=== PATIENT | male | born 1950 | race Caucasian/White ===

== ENCOUNTER → 2017-01-23 | Outpatient (CLI) | payer MEDICARE, OTHER ==
[2017-01-23 16:56] LABS: Blood Urea Nitrogen 16 mg/dL (9-20); Non-African American GFR(MDRD) >60 (>60 ml/min/1.73 sqM)
--- NOTE | 2017-01-23 19:54 | CT ---
EXAMINATION TYPE: CT abdomen pelvis w con DATE OF EXAM: 01/23/2017 COMPARISON: 05/15/2015 HISTORY: Umbilical pain incisional hernia CT DLP: 1776.9 mGycm Automated exposure control for dose reduction was used. TECHNIQUE: Helical acquisition of images was performed from the lung bases through the pelvis. CONTRAST: Performed with Oral Contrast and with IV Contrast, patient injected with 100 mL of Omnipaque 300. FINDINGS: Lung bases are clear of consolidation. There is no pleural effusion. Heart size is normal. There are clips from cholecystectomy. Exam is limited by motion. Liver shows no focal defect. Spleen and pancreas appear normal. There is no adrenal mass. Kidneys show satisfactory contrast opacificatio n. There is no hydronephrosis. There is no retroperitoneal adenopathy. There is no ascites. The right kidney is larger than the left. There is probably mild left renal cortical atrophy. There is a 8 mm cyst in the right kidney. The bladder is almost empty. There are spondylotic changes in the lumbar sp ine. I see no focal bone destruction. IMPRESSION: LEFT KIDNEY IS SMALLER THAN THE RIGHT AND CONSISTENT WITH SOME MILD ATROPHY. THIS IS UNCHANGED COMPAR ED TO OLD EXAM. THERE IS CLEARING OF THE INFLAMMATORY CHANGES IN THE SIGMOID COLON COMPARED TO OLD EX AM. There is some bulging of the anterior mid abdominal wall consistent with previous surgery and a b road-based mild incisional hernia. This appears not significantly different than old CT scan.
== END | disposition home or self-care (01) ==
LOC: RADCTMAIN 16:23
PROVIDERS: ATTEND Surgery
DX: K43.2 Incisional hernia without obstruction or gangrene (principal); N26.1 Atrophy of kidney (terminal); K52.9 Noninfective gastroenteritis and colitis, unspecified
CPT/HCPCS: 82565; 84520; 74177; 36415; Q9967

== ENCOUNTER → 2017-02-22 | Outpatient (CLI) | payer MEDICARE, OTHER ==
--- NOTE | 2017-02-23 14:06 | FL ---
EXAMINATION TYPE: FL sialography DATE OF EXAM: 02/22/2017 COMPARISON: NONE HISTORY: Right-sided swelling and facial pain for 4 months. TECHNIQUE: Fluoroscopic assisted right sided parotid sialogram. A total of 48 seconds of fluoroscopic time was utilized during procedure. 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 Cavitary fillings of bilateral maxi llary molar tooth are seen. There is absent right first molar tooth noted at mandibular level. No sissy picious soft tissue swelling is noted. A 30-gauge catheter is instilled into parotid duct orifice at maxillary molar tooth level using steri le technique. There is successful contrast opacification of Stensen duct without significant or suspi cious stenosis or filling defect on images saved. Multiple small branching ducts are felt within norm al limits. IMPRESSION: As above, no suspicious abnormality identified.
== END | disposition home or self-care (01) ==
LOC: RADFLMAIN 12:49
PROVIDERS: ATTEND Family Medicine
DX: R22.0 Localized swelling, mass and lump, head (principal)
CPT/HCPCS: 70390; Q9966

== ENCOUNTER → 2017-09-16 | Outpatient (CLI) | payer MEDICARE, OTHER ==
--- NOTE | 2017-09-16 22:57 | MR ---
EXAMINATION TYPE: MR neck wo con DATE OF EXAM: 09/16/2017 COMPARISON: Fluoroscopic assisted sialogram February 22, 2017 HISTORY: History of prostate cancer 2016 with right-sided facial swelling for one year. Standard multiplanar, multisequence MRI departmental protocol Multiplanar, multisequence images of the neck were acquired. FINDINGS: There is slight asymmetric prominence of the right parotid gland versus opposite left side without obvious mass or significant surrounding fat stranding or granular edema. Submandibular glands are symmetric and felt within normal limits. Visualized airway is grossly patent. Visualized lung apices are grossly clear. A few tiny nodules are seen in the upper aspect of the thyroid gland measuring under 5 mm in size. There is no suspicious greater than 1 cm neck adenopathy identified bilaterally. No worrisome fluid c ollection is seen. Visualized portion of brain parenchyma is grossly unremarkable. IMPRESSION: Slight asymmetric prominence or enlargement of right parotid gland without evidence of inflammatory c hange or suspicious mass.
== END ==
LOC: RADMRIMAIN 11:35
PROVIDERS: ATTEND Otolaryngology Plastic Surgery within the Head & Neck
DX: K11.1 Hypertrophy of salivary gland (principal)
CPT/HCPCS: 70540

== ENCOUNTER → 2018-04-03 | Outpatient (CLI) | payer MEDICARE ==
--- NOTE | 2018-04-03 09:42 | CT ---
EXAMINATION TYPE: CT chest wo con DATE OF EXAM: 04/03/2018 COMPARISON: Most recent chest x-ray at this institution August 04, 2015 HISTORY: Abnormal CXR CT DLP: 520.8 mGycm. Automated Exposure Control for Dose Reduction was Utilized. TECHNIQUE: CT scan of the thorax is performed without IV contrast. FINDINGS: LUNGS: There is suspicious 8 x 6 mm nodule anteriorly left upper lobe axial image 14. There is some l inear scarring and/or atelectasis in the left midlung axial image 28. No pleural effusion or pneumoth orax is present bilaterally. There is no pleural effusion or pneumothorax seen. The tracheobronchia l tree is patent. MEDIASTINUM: Lack of IV contrast is noted to limit evaluation for mediastinal and especially hilar ad enopathy. There is slightly enlarged hyperdense 1.3 x 1.2 cm prevascular lymph node axial image 19. No cardiomegaly or pericardial effusion is seen. Prominence of the intra-arterial fat is noted axial image 32 consistent with lipomatous hypertrophy of the interarterial septum. Focal mild to moderate coronary artery calcification proximal LAD axial image 27 is noted. Ascending aorta measures up to 4. 1 cm in diameter axial image 24 OTHER: Cholecystectomy clips are seen. Mild splenomegaly is present measuring 14.0 cm long axis coron al image 71. Liver is diffusely hypodense consistent with fatty infiltration. There are 2 calculi beatriz suring 2 mm or smaller upper pole right kidney coronal image 70 there is moderate to severe multileve l anterior and lateral spurring in the mid to lower thoracic spine with dextroconvex scoliotic curvat ure centered in the mid thoracic spine. IMPRESSION: 1. Suspicious 8 x 6 mm anterior left upper lobe nodule and slightly enlarged prevascular lymph node. Neoplasm cannot be excluded. Advise PET CT follow-up. 2. Incidental 4.1 cm aneurysm of ascending aorta.
== END | disposition home or self-care (01) ==
LOC: RADCTMAIN 08:49
PROVIDERS: ATTEND Family Medicine
DX: R91.1 Solitary pulmonary nodule (principal); R59.0 Localized enlarged lymph nodes
CPT/HCPCS: 71250

== ENCOUNTER → 2018-06-09 | Outpatient (CLI) | payer MEDICARE ==
--- NOTE | 2018-06-12 17:28 | PE ---
Nuclear medicine PET/CT HISTORY: Solitary pulmonary nodule left lung, initial Patient received 11.7 mCi F-18 FDG intravenously in delayed scanning was performed from the skull bas e through the mid thighs. Localization and attenuation correction CT scan was performed. Correlation to chest CT 04/03/2018 Neck and chest: There is no cervical adenopathy, no supraclavicular mass. No mediastinal, axillary, o r hilar adenopathy. Ascending aorta is aneurysmal. Measures approximately 4.4 cm in the ascending por tion and 3.1 cm in the descending aorta, the heart is enlarged. There are coronary artery calcificati ons. No endobronchial lesion, pleural or pericardial effusion. Left upper lobe lung nodule measures only approximately 9 mm, there is no associated hypermetabolic u ptake. Abdomen pelvis: No adrenal mass. Patient is post cholecystectomy. The spleen is enlarged. Liver shows low attenuation possibly due to hepatic steatosis. Liver is enlarged. Nonobstructive calculi present within the bilateral kidneys. No retroperitoneal adenopathy or ascites. Postop changes are noted to the anterior abdominal wall. Pancreas is normal. No suspicious hypermetabolic uptake. Extensive diver ticular change noted in the sigmoid colon. Question prostatectomy change. There is a hiatal hernia. Osseous structures are unremarkable. IMPRESSION: No suspicious hypermetabolic uptake. Additional findings above.
== END | disposition home or self-care (01) ==
LOC: RADPETMAIN 07:27
PROVIDERS: ATTEND Internal Medicine Critical Care Medicine
DX: R91.1 Solitary pulmonary nodule (principal); E11.9 Type 2 diabetes mellitus without complications; I25.10 Atherosclerotic heart disease of native coronary artery without angina pectoris; N20.0 Calculus of kidney; K44.9 Diaphragmatic hernia without obstruction or gangrene; I71.2 Thoracic aortic aneurysm, without rupture; Z90.49 Acquired absence of other specified parts of digestive tract; Z92.3 Personal history of irradiation
CPT/HCPCS: 78815; A9552

== ENCOUNTER 2018-11-01 21:25 | Emergency (ER) | payer MEDICARE ==
[2018-11-01 21:47] VITALS: BP 167/85; RESP 20
[2018-11-01] MEDS ORDERED: ACETAMINOPHEN TAB 500 MG TAB PO STA (22:28)
[2018-11-01] MEDS ORDERED: IPRATROPIUM-ALBUTEROL 3 ML NEB INHALATION STA (22:29)
--- NOTE | 2018-11-01 22:33 | ED ---
General Adult HPI - General Chief complaint: Upper Respiratory Infection Stated complaint: Cough Time Seen by Provider: 11/01/18 21:48 Source: patient, RN notes reviewed Mode of arrival: ambulatory Limitations: no limitations - History of Present Illness Initial comments: Patient is a pleasant 68-year-old male presenting to the emergency Department with complaints of cough. Onset of symptoms was close to 1 week ago. Symptoms have progressed. Cough is dry nonproductive. Patient is feeling a little short of breath. Patient's did have similar symptoms and was diagnosed with pneumonia around 1 week ago. Patient did see his doctor 2 days ago and was started on clindamycin however no improvement of symptoms. No chest pain. No leg pain or leg swelling. Patient has subjective fevers at nighttime. - Related Data Home Medications Medication Instructions Recorded Confirmed DULoxetine HCL [Cymbalta] 60 mg PO BID 01/14/15 11/01/18 glipiZIDE [Glucotrol] 10 mg PO AC-BID 01/14/15 11/01/18 sitaGLIPtin [Januvia] 100 mg PO DAILY 01/14/15 11/01/18 Bimatoprost [Lumigan .01% Ophth 1 drop BOTH EYES HS 01/15/15 11/01/18 Soln] Potassium Citrate [Urocit-K] 10 meq PO BID 07/13/15 11/01/18 Clindamycin HCl 300 mg PO TID 11/01/18 11/01/18 Insulin NPH Human Isophane 12 unit SQ HS 11/01/18 11/01/18 [NovoLIN N] Insulin NPH Human Isophane 25 units SQ QAM 11/01/18 11/01/18 [NovoLIN N] Insulin Regular, Human [NovoLIN R] 10 unit SQ BID 11/01/18 11/01/18 Timolol 0.5% Ophth Soln [Timoptic 1 drop BOTH EYES BID 11/01/18 11/01/18 0.5% Ophth Soln] guaiFENesin-Coden 100-10MG/5ML 5 ml PO Q4H PRN 11/01/18 11/01/18 [Robitussin AC] Previous Rx's Medication Instructions Recorded Albuterol Inhaler [Ventolin Hfa 2 puff INHALATION Q4HR PRN #1 11/01/18 Inhaler] inhaler methylPREDNISolone Dose Pack 24 mg PO DAILY #1 tab 11/01/18 [Medrol Dose Pack] Allergies Allergy/AdvReac Type Severity Reaction Status Date / Time Iodinated Contrast- Oral and Allergy Nausea & Verified 11/01/18 22:03 IV Dye Vomiting Penicillins Allergy Swelling Verified 11/01/18 22:03 propoxyphene napsylate Allergy Rash/Hives Verified 11/01/18 22:03 [From Darvocet-N] iohexol AdvReac Nausea & Verified 11/01/18 22:03 Vomiting Review of Systems ROS Statement: Those systems with pertinent positive or pertinent negative responses have been documented in the HPI. ROS Other: All systems not noted in ROS Statement are negative. Constitutional: Reports: as per HPI Eyes: Denies: eye pain ENT: Denies: ear pain Respiratory: Reports: cough, dyspnea Cardiovascular: Denies: chest pain, palpitations Endocrine: Reports: fatigue Gastrointestinal: Denies: abdominal pain Genitourinary: Denies: dysuria Musculoskeletal: Denies: back pain Skin: Denies: rash Neurological: Denies: weakness Past Medical History Past Medical History: Cancer, Diabetes Mellitus, Eye Disorder, Hyperlipidemia, Hypertension, Osteoarthritis (OA), Prostate Disorder Additional Past Medical History / Comment(s): Kidney Stones; glaucoma; diverticulitis. Past hx of HTN. Prostate Cancer 07/2015, SURGERY, RADIATON. INCISIONAL HERNIA. History of Any Multi-Drug Resistant Organisms: None Reported Past Surgical History: Cholecystectomy, Hernia Repair, Prostate Surgery Additional Past Surgical History / Comment(s): Multiple Lithotripsies , Left Cataract removal. finger surgery. Hernia repair w/ mesh; UMBILICAL HERNIA. Cyst removed from tailbone. Past Anesthesia/Blood Transfusion Reactions: No Reported Reaction Past Psychological History: Anxiety, Depression Smoking Status: Former smoker Past Alcohol Use History: None Reported Past Drug Use History: None Reported - Past Family History Brother(s) Family Medical History: Cancer Additional Family Medical History / Comment(s): Skin cancer Father Family Medical History: Cancer Additional Family Medical History / Comment(s): Skin cancer Mother Family Medical History: Cancer Additional Family Medical History / Comment(s): Skin cancer. General Exam Limitations: no limitations General appearance: alert, in no apparent distress Head exam: Present: atraumatic Eye exam: Present: normal appearance, PERRL ENT exam: Present: normal oropharynx Neck exam: Present: normal inspection Respiratory exam: Present: rhonchi Cardiovascular Exam: Present: regular rate, normal rhythm GI/Abdominal exam: Present: soft. Absent: tenderness Extremities exam: Present: normal inspection. Absent: pedal edema, calf tenderness Back exam: Present: normal inspection Neurological exam: Present: alert Psychiatric exam: Present: normal affect, normal mood Skin exam: Present: normal color Course Vital Signs 11/01/18 11/01/18 11/01/18 21:43 23:11 23:21 Temperature 99.7 F H Pulse Rate 88 81 84 Respiratory 20 Rate Blood Pressure 167/85 O2 Sat by Pulse 97 Oximetry EKG Findings - EKG Comments: EKG Findings:: Sinus rhythm at 82. [place] 154. QRS 86. QT 376. QTc 439. Normal axis. Madelin; QRS. No acute ST change. Medical Decision Making - Medical Decision Making Patient reevaluated and resting comfortably in bed, patient does feel somewhat improved. Patient and family updated on results and need for follow-up. - Lab Data Result diagrams: 11/01/18 22:14 11/01/18 22:14 Lab Results 11/01/18 11/01/18 11/01/18 Range/Units 22:14 22:14 22:14 WBC 5.3 (3.8-10.6) k/uL RBC 4.91 (4.30-5.90) m/uL Hgb 13.9 (13.0-17.5) gm/dL Hct 41.8 (39.0-53.0) % MCV 85.1 (80.0-100.0) fL MCH 28.4 (25.0-35.0) pg MCHC 33.4 (31.0-37.0) g/dL RDW 15.5 (11.5-15.5) % Plt Count 154 (150-450) k/uL Neutrophils % 67 % Lymphocytes % 19 % Monocytes % 4 % Eosinophils % 8 % Basophils % 1 % Neutrophils # 3.5 (1.3-7.7) k/uL Lymphocytes # 1.0 (1.0-4.8) k/uL Monocytes # 0.2 (0-1.0) k/uL Eosinophils # 0.4 (0-0.7) k/uL Basophils # 0.0 (0-0.2) k/uL PT 10.1 (9.0-12.0) sec INR 0.9 (<1.2) APTT 24.3 (22.0-30.0) sec D-Dimer 0.55 (<0.60) mg/L FEU Sodium 137 (137-145) mmol/L Potassium 4.5 (3.5-5.1) mmol/L Chloride 102 (98-107) mmol/L Carbon Dioxide 26 (22-30) mmol/L Anion Gap 9 mmol/L BUN 16 (9-20) mg/dL Creatinine 1.06 (0.66-1.25) mg/dL Est GFR (CKD-EPI)AfAm 84 (>60 ml/min/1.73 sqM) Est GFR (CKD-EPI)NonAf 73 (>60 ml/min/1.73 sqM) Glucose 303 H (74-99) mg/dL Calcium 9.3 (8.4-10.2) mg/dL Total Bilirubin 0.6 (0.2-1.3) mg/dL AST 53 (17-59) U/L ALT 29 (21-72) U/L Alkaline Phosphatase 108 (38-126) U/L NT-Pro-B Natriuret Pep pg/mL Total Protein 7.2 (6.3-8.2) g/dL Albumin 4.2 (3.5-5.0) g/dL /11/14 Range/Units 22:14 WBC (3.8-10.6) k/uL RBC (4.30-5.90) m/uL Hgb (13.0-17.5) gm/dL Hct (39.0-53.0) % MCV (80.0-100.0) fL MCH (25.0-35.0) pg MCHC (31.0-37.0) g/dL RDW (11.5-15.5) % Plt Count (150-450) k/uL Neutrophils % % Lymphocytes % % Monocytes % % Eosinophils % % Basophils % % Neutrophils # (1.3-7.7) k/uL Lymphocytes # (1.0-4.8) k/uL Monocytes # (0-1.0) k/uL Eosinophils # (0-0.7) k/uL Basophils # (0-0.2) k/uL PT (9.0-12.0) sec INR (<1.2) APTT (22.0-30.0) sec D-Dimer (<0.60) mg/L FEU Sodium (137-145) mmol/L Potassium (3.5-5.1) mmol/L Chloride (98-107) mmol/L Carbon Dioxide (22-30) mmol/L Anion Gap mmol/L BUN (9-20) mg/dL Creatinine (0.66-1.25) mg/dL Est GFR (CKD-EPI)AfAm (>60 ml/min/1.73 sqM) Est GFR (CKD-EPI)NonAf (>60 ml/min/1.73 sqM) Glucose (74-99) mg/dL Calcium (8.4-10.2) mg/dL Total Bilirubin (0.2-1.3) mg/dL AST (17-59) U/L ALT (21-72) U/L Alkaline Phosphatase (38-126) U/L NT-Pro-B Natriuret Pep 88 pg/mL Total Protein (6.3-8.2) g/dL Albumin (3.5-5.0) g/dL - Radiology Data Radiology results: image reviewed (Chest x-ray shows no acute process) Disposition Clinical Impression: Bronchitis Disposition: HOME SELF-CARE Condition: Stable Additional Instructions: Please do follow-up with primary care physician in the next couple days for recheck. Return for difficulty in breathing, uncontrolled fevers, worsening symptoms or chest pain or other concerns. Prescriptions: methylPREDNISolone Dose Pack [Medrol Dose Pack] 24 mg PO DAILY #1 tab Albuterol Inhaler [Ventolin Hfa Inhaler] 2 puff INHALATION Q4HR PRN #1 inhaler PRN Reason: Dyspnea Is patient prescribed a controlled substance at d/c from ED?: No Referrals: Jim Mckinnon MD [Primary Care Provider] - 1-2 days Time of Disposition: 23:38
[2018-11-01 22:52] LABS: Basophils % (A) 1 %; Eosinophils # (A) 0.4 k/uL (0-0.7); Eosinophils % (A) 8 %; HCT 41.8 % (39.0-53.0); HGB 13.9 gm/dL (13.0-17.5); Lymphocytes % (A) 19 %; MCH 28.4 pg (25.0-35.0); MCHC 33.4 g/dL (31.0-37.0); MCV 85.1 fL (80.0-100.0); Mean Platelet Volume 8.2; Monocytes # (A) 0.2 k/uL (0-1.0); Monocytes % (A) 4 %; Neutrophils # (A) 3.5 k/uL (1.3-7.7); Neutrophils % (A) 67 %; Platelet Count 154 k/uL (150-450); RBC 4.91 m/uL (4.30-5.90); RDW 15.5 % (11.5-15.5); WBC 5.3 k/uL (3.8-10.6)
[2018-11-01 23:04] LABS: D-Dimer 0.55 mg/L FEU (<0.60); INR 0.9 (<1.2); Partial Thromboplastin Time 24.3 sec (22.0-30.0); Prothrombin Time 10.1 sec (9.0-12.0)
[2018-11-01 23:05] LABS: Albumin 4.2 g/dL (3.5-5.0); Calcium 9.3 mg/dL (8.4-10.2); Potassium 4.5 mmol/L (3.5-5.1); Total Bilirubin 0.6 mg/dL (0.2-1.3); Total Protein 7.2 g/dL (6.3-8.2)
--- NOTE | 2018-11-01 23:08 | XR ---
EXAM: XR Chest, 2 Views CLINICAL HISTORY: ITS.REASON XR Reason: difficulty breathing TECHNIQUE: Frontal and lateral views of the chest. COMPARISON: Chest radiograph on 08/04/2015 FINDINGS: Hardware: None. Lungs/pleura: Mild atelectasis in the left mid and lower lung. No focal consolidation. No pleural effusion or pneumothorax. Stable mild elevation of the right hemidiaphragm. Heart/mediastinum: Normal. No cardiomegaly. Soft tissues: Unremarkable. Bones: No acute fracture. Degenerative changes of the spine. Upper abdomen: Normal. IMPRESSION: No acute disease identified. Mild atelectasis in the left mid and lower lung.
[2018-11-01 23:22] VITALS: PULSE 84
[2018-11-01 23:41] LABS: Glucose,Whole Blood 211 mg/dL (75-99)
[2018-11-01] MEDS ORDERED: methylPREDNISolone SOD SUCCI 125 MG/2 ML VIAL IV STA (23:43)
[2018-11-02] VITALS: TEMP 98.4
== END 2018-11-01 23:56 | disposition home or self-care (01) ==
LOC: EC 21:25
DX: J40 Bronchitis, not specified as acute or chronic (principal); E11.9 Type 2 diabetes mellitus without complications; H40.9 Unspecified glaucoma; F32.9 Major depressive disorder, single episode, unspecified; F41.9 Anxiety disorder, unspecified; Z87.891 Personal history of nicotine dependence; Z88.0 Allergy status to penicillin; Z88.5 Allergy status to narcotic agent; Z91.041 Radiographic dye allergy status; Z79.4 Long term (current) use of insulin; Z79.899 Other long term (current) drug therapy; Z85.46 Personal history of malignant neoplasm of prostate; Z92.3 Personal history of irradiation; Z98.890 Other specified postprocedural states
CPT/HCPCS: 36415; 94640; 93005; 85379; 83880; 80053; 85025; 85610; 85730; 87040; 71046; 99285; 96374; J2930

== ENCOUNTER → 2018-11-06 | Outpatient (CLI) | payer MEDICARE ==
--- NOTE | 2018-11-06 11:52 | XR ---
KUB HISTORY: Left flank pain, calculus of kidney Frontal KUB submitted and correlated to previous exam 05/04/2015, grade medicine PET/CT 06/09/2018, CT scan of the abdomen dated 01/23/2017 The calcification at the lower pole left kidney measures approximately 1 cm in greatest dimension by 4 to 5 mm in transverse dimension. Questionable punctate calcification at the midpole is not seen on prior PET/CT within the left kidney. The small calcifications within the right kidney seen on prior P ET/CT are obscured by overlying bowel gas on today's exam. There is extensive retained fecal debris w ithin the colon. Phlebolith is present in the right hemipelvis. Surgical clips are present in the rig ht upper quadrant. Degenerative disc change in the visualized spine. IMPRESSION: Left-sided nephrolithiasis and limitations as described.
== END | disposition home or self-care (01) ==
LOC: RADXRMAIN 10:58
PROVIDERS: ATTEND Urology
DX: N20.0 Calculus of kidney (principal); Z88.0 Allergy status to penicillin; Z88.5 Allergy status to narcotic agent
CPT/HCPCS: 74018

== ENCOUNTER 2018-11-14 01:15 | Emergency (ER) | payer MEDICARE ==
[2018-11-14 01:21] VITALS: RESP 18
[2018-11-14] MEDS ORDERED: MORPHINE SULFATE 4 MG/ML SYRINGE IV STA (02:02)
--- NOTE | 2018-11-14 02:05 | ED ---
Male Urogenital HPI - General Chief complaint: Urogenital Stated complaint: Abd Pain Time Seen by Provider: 11/14/18 01:34 Source: patient, EMS Mode of arrival: EMS Limitations: no limitations - History of Present Illness Initial comments: This patient is 68-year-old man presents to be evaluated for what he believes his urinary retention. Patient states that he had a urologic procedure at [facility] today by Dr. Pacheco. He beleaves it was a laser lithotripsy. Patient states that over the course of the last few hours it has felt like he has needed to urinate but he has not been able to. His tried taking the Keystone that was prescribed without relief. MD Complaint: other -: hour(s) Location: abdomen Severity: severe Quality: other (Pressure) Consistency: constant Improves with: none Worsens with: none Reports: urinary retention - Related Data Home Medications Medication Instructions Recorded Confirmed DULoxetine HCL [Cymbalta] 60 mg PO BID 01/14/15 11/01/18 glipiZIDE [Glucotrol] 10 mg PO AC-BID 01/14/15 11/01/18 sitaGLIPtin [Januvia] 100 mg PO DAILY 01/14/15 11/01/18 Bimatoprost [Lumigan .01% Ophth 1 drop BOTH EYES HS 01/15/15 11/01/18 Soln] Potassium Citrate [Urocit-K] 10 meq PO BID 07/13/15 11/01/18 Clindamycin HCl 300 mg PO TID 11/01/18 11/01/18 Insulin NPH Human Isophane 12 unit SQ HS 11/01/18 11/01/18 [NovoLIN N] Insulin NPH Human Isophane 25 units SQ QAM 11/01/18 11/01/18 [NovoLIN N] Insulin Regular, Human [NovoLIN R] 10 unit SQ BID 11/01/18 11/01/18 Timolol 0.5% Ophth Soln [Timoptic 1 drop BOTH EYES BID 11/01/18 11/01/18 0.5% Ophth Soln] guaiFENesin-Coden 100-10MG/5ML 5 ml PO Q4H PRN 11/01/18 11/01/18 [Robitussin AC] Previous Rx's Medication Instructions Recorded Albuterol Inhaler [Ventolin Hfa 2 puff INHALATION Q4HR PRN #1 11/01/18 Inhaler] inhaler methylPREDNISolone Dose Pack 24 mg PO DAILY #1 tab 11/01/18 [Medrol Dose Pack] HYDROcodone/APAP 7.5-325MG [Keystone 1 tab PO Q6HR PRN 3 Days #12 tab 11/14/18 7.5-325] Hyoscyamine Sulfate [Levsin] 0.125 mg PO Q4H PRN #16 tab 11/14/18 Allergies Allergy/AdvReac Type Severity Reaction Status Date / Time Iodinated Contrast- Oral and Allergy Nausea & Verified 11/01/18 22:03 IV Dye Vomiting Penicillins Allergy Swelling Verified 11/01/18 22:03 propoxyphene napsylate Allergy Rash/Hives Verified 11/01/18 22:03 [From Darvocet-N] iohexol AdvReac Nausea & Verified 11/01/18 22:03 Vomiting Review of Systems ROS Statement: Those systems with pertinent positive or pertinent negative responses have been documented in the HPI. ROS Other: All systems not noted in ROS Statement are negative. Constitutional: Denies: fever, chills Respiratory: Denies: cough, dyspnea Cardiovascular: Denies: chest pain, palpitations Gastrointestinal: Reports: abdominal pain. Denies: nausea, vomiting, diarrhea, constipation Genitourinary: Denies: dysuria, discharge, testicular pain, testicular mass Musculoskeletal: Denies: back pain Skin: Denies: rash Neurological: Denies: headache Past Medical History Past Medical History: Cancer, Diabetes Mellitus, Eye Disorder, Hyperlipidemia, Hypertension, Osteoarthritis (OA), Prostate Disorder Additional Past Medical History / Comment(s): Kidney Stones; glaucoma; diverticulitis. Past hx of HTN. Prostate Cancer 07/2015, SURGERY, RADIATON. INCISIONAL HERNIA. History of Any Multi-Drug Resistant Organisms: None Reported Past Surgical History: Cholecystectomy, Hernia Repair, Prostate Surgery Additional Past Surgical History / Comment(s): Multiple Lithotripsies , Left Cataract removal. finger surgery. Hernia repair w/ mesh; UMBILICAL HERNIA. Cyst removed from tailbone. Past Anesthesia/Blood Transfusion Reactions: No Reported Reaction Past Psychological History: Anxiety, Depression Smoking Status: Former smoker Past Alcohol Use History: None Reported Past Drug Use History: None Reported - Past Family History Brother(s) Family Medical History: Cancer Additional Family Medical History / Comment(s): Skin cancer Father Family Medical History: Cancer Additional Family Medical History / Comment(s): Skin cancer Mother Family Medical History: Cancer Additional Family Medical History / Comment(s): Skin cancer. General Exam Limitations: no limitations General appearance: alert, in no apparent distress Head exam: Present: atraumatic, normocephalic Eye exam: Present: normal appearance. Absent: scleral icterus, conjunctival injection Respiratory exam: Present: normal lung sounds bilaterally. Absent: respiratory distress, wheezes, rales, rhonchi, stridor Cardiovascular Exam: Present: regular rate, normal rhythm, normal heart sounds. Absent: systolic murmur, diastolic murmur, rubs, gallop GI/Abdominal exam: Present: soft. Absent: distended, tenderness, guarding, rebound, rigid, mass Extremities exam: Present: normal inspection, normal capillary refill. Absent: pedal edema, calf tenderness Back exam: Present: normal inspection. Absent: CVA tenderness (R), CVA t enderness (L) Neurological exam: Present: alert Skin exam: Present: warm, dry, intact, normal color. Absent: rash Course Vital Signs 11/14/18 11/14/18 01:17 06:21 Temperature 98.7 F 98.0 F Pulse Rate 90 78 Respiratory 18 18 Rate Blood Pressure 165/94 151/89 O2 Sat by Pulse 96 97 Oximetry Medical Decision Making - Medical Decision Making Case discussed with Dr. Bryan, covering for urology. The patient's symptoms markedly improved. There is no urinary retention by the bladder scan. Patient appears to be within the expected postprocedural outcomes. Discussed further care and follow-up with the patient and partner. They will phone the clinic today - Lab Data Result diagrams: 11/14/18 01:23 11/14/18 01:23 Lab Results 11/14/18 11/14/18 11/14/18 Range/Units 01:23 01:23 02:10 WBC 14.3 H (3.8-10.6) k/uL RBC 5.10 (4.30-5.90) m/uL Hgb 14.3 (13.0-17.5) gm/dL Hct 42.9 (39.0-53.0) % MCV 84.2 (80.0-100.0) fL MCH 28.0 (25.0-35.0) pg MCHC 33.2 (31.0-37.0) g/dL RDW 15.5 (11.5-15.5) % Plt Count 187 (150-450) k/uL Neutrophils % 89 % Lymphocytes % 6 % Monocytes % 3 % Eosinophils % 1 % Basophils % 0 % Neutrophils # 12.8 H (1.3-7.7) k/uL Lymphocytes # 0.9 L (1.0-4.8) k/uL Monocytes # 0.4 (0-1.0) k/uL Eosinophils # 0.1 (0-0.7) k/uL Basophils # 0.1 (0-0.2) k/uL Sodium 134 L (137-145) mmol/L Potassium 5.5 H (3.5-5.1) mmol/L Chloride 98 (98-107) mmol/L Carbon Dioxide 24 (22-30) mmol/L Anion Gap 12 mmol/L BUN 18 (9-20) mg/dL Creatinine 1.16 (0.66-1.25) mg/dL Est GFR (CKD-EPI)AfAm 76 (>60 ml/min/1.73 sqM) Est GFR (CKD-EPI)NonAf 65 (>60 ml/min/1.73 sqM) Glucose 283 H (74-99) mg/dL Calcium 9.2 (8.4-10.2) mg/dL Urine Color Yellow Urine Appearance Clear (Clear) Urine pH 7.5 (5.0-8.0) Ur Specific Herrick 1.011 (1.001-1.035) Urine Protein Trace H (Negative) Urine Glucose (UA) 4+ H (Negative) Urine Ketones 1+ H (Negative) Urine Blood Moderate H (Negative) Urine Nitrite Negative (Negative) Urine Bilirubin Negative (Negative) Urine Urobilinogen <2.0 (<2.0) mg/dL Ur Leukocyte Esterase Negative (Negative) Urine RBC >182 H (0-5) /hpf Urine WBC 9 H (0-5) /hpf Urine Mucus Rare H (None) /hpf Disposition Clinical Impression: Renal colic Disposition: HOME SELF-CARE Condition: Good Instructions (If sedation given, give patient instructions): Renal Colic (ED) Prescriptions: Hyoscyamine Sulfate [Levsin] 0.125 mg PO Q4H PRN #16 tab PRN Reason: Pain HYDROcodone/APAP 7.5-325MG [Keystone 7.5-325] 1 tab PO Q6HR PRN 3 Days #12 tab PRN Reason: Pain Is patient prescribed a controlled substance at d/c from ED?: No Referrals: Jim Mckinnon MD [Primary Care Provider] - 1-2 days
[2018-11-14 02:23] LABS: Basophils # (A) 0.1 k/uL (0-0.2); Basophils % (A) 0 %; Eosinophils # (A) 0.1 k/uL (0-0.7); Eosinophils % (A) 1 %; HCT 42.9 % (39.0-53.0); HGB 14.3 gm/dL (13.0-17.5); Lymphocytes # (A) 0.9 k/uL (1.0-4.8); Lymphocytes % (A) 6 %; MCHC 33.2 g/dL (31.0-37.0); MCV 84.2 fL (80.0-100.0); Monocytes # (A) 0.4 k/uL (0-1.0); Monocytes % (A) 3 %; Neutrophils # (A) 12.8 k/uL (1.3-7.7); Neutrophils % (A) 89 %; Platelet Count 187 k/uL (150-450); RDW 15.5 % (11.5-15.5); WBC 14.3 k/uL (3.8-10.6)
[2018-11-14 02:32] LABS: Calcium 9.2 mg/dL (8.4-10.2)
[2018-11-14 02:33] LABS: Potassium 5.5 mmol/L (3.5-5.1)
[2018-11-14 02:42] LABS: Appearance,Urine Clear (Clear); Bilirubin,Urine Negative (Negative); Blood,Urine Moderate (Negative); Color,Urine Yellow; Glucose,Urine (UA) 4+ (Negative); Ketones,Urine 1+ (Negative); Leukocyte Esterase,Urine Negative (Negative); Mucus,Urine Rare /hpf; Nitrite,Urine Negative (Negative); PH, Urine 7.5 (5.0-8.0); Protein,Urine Trace (Negative); RBC,Urine >182 /hpf (0-5); Specific Gravity,Urine 1.011 (1.001-1.035); Urobilinogen,Urine <2.0 mg/dL (<2.0); WBC,Urine 9 /hpf (0-5)
[2018-11-14] MEDS ORDERED: HYDROmorphone 1 MG/ML 1 ML SYRINGE IVP STA (03:04)
[2018-11-14] MEDS ORDERED: HYDROmorphone 0.5 MG/0.5 ML SYRINGE IVP STA (06:10)
[2018-11-14 06:25] VITALS: BP 151/89; PULSE 78; TEMP 98
== END 2018-11-14 06:36 | disposition home or self-care (01) ==
LOC: EC 01:15
DX: N23 Unspecified renal colic (principal); E11.9 Type 2 diabetes mellitus without complications; F41.9 Anxiety disorder, unspecified; F32.9 Major depressive disorder, single episode, unspecified; Z79.4 Long term (current) use of insulin; Z79.899 Other long term (current) drug therapy; Z88.0 Allergy status to penicillin; Z88.8 Allergy status to other drugs, medicaments and biological substances; Z88.5 Allergy status to narcotic agent; Z91.041 Radiographic dye allergy status; Z85.46 Personal history of malignant neoplasm of prostate; Z90.49 Acquired absence of other specified parts of digestive tract; Z87.891 Personal history of nicotine dependence
CPT/HCPCS: 51798; 36415; 80048; 85025; 81001; 99284; 96374; 96375; 96376; J2270; J1170 ×2

== ENCOUNTER 2020-01-29 08:02 | Inpatient (IN) | payer MEDICARE ==
[2020-01-29] MEDS ORDERED: ASPIRIN 81 MG PO STA (08:22)
[2020-01-29] MEDS ORDERED: NITROGLYCERIN OINT 1 INCH/GM PACKET TOPICAL STA (08:22)
--- NOTE | 2020-01-29 08:27 | ED ---
General Adult HPI - General Chief complaint: Chest Pain Stated complaint: Chest pain Time Seen by Provider: 01/29/20 08:05 Source: patient, RN notes reviewed, old records reviewed Mode of arrival: wheelchair Limitations: no limitations - History of Present Illness Initial comments: This is a 69-year-old male whose past medical history significant for diabetes high blood pressure. Patient also states he has an extensive family history of coronary artery disease. Patient states for the last 3 days been having some right-sided chest pain it does not relieve with any antacids. Patient states his been coming and going but the last day or so it's been a little more consistent. Patient denies any difficulty breathing but he does state it radiates to his back. Patient states he has a aneurysm in the ascending aorta that they're watching he states it's 4 cm. Patient denies any diaphoresis. Patient denies any nausea. Patient denies any swelling to the leg patient denies any calf tenderness. Patient denies abdominal pain. Patient denies any recent fever chills or cough per patient vomiting or diarrhea. Patient denies headache patient denies lightheadedness dizziness. Patient denies any numbness or weakness - Related Data Home Medications Medication Instructions Recorded Confirmed glipiZIDE [Glucotrol] 10 mg PO AC-BID 01/14/15 01/29/20 sitaGLIPtin [Januvia] 100 mg PO DAILY 01/14/15 01/29/20 Potassium Citrate [Urocit-K] 10 meq PO BID 07/13/15 01/29/20 Insulin NPH Human Isophane 10 unit SQ HS 11/01/18 01/29/20 [NovoLIN N] Insulin NPH Human Isophane 25 units SQ QAM 11/01/18 01/29/20 [NovoLIN N] Insulin Regular, Human [NovoLIN R] 10 unit SQ AC-SUPPER 11/01/18 01/29/20 Timolol 0.5% Ophth Soln [Timoptic 1 drop BOTH EYES BID 11/01/18 01/29/20 0.5% Ophth Soln] Insulin Regular, Human [NovoLIN R] 5 unit SQ AC-BID@0800,1200 01/29/20 01/29/20 Latanoprost [Xalatan 0.005%] 1 drop BOTH EYES HS 01/29/20 01/29/20 Venlafaxine HCl ER [Effexor Xr] 75 mg PO DAILY 01/29/20 01/29/20 amLODIPine [Norvasc] 5 mg PO DAILY 01/29/20 01/29/20 Allergies Allergy/AdvReac Type Severity Reaction Status Date / Time Penicillins Allergy Swelling Verified 01/29/20 09:55 propoxyphene napsylate Allergy Rash/Hives Verified 01/29/20 09:55 [From Darvocet-N] Iodinated Contrast Media AdvReac Nausea & Verified 01/29/20 09:55 [Iodinated Contrast- Oral Vomiting and IV Dye] iohexol AdvReac Nausea & Verified 01/29/20 09:55 Vomiting Review of Systems ROS Statement: Those systems with pertinent positive or pertinent negative responses have been documented in the HPI. ROS Other: All systems not noted in ROS Statement are negative. Past Medical History Past Medical History: Cancer, Diabetes Mellitus, Eye Disorder, Hyperlipidemia, Hypertension, Osteoarthritis (OA), Prostate Disorder Additional Past Medical History / Comment(s): Kidney Stones; glaucoma; diverticulitis. Past hx of HTN. Prostate Cancer 07/2015, SURGERY, RADIATON. INCISIONAL HERNIA. History of Any Multi-Drug Resistant Organisms: None Reported Past Surgical History: Cholecystectomy, Hernia Repair, Prostate Surgery Additional Past Surgical History / Comment(s): Multiple Lithotripsies , Left Cataract removal. finger surgery. Hernia repair w/ mesh; UMBILICAL HERNIA. Cyst removed from tailbone. Past Anesthesia/Blood Transfusion Reactions: No Reported Reaction Past Psychological History: Depression Smoking Status: Never smoker Past Alcohol Use History: None Reported Past Drug Use History: None Reported - Past Family History Brother(s) Family Medical History: Cancer Additional Family Medical History / Comment(s): Skin cancer Father Family Medical History: Cancer Additional Family Medical History / Comment(s): Skin cancer Mother Family Medical History: Cancer Additional Family Medical History / Comment(s): Skin cancer. General Exam - General Exam Comments Initial Comments: GENERAL: Patient is well-developed and well-nourished. Patient is nontoxic and well- hydrated and is in mild distress. ENT: Neck is soft and supple. No significant lymphadenopathy is noted. Oropharynx is clear. Moist mucous membranes. Neck has full range of motion without eliciting any pain. EYES: The sclera were anicteric and conjunctiva were pink and moist. Extraocular movements were intact and pupils were equal round and reactive to light. Eyelids were unremarkable. PULMONARY: Unlabored respirations. Good breath sounds bilaterally. No audible rales rhonchi or wheezing was noted. CARDIOVASCULAR: There is a regular rate and rhythm without any murmurs gallops or rubs. ABDOMEN: Soft and nontender with normal bowel sounds. No palpable organomegaly was noted. There is no palpable pulsatile mass. SKIN: Skin is clear with no lesions or rashes and otherwise unremarkable. NEUROLOGIC: Patient is alert and oriented x3. Cranial nerves II through XII are grossly intact. Motor and sensory are also intact. Normal speech, volume and content. Symmetrical smile. MUSCULOSKELETAL: Normal extremities with adequate strength and full range of motion. No lower extremity swelling or edema. No calf tenderness. LYMPHATICS: No significant lymphadenopathy is noted PSYCHIATRIC: Normal psychiatric exam Limitations: no limitations Course Vital Signs 01/29/20 01/29/20 01/29/20 08:04 10:14 10:57 Temperature 98.3 F 97.9 F Pulse Rate 67 64 68 Respiratory 18 16 18 Rate Blood Pressure 177/98 153/92 152/91 O2 Sat by Pulse 99 96 97 Oximetry Medical Decision Making - Medical Decision Making EKG shows normal sinus rhythm at 60 bpm VT interval is 166 dresses 92 QT interval 38 QTC is 412. Patient's EKG shows no ST segment elevation or depression. Chest x-ray shows no acute abnormality. CT of the chest shows a stable aorta. I started the patient heparin for the unstable angina. Patient started to have increased pain so the patient received a sublingual nitro as well as another EKG. Second EKG was done with the patient was having a little more pain showed a sinus rhythm. Rate of 70 bpm VT interval is 162 QRS is 90 QT intervals 42 QTC is 434. Patient's EKG shows no ST segment elevation or depression. - Lab Data Result diagrams: 01/29/20 08:24 01/29/20 08:24 Lab Results 01/29/20 01/29/20 01/29/20 Range/Units 08:24 08:24 08:24 WBC 7.6 (3.8-10.6) k/uL RBC 5.20 (4.30-5.90) m/uL Hgb 15.3 (13.0-17.5) gm/dL Hct 45.1 (39.0-53.0) % MCV 86.8 (80.0-100.0) fL MCH 29.4 (25.0-35.0) pg MCHC 33.8 (31.0-37.0) g/dL RDW 14.2 (11.5-15.5) % Plt Count 159 (150-450) k/uL Neutrophils % 72 % Lymphocytes % 19 % Monocytes % 4 % Eosinophils % 4 % Basophils % 1 % Neutrophils # 5.4 (1.3-7.7) k/uL Lymphocytes # 1.4 (1.0-4.8) k/uL Monocytes # 0.3 (0-1.0) k/uL Eosinophils # 0.3 (0-0.7) k/uL Basophils # 0.1 (0-0.2) k/uL PT 10.3 (9.0-12.0) sec INR 1.0 (<1.2) APTT 23.4 (22.0-30.0) sec Sodium 137 (137-145) mmol/L Potassium 4.5 (3.5-5.1) mmol/L Chloride 104 (98-107) mmol/L Carbon Dioxide 21 L (22-30) mmol/L Anion Gap 12 mmol/L BUN 17 (9-20) mg/dL Creatinine 0.82 (0.66-1.25) mg/dL Est GFR (CKD-EPI)AfAm >90 (>60 ml/min/1.73 sqM) Est GFR (CKD-EPI)NonAf >90 (>60 ml/min/1.73 sqM) Glucose 198 H (74-99) mg/dL Calcium 10.0 (8.4-10.2) mg/dL Magnesium 1.7 (1.6-2.3) mg/dL Total Bilirubin 0.7 (0.2-1.3) mg/dL AST 42 (17-59) U/L ALT 26 (4-49) U/L Alkaline Phosphatase 91 (38-126) U/L Troponin I (0.000-0.034) ng/mL Total Protein 7.4 (6.3-8.2) g/dL Albumin 4.4 (3.5-5.0) g/dL 01/29/20 Range/Units 08:24 WBC (3.8-10.6) k/uL RBC (4.30-5.90) m/uL Hgb (13.0-17.5) gm/dL Hct (39.0-53.0) % MCV (80.0-100.0) fL MCH (25.0-35.0) pg MCHC (31.0-37.0) g/dL RDW (11.5-15.5) % Plt Count (150-450) k/uL Neutrophils % % Lymphocytes % % Monocytes % % Eosinophils % % Basophils % % Neutrophils # (1.3-7.7) k/uL Lymphocytes # (1.0-4.8) k/uL Monocytes # (0-1.0) k/uL Eosinophils # (0-0.7) k/uL Basophils # (0-0.2) k/uL PT (9.0-12.0) sec INR (<1.2) APTT (22.0-30.0) sec Sodium (137-145) mmol/L Potassium (3.5-5.1) mmol/L Chloride (98-107) mmol/L Carbon Dioxide (22-30) mmol/L Anion Gap mmol/L BUN (9-20) mg/dL Creatinine (0.66-1.25) mg/dL Est GFR (CKD-EPI)AfAm (>60 ml/min/1.73 sqM) Est GFR (CKD-EPI)NonAf (>60 ml/min/1.73 sqM) Glucose (74-99) mg/dL Calcium (8.4-10.2) mg/dL Magnesium (1.6-2.3) mg/dL Total Bilirubin (0.2-1.3) mg/dL AST (17-59) U/L ALT (4-49) U/L Alkaline Phosphatase (38-126) U/L Troponin I <0.012 (0.000-0.034) ng/mL Total Protein (6.3-8.2) g/dL Albumin (3.5-5.0) g/dL Critical Care Time Critical Care Time: Yes Total Critical Care Time: 35 Disposition Clinical Impression: Unstable angina pectoris Disposition: ADMITTED IP TO THIS HOSP Referrals: Jim Mckinnon MD [Primary Care Provider] - 1-2 days Time of Disposition: 10:41
--- NOTE | 2020-01-29 08:46 | XR ---
EXAMINATION TYPE: XR chest 2V DATE OF EXAM: 01/29/2020 COMPARISON: Prior chest x-ray 11/01/2018 HISTORY: Chest pain TECHNIQUE: Frontal and lateral views of the chest are obtained. FINDINGS: There is no focal air space opacity, pleural effusion, or pneumothorax seen. The cardiac silhouette size is within normal limits. There are overlying cardiac leads. Surgical clips are prese nt right upper quadrant. The osseous structures are intact. IMPRESSION: No acute cardiopulmonary process.
[2020-01-29 08:50] LABS: Basophils # (A) 0.1 k/uL (0-0.2); Basophils % (A) 1 %; Eosinophils # (A) 0.3 k/uL (0-0.7); Eosinophils % (A) 4 %; HCT 45.1 % (39.0-53.0); HGB 15.3 gm/dL (13.0-17.5); Lymphocytes # (A) 1.4 k/uL (1.0-4.8); Lymphocytes % (A) 19 %; MCH 29.4 pg (25.0-35.0); MCHC 33.8 g/dL (31.0-37.0); MCV 86.8 fL (80.0-100.0); Mean Platelet Volume 8.8; Monocytes # (A) 0.3 k/uL (0-1.0); Monocytes % (A) 4 %; Neutrophils # (A) 5.4 k/uL (1.3-7.7); Neutrophils % (A) 72 %; Platelet Count 159 k/uL (150-450); RDW 14.2 % (11.5-15.5); WBC 7.6 k/uL (3.8-10.6)
[2020-01-29 08:55] LABS: ALT 26 U/L (4-49); AST 42 U/L (17-59); African American GFR (CKD) >90 (>60 ml/min/1.73 sqM); Albumin 4.4 g/dL (3.5-5.0); Alkaline Phosphatase 91 U/L (38-126); Anion Gap 12 mmol/L; Blood Urea Nitrogen 17 mg/dL (9-20); Carbon Dioxide 21 mmol/L (22-30); Chloride 104 mmol/L (98-107); Glucose 198 mg/dL (74-99); Magnesium 1.7 mg/dL (1.6-2.3); Non-African American GFR(CKD) >90 (>60 ml/min/1.73 sqM); Potassium 4.5 mmol/L (3.5-5.1); Sodium 137 mmol/L (137-145); Total Bilirubin 0.7 mg/dL (0.2-1.3); Total Protein 7.4 g/dL (6.3-8.2)
[2020-01-29 09:08] LABS: Partial Thromboplastin Time 23.4 sec (22.0-30.0); Prothrombin Time 10.3 sec (9.0-12.0)
[2020-01-29] MEDS ORDERED: methylPREDNISolone SOD SUCCI 125 MG/2 ML VIAL IV STA (09:10)
[2020-01-29] MEDS ORDERED: FAMOTIDINE 20 MG/2 ML VIAL IV STA (09:10)
[2020-01-29] MEDS ORDERED: diphenhydrAMINE 50 MG/ML 1 ML VIAL IVP STA (09:10)
--- NOTE | 2020-01-29 10:38 | CT ---
EXAMINATION TYPE: CT angio thor/abd pel aorta DATE OF EXAM: 01/29/2020 COMPARISON: CT chest 04/03/2018, abdomen pelvis 01/15/2017 HISTORY: Chest pain CT DLP: 2129 mGycm. Automated Exposure Control for Dose Reduction was Utilized. CONTRAST: CT scan of the thorax, abdomen and pelvis is performed without and with IV Contrast, patient injected with 100 ml mL of Isovue 370. FINDINGS: LUNGS: The lungs are grossly clear, there is no concerning parenchymal mass or nodule identified. T here is no pleural effusion or pneumothorax seen. The tracheobronchial tree is patent. MEDIASTINUM: There are no greater than 1 cm hilar or mediastinal lymph nodes. No pericardial effusi on is seen. There are coronary artery calcifications. The ascending aorta measures 4.1 cm. Proximal descending aorta measures 3.5 cm. Aorta at the level of the hiatus is 3 cm. No infrarenal abdominal aortic aneurysm. There is no dissection or embolus evide nt. The inferior mesenteric artery, superior mesenteric artery, celiac axis, renal arteries, super ao rtic branch vessels are patent. LIVER/GB: No significant abnormality is appreciated. PANCREAS: No significant abnormality is seen. SPLEEN: Spleen is enlarged. ADRENALS: No significant abnormality is seen. KIDNEYS: Bilateral punctate nonobstructive calculi are present within the kidneys, left kidney somewh at atrophic show some cortical thinning. BOWEL: Diverticular changes associated with the sigmoid colon. The appendix is normal. GENITAL ORGANS: No gross abnormality seen. LYMPH NODES: No greater than 1cm abdominal or pelvic lymph nodes are appreciated. OSSEOUS STRUCTURES: No significant abnormality is seen. Anterior bridging flowing osteophytes are pre sent with preservation of the disc spaces within the visualized thoracic spine compatible with diffus e idiopathic skeletal hyperostosis. There are facet arthropathy changes in the lower lumbar spine, mi ld spinal curvature is noted. There is degenerative disc change in the lower lumbar spine. OTHER: Surgical clips are present along anterior abdominal wall. IMPRESSION: Stable aortic aneurysm. Bilateral nephrolithiasis. Diverticulosis.
[2020-01-29] MEDS ORDERED: HEPARIN SODIUM,PORCINE 5,000 UNIT/ML 1 ML VIAL IV ONE (10:39)
[2020-01-29] MEDS ORDERED: NITROGLYCERIN SL TABS 0.4 MG TAB SUBLINGUAL PRN (10:41)
[2020-01-29] MEDS: HEPARIN SOD,PORK IN 0.45% NACL 25,000 UNIT in 0.45% NACL 1 250ML.BAG IV SCH (10:49)
[2020-01-29 11:55] LABS: Glucose,Whole Blood 245 mg/dL (75-99)
[2020-01-29] MEDS: VENLAFAXINE HCL ER 75 MG CAP PO SCH (12:19)
[2020-01-29] MEDS: METOPROLOL TARTRATE 25 MG TAB PO SCH (12:24)
[2020-01-29] MEDS: amLODIPine 5 MG TAB PO SCH (12:24)
[2020-01-29] MEDS: ACETAMINOPHEN TAB 325 MG TAB PO PRN ×2 (12:26→22:14)
[2020-01-29] MEDS: NITROGLYCERIN OINT 1 INCH/GM PACKET TOPICAL SCH ×2 (12:27→17:10)
[2020-01-29] MEDS: INSULIN REGULAR 100 UNIT/ML VIAL SQ SCH ×2 (12:27→17:11)
[2020-01-29] MEDS: LINAGLIPTIN 5 MG TABLET PO SCH (12:27)
[2020-01-29] MEDS ORDERED: PANTOPRAZOLE 40 MG TABLET PO SCH (12:53)
--- NOTE | 2020-01-29 12:58 | P.CRDCN ---
History of Present Illness Consult date: 01/29/20 History of present illness: CHIEF COMPLAINT: Chest pain HISTORY OF PRESENT ILLNESS: 61-year-old male with a history of hypertension and diabetes mellitus who presented to the emergency room chief complaint chest pain. Patient states he has been having chest pain for the last 3 days. He states the pain has been pretty constant. He initially thought the pain is related to heartburn but it did not go away with [id number] antacids. He states pain does not get worse with exertion. He does report that the pain woke him up in the middle of the night yesterday. He denies shortness of breath. DIAGNOSTICS: EKG reveals sinus rhythm. Heart rate 70. Chest xray negative for acute cardiopulmonary process Laboratory data: WBC 7.6. Hemoglobin 15.3. Platelet count 159. Sodium 137. Potassium 4.5. BUN 17. Creatinine 0.82. Magnesium 1.7. Troponin negative 1. Current home cardiac medications include Norvasc 5 mg daily REVIEW OF SYSTEMS: CONSTITUTIONAL: Denies fever or chills. HEENT: Denies blurred vision, vision changes, or eye pain. Denies hemoptysis CARDIOVASCULAR: Reports chest pain. Denies orthopnea, PND or palpitations RESPIRATORY: No shortness of breath. GASTROINTESTINAL: Denies abdominal pain. Denies nausea or vomiting. HEMATOLOGIC: Denies bleeding disorders. GENITOURINARY: Denies any blood in urine. SKIN: Denies pruitis. Denies rash. PHYSICAL EXAM: VITAL SIGNS: Reviewed. GENERAL: Well-developed in no acute distress. HEENT: Head is normocephalic. Pupils are equal, round. Sclerae anicteric. Mucous membranes of the mouth are moist. Neck supple. No JVD or thyromegaly LUNGS: Respirations even and unlabored. Lungs essentially clear to auscultation bilaterally. HEART: Regular rate and rhythm. S1 and S2 heard. ABDOMEN: Soft. Nondistended. Nontender. EXTREMITIES: Normal range of motion. No clubbing or cyanosis. Peripheral pulses intact. No lower extremity edema NEUROLOGIC: Awake and alert. Oriented x 3. ASSESSMENT: Unstable angina Hypertension Diabetes mellitus, type II History of AAA Nephrolithiasis Family history of coronary artery disease PLAN: Continue IV heparin Decrease aspirin to 81 mg daily Continue Norvasc 5 mg daily. Monitor blood pressure Begin Lopressor 25 mg in a.m. and 12.5 mg at bedtime Continue Nitropaste Protonix 40 mg daily Obtain 2-D echo to assess cardiac structure and function NPO at midnight Will re-evaluate tomorrow for stress test vs cardiac cath Further recommendations pending Nurse practitioner note has been reviewed by physician. Signing provider agrees with the documented findings, assessment, and plan of care. Past Medical History Past Medical History: Cancer, Diabetes Mellitus, Eye Disorder, Hyperlipidemia, Hypertension, Osteoarthritis (OA), Prostate Disorder Additional Past Medical History / Comment(s): Kidney Stones; glaucoma; diverticulitis. Past hx of HTN. Prostate Cancer 07/2015, SURGERY, RADIATON. INCISIONAL HERNIA. History of Any Multi-Drug Resistant Organisms: None Reported Past Surgical History: Cholecystectomy, Hernia Repair, Prostate Surgery Additional Past Surgical History / Comment(s): Multiple Lithotripsies , Left Cataract removal. finger surgery. Hernia repair w/ mesh; UMBILICAL HERNIA. Cyst removed from tailbone. Past Anesthesia/Blood Transfusion Reactions: No Reported Reaction Past Psychological History: Depression Smoking Status: Never smoker Past Alcohol Use History: None Reported Past Drug Use History: None Reported - Past Family History Brother(s) Family Medical History: Cancer Additional Family Medical History / Comment(s): Skin cancer Father Family Medical History: Cancer Additional Family Medical History / Comment(s): Skin cancer Mother Family Medical History: Cancer Additional Family Medical History / Comment(s): Skin cancer. Medications and Allergies Home Medications Medication Instructions Recorded Confirmed Type glipiZIDE [Glucotrol] 10 mg PO AC-BID 01/14/15 01/29/20 History sitaGLIPtin [Januvia] 100 mg PO DAILY 01/14/15 01/29/20 History Potassium Citrate [Urocit-K] 10 meq PO BID 07/13/15 01/29/20 History Insulin NPH Human Isophane 10 unit SQ HS 11/01/18 01/29/20 History [NovoLIN N] Insulin NPH Human Isophane 25 units SQ QAM 11/01/18 01/29/20 History [NovoLIN N] Insulin Regular, Human [NovoLIN R] 10 unit SQ AC-SUPPER 11/01/18 01/29/20 History Timolol 0.5% Ophth Soln [Timoptic 1 drop BOTH EYES BID 11/01/18 01/29/20 History 0.5% Ophth Soln] Insulin Regular, Human [NovoLIN R] 5 unit SQ AC-BID@0800,1200 01/29/20 01/29/20 History Latanoprost [Xalatan 0.005%] 1 drop BOTH EYES HS 01/29/20 01/29/20 History Venlafaxine HCl ER [Effexor Xr] 75 mg PO DAILY 01/29/20 01/29/20 History amLODIPine [Norvasc] 5 mg PO DAILY 01/29/20 01/29/20 History Allergies Allergy/AdvReac Type Severity Reaction Status Date / Time Penicillins Allergy Swelling Verified 01/29/20 09:55 propoxyphene napsylate Allergy Rash/Hives Verified 01/29/20 09:55 [From Nathalie-N] Iodinated Contrast Media AdvReac Nausea & Verified 01/29/20 09:55 [Iodinated Contrast- Oral Vomiting and IV Dye] iohexol AdvReac Nausea & Verified 01/29/20 09:55 Vomiting Physical Exam Vitals: Vital Signs Temp Pulse Pulse Pulse Pulse Pulse Resp 01/29/20 11:50 77 76 69 01/29/20 11:08 98.1 F 69 18 01/29/20 10:57 68 18 01/29/20 10:14 97.9 F 64 16 01/29/20 08:04 98.3 F 67 18 BP BP BP BP BP Pulse Ox 01/29/20 11:50 140/95 151/104 144/90 01/29/20 11:08 144/79 95 01/29/20 10:57 152/91 97 01/29/20 10:14 153/92 96 01/29/20 08:04 177/98 99 Intake and Output 01/28/20 01/29/20 01/29/20 22:59 06:59 14:59 Other: Weight 106.594 kg Results 01/29/20 08:24 01/29/20 08:24 Cardiac Enzymes 01/29/20 01/29/20 Range/Units 08:24 08:24 AST 42 (17-59) U/L Troponin I <0.012 (0.000-0.034) ng/mL Coagulation 01/29/20 Range/Units 08:24 PT 10.3 (9.0-12.0) sec APTT 23.4 (22.0-30.0) sec CBC 01/29/20 Range/Units 08:24 WBC 7.6 (3.8-10.6) k/uL RBC 5.20 (4.30-5.90) m/uL Hgb 15.3 (13.0-17.5) gm/dL Hct 45.1 (39.0-53.0) % Plt Count 159 (150-450) k/uL Comprehensive Metabolic Panel 01/29/20 Range/Units 08:24 Sodium 137 (137-145) mmol/L Potassium 4.5 (3.5-5.1) mmol/L Chloride 104 (98-107) mmol/L Carbon Dioxide 21 L (22-30) mmol/L BUN 17 (9-20) mg/dL Creatinine 0.82 (0.66-1.25) mg/dL Glucose 198 H (74-99) mg/dL Calcium 10.0 (8.4-10.2) mg/dL AST 42 (17-59) U/L ALT 26 (4-49) U/L Alkaline Phosphatase 91 (38-126) U/L Total Protein 7.4 (6.3-8.2) g/dL Albumin 4.4 (3.5-5.0) g/dL Current Medications Generic Name Dose Route Start Last Admin Trade Name Freq PRN Reason Stop Dose Admin Acetaminophen 650 mg 01/29/20 12:10 01/29/20 12:26 Tylenol Tab PO 650 mg Q4HR PRN Administration Fever and/ or Mild Pain Amlodipine Besylate 5 mg 01/29/20 12:00 01/29/20 12:24 Norvasc PO 5 mg DAILY [facility] Administration Aspirin 81 mg 01/30/20 09:00 Aspirin PO DAILY [facility] Glipizide 10 mg 01/29/20 17:30 Glucotrol PO AC-BID [facility] Heparin Sodium/Sodium Chloride 250 mls @ 9.999 mls/hr 01/29/20 10:45 01/29/20 10:49 25,000 unit/ Sodium Chloride IV 9.38 units/kg/hr .Q24H ALON[facility]A 9.999 mls/hr Administration Protocol 9.38 UNITS/KG/HR Insulin Human NPH 10 unit 01/29/20 21:00 Humulin N SQ HS [facility]ON[facility] Insulin Human NPH 25 unit 01/30/20 09:00 Humulin N SQ QAM [facility]ON[facility] Insulin Human Regular 5 unit 01/29/20 12:00 01/29/20 12:27 Humulin R SQ 5 unit AC-BID@0800,1200 [facility]ON[facility] Administration Insulin Human Regular 10 unit 01/29/20 17:30 Humulin R SQ AC-SUPPER [facility]ON[facility] Latanoprost 1 drops 01/29/20 21:00 Xalatan 0.005% BOTH EYES HS [facility] Linagliptin 5 mg 01/29/20 12:00 01/29/20 12:27 Tradjenta PO 5 mg DAILY [facility] Administration Metoprolol Tartrate 25 mg 01/29/20 12:17 01/29/20 12:24 Lopressor PO 25 mg DAILY [facility] Administration Metoprolol Tartrate 12.5 mg 01/29/20 21:00 Lopressor PO HS [facility] Nitroglycerin 0.4 mg 01/29/20 10:41 01/29/20 10:56 Nitrostat SUBLINGUAL 0.4 mg Q5M PRN Administration Chest Pain Nitroglycerin 1 inch 01/29/20 12:00 01/29/20 12:27 Nitro-Bid Oint TOPICAL 1 inch Q6HR [facility] Administration Potassium Citrate 10 meq 01/29/20 21:00 Urocit-K PO BID [facility] Timolol Maleate 1 drops 01/29/20 21:00 Timoptic BOTH EYES BID [facility] Venlafaxine HCl 75 mg 01/29/20 11:49 01/29/20 12:19 Effexor Xr PO 75 mg DAILY [facility] Administration Intake and Output 01/28/20 01/29/20 01/29/20 22:59 06:59 14:59 Other: Weight 106.594 kg Patient Weight 01/30/20 06:59 Weight 106.594 kg 01/29/20 08:24 01/29/20 08:24
[2020-01-29] MEDS: PANTOPRAZOLE 40 MG TABLET PO SCH ×2 (13:03→22:20)
[2020-01-29 16:37] LABS: Glucose,Whole Blood 370 mg/dL (75-99)
--- NOTE | 2020-01-29 16:52 | P.HPIM ---
History of Present Illness H&P Date: 01/29/20 Chief Complaint: Right anterior chest wall pain History of presenting complaint: This is a pleasant [address] Jim Mckinnon. Chronic stable medical conditions include diabetes, hypertension, arthritis, depression, GERD, kidney stones, diverticulosis. For 3 days patient been having right anterior chest wall pain lateral to the sternum just above the drip lower border somewhat localized. It is a constant pain. It feels like a bad heartburn. Patient sometimes does take [id number] medications for the same. On this occasion does not relief. He also tried quite a bit of Rolaids no relief. Does note radiation. No dizziness nor lightheadedness no perspiration. Not related to activity. Admitted for the same. Patient's fianc with the bedside. No prior cardiac history. Review of systems: GEN.: None EYES: None HEENT: None NECK: None RESPIRATORY: None CARDIOVASCULAR: As above GASTROINTESTINAL: GERD GENITOURINARY: None MUSCULOSKELETAL: [Joint pains LYMPHATICS: None HEMATOLOGICAL: None PSYCHIATRY: None NEUROLOGICAL: None Past medical history to include: Diabetes, hypertension, hyperlipidemia, osteoarthritis, kidney stones, diverticulosis, prostate cancer in July 2015, treated with surgery and radiation, incisional hernia repair. Social history: Does not smoke. Alcohol occasionally. 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 Physical examination: VITAL SIGNS: 98.3, 67, 18, 153.92, 99% room air GENERAL: [BMI 35.7, sitting up in bed, not in distress. EYES: Pupils equal. Conjunctiva normal. HEENT: External appearance of nose and ears normal, oral cavity grossly normal. NECK: JVD not raised; masses not palpable. HEART: First and second heart sounds are normal; no edema. LUNGS: Respiratory rate normal; clear to auscultation. ABDOMEN: Soft, nontender, liver spleen not palpable, no masses palpable. PSYCH: Alert and oriented x3; mood and affect normal. NEUROLOGICAL: Cranial nerves grossly intact; no facial asymmetry, power and sensation grossly intact. LYMPHATICS: No lymph nodes palpable in the axilla and neck INVESTIGATIONS, reviewed in the clinical context: White count 7.6 hemoglobin 15.3 platelets 159 potassium 4.5 bun 17 creatinine 0.82 blood glucose 198, Accu-Cheks to 45 Troponin I 3 negative EKG tracing personally reviewed by me-normal sinus rhythm Computed tomography scan of the chest showing ascending aorta all 4.1 cm. No dissection reported. Bilateral kidney stones. No tuberculosis. Chest x-ray film personally reviewed by me-lung ramos clear Assessment: -This is a patient presents with localized pain on the right anterior chest wall just lateral to the sternum. Not really reproducible. Feels like severe heartburn. With history of intermittent heartburn. Patient may remanifesting Sever esophagitis. Troponins are negative. No EKG changes. Highly doubt cardiac. -GERD -Diabetes mellitus type 2, chronically on insulin -Essential hypertension -Primary osteoarthritis -Depression otherwise specified -Bilateral nephrolithiasis a symptomatically -Colonic diverticulosis -Ascending aortic aneurysm 4.1 cm -Obesity BMI 35.7 plan: Patient started IV heparin the ER. Home medications resumed. Cardiology was consulted to rule out a cardiac cause. We'll start the patient on Protonix 40 mg twice a day. Care was discussed with the patient and send for another the bedside. Also at times. Patient will need EGD at some point. We'll give a trial of PPI for the same. Follow with cardiology. Past Medical History Past Medical History: Cancer, Diabetes Mellitus, Eye Disorder, Hyperlipidemia, Hypertension, Osteoarthritis (OA), Prostate Disorder Additional Past Medical History / Comment(s): Kidney Stones; glaucoma; diverticulitis. Past hx of HTN. Prostate Cancer 07/2015, SURGERY, RADIATON. INCISIONAL HERNIA. History of Any Multi-Drug Resistant Organisms: None Reported Past Surgical History: Cholecystectomy, Hernia Repair, Prostate Surgery Additional Past Surgical History / Comment(s): Multiple Lithotripsies , Left Cataract removal. finger surgery. Hernia repair w/ mesh; UMBILICAL HERNIA. Cyst removed from tailbone. Past Anesthesia/Blood Transfusion Reactions: No Reported Reaction Past Psychological History: Depression Smoking Status: Never smoker Past Alcohol Use History: None Reported Past Drug Use History: None Reported - Past Family History Brother(s) Family Medical History: Cancer Additional Family Medical History / Comment(s): Skin cancer Father Family Medical History: Cancer Additional Family Medical History / Comment(s): Skin cancer Mother Family Medical History: Cancer Additional Family Medical History / Comment(s): Skin cancer. Medications and Allergies Home Medications Medication Instructions Recorded Confirmed Type glipiZIDE [Glucotrol] 10 mg PO AC-BID 01/14/15 01/29/20 History sitaGLIPtin [Januvia] 100 mg PO DAILY 01/14/15 01/29/20 History Potassium Citrate [Urocit-K] 10 meq PO BID 07/13/15 01/29/20 History Insulin NPH Human Isophane 10 unit SQ HS 11/01/18 01/29/20 History [NovoLIN N] Insulin NPH Human Isophane 25 units SQ QAM 11/01/18 01/29/20 History [NovoLIN N] Insulin Regular, Human [NovoLIN R] 10 unit SQ AC-SUPPER 11/01/18 01/29/20 History Timolol 0.5% Ophth Soln [Timoptic 1 drop BOTH EYES BID 11/01/18 01/29/20 History 0.5% Ophth Soln] Insulin Regular, Human [NovoLIN R] 5 unit SQ AC-BID@0800,1200 01/29/20 01/29/20 History Latanoprost [Xalatan 0.005%] 1 drop BOTH EYES HS 01/29/20 01/29/20 History Venlafaxine HCl ER [Effexor Xr] 75 mg PO DAILY 01/29/20 01/29/20 History amLODIPine [Norvasc] 5 mg PO DAILY 01/29/20 01/29/20 History Allergies Allergy/AdvReac Type Severity Reaction Status Date / Time Penicillins Allergy Swelling Verified 01/29/20 09:55 propoxyphene napsylate Allergy Rash/Hives Verified 01/29/20 09:55 [From Darvocet-N] Iodinated Contrast Media AdvReac Nausea & Verified 01/29/20 09:55 [Iodinated Contrast- Oral Vomiting and IV Dye] iohexol AdvReac Nausea & Verified 01/29/20 09:55 Vomiting Physical Exam Vitals: Vital Signs Temp Pulse Pulse Pulse Pulse Pulse Resp 01/29/20 15:05 98.8 F 79 18 01/29/20 11:50 77 76 69 01/29/20 11:08 98.1 F 69 18 01/29/20 10:57 68 18 01/29/20 10:14 97.9 F 64 16 01/29/20 08:04 98.3 F 67 18 BP BP BP BP BP Pulse Ox 01/29/20 15:05 186/86 96 01/29/20 11:50 140/95 151/104 144/90 01/29/20 11:08 144/79 95 01/29/20 10:57 152/91 97 01/29/20 10:14 153/92 96 01/29/20 08:04 177/98 99 Intake and Output 01/29/20 01/29/20 01/29/20 06:59 14:59 22:59 Intake Total 180 Balance 180 Intake: Oral 180 Other: Weight 106.594 kg Results CBC & Chem 7: 01/29/20 08:24 01/29/20 08:24 Labs: Abnormal Lab Results - Last 24 Hours (Table) 01/29/20 01/29/20 01/29/20 Range/Units 08:24 11:53 16:36 Carbon Dioxide 21 L (22-30) mmol/L Glucose 198 H (74-99) mg/dL POC Glucose (mg/dL) 245 H 370 H (75-99) mg/dL Thrombosis Risk Factor Assmnt - Choose All That Apply Any of the Below Risk Factors Present?: Yes Each Factor Represents 1 point: Obesity (BMI >25) Each Risk Factor Represents 2 Points: Age 61-74 years Thrombosis Risk Factor Assessment Total Risk Factor Score: 3 Thrombosis Risk Factor Assessment Level: Moderate Risk
[2020-01-29] MEDS: CALCIUM CARBONATE LIQUID 500 MG/5 ML CUP PO SCH ×2 (17:09→22:14)
[2020-01-29] MEDS: glipiZIDE 10 MG TAB PO SCH (17:09)
--- NOTE | 2020-01-29 17:25 | ECHOF ---
Referral Reason:LV function, Chest pain MEASUREMENTS -------- HEIGHT: 172.7 cm WEIGHT: 106.6 kg BP: RVIDd: 3.6 cm (< 3.3) IVSd: 1.1 cm (0.6 - 1.1) LVIDd: 4.9 cm (3.9 - 5.3) LVPWd: 1.4 cm (0.6 - 1.1) IVSs: 1.3 cm LVIDs: 3.9 cm LVPWs: 1.2 cm LA Diam: 3.7 cm (2.7 - 3.8) Ao Diam: 3.5 cm (2.0 - 3.7) AV Cusp: 2.3 cm (1.5 - 2.6) MV EXCURSION: 20.195 mm (> 18.000) MV EF SLOPE: 75 mm/s (70 - 150) EPSS: 0.2 cm MV E Geovani: 0.44 m/s MV DecT: 213 ms MV A Geovani: 0.69 m/s MV E/A Ratio: 0.64 RAP: 5.00 mmHg RVSP: 16.65 mmHg FINDINGS -------- Sinus rhythm. This was a techncally difficult study with suboptimal views, , Definity utilized for enhancement of i mages. LV size, wall thickness and systolic function are normal, with an EF greater than 55%. The left michaela tricular size is normal. The right ventricle is normal in size. The left atrial size is normal. Normal LA size by volume 22+/-6 ml/m2. The right atrial size is normal. Lumason used The aortic valve is trileaflet, and appears structurally normal. No aortic stenosis or regurgitation. Mild mitral regurgitation is present. Mild tricuspid regurgitation present. Right ventricular systolic pressure is normal at < 35 mmHg. The pulmonic valve was not well visualized. The aortic root size is normal. Echo free space indicative of a pericardial fat pad. CONCLUSIONS -------- 1. This was a techncally difficult study with suboptimal views, , Definity utilized for enhancement o f images. 2. LV size, wall thickness and systolic function are normal, with an EF greater than 55%. 3. The left ventricular size is normal. 4. The right ventricle is normal in size. 5. The left atrial size is normal. 6. Normal LA size by volume 22+/-6 ml/m2. 7. The right atrial size is normal. 8. Lumason used 9. Mild mitral regurgitation is present. 10. Mild tricuspid regurgitation present. 11. The pulmonic valve was not well visualized. 12. The aortic root size is normal. 13. Echo free space indicative of a pericardial fat pad. FINANCIAL SYSTEMS DIRECTOR: Shreya Cm RDCS
[2020-01-29 19:50] LABS: Glucose,Whole Blood 431 mg/dL (75-99)
[2020-01-29] MEDS: METOPROLOL TARTRATE 12.5 MG TAB PO SCH (22:14)
[2020-01-29] MEDS: POTASSIUM CITRATE 10 MEQ TABLET.ER PO SCH (22:14)
[2020-01-29] MEDS: TIMOLOL 0.5% OPHTH DROPS 5 ML BTL BOTH EYES SCH (22:15)
[2020-01-29] MEDS: INSULIN NPH 300 UNIT/3 ML VIAL SQ SCH (22:21)
[2020-01-29] MEDS: LATANOPROST 0.005% BOTH EYES SCH (22:22)
[2020-01-29 22:36] LABS: Hemoglobin A1C 8.2 % (4.0-6.0)
[2020-01-29] MEDS: INSULIN REGULAR 100 UNIT in SODIUM CHLORIDE 0.9% 100 ML IV SCH (22:53)
[2020-01-29 23:03] LABS: Glucose,Whole Blood 409 mg/dL (75-99)
[2020-01-30] MEDS: NITROGLYCERIN OINT 1 INCH/GM PACKET TOPICAL SCH ×5 (00:26→23:52)
[2020-01-30 01:07] LABS: Glucose,Whole Blood 289 mg/dL (75-99)
[2020-01-30 03:01] LABS: Glucose,Whole Blood 216 mg/dL (75-99)
[2020-01-30 04:59] LABS: Glucose,Whole Blood 189 mg/dL (75-99)
[2020-01-30 06:25] LABS: Glucose,Whole Blood 241 mg/dL (75-99)
[2020-01-30 06:42] LABS: Basophils % (A) 0 %; Eosinophils % (A) 0 %; HCT 43.7 % (39.0-53.0); HGB 14.5 gm/dL (13.0-17.5); Lymphocytes # (A) 1.6 k/uL (1.0-4.8); Lymphocytes % (A) 12 %; MCH 29.1 pg (25.0-35.0); MCHC 33.3 g/dL (31.0-37.0); MCV 87.4 fL (80.0-100.0); Mean Platelet Volume 9.1; Monocytes # (A) 0.6 k/uL (0-1.0); Monocytes % (A) 4 %; Neutrophils # (A) 11.2 k/uL (1.3-7.7); Neutrophils % (A) 83 %; Platelet Count 197 k/uL (150-450); RDW 14.2 % (11.5-15.5); WBC 13.5 k/uL (3.8-10.6)
[2020-01-30] MEDS: HEPARIN SOD,PORK IN 0.45% NACL 25,000 UNIT in 0.45% NACL 1 250ML.BAG IV SCH (07:08)
[2020-01-30 07:29] LABS: Calcium 9.9 mg/dL (8.4-10.2); Potassium 4.3 mmol/L (3.5-5.1)
[2020-01-30] MEDS: CALCIUM CARBONATE LIQUID 500 MG/5 ML CUP PO SCH ×4 (07:54→20:38)
[2020-01-30] MEDS: INSULIN REGULAR 100 UNIT/ML VIAL SQ SCH ×3 (07:54→17:34)
[2020-01-30] MEDS: INSULIN NPH 300 UNIT/3 ML VIAL SQ SCH ×2 (07:54→20:37)
[2020-01-30] MEDS: glipiZIDE 10 MG TAB PO SCH ×2 (07:54→17:33)
[2020-01-30] MEDS: LINAGLIPTIN 5 MG TABLET PO SCH (07:54)
[2020-01-30] MEDS: PANTOPRAZOLE 40 MG TABLET PO SCH ×2 (08:00→17:33)
[2020-01-30] MEDS: amLODIPine 5 MG TAB PO SCH (08:00)
[2020-01-30] MEDS: ASPIRIN 81 MG PO SCH ×2 (08:00→12:20)
[2020-01-30] MEDS: ACETAMINOPHEN TAB 325 MG TAB PO PRN ×3 (08:01→20:34)
[2020-01-30] MEDS: METOPROLOL TARTRATE 25 MG TAB PO SCH (08:01)
[2020-01-30] MEDS: TIMOLOL 0.5% OPHTH DROPS 5 ML BTL BOTH EYES SCH ×2 (08:01→20:34)
[2020-01-30] MEDS: POTASSIUM CITRATE 10 MEQ TABLET.ER PO SCH ×2 (08:01→21:29)
[2020-01-30] MEDS ORDERED: REGADENOSON 0.4 MG/5 ML SYRINGE IV ONE (08:06)
[2020-01-30] MEDS ORDERED: CAFFEINE CITRATE 60 MG/3 ML VIAL IV PRN (08:06)
[2020-01-30] MEDS ORDERED: AMINOPHYLLINE 500 MG/20 ML VIAL IV PRN (08:06)
[2020-01-30] MEDS: VENLAFAXINE HCL ER 75 MG CAP PO SCH (08:08)
[2020-01-30] MEDS: INSULIN REGULAR 100 UNIT in SODIUM CHLORIDE 0.9% 100 ML IV SCH (08:20)
[2020-01-30] MEDS ORDERED: ASPIRIN 325 MG TAB PO SCH (09:00)
[2020-01-30 09:12] LABS: Glucose,Whole Blood 200 mg/dL (75-99)
--- NOTE | 2020-01-30 10:13 | P.PN ---
Subjective Progress Note Date: 01/30/20 CHIEF COMPLAINT: Chest pain HISTORY OF PRESENT ILLNESS: Patient examined this morning at the bedside. He denies chest pain overnight or this morning. Denies shortness of breath. He remains on IV heparin. He was also started on an insulin drip overnight. Echo completed revealing EF greater than 55%. PHYSICAL EXAM: VITAL SIGNS: Reviewed. GENERAL: Well-developed in no acute distress. HEENT: Head is normocephalic. Pupils are equal, round. Sclerae anicteric. Mucous membranes of the mouth are moist. Neck supple. No JVD or thyromegaly LUNGS: Respirations even and unlabored. Lungs essentially clear to auscultation bilaterally. HEART: Regular rate and rhythm. S1 and S2 heard. EXTREMITIES: Normal range of motion. No clubbing or cyanosis. Peripheral pulses intact. No lower extremity edema NEUROLOGIC: Awake and alert. Oriented x 3. ASSESSMENT: Unstable angina Hypertension Diabetes mellitus, type II History of AAA Nephrolithiasis Family history of coronary artery disease PLAN: Continue current cardiac medications Obtain Rin scan stress test Further recommendations pending stress test results Nurse practitioner note has been reviewed by physician. Signing provider agrees with the documented findings, assessment, and plan of care. Objective - Vital Signs Vital signs: Vital Signs Temp 97.7 F 01/30/20 07:46 Pulse 71 01/30/20 07:46 Resp 16 01/30/20 07:46 BP 119/65 01/30/20 07:46 Pulse Ox 94 L 01/30/20 07:46 Intake & Output 01/29/20 01/30/20 01/30/20 18:59 06:59 18:59 Intake Total 247.16 357.202 12.530 Output Total 200 Balance 247.16 157.202 12.530 Weight 106.594 kg 105.7 kg Intake: IV 80 Heparin Sod,Pork in 0.45% 80 NaCl 25,000 unit In 0.45 % NaCl 1 250ml.bag @ 9.38 UNITS/KG/HR 9.999 mls/hr IV .Q24H ALONDRA Rx#: [id number] Intake, IV Titration 67.16 277.202 12.530 Amount Heparin Sod,Pork in 0.45% 67.16 182.840 NaCl 25,000 unit In 0.45 % NaCl 1 250ml.bag @ 9.38 UNITS/KG/HR 9.999 mls/hr IV .Q24H ALONDRA Rx#: [id number] Insulin Regular 100 unit 94.362 12.530 In Sodium Chloride 0.9% 100 ml @ Titrate IV .Q0M ALONDRA Rx#:[id number] Oral 180 Output: Urine 200 Other: # Voids 0 - Labs CBC & Chem 7: 01/30/20 05:37 01/30/20 05:37 Labs: Abnormal Lab Results - Last 24 Hours (Table) 01/29/20 01/29/20 01/29/20 Range/Units 11:53 14:40 16:36 WBC (3.8-10.6) k/uL Neutrophils # (1.3-7.7) k/uL APTT (22.0-30.0) sec Sodium (137-145) mmol/L BUN (9-20) mg/dL Creatinine (0.66-1.25) mg/dL Glucose (74-99) mg/dL POC Glucose (mg/dL) 245 H 370 H (75-99) mg/dL Hemoglobin A1c 8.2 H (4.0-6.0) % 01/29/20 01/29/20 01/29/20 Range/Units 16:56 19:48 22:26 WBC (3.8-10.6) k/uL Neutrophils # (1.3-7.7) k/uL APTT 34.3 H 38.2 H (22.0-30.0) sec Sodium (137-145) mmol/L BUN (9-20) mg/dL Creatinine (0.66-1.25) mg/dL Glucose (74-99) mg/dL POC Glucose (mg/dL) 431 H (75-99) mg/dL Hemoglobin A1c (4.0-6.0) % 01/29/20 01/30/20 01/30/20 Range/Units 23:01 01:00 02:59 WBC (3.8-10.6) k/uL Neutrophils # (1.3-7.7) k/uL APTT (22.0-30.0) sec Sodium (137-145) mmol/L BUN (9-20) mg/dL Creatinine (0.66-1.25) mg/dL Glucose (74-99) mg/dL POC Glucose (mg/dL) 409 H 289 H 216 H (75-99) mg/dL Hemoglobin A1c (4.0-6.0) % 01/30/20 01/30/20 01/30/20 Range/Units 04:57 05:37 05:37 WBC 13.5 H (3.8-10.6) k/uL Neutrophils # 11.2 H (1.3-7.7) k/uL APTT (22.0-30.0) sec Sodium 136 L (137-145) mmol/L BUN 31 H (9-20) mg/dL Creatinine 1.29 H (0.66-1.25) mg/dL Glucose 182 H (74-99) mg/dL POC Glucose (mg/dL) 189 H (75-99) mg/dL Hemoglobin A1c (4.0-6.0) % 01/30/20 01/30/20 01/30/20 Range/Units 05:37 06:21 09:10 WBC (3.8-10.6) k/uL Neutrophils # (1.3-7.7) k/uL APTT 46.7 H (22.0-30.0) sec Sodium (137-145) mmol/L BUN (9-20) mg/dL Creatinine (0.66-1.25) mg/dL Glucose (74-99) mg/dL POC Glucose (mg/dL) 241 H 200 H (75-99) mg/dL Hemoglobin A1c (4.0-6.0) %
[2020-01-30 11:51] LABS: Glucose,Whole Blood 246 mg/dL (75-99)
--- NOTE | 2020-01-30 11:58 | NM ---
EXAMINATION TYPE: NM stress lexiscan cardiolite DATE OF EXAM: 01/30/2020 COMPARISON: NONE HISTORY: Chest pain TECHNIQUE: After the intravenous administration of 9.9 mCi Tc 99m Sestamibi - Cardiolite resting SPE CT images acquired 60 minutes post injection. The patient received 0.4mg Lexiscan, 26.1 mCi Tc 99m Sestamibi - Stress images obtained [address] injection FINDINGS: Review of stress and rest SPECT images demonstrates mild decreased uptake to the cardiac apex on stre ss as compared to rest images. Gated analysis shows normal wall motion with an estimated left ventri cular ejection fraction of 39 %. IMPRESSION: Mild pharmacologically induced left ventricular myocardial ischemia at the apex, low ejection fractio n.
[2020-01-30] MEDS ORDERED: NITROGLYCERIN SL TABS 0.4 MG TAB SUBLINGUAL PRN (12:08)
[2020-01-30] MEDS ORDERED: SODIUM CHLORIDE 0.9% 1,000 ML in EMPTY BAG 1 BAG IV ONE (12:08)
[2020-01-30] MEDS ORDERED: ALPRAZolam 0.25 MG TAB PO PRN (12:08)
[2020-01-30] MEDS ORDERED: ALPRAZolam 0.5 MG TAB PO PRN (12:08)
--- NOTE | 2020-01-30 12:13 | P.STRESS ---
- Stress Test Note Stress Test Results/Findings: Exam Performed: NM stress lexiscan cardiolite Exam Date: 01/30/20 Reason for Exam: CHEST PAIN Height: 5 ft 8 in Weight: 105.7 kg Protocol: LEXISCAN Stage: NA Duration of Exercise: NA Resting Heart Rate: 71 Resting Blood Pressure: 151/78 Maximum Achieved Heart Rate: 82 Maximum Achieved Blood Pressure: 151/78 85% PMHR: na 100% PMHR: na METS: na Technologist Comment: Stress Test Results/Findings: At baseline EKG showed normal sinus rhythm with a heart rate of 71 bpm, normal axis, nonspecific T-wave flattening in aVL Patient recieved IV infusion of Lexiscan 0.4mg and at peak infusion EKG showed no significant change from baseline Conclusions: 1. Normal EKG response to Lexiscan infusion 2. Nuclear imaging to be reported separately.
[2020-01-30] MEDS ORDERED: SENNOSIDES 8.6 MG TAB PO PRN (13:31)
[2020-01-30 13:32] LABS: Glucose,Whole Blood 239 mg/dL (75-99)
[2020-01-30] MEDS ORDERED: INSULIN NPH 300 UNIT/3 ML VIAL SQ ONE (14:00)
[2020-01-30 14:04] LABS: Glucose,Whole Blood 251 mg/dL (75-99)
--- NOTE | 2020-01-30 16:28 | P.PN ---
Progress Note - Text Progress Note Date: 01/30/20 Chief Complaint: Right anterior chest wall pain History of presenting complaint: This is a pleasant [address] Jim Mckinnon. Chronic stable medical conditions include diabetes, hypertension, arthritis, depression, GERD, kidney stones, diverticulosis. For 3 days patient been having right anterior chest wall pain lateral to the sternum just above the drip lower border somewhat localized. It is a constant pain. It feels like a bad heartburn. Patient sometimes does take myip-nui-xpeijvy medications for the same. On this occasion does not relief. He also tried quite a bit of Rolaids no relief. Does note radiation. No dizziness nor lightheadedness no perspiration. Not related to activity. Admitted for the same. Patient's fianc with the bedside. No prior cardiac history. today-staying in bed. Pain better. Going for a nuclear stress test. Review of systems: Was done for constitutional, cardiovascular, GI, pulmonary. relevant finding as above Active Medications Acetaminophen (Tylenol Tab) 650 mg PO Q4HR PRN PRN Reason: Fever and/ or Mild Pain Last Admin: 01/30/20 11:52 Dose: 650 mg Documented by: Alprazolam (Xanax) 0.25 mg PO Q6HR PRN PRN Reason: Mild Anxiety Alprazolam (Xanax) 0.5 mg PO Q6HR PRN PRN Reason: Moderate Anxiety Aminophylline (Aminophylline) 100 mg IV ONCE PRN PRN Reason: Patient Response Amlodipine Besylate (Norvasc) 5 mg PO DAILY [facility] Last Admin: 01/30/20 08:00 Dose: 5 mg Documented by: Aspirin (Aspirin) 81 mg PO DAILY [facility] Last Admin: 01/30/20 12:20 Dose: Not Given Documented by: Aspirin (Aspirin) 325 mg PO ONCE ONE Stop: 01/31/20 06:01 Atorvastatin Calcium (Lipitor) 80 mg PO ONCE ONE Stop: 01/31/20 06:01 Caffeine Citrate (Cafcit Inj) 60 mg IV ONCE PRN PRN Reason: Patient Response Calcium Carbonate/Glycine (Tums Liquid) 500 mg PO ACHS [facility] Last Admin: 01/30/20 11:50 Dose: Not Given Documented by: Glipizide (Glucotrol) 10 mg PO AC-BID [facility] Last Admin: 01/30/20 07:54 Dose: Not Given Documented by: Heparin Sodium/Sodium Chloride (25,000 unit/ Sodium Chloride) 250 mls @ 9.999 mls/hr IV .Q24H [facility]; Protocol Last Admin: 01/30/20 07:08 Dose: 14.38 units/kg/hr, 15.328 mls/hr Documented by: Sodium Chloride 1,000 ml/ IV (Solution) 1,000 mls @ 105.7 mls/hr IV .Q9H28M ONE Stop: 01/30/20 21:35 Last Admin: 01/30/20 13:38 Dose: 105.7 mls/hr Documented by: Insulin Aspart (Novolog) 0 unit SQ [facility]; Protocol Insulin Detemir (Levemir) 20 unit SQ [facility] Insulin Human NPH (Humulin N) 10 unit SQ HS [facility] Last Admin: 01/29/20 22:21 Dose: Not Given Documented by: Insulin Human NPH (Humulin N) 25 unit SQ QAM [facility] Last Admin: 01/30/20 07:54 Dose: Not Given Documented by: Insulin Human Regular (Humulin R) 5 unit SQ AC-BID@0800,1200 [facility] Last Admin: 01/30/20 11:50 Dose: Not Given Documented by: Insulin Human Regular (Humulin R) 10 unit SQ AC-SUPPER [facility] Last Admin: 01/29/20 17:11 Dose: 10 unit Documented by: Latanoprost (Xalatan 0.005%) 1 drops BOTH EYES [facility] Last Admin: 01/29/20 22:22 Dose: Not Given Documented by: Linagliptin (Tradjenta) 5 mg PO DAILY [facility] Last Admin: 01/30/20 07:54 Dose: Not Given Documented by: Metoprolol Tartrate (Lopressor) 25 mg PO DAILY [facility] Last Admin: 01/30/20 08:01 Dose: 25 mg Documented by: Metoprolol Tartrate (Lopressor) 12.5 mg PO [facility] Last Admin: 01/29/20 22:14 Dose: 12.5 mg Documented by: Nitroglycerin (Nitrostat) 0.4 mg SUBLINGUAL Q5M PRN PRN Reason: Chest Pain Last Admin: 01/29/20 10:56 Dose: 0.4 mg Documented by: Nitroglycerin (Nitro-Bid Oint) 1 inch TOPICAL Q6HR [facility] Last Admin: 01/30/20 11:50 Dose: Not Given Documented by: Nitroglycerin (Nitrostat) 0.4 mg SUBLINGUAL Q5M PRN PRN Reason: Chest Pain Pantoprazole Sodium (Protonix) 40 mg PO AC-BID [facility] Last Admin: 01/30/20 08:00 Dose: 40 mg Documented by: Potassium Citrate (Urocit-K) 10 meq PO BID [facility] Last Admin: 01/30/20 08:01 Dose: 10 meq Documented by: Senna (Senokot) 8.6 mg PO DAILY PRN PRN Reason: Constipation Last Admin: 01/30/20 13:40 Dose: 8.6 mg Documented by: Timolol Maleate (Timoptic) 1 drops BOTH EYES BID [facility] Last Admin: 01/30/20 08:01 Dose: 1 drops Documented by: Venlafaxine HCl (Effexor Xr) 75 mg PO DAILY [facility] Last Admin: 01/30/20 08:08 Dose: 75 mg Documented by: Physical examination: VITAL SIGNS: 97.2, 74, 16, 145/71, 97% room air GENERAL: sitting on bed, comfortable EYES: Pupils equal. Conjunctiva normal. HEENT: External appearance of nose and ears normal, oral cavity grossly normal. NECK: JVD not raised; masses not palpable. HEART: First and second heart sounds are normal; no edema. LUNGS: Respiratory rate normal; clear to auscultation. ABDOMEN: Soft, nontender, liver spleen not palpable, no masses palpable. PSYCH: Alert and oriented x3; mood and affect normal. INVESTIGATIONS, reviewed in the clinical context: Nuclear stress test-mild mild pharmacologically induced left ventricle ischemia at the apex 2-D echocardiogram-EF greater than 55% Admission testing White count 7.6 hemoglobin 15.3 platelets 159 potassium 4.5 bun 17 creatinine 0.82 blood glucose 198, Accu-Cheks to 45 Troponin I 3 negative EKG tracing personally reviewed by me-normal sinus rhythm Computed tomography scan of the chest showing ascending aorta all 4.1 cm. No dissection reported. Bilateral kidney stones. No tuberculosis. Chest x-ray film personally reviewed by me-lung ramos clear Assessment: -This is a patient presents with localized pain on the right anterior chest wall just lateral to the sternum. Not really reproducible. Feels like severe heartburn. With history of intermittent heartburn. Patient may remanifesting Sever esophagitis. Troponins are negative. No EKG changes. positive nuclear stress test with some reversibility.cardiac catheterization tomorrow -GERD -Diabetes mellitus type 2, chronically on insulin -Essential hypertension -Primary osteoarthritis -Depression otherwise specified -Bilateral nephrolithiasis a symptomatically -Colonic diverticulosis -Ascending aortic aneurysm 4.1 cm -Obesity BMI 35.7 plan: continue current medication treatment plan. Plan for cardiac catheterization tomorrow.
[2020-01-30 17:28] LABS: Glucose,Whole Blood 257 mg/dL (75-99)
[2020-01-30] MEDS: INSULIN ASPART (NovoLOG) 100 UNIT/ML VIAL SQ SCH ×2 (17:33→20:35)
[2020-01-30 20:24] LABS: Glucose,Whole Blood 275 mg/dL (75-99)
[2020-01-30] MEDS: METOPROLOL TARTRATE 12.5 MG TAB PO SCH (20:34)
[2020-01-30] MEDS: INSULIN DETEMIR (LEVEMIR) 100 UNIT/ML SYR SQ SCH (20:35)
[2020-01-30] MEDS: LATANOPROST 0.005% BOTH EYES SCH (20:38)
[2020-01-30 21:45] LABS: Glucose,Whole Blood 297 mg/dL (75-99)
[2020-01-31] MEDS: HEPARIN SOD,PORK IN 0.45% NACL 25,000 UNIT in 0.45% NACL 1 250ML.BAG IV SCH (01:01)
[2020-01-31 02:12] LABS: Glucose,Whole Blood 187 mg/dL (75-99)
[2020-01-31] MEDS: amLODIPine 5 MG TAB PO SCH (05:49)
[2020-01-31] MEDS: PANTOPRAZOLE 40 MG TABLET PO SCH ×2 (05:49→17:21)
[2020-01-31] MEDS: METOPROLOL TARTRATE 25 MG TAB PO SCH (05:49)
[2020-01-31] MEDS: NITROGLYCERIN OINT 1 INCH/GM PACKET TOPICAL SCH ×4 (05:50→23:41)
[2020-01-31] MEDS: TIMOLOL 0.5% OPHTH DROPS 5 ML BTL BOTH EYES SCH ×2 (05:52→20:58)
[2020-01-31] MEDS ORDERED: ASPIRIN 325 MG TAB PO ONE (06:00)
[2020-01-31] MEDS ORDERED: ATORVASTATIN 80 MG TAB PO ONE (06:00)
[2020-01-31 06:18] LABS: Glucose,Whole Blood 173 mg/dL (75-99)
[2020-01-31 07:15] LABS: Basophils # (A) 0.1 k/uL (0-0.2); Basophils % (A) 1 %; Eosinophils # (A) 0.3 k/uL (0-0.7); Eosinophils % (A) 3 %; HCT 43.5 % (39.0-53.0); HGB 14.1 gm/dL (13.0-17.5); Lymphocytes % (A) 21 %; MCH 28.9 pg (25.0-35.0); MCHC 32.4 g/dL (31.0-37.0); MCV 89.1 fL (80.0-100.0); Mean Platelet Volume 9.2; Monocytes # (A) 0.3 k/uL (0-1.0); Monocytes % (A) 3 %; Neutrophils # (A) 6.8 k/uL (1.3-7.7); Neutrophils % (A) 72 %; Platelet Count 153 k/uL (150-450); RBC 4.88 m/uL (4.30-5.90); RDW 14.6 % (11.5-15.5); WBC 9.5 k/uL (3.8-10.6)
[2020-01-31] MEDS ORDERED: IV FLUID CONTINUATION 750 ML IV ONE (08:34)
[2020-01-31 09:01] LABS: Calcium 9.2 mg/dL (8.4-10.2); Potassium 4.6 mmol/L (3.5-5.1)
[2020-01-31] MEDS ORDERED: LIDOCAINE 1% INJ 10MG/ML (20 ML MDV) SQ ONE (09:14)
[2020-01-31] MEDS ORDERED: VERAPAMIL SYRINGE (5 MG/10 ML) INTRAARTER ONE (09:15)
[2020-01-31] MEDS ORDERED: MIDAZOLAM 2 MG/2 ML VIAL IV ONE (09:16)
[2020-01-31] MEDS ORDERED: HEPARIN SODIUM 1,000 UN/ML (10ML VL) IV ONE (09:17)
[2020-01-31] MEDS: fentaNYL (PF) 50 MCG/ML 2 ML AMP IV ONE ×2 (09:18→09:37)
[2020-01-31] MEDS ORDERED: BIVALIRUDIN BOLUS 250 MG/50 ML IV ONE (09:38)
[2020-01-31] MEDS ORDERED: BIVALIRUDIN 250 MG in SODIUM CHLORIDE 0.9% 50 ML IV ONE (09:39)
[2020-01-31] MEDS ORDERED: IOPAMIDOL-370 100ML BTL INJ ONE ×2 (09:43→10:06)
[2020-01-31] MEDS ORDERED: NITROGLYCERIN 1000MCG/10ML SYRINGE INTRACORON ONE (09:54)
[2020-01-31] MEDS ORDERED: CLOPIDOGREL 75 MG TAB PO ONE (09:54)
[2020-01-31 10:34] LABS: Glucose,Whole Blood 156 mg/dL (75-99)
[2020-01-31] MEDS: INSULIN ASPART (NovoLOG) 100 UNIT/ML VIAL SQ SCH ×4 (10:35→20:59)
[2020-01-31] MEDS: INSULIN REGULAR 100 UNIT/ML VIAL SQ SCH ×3 (10:35→17:21)
--- NOTE | 2020-01-31 11:04 | CC ---
CARDIAC CATHETERIZATION REPORT DATE OF SERVICE: 01/31/2020 PROCEDURE: 1. Left heart catheterization and coronary angiography. 2. PTCA and stenting of a mid left anterior descending coronary artery with a drug- eluting stent. PERFORMED BY: Dr. Deja Peralta. Moderate conscious sedation time was 51 minutes. The patient was administered Versed. Oxygen saturation, hemodynamics and EKG were monitored closely. CLINICAL INFORMATION: Mr. Art Hinojosa is a 69-year-old obese gentleman with type 2 diabetes, hypertension, hyperlipidemia and a strong family history of CAD, came into the hospital with symptoms suggestive of angina. The troponins are negative. Given his symptomatology, was advised to have a stress test after stabilizing him. Stress test revealed apical anteroapical distal area of reversible defect suggestive of ischemia in the LAD distribution. He was advised cardiac catheterization after due discussion regarding risks, benefits, and options. PROCEDURE NOTE: Under local anesthesia and strict aseptic precautions, a 6-Bulgarian introducer was placed in the right radial artery. Using a JL3.5 and JR4 catheter, I performed coronary angiography and the same right catheter was used to check LV pressures. There was extreme tortuosity and I had a lot of difficulty getting into the ascending aorta. Following this, I noted that he had a significant mid LAD lesion and I proceeded to perform PCI of this vessel with a drug-eluting stent. Following the intervention procedure, the sheath was taken out and a TR band applied as per protocol. The saturation in the fingers of the right hand was 96%. He tolerated the procedure well without complications. CARDIAC CATHETERIZATION FINDINGS: Left ventricular end-diastolic pressure was 12 mmHg without any gradient across the aortic valve. CORONARY ANGIOGRAPHY FINDINGS: RIGHT CORONARY ARTERY: Technically, a dominant vessel. Proximally, there is about a 35% lesion after which the caliber improves. This is a dominant vessel, distally bifurcates into PDA and PLV. No significant disease. LEFT MAIN CORONARY ARTERY: This is a short patent, disease-free vessel that bifurcates into LAD and circumflex. No significant disease in the left main coronary artery. LEFT ANTERIOR DESCENDING CORONARY ARTERY: This vessel gives off a good-sized diagonal branch proximally and several small septal branches. In the midportion there is a 95% narrowing involving the LAD after which the caliber improves and the flow distally is a somewhat slow after the 90% stenosis. The lesion is eccentric, best seen in the TAL projection. Mid LAD after at least 2 diagonal and septal branches. There is a long area of disease that involves a fair sized diagonal branch. This appears to be the culprit lesion. There is mild calcification noted. LEFT POSTERIOR CIRCUMFLEX CORONARY ARTERY: Technically nondominant vessel,. gives off a single obtuse marginal that runs laterally, smaller in caliber, but no significant disease. Second obtuse marginal is free of significant disease. The left atrial circumflex branch is also free of significant disease. Circumflex therefore is a non dominant relatively disease free vessel. FINAL IMPRESSION: This patient has normal filling pressures. No gradient across aortic valve. A diffusely diseased LAD with a 90% mid lesion eccentric best seen in TAL projection. No significant disease in the circumflex; 35% proximal RCA dominant vessel, no significant disease in the rest of RCA. RECOMMENDATION: I recommended PCI of the mid LAD and proceeded to perform this in the same setting. PCI PROCEDURE DETAILS: The patient received Angiomax bolus and infusion as per protocol. He also received 600 mg of Plavix. I used a JL3.5 guide catheter to cannulate the left coronary artery and a run-through wire to cross the lesion. A 2.5 caliber 12 mm NC Emerge balloon was used to pre-dilate the lesion. I then deployed a 15 mm long 2.75 caliber Xience stent at 12 atmospheres. Patient did not have any chest pain or EKG changes. Excellent angiographic result was achieved without any evident complication. There was a remarkably good flow noted in the entire LAD and the whole caliber of the vessel improved once the stenosis resolved. The sheath was then taken out and a TR band applied as per protocol and patient was sent to the room in a stable condition. He received 600 mg of Plavix and also Angiomax bolus and infusion was given as per protocol. Results were discussed with the patient and family. I expect patient to be discharged tomorrow. MMODL / IJN: [id number] /
[2020-01-31] MEDS: CALCIUM CARBONATE LIQUID 500 MG/5 ML CUP PO SCH ×4 (11:19→20:58)
[2020-01-31] MEDS: POTASSIUM CITRATE 10 MEQ TABLET.ER PO SCH ×2 (11:20→21:05)
[2020-01-31] MEDS: LINAGLIPTIN 5 MG TABLET PO SCH (11:20)
[2020-01-31] MEDS: ASPIRIN 81 MG PO SCH (11:20)
[2020-01-31] MEDS: glipiZIDE 10 MG TAB PO SCH ×2 (11:21→17:20)
[2020-01-31] MEDS: VENLAFAXINE HCL ER 75 MG CAP PO SCH (11:21)
[2020-01-31] MEDS: INSULIN NPH 300 UNIT/3 ML VIAL SQ SCH ×2 (11:24→21:00)
[2020-01-31] MEDS: SODIUM CHLORIDE 0.9% 1,000 ML IV SCH ×2 (11:25→23:40)
[2020-01-31] MEDS: LOSARTAN 50 MG TAB PO SCH (11:28)
[2020-01-31 11:38] LABS: Glucose,Whole Blood 207 mg/dL (75-99)
--- NOTE | 2020-01-31 13:55 | PN ---
PROGRESS NOTE Mr. Hinojosa underwent cardiac cath and PCI of mid LAD with a drug-eluting stent. Excellent result, doing well. Post procedure, unremarkable. Blood pressure is slightly elevated. I have added losartan. The right radial cath site is clean and dry. Vitals are stable. S1-S2 heard normally. Lungs are clear. Abdomen and lower extremity exam unchanged. Plan is to discharge him tomorrow and I will see him in the office on Monday. MMODL / IJN: [id number] /
[2020-01-31] MEDS: ACETAMINOPHEN TAB 325 MG TAB PO PRN (16:04)
[2020-01-31 16:50] LABS: Glucose,Whole Blood 178 mg/dL (75-99)
[2020-01-31 20:24] LABS: Glucose,Whole Blood 241 mg/dL (75-99)
[2020-01-31] MEDS: METOPROLOL TARTRATE 12.5 MG TAB PO SCH (20:58)
[2020-01-31] MEDS: INSULIN DETEMIR (LEVEMIR) 100 UNIT/ML SYR SQ SCH (20:58)
[2020-01-31] MEDS: LATANOPROST 0.005% BOTH EYES SCH (21:13)
--- NOTE | 2020-01-31 22:20 | P.PN ---
Progress Note - Text Progress Note Date: 01/31/20 Chief Complaint: Right anterior chest wall pain History of presenting complaint: This is a pleasant [address] Jim Mckinnon. Chronic stable medical conditions include diabetes, hypertension, arthritis, depression, GERD, kidney stones, diverticulosis. For 3 days patient been having right anterior chest wall pain lateral to the sternum just above the drip lower border somewhat localized. It is a constant pain. It feels like a bad heartburn. Patient sometimes does take qzrh-ene-pobaadi medications for the same. On this occasion does not relief. He also tried quite a bit of Rolaids no relief. Does note radiation. No dizziness nor lightheadedness no perspiration. Not related to activity. Admitted for the same. Patient's fianc with the bedside. No prior cardiac history. Today-underwent cardiac catheterization. Successful angioplasty stenting of the LAD was done. Postprocedure laying in bed. No chest pain or short of breath. Cancer bedside. Review of systems: Was done for constitutional, cardiovascular, GI, pulmonary. relevant finding as above Active Medications Acetaminophen (Tylenol Tab) 650 mg PO Q4HR PRN PRN Reason: Fever and/ or Mild Pain Last Admin: 01/31/20 16:04 Dose: 650 mg Documented by: Alprazolam (Xanax) 0.25 mg PO Q6HR PRN PRN Reason: Mild Anxiety Alprazolam (Xanax) 0.5 mg PO Q6HR PRN PRN Reason: Moderate Anxiety Aminophylline (Aminophylline) 100 mg IV ONCE PRN PRN Reason: Patient Response Amlodipine Besylate (Norvasc) 5 mg PO DAILY [facility] Last Admin: 01/31/20 05:49 Dose: 5 mg Documented by: Aspirin (Aspirin) 81 mg PO DAILY [facility] Last Admin: 01/31/20 11:20 Dose: 81 mg Documented by: Atorvastatin Calcium (Lipitor) 80 mg PO DAILY [facility] Caffeine Citrate (Cafcit Inj) 60 mg IV ONCE PRN PRN Reason: Patient Response Calcium Carbonate/Glycine (Tums Liquid) 500 mg PO ACHS [facility] Last Admin: 01/31/20 20:58 Dose: 500 mg Documented by: Clopidogrel Bisulfate (Plavix) 75 mg PO DAILY [facility] Glipizide (Glucotrol) 10 mg PO AC-BID [facility] Last Admin: 01/31/20 17:20 Dose: 10 mg Documented by: Heparin Sodium/Sodium Chloride (25,000 unit/ Sodium Chloride) 250 mls @ 9.999 mls/hr IV .Q24H [facility]; Protocol Last Admin: 01/31/20 01:01 Dose: 14.38 units/kg/hr, 15.328 mls/hr Documented by: Sodium Chloride (Saline 0.9%) 1,000 mls @ 75 mls/hr IV .[id number] [facility] Last Admin: 01/31/20 11:25 Dose: 75 mls/hr Documented by: Insulin Aspart (Novolog) 0 unit SQ ACHS [facility]; Protocol Last Admin: 01/31/20 20:59 Dose: 5 unit Documented by: Insulin Detemir (Levemir) 20 unit SQ [facility] Last Admin: 01/31/20 20:58 Dose: 10 unit Documented by: Insulin Human NPH (Humulin N) 10 unit SQ [facility] Last Admin: 01/31/20 21:00 Dose: 10 unit Documented by: Insulin Human NPH (Humulin N) 25 unit SQ QAM [facility] Last Admin: 01/31/20 11:24 Dose: 25 unit Documented by: Insulin Human Regular (Humulin R) 5 unit SQ AC-BID@0800,1200 [facility] Last Admin: 01/31/20 12:38 Dose: 5 unit Documented by: Insulin Human Regular (Humulin R) 10 unit SQ AC-SUPPER [facility] Last Admin: 01/31/20 17:21 Dose: 10 unit Documented by: Latanoprost (Xalatan 0.005%) 1 drops BOTH EYES [facility] Last Admin: 01/31/20 21:13 Dose: Not Given Documented by: Linagliptin (Tradjenta) 5 mg PO DAILY [facility] Last Admin: 01/31/20 11:20 Dose: 5 mg Documented by: Losartan Potassium (Cozaar) 50 mg PO DAILY [facility] Last Admin: 01/31/20 11:28 Dose: 50 mg Documented by: Metoprolol Tartrate (Lopressor) 25 mg PO DAILY [facility] Last Admin: 01/31/20 05:49 Dose: 25 mg Documented by: Metoprolol Tartrate (Lopressor) 12.5 mg PO [facility] Last Admin: 01/31/20 20:58 Dose: 12.5 mg Documented by: Nitroglycerin (Nitrostat) 0.4 mg SUBLINGUAL Q5M PRN PRN Reason: Chest Pain Last Admin: 01/29/20 10:56 Dose: 0.4 mg Documented by: Nitroglycerin (Nitro-Bid Oint) 1 inch TOPICAL Q6HR [facility] Last Admin: 01/31/20 17:40 Dose: Not Given Documented by: Nitroglycerin (Nitrostat) 0.4 mg SUBLINGUAL Q5M PRN PRN Reason: Chest Pain Pantoprazole Sodium (Protonix) 40 mg PO AC-BID [facility] Last Admin: 01/31/20 17:21 Dose: 40 mg Documented by: Potassium Citrate (Urocit-K) 10 meq PO BID [facility] Last Admin: 01/31/20 21:05 Dose: 10 meq Documented by: Senna (Senokot) 8.6 mg PO DAILY PRN PRN Reason: Constipation Last Admin: 01/30/20 13:40 Dose: 8.6 mg Documented by: Timolol Maleate (Timoptic) 1 drops BOTH EYES BID [facility] Last Admin: 01/31/20 20:58 Dose: 1 drops Documented by: Venlafaxine HCl (Effexor Xr) 75 mg PO DAILY [facility] Last Admin: 01/31/20 11:21 Dose: 75 mg Documented by: Physical examination: VITAL SIGNS: 98, 65, 19, 151/71, 96% room air GENERAL: Laying in bed, comfortable. EYES: Pupils equal. Conjunctiva normal. NECK: JVD not raised; masses not palpable. HEART: First and second heart sounds are normal; no edema. LUNGS: Respiratory rate normal; clear to auscultation. ABDOMEN: Soft, nontender, liver spleen not palpable, no masses palpable. PSYCH: Alert and oriented x3; mood and affect normal. INVESTIGATIONS, reviewed in the clinical context: Accu-Cheks noted Admission testing: White count 7.6 hemoglobin 15.3 platelets 159 potassium 4.5 bun 17 creatinine 0.82 blood glucose 198, Accu-Cheks to 45 Troponin I 3 negative EKG tracing personally reviewed by me-normal sinus rhythm Computed tomography scan of the chest showing ascending aorta all 4.1 cm. No dissection reported. Bilateral kidney stones. Chest x-ray film personally reviewed by me-lung ramos clear Assessment: -Unstable angina, POA -Coronary artery disease with LAD lesions-successful enteroplasty stenting -GERD -Diabetes mellitus type 2, chronically on insulin -Essential hypertension -Primary osteoarthritis -Depression otherwise specified -Bilateral nephrolithiasis asymptomatic -Colonic diverticulosis -Ascending aortic aneurysm 4.1 cm -Obesity BMI 35.7 plan: Patient on aspirin and Plavix. Beta castillo. Other medications to continue. Care was discussed with the patient and significant other questions answered.
[2020-02-01 01:38] VITALS: RESP 18
[2020-02-01 06:07] LABS: Glucose,Whole Blood 221 mg/dL (75-99)
[2020-02-01] MEDS: NITROGLYCERIN OINT 1 INCH/GM PACKET TOPICAL SCH ×2 (06:17→11:37)
[2020-02-01] MEDS: INSULIN ASPART (NovoLOG) 100 UNIT/ML VIAL SQ SCH (06:35)
[2020-02-01] MEDS: glipiZIDE 10 MG TAB PO SCH (06:35)
[2020-02-01] MEDS: CALCIUM CARBONATE LIQUID 500 MG/5 ML CUP PO SCH ×2 (06:35→11:37)
[2020-02-01] MEDS: PANTOPRAZOLE 40 MG TABLET PO SCH (06:35)
[2020-02-01 06:52] LABS: Basophils % (A) 1 %; Eosinophils # (A) 0.2 k/uL (0-0.7); Eosinophils % (A) 3 %; HCT 43.5 % (39.0-53.0); HGB 14.1 gm/dL (13.0-17.5); Lymphocytes # (A) 0.9 k/uL (1.0-4.8); Lymphocytes % (A) 16 %; MCH 28.9 pg (25.0-35.0); MCHC 32.5 g/dL (31.0-37.0); MCV 89.1 fL (80.0-100.0); Mean Platelet Volume 9.1; Monocytes # (A) 0.3 k/uL (0-1.0); Monocytes % (A) 5 %; Neutrophils # (A) 4.3 k/uL (1.3-7.7); Neutrophils % (A) 75 %; Platelet Count 140 k/uL (150-450); RBC 4.88 m/uL (4.30-5.90); RDW 14.5 % (11.5-15.5); WBC 5.8 k/uL (3.8-10.6)
[2020-02-01 07:03] LABS: African American GFR (CKD) >90 (>60 ml/min/1.73 sqM); Anion Gap 9 mmol/L; Blood Urea Nitrogen 22 mg/dL (9-20); Carbon Dioxide 25 mmol/L (22-30); Chloride 102 mmol/L (98-107); Glucose 220 mg/dL (74-99); Non-African American GFR(CKD) 82 (>60 ml/min/1.73 sqM); Potassium 4.6 mmol/L (3.5-5.1); Sodium 136 mmol/L (137-145)
[2020-02-01] MEDS: LINAGLIPTIN 5 MG TABLET PO SCH (08:15)
[2020-02-01] MEDS: POTASSIUM CITRATE 10 MEQ TABLET.ER PO SCH (08:15)
[2020-02-01] MEDS: amLODIPine 5 MG TAB PO SCH (08:15)
[2020-02-01] MEDS: LOSARTAN 50 MG TAB PO SCH (08:15)
[2020-02-01] MEDS: METOPROLOL TARTRATE 25 MG TAB PO SCH (08:15)
[2020-02-01] MEDS: ASPIRIN 81 MG PO SCH (08:15)
[2020-02-01] MEDS: VENLAFAXINE HCL ER 75 MG CAP PO SCH (08:15)
[2020-02-01] MEDS: TIMOLOL 0.5% OPHTH DROPS 5 ML BTL BOTH EYES SCH (08:16)
[2020-02-01] MEDS: INSULIN REGULAR 100 UNIT/ML VIAL SQ SCH (08:18)
[2020-02-01] MEDS: INSULIN NPH 300 UNIT/3 ML VIAL SQ SCH (08:18)
[2020-02-01] MEDS ORDERED: CLOPIDOGREL 75 MG TAB PO SCH (09:00)
[2020-02-01] MEDS ORDERED: ATORVASTATIN 80 MG TAB PO SCH (09:00)
[2020-02-01 11:36] VITALS: BP 145/79; PULSE 59; TEMP 98
--- NOTE | 2020-02-01 12:17 | P.PN ---
Subjective Progress Note Date: 02/01/20 CHIEF COMPLAINT: Chest pain HISTORY OF PRESENT ILLNESS: Patient is status post cardiac cath with stent placement to the LAD. Patient examined this point the bedside. He denies chest pain. Denies shortness of breath. He has been ambulating in the room. He is anxious to be discharged home today. PHYSICAL EXAM: VITAL SIGNS: Reviewed. GENERAL: Well-developed in no acute distress. HEENT: Head is normocephalic. Pupils are equal, round. Sclerae anicteric. Mucous membranes of the mouth are moist. Neck supple. No JVD or thyromegaly LUNGS: Respirations even and unlabored. Lungs essentially clear to auscultation bilaterally. HEART: Regular rate and rhythm. S1 and S2 heard. EXTREMITIES: Normal range of motion. No clubbing or cyanosis. Peripheral pulses intact. No lower extremity edema. Right radial cath site clean and dry. Pulses present. NEUROLOGIC: Awake and alert. Oriented x 3. ASSESSMENT: Unstable angina, status post cardiac cath with stent placement to LAD Hypertension Diabetes mellitus, type II History of AAA Nephrolithiasis Family history of coronary artery disease PLAN: Continue current cardiac medications Patient may be discharged home today from a cardiac standpoint. Patient is to follow-up outpatient with Dr. Peralta Nurse practitioner note has been reviewed by physician. Signing provider agrees with the documented findings, assessment, and plan of care. Objective - Vital Signs Vital signs: Vital Signs Temp 98.0 F 02/01/20 11:35 Pulse 59 L 02/01/20 11:35 Resp 18 02/01/20 11:35 BP 145/79 02/01/20 11:35 Pulse Ox 98 02/01/20 11:35 Intake & Output 01/31/20 02/01/20 02/01/20 18:59 06:59 18:59 Intake Total 762 240 240 Output Total 1075 Balance 762 -835 240 Weight 107 kg Intake: IV 282 Oral 480 240 240 Output: Urine 1075 Other: Voiding Method Toilet Urinal # Voids 1 1 - Labs CBC & Chem 7: 02/01/20 05:50 02/01/20 05:50 Labs: Abnormal Lab Results - Last 24 Hours (Table) 01/31/20 01/31/20 02/01/20 Range/Units 16:49 20:22 05:50 Plt Count (150-450) k/uL Lymphocytes # (1.0-4.8) k/uL Sodium 136 L (137-145) mmol/L BUN 22 H (9-20) mg/dL Glucose 220 H (74-99) mg/dL POC Glucose (mg/dL) 178 H 241 H (75-99) mg/dL 02/01/20 02/01/20 Range/Units 05:50 06:06 Plt Count 140 L (150-450) k/uL Lymphocytes # 0.9 L (1.0-4.8) k/uL Sodium (137-145) mmol/L BUN (9-20) mg/dL Glucose (74-99) mg/dL POC Glucose (mg/dL) 221 H (75-99) mg/dL
--- NOTE | 2020-02-01 20:28 | P.DS ---
Providers Date of admission: 01/31/20 14:38 Expected date of discharge: 02/01/20 Attending physician: Keyshawn Mckeon Consults: 01/29/20 10:41 Consult Physician Urgent Consulting Provider: Inderjit Miranda Consult Reason/Comments: Unstable angina Do you want consulting provider notified?: Yes 01/29/20 12:53 Consult Physician Routine Consulting Provider: Aurelio Poole Consult Reason/Comments: chest pain Do you want consulting provider notified?: Yes Primary care physician: Jim Mckinnon [facility] Course: Chief Complaint: Right anterior chest wall pain History of presenting complaint: This is a pleasant [address] Jim Mckinnon. Chronic stable medical conditions include diabetes, hypertension, arthritis, depression, GERD, kidney stones, diverticulosis. For 3 days patient been having right anterior chest wall pain lateral to the sternum just above the drip lower border somewhat localized. It is a constant pain. It feels like a bad heartburn. Patient sometimes does take piqu-jze-qumqcvx medications for the same. On this occasion does not relief. He also tried quite a bit of Rolaids no relief. Does note radiation. No dizziness nor lightheadedness no perspiration. Not related to activity. Admitted for the same. Patient's fianc with the bedside. No prior cardiac history.underwent cardiac catheterization. Successful angioplasty stenting of the LAD was done. Today-up and about. No chest pain or short of but no dizziness. Discussed with the patient and . Questions answered. Cleared by cardiology. Care was discussed with the patient and . Review of systems: Was done for constitutional, cardiovascular, GI, pulmonary. relevant finding as above Consultation: Cardiology dimitri Physical examination: VITAL SIGNS: 98, 59, 18, 145/79, 98% room air GENERAL: Sitting up, comfortable. EYES: Pupils equal. Conjunctiva normal. NECK: JVD not raised; masses not palpable. HEART: First and second heart sounds are normal; no edema. LUNGS: Respiratory rate normal; clear to auscultation. ABDOMEN: Soft, nontender, liver spleen not palpable, no masses palpable. PSYCH: Alert and oriented x3; mood and affect normal. INVESTIGATIONS, reviewed in the clinical context: White count 5.8 hemoglobin 14.1 creatinine 0.95 Accu-Cheks noted Admission testing: White count 7.6 hemoglobin 15.3 platelets 159 potassium 4.5 bun 17 creatinine 0.82 blood glucose 198, Accu-Cheks to 45 Troponin I 3 negative EKG tracing personally reviewed by me-normal sinus rhythm Computed tomography scan of the chest showing ascending aorta all 4.1 cm. No dissection reported. Bilateral kidney stones. Chest x-ray film personally reviewed by me-lung ramos clear 2-D echo-EF 55% Nuclear stress test-ischemia at the apex, EF 39% Assessment: -Unstable angina, POA -Coronary artery disease with LAD lesions-successful angioplasty stenting -Chronic congestive heart failure from systolic dysfunction EF 39% -GERD -Diabetes mellitus type 2, chronically on insulin -Essential hypertension -Primary osteoarthritis -Depression otherwise specified -Bilateral nephrolithiasis asymptomatic -Colonic diverticulosis -Ascending aortic aneurysm 4.1 cm -Obesity BMI 35.7 Disposition: Home Patient Condition at Discharge: Stable Plan - Discharge Summary Discharge Rx Participant: No New Discharge Prescriptions: New Aspirin 81 mg PO DAILY chew Losartan [Cozaar] 50 mg PO DAILY #30 tab Atorvastatin [Lipitor] 80 mg PO DAILY #30 tab Metoprolol Tartrate [Lopressor] 25 mg PO BID #60 tab Nitroglycerin Sl Tabs [Nitrostat] 0.4 mg SUBLINGUAL Q5M PRN #30 tab PRN Reason: Chest Pain amLODIPine [Norvasc] 10 mg PO DAILY #30 tab Famotidine [Pepcid] 20 mg PO BID #60 tablet Clopidogrel [Plavix] 75 mg PO DAILY #30 tab Continue glipiZIDE [Glucotrol] 10 mg PO AC-BID sitaGLIPtin [Januvia] 100 mg PO DAILY Potassium Citrate [Urocit-K] 10 meq PO BID Insulin NPH Human Isophane [NovoLIN N] 10 unit SQ HS Insulin NPH Human Isophane [NovoLIN N] 25 units SQ QAM Insulin Regular, Human [NovoLIN R] 10 unit SQ AC-SUPPER Timolol 0.5% Ophth Soln [Timoptic 0.5% Ophth Soln] 1 drop BOTH EYES BID Insulin Regular, Human [NovoLIN R] 5 unit SQ AC-BID@0800,1200 Venlafaxine HCl ER [Effexor XR] 75 mg PO DAILY Latanoprost [Xalatan 0.005%] 1 drop BOTH EYES HS Discontinued amLODIPine [Norvasc] 5 mg PO DAILY Discharge Medication List glipiZIDE [Glucotrol] 10 mg PO AC-BID 01/14/15 [History] sitaGLIPtin [Januvia] 100 mg PO DAILY 01/14/15 [History] Potassium Citrate [Urocit-K] 10 meq PO BID 07/13/15 [History] Insulin NPH Human Isophane [NovoLIN N] 10 unit SQ HS 11/01/18 [History] Insulin NPH Human Isophane [NovoLIN N] 25 units SQ QAM 11/01/18 [History] Insulin Regular, Human [NovoLIN R] 10 unit SQ AC-SUPPER 11/01/18 [History] Timolol 0.5% Ophth Soln [Timoptic 0.5% Ophth Soln] 1 drop BOTH EYES BID 11/01/18 [History] Insulin Regular, Human [NovoLIN R] 5 unit SQ AC-BID@0800,1200 01/29/20 [History] Latanoprost [Xalatan 0.005%] 1 drop BOTH EYES HS 01/29/20 [History] Venlafaxine HCl ER [Effexor XR] 75 mg PO DAILY 01/29/20 [History] Aspirin 81 mg PO DAILY chew 02/01/20 [Rx] Atorvastatin [Lipitor] 80 mg PO DAILY #30 tab 02/01/20 [Rx] Clopidogrel [Plavix] 75 mg PO DAILY #30 tab 02/01/20 [Rx] Famotidine [Pepcid] 20 mg PO BID #60 tablet 02/01/20 [Rx] Losartan [Cozaar] 50 mg PO DAILY #30 tab 02/01/20 [Rx] Metoprolol Tartrate [Lopressor] 25 mg PO BID #60 tab 02/01/20 [Rx] Nitroglycerin Sl Tabs [Nitrostat] 0.4 mg SUBLINGUAL Q5M PRN #30 tab 02/01/20 [Rx] amLODIPine [Norvasc] 10 mg PO DAILY #30 tab 02/01/20 [Rx] Follow up Appointment(s)/Referral(s): Bonifacio Peralta MD [STAFF PHYSICIAN] - 02/04/20 9:00 am (Monday) [facility],Cardiac [NON-STAFF] - 1 Week (After discharge, you will follow-up with your wing mailer machine operator. Once you have obtained a prescription for cardiac rehab, please call [phone] to set up an evaluation. ) Jim Mckinnon MD [Primary Care Provider] - 1-2 days (Please call on Monday to make a follow up appointment. ) Patient Instructions/Handouts: *Surgery [facility] - After Heart Catheterization - [employer] In[employer]or Instructions Discharge Disposition: HOME SELF-CARE Care Plan Goals (MU): Limited activity until seen by Dr. Peralta. Cardiac rehab after follow up with Dr. DANIA Peralta. Limited activity with Right wrist. Diabetic diet.
[2020-02-02] MEDS ORDERED: amLODIPine 10 MG TAB PO SCH (09:00)
== END 2020-02-01 12:26 | disposition home or self-care (01) | DRG 247 ==
LOC: EC 08:02 → 3SCARD 10:55 → OBSVTOIN 01-31 14:38
PROVIDERS: ADMIT Hospitalist; ATTEND Hospitalist
PROC: 4A023N7 Measurement of Cardiac Sampling and Pressure, Left Heart, Percutaneous Approach (ICD-10-PCS; principal; 2020-01-31 09:15)
PROC: 027034Z Dilation of Coronary Artery, One Artery with Drug-eluting Intraluminal Device, Percutaneous Approach (ICD-10-PCS; principal; 2020-01-31 09:15)
PROC: B2111ZZ Fluoroscopy of Multiple Coronary Arteries using Low Osmolar Contrast (ICD-10-PCS; principal; 2020-01-31 09:15)
DX: I25.110 Atherosclerotic heart disease of native coronary artery with unstable angina pectoris (principal); I50.22 Chronic systolic (congestive) heart failure; E11.9 Type 2 diabetes mellitus without complications; E66.9 Obesity, unspecified; E78.5 Hyperlipidemia, unspecified; F32.9 Major depressive disorder, single episode, unspecified; I11.0 Hypertensive heart disease with heart failure; I71.2 Thoracic aortic aneurysm, without rupture; K21.0 Gastro-esophageal reflux disease with esophagitis; K57.30 Diverticulosis of large intestine without perforation or abscess without bleeding; M19.91 Primary osteoarthritis, unspecified site; N20.0 Calculus of kidney; H40.9 Unspecified glaucoma; Z68.35 Body mass index [BMI] 35.0-35.9, adult; Z79.4 Long term (current) use of insulin; Z79.899 Other long term (current) drug therapy; Z98.42 Cataract extraction status, left eye; Z87.442 Personal history of urinary calculi; Z88.5 Allergy status to narcotic agent; Z88.0 Allergy status to penicillin; Z88.8 Allergy status to other drugs, medicaments and biological substances; Z91.041 Radiographic dye allergy status; Z85.46 Personal history of malignant neoplasm of prostate; Z92.3 Personal history of irradiation; Z90.49 Acquired absence of other specified parts of digestive tract; Z98.890 Other specified postprocedural states; Z87.19 Personal history of other diseases of the digestive system; Z80.8 Family history of malignant neoplasm of other organs or systems; Z82.49 Family history of ischemic heart disease and other diseases of the circulatory system
CPT/HCPCS: 36415; 71046; 71275; 74174; 78452; 80048; 80053; 80061; 83036; 83735; 84484; 85025; 85610; 85730; 93005; 93017; 93306; 93458; 96365; 96375; 96376; 99291

== ENCOUNTER → 2022-02-03 | Outpatient (CLI) | payer MEDICARE ==
--- NOTE | 2022-02-03 12:06 | CT ---
EXAMINATION TYPE: TEMPORARY DATE OF EXAM: 02/03/2022 COMPARISON: NONE HISTORY: Chronic sinusitis CT DLP: 741.38 mGycm. Automated Exposure Control for Dose Reduction was Utilized. TECHNIQUE: CT scan of the sinuses is performed without contrast, axial images are obtained, coronal r eformatted images are also reviewed. FINDINGS: Nearly completely opacified right frontal sinus without bony destruction. Sinus may are s clerotic and thickened on the right versus the opposite left side. Hypoplastic or nonformed right fro ntal sinus. Remainder of paranasal sinuses clear. The ostiomeatal complex is patent bilaterally on th e left. Visualized portion of mastoid air cells show no abnormal opacification. The globes are intact bilate rally. Visualized brain parenchyma shows mild age-related atrophy. IMPRESSION: Acute on chronic right frontal sinus disease is thought present extending towards maxilla ry antrum.
== END | disposition home or self-care (01) ==
LOC: RADCTMAIN 09:44
PROVIDERS: ATTEND Otolaryngology
DX: J32.9 Chronic sinusitis, unspecified (principal)
CPT/HCPCS: 70486

== ENCOUNTER 2022-03-18 21:46 | Observation (INO) | payer MEDICARE ==
[2022-03-18] MEDS ORDERED: ASPIRIN 81 MG PO STA (22:16)
[2022-03-18 22:51] LABS: Basophils # (A) 0.1 k/uL (0-0.2); Basophils % (A) 1 %; Eosinophils # (A) 0.2 k/uL (0-0.7); Eosinophils % (A) 3 %; HCT 40.5 % (39.0-53.0); HGB 14.1 gm/dL (13.0-17.5); Lymphocytes # (A) 1.7 k/uL (1.0-4.8); Lymphocytes % (A) 22 %; MCH 29.8 pg (25.0-35.0); MCHC 34.9 g/dL (31.0-37.0); MCV 85.4 fL (80.0-100.0); Mean Platelet Volume 9.1; Monocytes # (A) 0.3 k/uL (0-1.0); Monocytes % (A) 4 %; Neutrophils # (A) 5.3 k/uL (1.3-7.7); Neutrophils % (A) 70 %; Platelet Count 194 k/uL (150-450); RBC 4.74 m/uL (4.30-5.90); RDW 14.1 % (11.5-15.5); WBC 7.7 k/uL (3.8-10.6)
[2022-03-18 22:56] LABS: Partial Thromboplastin Time 23.1 sec (22.0-30.0); Prothrombin Time 10.6 sec (9.0-12.0)
--- NOTE | 2022-03-18 22:57 | XR ---
EXAMINATION TYPE: XR chest 2V DATE OF EXAM: 03/18/2022 COMPARISON: 01/29/2020 HISTORY: Chest pain TECHNIQUE: 2 views FINDINGS: There is no heart failure nor confluent pneumonic infiltrate. Costophrenic angles are clear . There are no hilar masses. IMPRESSION: No active cardiopulmonary disease. Normal heart. No change.
[2022-03-18 22:59] LABS: Albumin 4.2 g/dL (3.5-5.0); Calcium 8.8 mg/dL (8.4-10.2); Magnesium 1.7 mg/dL (1.6-2.3); Potassium 4.4 mmol/L (3.5-5.1); Total Bilirubin 0.5 mg/dL (0.2-1.3); Total Protein 6.9 g/dL (6.3-8.2)
[2022-03-18] MEDS ORDERED: NITROGLYCERIN OINT 1 INCH/GM PACKET TOPICAL STA (23:07)
[2022-03-18] MEDS ORDERED: HEPARIN SODIUM 1,000 UN/ML (10ML VL) IV ONE (23:07)
[2022-03-18] MEDS: HEPARIN SOD,PORK IN 0.45% NACL 25,000 UNIT in 0.45% NACL 1 250ML.BAG IV SCH (23:31)
--- NOTE | 2022-03-18 23:32 | ED ---
General Adult HPI - General Chief complaint: Chest Pain Stated complaint: Chest Pain Time Seen by Provider: 03/18/22 22:14 Source: EMS Mode of arrival: EMS Limitations: no limitations - History of Present Illness Initial comments: Patient is a 71-year-old male with past medical history remarkable for prior [place] with one cardiac stent 3 years ago, diabetes, hypertension, prostate disorder who presents emergency Department complaining of. States it started around 9 or 9:30 PM. He took 1 nitroglycerin tablet at home which resolved his pain. He was sitting watching TV in the recliner what happened. States he became clammy but no diaphoresis, no nausea or vomiting. No lightheadedness or blurry vision. States the pain came back shortly after then, and EMS was called. When they arrived, they administered 2 additional nitroglycerin tablets as well as 3 and and 25 mg of aspirin. Patient states his pain has been resolved since then. Currently is resting comfortable he. Denies any other associated complaints. Denies abdominal pain, nausea, vomiting, chest pain. Denies any shortness of breath. Denies any fevers or chills. Presents for further evaluation at this time over concern for cardiac disease. He does have a history of a known a scending aortic aneurysm, however on prior evaluation he states that his physicians did not seem concerned with that at that time. - Related Data Home Medications Medication Instructions Recorded Confirmed glipiZIDE [Glucotrol] 10 mg PO AC-BID 01/14/15 01/29/20 sitaGLIPtin [Januvia] 100 mg PO DAILY 01/14/15 01/29/20 Potassium Citrate [Urocit-K] 10 meq PO BID 07/13/15 01/29/20 Insulin NPH Human Isophane 10 unit SQ HS 11/01/18 01/29/20 [NovoLIN N] Insulin NPH Human Isophane 25 units SQ QAM 11/01/18 01/29/20 [NovoLIN N] Insulin Regular, Human [NovoLIN R] 10 unit SQ AC-SUPPER 11/01/18 01/29/20 Timolol 0.5% Ophth Soln [Timoptic 1 drop BOTH EYES BID 11/01/18 01/29/20 0.5% Ophth Soln] Insulin Regular, Human [NovoLIN R] 5 unit SQ AC-BID@0800,1200 01/29/20 01/29/20 Latanoprost [Xalatan 0.005%] 1 drop BOTH EYES HS 01/29/20 01/29/20 Venlafaxine HCl ER [Effexor XR] 75 mg PO DAILY 01/29/20 01/29/20 Previous Rx's Medication Instructions Recorded Aspirin 81 mg PO DAILY chew 02/01/20 Atorvastatin [Lipitor] 80 mg PO DAILY #30 tab 02/01/20 Clopidogrel [Plavix] 75 mg PO DAILY #30 tab 02/01/20 Famotidine [Pepcid] 20 mg PO BID #60 tablet 02/01/20 Losartan [Cozaar] 50 mg PO DAILY #30 tab 02/01/20 Metoprolol Tartrate [Lopressor] 25 mg PO BID #60 tab 02/01/20 Nitroglycerin Sl Tabs [Nitrostat] 0.4 mg SUBLINGUAL Q5M PRN #30 tab 02/01/20 amLODIPine [Norvasc] 10 mg PO DAILY #30 tab 02/01/20 Dicyclomine [Bentyl] 20 mg PO TID #15 tablet 01/22/22 Allergies Allergy/AdvReac Type Severity Reaction Status Date / Time Penicillins Allergy Swelling Verified 01/22/22 04:29 propoxyphene napsylate Allergy Rash/Hives Verified 01/22/22 04:29 [From Darvocet-N] Iodinated Contrast Media AdvReac Nausea & Verified 01/22/22 04:29 [Iodinated Contrast- Oral Vomiting and IV Dye] iohexol AdvReac Nausea & Verified 01/22/22 04:29 Vomiting Review of Systems ROS Statement: Those systems with pertinent positive or pertinent negative responses have been documented in the HPI. ROS Other: All systems not noted in ROS Statement are negative. Past Medical History Past Medical History: Cancer, Diabetes Mellitus, Eye Disorder, Hyperlipidemia, Hypertension, Osteoarthritis (OA), Prostate Disorder Additional Past Medical History / Comment(s): Kidney Stones; glaucoma; diverticulitis. Past hx of HTN. Prostate Cancer 07/2015, SURGERY, RADIATON. INCISIONAL HERNIA. History of Any Multi-Drug Resistant Organisms: None Reported Past Surgical History: Cholecystectomy, Hernia Repair, Prostate Surgery Additional Past Surgical History / Comment(s): Multiple Lithotripsies , Left Cataract removal. finger surgery. Hernia repair w/ mesh; UMBILICAL HERNIA. Cyst removed from tailbone. Past Anesthesia/Blood Transfusion Reactions: No Reported Reaction Past Psychological History: Depression Smoking Status: Never smoker Past Alcohol Use History: None Reported Past Drug Use History: None Reported - Past Family History Brother(s) Family Medical History: Cancer Additional Family Medical History / Comment(s): Skin cancer Father Family Medical History: Cancer Additional Family Medical History / Comment(s): Skin cancer Mother Family Medical History: Cancer Additional Family Medical History / Comment(s): Skin cancer. General Exam Limitations: no limitations Course Vital Signs 03/18/22 03/18/22 03/18/22 21:50 21:55 23:32 Temperature 98 F 98 F 98.2 F Pulse Rate 93 87 70 Respiratory 16 16 16 Rate Blood Pressure 133/85 133/85 102/87 O2 Sat by Pulse 96 96 98 Oximetry 03/19/22 00:10 Temperature 98 F Pulse Rate 74 Respiratory 16 Rate Blood Pressure 140/78 O2 Sat by Pulse 98 Oximetry Medical Decision Making - Medical Decision Making Based on the patient's presentation and physical exam, I'm concerned for cardio pulmonary cause for his current symptoms. Seems to have unstable angina as he did have chest pain that responded to nitroglycerin tablets at home. Vital signs are within acceptable limits. We'll obtain cardiac labs, chest x-ray, EKG. He was in agreement this plan. He already received 325 mg of aspirin from EMS. Currently has no chest pain. He will have Nitro paste applied to his chest. EKG showed no signs of acute ischemia. Chest x-ray showed no acute cardio pulmonary process. Laboratory studies are remarkable for a undetectable troponin. Remainder the labs are unremarkable. On reevaluation, chest pain related remains resolved. However pain did start within the last 3 hours. Heart score is moderate. He did have chest pain that responded to nitroglycerin and I am concerned for unstable angina. I discussed with him I would like to admit him to a telemetry bed and put him on a heparin drip. He was in agreement this plan. Cardiology will be consulted to evaluate the patient the morning. We will trend the troponin. Echo was ordered. The I spoke with the admitting team, Angelina of [facility] who accepted the patient. Patient was admitted in stable condition. - Lab Data Result diagrams: 03/18/22 22:30 03/18/22 22:30 Lab Results 03/18/22 03/18/22 03/18/22 Range/Units 22:30 22:30 22:30 WBC 7.7 (3.8-10.6) k/uL RBC 4.74 (4.30-5.90) m/uL Hgb 14.1 (13.0-17.5) gm/dL Hct 40.5 (39.0-53.0) % MCV 85.4 (80.0-100.0) fL MCH 29.8 (25.0-35.0) pg MCHC 34.9 (31.0-37.0) g/dL RDW 14.1 (11.5-15.5) % Plt Count 194 (150-450) k/uL MPV 9.1 Neutrophils % 70 % Lymphocytes % 22 % Monocytes % 4 % Eosinophils % 3 % Basophils % 1 % Neutrophils # 5.3 (1.3-7.7) k/uL Lymphocytes # 1.7 (1.0-4.8) k/uL Monocytes # 0.3 (0-1.0) k/uL Eosinophils # 0.2 (0-0.7) k/uL Basophils # 0.1 (0-0.2) k/uL PT 10.6 (9.0-12.0) sec INR 1.0 (<1.2) APTT 23.1 (22.0-30.0) sec Sodium 138 (137-145) mmol/L Potassium 4.4 (3.5-5.1) mmol/L Chloride 103 (98-107) mmol/L Carbon Dioxide 23 (22-30) mmol/L Anion Gap 12 mmol/L BUN 24 H (9-20) mg/dL Creatinine 1.15 (0.66-1.25) mg/dL Est GFR (CKD-EPI)AfAm 75 (>60 ml/min/1.73 sqM) Est GFR (CKD-EPI)NonAf 65 (>60 ml/min/1.73 sqM) Glucose 190 H (74-99) mg/dL Calcium 8.8 (8.4-10.2) mg/dL Magnesium 1.7 (1.6-2.3) mg/dL Total Bilirubin 0.5 (0.2-1.3) mg/dL AST 37 (17-59) U/L ALT 30 (4-49) U/L Alkaline Phosphatase 86 (38-126) U/L Troponin I (0.000-0.034) ng/mL Total Protein 6.9 (6.3-8.2) g/dL Albumin 4.2 (3.5-5.0) g/dL 03/18/22 Range/Units 22:30 WBC (3.8-10.6) k/uL RBC (4.30-5.90) m/uL Hgb (13.0-17.5) gm/dL Hct (39.0-53.0) % MCV (80.0-100.0) fL MCH (25.0-35.0) pg MCHC (31.0-37.0) g/dL RDW (11.5-15.5) % Plt Count (150-450) k/uL MPV Neutrophils % % Lymphocytes % % Monocytes % % Eosinophils % % Basophils % % Neutrophils # (1.3-7.7) k/uL Lymphocytes # (1.0-4.8) k/uL Monocytes # (0-1.0) k/uL Eosinophils # (0-0.7) k/uL Basophils # (0-0.2) k/uL PT (9.0-12.0) sec INR (<1.2) APTT (22.0-30.0) sec Sodium (137-145) mmol/L Potassium (3.5-5.1) mmol/L Chloride (98-107) mmol/L Carbon Dioxide (22-30) mmol/L Anion Gap mmol/L BUN (9-20) mg/dL Creatinine (0.66-1.25) mg/dL Est GFR (CKD-EPI)AfAm (>60 ml/min/1.73 sqM) Est GFR (CKD-EPI)NonAf (>60 ml/min/1.73 sqM) Glucose (74-99) mg/dL Calcium (8.4-10.2) mg/dL Magnesium (1.6-2.3) mg/dL Total Bilirubin (0.2-1.3) mg/dL AST (17-59) U/L ALT (4-49) U/L Alkaline Phosphatase (38-126) U/L Troponin I <0.012 (0.000-0.034) ng/mL Total Protein (6.3-8.2) g/dL Albumin (3.5-5.0) g/dL - EKG Data -: EKG Interpreted by Me EKG Comments: 12-lead Electrocardiogram Interpretation Note EKG was reviewed and interpreted by myself. 12-lead ECG performed at 2151 is interpreted by me as revealing normal sinus rhythm at a rate of 88 beats per minute. [place] is normal. [place] interval is 152 ms, QRS duration is 94 ms, QTc is 414 ms. There were no acute ST or T wave abnormalities to suggest myocardial ischemia or injury. Chronic T-wave inversion in lead aVL which is seen on prior EKGs. R wave progression across the precordium was satisfactory. By my interpretation this EKG is non-diagnostic for acute ischemia. Critical Care Time Critical Care Time: Yes Total Critical Care Time: 35 Critical Care Time: Upon my evaluation, this patient had a high probability of imminent or life- threatening deterioration due to unstable angina, heparin drip initiation, which required my direct attention, intervention, and personal management. I have personally provided 35 minutes of critical care time exclusive of time spent on separately billable procedures. Time includes review of laboratory data, radiology results, discussion with consultants, and monitoring for poten tial decompensation. Interventions were performed as documented in my note. Disposition Clinical Impression: Chest pain, Unstable angina Disposition: ADMITTED IP TO THIS HOSP Condition: Stable Time of Disposition: 23:00
[2022-03-18] MEDS ORDERED: NALOXONE 0.4 MG/ML 1 ML VIAL IV PRN (23:38)
[2022-03-19 06:17] LABS: Basophils # (A) 0.1 k/uL (0-0.2); Basophils % (A) 1 %; Eosinophils # (A) 0.2 k/uL (0-0.7); Eosinophils % (A) 4 %; HCT 39.2 % (39.0-53.0); HGB 13.2 gm/dL (13.0-17.5); Lymphocytes # (A) 1.5 k/uL (1.0-4.8); Lymphocytes % (A) 24 %; MCH 29.3 pg (25.0-35.0); MCHC 33.8 g/dL (31.0-37.0); MCV 86.8 fL (80.0-100.0); Mean Platelet Volume 9.2; Monocytes # (A) 0.3 k/uL (0-1.0); Monocytes % (A) 4 %; Neutrophils # (A) 4.1 k/uL (1.3-7.7); Neutrophils % (A) 66 %; Platelet Count 154 k/uL (150-450); RBC 4.52 m/uL (4.30-5.90); RDW 14.1 % (11.5-15.5); WBC 6.1 k/uL (3.8-10.6)
[2022-03-19 06:24] LABS: Prothrombin Time 10.9 sec (9.0-12.0)
[2022-03-19 06:37] LABS: Calcium 8.6 mg/dL (8.4-10.2); Potassium 4.3 mmol/L (3.5-5.1)
[2022-03-19 07:16] LABS: Glucose,Whole Blood 187 mg/dL (70-110)
[2022-03-19] MEDS: HEPARIN SODIUM 1,000 UN/ML (10ML VL) IV PRN (08:11)
[2022-03-19] MEDS: INSULIN REGULAR 100 UNIT/ML VIAL (IV) SQ SCH ×3 (08:13→17:39)
[2022-03-19] MEDS: TIMOLOL 0.5% OPHTH DROPS 5 ML BTL BOTH EYES SCH ×2 (08:13→20:23)
[2022-03-19] MEDS: ASPIRIN 81 MG PO SCH (08:14)
[2022-03-19] MEDS: glipiZIDE 10 MG TAB PO SCH ×2 (08:14→17:41)
[2022-03-19] MEDS: METOPROLOL TARTRATE 25 MG TAB PO SCH ×2 (08:14→20:23)
[2022-03-19] MEDS: LINAGLIPTIN 5 MG TABLET PO SCH (08:14)
[2022-03-19] MEDS: LOSARTAN 50 MG TAB PO SCH (08:14)
[2022-03-19] MEDS: CLOPIDOGREL 75 MG TAB PO SCH (08:14)
[2022-03-19] MEDS: INSULIN NPH 100 UNIT/ML 10 ML VIAL SQ SCH ×2 (08:14→21:28)
[2022-03-19] MEDS: amLODIPine 10 MG TAB PO SCH (08:14)
[2022-03-19] MEDS ORDERED: FAMOTIDINE 20 MG/2 ML VIAL IV STA (10:51)
[2022-03-19] MEDS ORDERED: diphenhydrAMINE 50 MG/ML 1 ML VIAL IVP STA (10:51)
[2022-03-19] MEDS ORDERED: methylPREDNISolone SOD SUCCI 125 MG/2 ML VIAL IV STA (10:51)
[2022-03-19] MEDS: NITROGLYCERIN OINT 1 INCH/GM PACKET TOPICAL SCH ×2 (11:43→17:40)
[2022-03-19 11:49] LABS: Glucose,Whole Blood 204 mg/dL (70-110)
--- NOTE | 2022-03-19 12:24 | CA ---
Transthoracic Echo Report Name: Art Hinoojsa Age: 71 Gender: M : 1950 Exam Date: 03/19/2022 09:24 Exam Location: [facility] Ht (in): 68 Wt (lb): 240 Ordering Physician: Ankit Campa MD Attending/Referring Phys: Temporary Staff Accountant Shreya Cm RDCS Procedure CPT: Indications: Chest Pain Cardiac Hx: Technical Quality: Contrast 1: Total Dose (mL): Contrast 2: Total Dose (mL): MEASUREMENTS (Male / Female) Normal Values 2D ECHO LV Diastolic Diameter PLAX 5.2 cm 4.2 - 5.9 / 3.9 - 5.3 cm LV Systolic Diameter PLAX 3.8 cm IVS Diastolic Thickness 1.0 cm 0.6 - 1.0 / 0.6 - 0.9 cm LVPW Diastolic Thickness 1.6 cm 0.6 - 1.0 / 0.6 - 0.9 cm LV Relative Wall Thickness 0.5 RV Internal Dim ED PLAX 2.7 cm LA Volume 56.2 cm??? 18 - 58 / 22 - 52 cm??? M-MODE Aortic Root Diameter MM 3.6 cm LA Systolic Diameter MM 4.1 cm LA Ao Ratio MM 1.1 MV E Point Septal Separation 0.7 cm AV Cusp Separation MM 2.1 cm DOPPLER MV Area PHT 2.7 cm??? Mitral E Point Velocity 63.2 cm/s Mitral A Point Velocity 84.1 cm/s Mitral E to A Ratio 0.8 MV Deceleration Time 277.0 ms MV E' Velocity 5.1 cm/s Mitral E to MV E' Ratio 12.5 FINDINGS Left Ventricle Left ventricular ejection fraction is estimated at 50-55%. Mildly increased left ventricular wall thickness. Right Ventricle Normal right ventricular size and function. Right Atrium Normal right atrial size. Left Atrium Normal left atrial size. Mitral Valve Structurally normal mitral valve. Mild mitral regurgitation. Aortic Valve Trileaflet aortic valve. Tricuspid Valve Structurally normal tricuspid valve. Mild tricuspid regurgitation. Pulmonic Valve Structurally normal pulmonic valve. Pericardium Echo free space anterior to the right ventricle likely represents a fat pad. Aorta Normal size aortic root and proximal ascending aorta. CONCLUSIONS Normal LV systolic function Mild mitral regurgitation Mild tricuspid regurgitation Previewed by: Dr. Marshal Escobar MD (Electronically Signed) Final Date: 19 March 2022 12:23
[2022-03-19] MEDS ORDERED: NITROGLYCERIN SL TABS 0.4 MG TAB SUBLINGUAL PRN (13:18)
[2022-03-19] MEDS ORDERED: ALPRAZolam 0.25 MG TAB PO PRN (13:29)
[2022-03-19] MEDS ORDERED: ASPIRIN 325 MG TAB PO STA (13:29)
[2022-03-19] MEDS ORDERED: ATORVASTATIN 80 MG TAB PO STA (13:29)
[2022-03-19] MEDS ORDERED: ALPRAZolam 0.5 MG TAB PO PRN (13:29)
[2022-03-19 16:38] LABS: Glucose,Whole Blood 147 mg/dL (70-110)
[2022-03-19] MEDS ORDERED: DOCUSATE 100 MG CAP PO PRN (18:33)
[2022-03-19] MEDS: FLUTICASONE 50MCG/SPRAY NASAL 16GM EA NOSTRIL SCH (20:23)
[2022-03-19] MEDS: LATANOPROST 0.005% OPHTH DROPS 2.5 ML BTL BOTH EYES SCH (20:23)
[2022-03-19 21:12] LABS: Glucose,Whole Blood 230 mg/dL (70-110)
[2022-03-19] MEDS: HEPARIN SOD,PORK IN 0.45% NACL 25,000 UNIT in 0.45% NACL 1 250ML.BAG IV SCH (21:53)
[2022-03-20] MEDS: NITROGLYCERIN OINT 1 INCH/GM PACKET TOPICAL SCH ×3 (02:08→17:24)
[2022-03-20] MEDS: HEPARIN SODIUM 1,000 UN/ML (10ML VL) IV PRN (06:08)
[2022-03-20 06:54] LABS: Glucose,Whole Blood 196 mg/dL (70-110)
[2022-03-20] MEDS: TIMOLOL 0.5% OPHTH DROPS 5 ML BTL BOTH EYES SCH ×2 (08:36→21:11)
[2022-03-20] MEDS: METOPROLOL TARTRATE 25 MG TAB PO SCH ×2 (08:37→21:19)
[2022-03-20] MEDS: amLODIPine 10 MG TAB PO SCH (08:37)
[2022-03-20] MEDS: LOSARTAN 50 MG TAB PO SCH (08:37)
[2022-03-20] MEDS: VENLAFAXINE HCL ER 150 MG CAP PO SCH (08:37)
[2022-03-20] MEDS: VENLAFAXINE HCL ER 75 MG CAP PO SCH (08:37)
[2022-03-20] MEDS: CLOPIDOGREL 75 MG TAB PO SCH (08:38)
[2022-03-20] MEDS: ATORVASTATIN 80 MG TAB PO SCH (08:38)
[2022-03-20] MEDS ORDERED: VERAPAMIL 2.5 MG/ML 2 ML AMP ONE (09:38)
[2022-03-20] MEDS ORDERED: SODIUM CHLORIDE 0.9% 1,000 ML IV ONE (09:50)
[2022-03-20 09:58] LABS: Basophils # (A) 0.04 X 10*3/uL (0.00-0.10); Basophils % (A) 0.6 %; Eosinophils # (A) 0.17 X 10*3/uL (0.04-0.35); Eosinophils % (A) 2.5 %; HCT 39.1 % (39.6-50.0); HGB 13.4 g/dL (13.0-17.0); Immature Grans, Automated 0.1 %; Lymphocytes # (A) 1.38 X 10*3/uL (0.90-5.00); Lymphocytes % (A) 20.2 %; MCH 29.6 pg (27.0-32.0); MCHC 34.3 g/dL (32.0-37.0); MCV 86.5 fL (80.0-97.0); Mean Platelet Volume 12.5 fL (9.5-12.2); Monocytes # (A) 0.44 X 10*3/uL (0.20-1.00); Monocytes % (A) 6.4 %; NRBC Per 100 WBC 0 /100 WBCS (0.0-0.0); Neutrophils % (A) 70.2 %; Platelet Count 165 X 10*3/uL (140-440); RBC 4.52 X 10*6/uL (4.40-5.60); RDW 13.8 % (11.5-14.5); WBC 6.84 X 10*3/uL (4.50-10.00)
[2022-03-20] MEDS ORDERED: diphenhydrAMINE 50 MG/ML 1 ML VIAL ONE (09:58)
[2022-03-20] MEDS ORDERED: methylPREDNISolone SOD SUCCI 125 MG/2 ML VIAL ONE (09:59)
[2022-03-20] MEDS ORDERED: LIDOCAINE 1% INJ 10MG/ML (30 ML VIAL-PF) SQ ONE (10:00)
[2022-03-20] MEDS ORDERED: diphenhydrAMINE 50 MG/ML 1 ML VIAL IVP ONE (10:01)
[2022-03-20] MEDS ORDERED: MIDAZOLAM 2 MG/2 ML VIAL IV ONE (10:03)
[2022-03-20] MEDS ORDERED: methylPREDNISolone SOD SUCCI 125 MG/2 ML VIAL IV ONE (10:06)
[2022-03-20] MEDS ORDERED: fentaNYL (PF) 50 MCG/ML 2 ML AMP ONE (10:10)
[2022-03-20] MEDS: fentaNYL (PF) 50 MCG/ML 2 ML AMP IV ONE ×2 (10:10→11:00)
[2022-03-20] MEDS ORDERED: HEPARIN SODIUM 1,000 UN/ML (10ML VL) ONE (10:27)
[2022-03-20] MEDS ORDERED: CLOPIDOGREL 75 MG TAB ONE (10:33)
[2022-03-20] MEDS ORDERED: CLOPIDOGREL 75 MG TAB PO ONE (10:36)
[2022-03-20] MEDS ORDERED: IOPAMIDOL-370 125ML BTL INJ ONE (10:53)
[2022-03-20] MEDS ORDERED: RX INFO: IV CONTRAST WAS GIVEN 1 EACH MISC MISCELLANE PRN (10:59)
--- NOTE | 2022-03-20 10:59 | P.OP ---
Description of Procedure: PROCEDURES PERFORMED: Left coronary angiography, iFR LAD INDICATION: Chest pain concerning for unstable angina PROCEDURE: After the risks, benefits and alternatives of the above mentioned procedure explained in detail with the patient, informed consent was obtained. Patient was taken to the catheterization lab and prepped and draped in usual fashion. A 6-[place] sheath had are ready been placed in the right femoral artery. The decision was made to perform iFR of the LAD given intermediate lesion 50- 60%. Heparin was given for ACT greater than 250. A 6-[place] CLS 4.5 guide was used to engage the left main. A 0.014 pressure wire was advanced into the left main and normalize. The wire was then advanced approximately 1 cm distal to the LAD lesion and iFR was performed. First reading had approximate 0.03 grafts on pullback and therefore wire was read normalized and again advanced with iFR reading of 0.92 with no drift. Given normal reading medical therapy was recommended and the wire and catheter were removed. Right femoral angiogram showed inadequate anatomy for closure and therefore sheath was left in place for manual pull. The patient tolerated the procedure well. Patient was transported back to the post catheterization holding area in stable condition. Conscious Sedation: Patient was monitored under the direct supervision of vision of myself for conscious sedation using Versed and fentanyl for a total duration of 20 minutes HEMODYNAMICS: Aorta: 154/62 SELECTIVE CORONARY ARTERIOGRAPHY: LEFT MAIN: The left main is a large caliber vessel which bifurcates into the LAD and circumflex. There is no significant stenosis. LEFT ANTERIOR DESCENDING CORONARY ARTERY: LAD is a large caliber vessel which wraps around to the apex. There is a proximal LAD 50-60% stenosis (iFR normal at 0.92) with otherwise a patent mid LAD stent and mild luminal irregularities. LEFT CIRCUMFLEX CORONARY ARTERY: Left circumflex is a moderate caliber vessel without significant stenosis. RIGHT CORONARY ARTERY: The right coronary artery was not imaged, see diagnostic report. FINAL IMPRESSION: 1. CAD as described above including proximal LAD 50-60% stenosis with iFR normal at 0.92. PLAN: 1. Aggressive risk factor modification per most recent ACC/AHA guidelines. 2. Recommend medical therapy of LAD lesion.
[2022-03-20] MEDS: LINAGLIPTIN 5 MG TABLET PO SCH (11:14)
[2022-03-20] MEDS: INSULIN REGULAR 100 UNIT/ML VIAL (IV) SQ SCH ×3 (11:14→17:25)
[2022-03-20] MEDS: glipiZIDE 10 MG TAB PO SCH ×2 (11:14→17:24)
[2022-03-20] MEDS: ASPIRIN 81 MG PO SCH (11:15)
[2022-03-20] MEDS: INSULIN NPH 100 UNIT/ML 10 ML VIAL SQ SCH ×2 (11:15→21:15)
[2022-03-20] MEDS: SODIUM CHLORIDE 0.9% 1,000 ML IV SCH (11:15)
[2022-03-20 11:46] LABS: Glucose,Whole Blood 208 mg/dL (70-110)
[2022-03-20] MEDS ORDERED: HYDROmorphone 1 MG/ML 1 ML SYRINGE IVP STA (12:34)
[2022-03-20] MEDS ORDERED: hydrALAZINE HCL 20 MG/ML 1 ML VIAL IVP STA (13:39)
[2022-03-20] MEDS ORDERED: ATROPINE SULFATE 0.1 MG/ML 10ML SYRINGE ONE (13:42)
[2022-03-20 13:43] LABS: African American GFR (CKD) 80.2 (60.0-200.0); Anion Gap 15.3 mmol/L (10.00-18.00); BUN/Creat Ratio 16.76 Ratio (12.00-20.00); Blood Urea Nitrogen 18.1 mg/dL (9.0-27.0); Calcium 8.9 mg/dL (8.7-10.3); Carbon Dioxide 18.1 mmol/L (20.0-27.5); Non-African American GFR(CKD) 69.2 (60.0-200.0); Potassium 4.2 mmol/L (3.5-5.5)
[2022-03-20] MEDS ORDERED: ONDANSETRON 4 MG/2 ML VIAL IVP PRN (14:43)
[2022-03-20] MEDS ORDERED: ONDANSETRON 4 MG/2 ML VIAL ONE (14:44)
[2022-03-20 16:49] LABS: Glucose,Whole Blood 369 mg/dL (70-110)
[2022-03-20] MEDS ORDERED: INSULIN DETEMIR (LEVEMIR) 100 UNIT/ML SYR SQ ONE (19:00)
[2022-03-20 20:06] LABS: Glucose,Whole Blood 410 mg/dL (70-110)
[2022-03-20] MEDS: LATANOPROST 0.005% OPHTH DROPS 2.5 ML BTL BOTH EYES SCH (21:11)
[2022-03-20] MEDS: FLUTICASONE 50MCG/SPRAY NASAL 16GM EA NOSTRIL SCH (23:50)
[2022-03-20] MEDS: HEPARIN SOD,PORK IN 0.45% NACL 25,000 UNIT in 0.45% NACL 1 250ML.BAG IV SCH (23:51)
--- NOTE | 2022-03-21 00:25 | CONS ---
CONSULTATION CHIEF COMPLAINT: Chest pain. HISTORY OF PRESENT ILLNESS: This is a 71-year-old gentleman with history of coronary artery disease, status post angioplasty of LAD, hypertension, diabetes, dyslipidemia, who presented to hospital complaining of chest pain. He describes it as intermittent episodes of precordial chest pressure with left arm pain and radiation to the neck. He is admitted as unstable angina due to which Cardiology had been consulted. At the time of my evaluation, he is pain-free, but stated that he had episodes of chest discomfort earlier today. He is on IV heparin. EKG does not reveal acute ischemic changes. Three sets of cardiac enzymes are negative. I am going to put him on nitro paste, and if the symptoms improve, I will consider doing a cardiac cath on him tomorrow. If not, I may do it later today. Past medical history is significant for coronary artery disease for which he underwent angioplasty of LAD in January 2020. This was done via the right radial artery and was a challenging cath and angioplasty because of extreme tortuosity. So I may do a femoral cath on him. PAST MEDICAL HISTORY: Significant for CAD, status post angioplasty; hypertension; diabetes; dyslipidemia. MEDICATIONS: 1. Lipitor. 2. Januvia. 3. Glucotrol. 4. Norvasc. 5. Lopressor. 6. Cozaar. 7. Xalatan. 8. Insulin. 9. Plavix. 10.Aspirin. ALLERGIES: The patient is allergic to IV dye, Darvocet, and penicillin. FAMILY HISTORY: Negative for premature coronary artery disease. SOCIAL HISTORY: Negative for smoking, EtOH abuse or drug abuse. REVIEW OF SYSTEMS: HEENT: Unremarkable. CARDIAC: As described above. RESPIRATORY: Negative. GI: Negative. GENITOURINARY: Negative. ALLERGY/IMMUNOLOGY: Negative. SKIN: Negative. MUSCULOSKELETAL: Significant for arthritis. PSYCHOSOCIAL: Negative. DERM: Negative. CONSTITUTIONAL: Negative. ONCOLOGICAL: Negative. BINDING DYER: Negative. Rest of the system review is not relevant. PHYSICAL EXAMINATION: GENERAL: Comfortable at rest. VITAL SIGNS: Stable. NECK: There is no jugular venous distention. Carotid upstroke is normal. There is no bruit. CHEST: Reveals good air entry bilaterally. HEART: Reveals first and second heart sounds. No gallop. ABDOMEN: Soft, nontender. EXTREMITIES: Examination of extremities did not reveal any edema. Peripheral pulses are felt. ASSESSMENT: Unstable angina in a patient with known coronary artery disease, status post prior angioplasty of LAD. PLAN: The patient will continue medical therapy at this time. I will add nitro paste and consider cardiac catheterization. He has IV dye allergy. I will prep him. BRENDA / RADHAN: [id number] /
--- NOTE | 2022-03-21 01:55 | CC ---
CARDIAC CATHETERIZATION REPORT INDICATION: Unstable angina in a patient with known CAD, status post prior angioplasty of the LAD. PROCEDURE NOTE: After obtaining informed consent, left heart catheterization and coronary angiogram were performed via the right femoral artery. The patient tolerated the procedure well without any obvious immediate complications. Total sedation time was 26 minutes. I engaged the left coronary artery using a size 4.5 Alfa catheter, right coronary artery was engaged using a SANTINO catheter. Pressures were obtained using a pigtail. I could not engage the right with the right Alfa. FINDINGS: 1. Hemodynamics: Left ventricular end-diastolic pressure is 8 to 10 mm. There is no significant gradient across the aortic valve. 2. Left ventriculogram: Left ventriculogram was not performed. 3. Angiographic data: a.Left main coronary artery: Left main coronary artery is a normal-sized vessel and is free of stenosis, divides into left anterior descending coronary artery and circumflex coronary artery. LAD was previously stented in its mid portion, the stent is patent. In the proximal LAD, there is a 60% to 70% stenosis. Circumflex coronary artery is a nondominant vessel and is free of significant disease. Right coronary artery is a large dominant vessel and is free of significant disease. CONCLUSIONS: Patent stent within the left anterior descending and intermediate lesion in the proximal left anterior descending. PLAN: Dr. Sheppard will perform an IFR of this lesion and if necessary perform angioplasty with stent placement. MMODL / IJN: [id number] /
--- NOTE | 2022-03-21 05:40 | PN ---
PROGRESS NOTE DATE OF SERVICE: 03/20/2022 This is a 71-year-old gentleman who was admitted with chest pain, had cardiac catheterization by Dr. Reno Sheppard, sheath is in place. The cardiac cath reported CAD with LAD 50% to 60% and IFR normal at 0.92. Dr. Sheppard recommended aggressive risk factor modification and medical treatment. No chest pain. No palpitations. No fever. PHYSICAL EXAMINATION: VITAL SIGNS: Pulse is 74, blood pressure 114/74, respiration 18. CHEST: Clear to auscultation. CARDIOVASCULAR: S1, S2. ABDOMEN: Soft. NERVOUS SYSTEM: No focal deficits. LABS: Reviewed. Glucose 368. ASSESSMENT: 1. Coronary artery disease status post cardiac catheterization with left anterior descending artery 50% to 60% stenosis. 2. Diabetes mellitus, type 2. 3. Hypertension. 4. Hyperlipidemia. RECOMMENDATIONS: Recommend to continue current medications and symptomatic treatment. Otherwise, the patient also did require further monitoring of the diabetes mellitus also. Continue with antiplatelet agents. Prognosis guarded. Further recommendations to follow. MMODL / IJN: [id number] /
[2022-03-21 06:16] LABS: Glucose,Whole Blood 289 mg/dL (70-110)
[2022-03-21] MEDS: SODIUM CHLORIDE 0.9% 1,000 ML IV SCH (06:29)
[2022-03-21] MEDS: NITROGLYCERIN OINT 1 INCH/GM PACKET TOPICAL SCH ×2 (06:29→10:13)
[2022-03-21] MEDS: glipiZIDE 10 MG TAB PO SCH (06:47)
[2022-03-21] MEDS: LOSARTAN 50 MG TAB PO SCH (08:13)
[2022-03-21] MEDS: ATORVASTATIN 80 MG TAB PO SCH (08:13)
[2022-03-21] MEDS: VENLAFAXINE HCL ER 150 MG CAP PO SCH (08:13)
[2022-03-21] MEDS: CLOPIDOGREL 75 MG TAB PO SCH (08:13)
[2022-03-21] MEDS: amLODIPine 10 MG TAB PO SCH (08:13)
[2022-03-21] MEDS: METOPROLOL TARTRATE 25 MG TAB PO SCH (08:13)
[2022-03-21] MEDS: ASPIRIN 81 MG PO SCH (08:13)
[2022-03-21] MEDS: VENLAFAXINE HCL ER 75 MG CAP PO SCH (08:13)
[2022-03-21] MEDS: LINAGLIPTIN 5 MG TABLET PO SCH (08:13)
[2022-03-21] MEDS: INSULIN NPH 100 UNIT/ML 10 ML VIAL SQ SCH (08:14)
[2022-03-21 08:17] LABS: Basophils % (A) 0 %; Eosinophils % (A) 0 %; HCT 40.6 % (39.0-53.0); HGB 13.9 gm/dL (13.0-17.5); Lymphocytes # (A) 1.3 k/uL (1.0-4.8); Lymphocytes % (A) 14 %; MCH 30.1 pg (25.0-35.0); MCHC 34.2 g/dL (31.0-37.0); Monocytes # (A) 0.4 k/uL (0-1.0); Monocytes % (A) 5 %; Neutrophils % (A) 80 %; Platelet Count 168 k/uL (150-450); RBC 4.62 m/uL (4.30-5.90); RDW 14.5 % (11.5-15.5); WBC 8.9 k/uL (3.8-10.6)
[2022-03-21 08:23] VITALS: TEMP 96.4
[2022-03-21 08:30] LABS: Calcium 9.2 mg/dL (8.4-10.2)
[2022-03-21] MEDS: INSULIN REGULAR 100 UNIT/ML VIAL (IV) SQ SCH ×2 (08:31→12:14)
[2022-03-21] MEDS: TIMOLOL 0.5% OPHTH DROPS 5 ML BTL BOTH EYES SCH (08:35)
[2022-03-21 08:38] LABS: Potassium 5.2 mmol/L (3.5-5.1)
--- NOTE | 2022-03-21 08:40 | HP ---
HISTORY AND PHYSICAL CHIEF COMPLAINT: Chest pain. HISTORY OF PRESENT ILLNESS: This 71-year-old gentleman with a past medical history of previous , complains of chest pain in shoulder and left arm. The patient came to [facility]. The troponins are negative. Cardiology is planning cardiac catheterization. There is no history of fever, rigors, or chills. PAST MEDICAL HISTORY: Includes. HOME MEDICATIONS: Reviewed include Effexor, and rest of medication reviewed. ALLERGIES: Reviewed include penicillin. FAMILY HISTORY: History of cancer. SOCIAL HISTORY: Current smoking. No history alcohol intake. REVIEW OF SYSTEMS: A 14-point review of systems is negative as mentioned earlier. PHYSICAL EXAMINATION: VITAL SIGNS: Pulse 69, blood pressure n , respirations 18. CHEST: Clear to auscultation. CARDIOVASCULAR: S1 and S2 normal. ABDOMEN: Soft. LEGS: No edema. No cyanosis. NERVOUS SYSTEM: No focal deficit. HEENT: Normal. LABORATORY DATA: Glucose 187. ASSESSMENT: 1. , chest pain, unstable angina. 2. History of CAD, stent. 3. Diabetes mellitus, type 2. 4. Hypertension. 5. Multiple medical issues. RECOMMENDATIONS AND DISCUSSION: Recommend to continue current medications. Follow closely with Cardiology, possible cardiac cath. Otherwise, the 2D echo showed normal LV systolic function. Further recommendations to follow. See orders for details. MMODL / IJN: [id number] / MTDD
[2022-03-21 11:13] VITALS: BP 141/76; PULSE 72; RESP 16
[2022-03-21 11:39] LABS: Glucose,Whole Blood 247 mg/dL (70-110)
[2022-03-21 11:45] VITALS: BMI 36.5
--- NOTE | 2022-03-21 12:04 | P.PN ---
Subjective This is a 71-year-old male past medical history of coronary artery disease status post prior PCI to LAD, hypertension, type 2 diabetes, dyslipidemia. He presented to the hospital with chest discomfort concerning for unstable angina. He underwent cardiac catheterization on 03/20/[address] Escobar which revealed patent stent within the LAD, intermediate lesion 5060% stenosis in the proximal LAD. Dr. Sheppard performed and IFR which was normal at 0.92. Medical therapy was recommended. Patient seen and examined at bedside, no acute distress. He denies any chest pain or shortness of breath. Right femoral cath site, clean, dry, intact, 2+ peripheral pulses. No complaints this morning. Blood pressure 141/76, heart rate 72, afebrile, saturations 97% on room air GENERAL: Well-appearing, well-nourished and in no acute distress. NECK: Supple without JVD or thyromegaly. LUNGS: Breath sounds clear to auscultation bilaterally. Respiration equal and unlabored. No wheezes, rales or rhonchi. HEART: Regular rate and rhythm without murmurs, rubs or gallops. S1 and S2 heard. EXTREMITIES: Normal range of motion, no edema. No clubbing or cyanosis. Peripheral pulses intact. ASSESSMENT Chest pain Coronary artery disease s/p prior PCI LAD and 5060% stenosis in the proximal LAD and IFR which was normal at 0.92 from cath on 03/20/2022 Hypertension Type 2 diabetes Dyslipidemia PLAN From cardiology perspective, patient stable to be discharged home. Continue home cardiac medications Follow up outpatient in 1-2 weeks. Nurse Practitioner note has been reviewed, I agree with a documented findings and plan of care. Patient was seen and examined. Objective - Vital Signs Vital signs: Vital Signs Temp 96.4 F L 03/21/22 08:10 Pulse 72 03/21/22 11:10 Resp 16 03/21/22 11:10 BP 141/76 03/21/22 11:10 Pulse Ox 97 03/21/22 11:10 FiO2 Intake & Output 03/20/22 03/21/22 03/21/22 18:59 06:59 18:59 Intake Total 300 50 240 Output Total 400 Balance -100 50 240 Weight 108.862 kg Intake: IV 300 Oral 50 240 Output: Urine 400 Other: # Voids 1 - Labs CBC & Chem 7: 03/21/22 07:11 10/24/22 07:11 Labs: Abnormal Lab Results - Last 24 Hours (Table) 03/20/22 03/20/22 03/20/22 Range/Units 05:24 16:48 20:04 Sodium (137-145) mmol/L Potassium (3.5-5.1) mmol/L Carbon Dioxide 18.1 L (20.0-27.5) mmol/L BUN (9-20) mg/dL Glucose 183 H (70-110) mg/dL POC Glucose (mg/dL) 369 H 410 H (70-110) mg/dL 03/21/22 03/21/22 03/21/22 Range/Units 06:15 07:11 11:23 Sodium 136 L (137-145) mmol/L Potassium 5.2 H (3.5-5.1) mmol/L Carbon Dioxide 19 L (20.0-27.5) mmol/L BUN 26 H (9-20) mg/dL Glucose 278 H (70-110) mg/dL POC Glucose (mg/dL) 289 H 247 H (70-110) mg/dL
--- NOTE | 2022-03-23 15:06 | P.DS ---
Providers Date of admission: 03/18/22 23:38 Expected date of discharge: 03/21/22 Attending physician: Etta Aburto Consults: 03/18/22 23:38 Consult Physician Routine Consulting Provider: [facility] Consult Reason/Comments: chest pain, responsive to nitro, unstable angina Do you want consulting provider notified?: Yes, Notify in am Primary care physician: Maritza Gonzalez Hospital Course: Final diagnosis Chest pain, unstable angina History of coronary artery disease with stenting Diabetes mellitus, type II Hypertension History of prostate cancer Hyperlipidemia Osteoarthritis Discharge disposition Patient is being discharged in a stable condition with guarded prognosis to home. Patient will follow-up with Dr. Gonzalez in the outpatient setting upon discharge. Patient is to follow up with cardiology. Total time taken is greater than 35 minutes. Hospital course This is a 71-year-old male who was recently admitted with chest pain and shoulder pain and was being evaluated by cardiology. Patient underwent cardiac catheterization and has been cleared by cardiology for close outpatient follow- up. Recommend continue with current medications as prescribed. Patient also encouraged to follow-up with primary care provider on discharge. Currently no reports of chest pain, shortness of breath, or palpitations. Patient is afebrile. No reports of nausea or vomiting and patient is tolerating diet. Patient will be discharged home today. Guarded prognosis Physical exam: Gen: This is a 71-year-old male awake, alert and oriented 3, well-developed, well-nourished, obese HEENT: Head is atraumatic, normocephalic. Pupils equal, round. Sclerae is anicteric. NECK: Supple. No JVD. No lymphadenopathy. No thyromegaly. LUNGS: Clear to auscultation. No wheezes or rhonchi. No intercostal retractions. HEART: Regular rate and rhythm. No murmur. ABDOMEN: Soft. Bowel sounds are present. No masses. No tenderness. EXTREMITIES: No pedal edema. No calf tenderness. NEUROLOGICAL: Patient is awake, alert and oriented x3. Cranial nerves 2 through 12 are grossly intact. Please refer to medication reconciliation sheet for a list of medications. The impression and plan of care has been dictated by Angelina Ayoub, Nurse Practitioner as directed. Dr. Lamonte MD I have performed a history and examination and MDM of this patient, discussed the same with the dictator, and agree with the dictator's assessment and plan as written ,documented as a scribe. Based on total visit time, I have performed more than 50% of the visit. Patient Condition at Discharge: Stable Plan - Discharge Summary New Discharge Prescriptions: Continue glipiZIDE [Glucotrol] 10 mg PO AC-BID sitaGLIPtin [Januvia] 100 mg PO DAILY Insulin NPH Human Isophane [NovoLIN N] 10 unit SQ HS@0800 Insulin NPH Human Isophane [NovoLIN N] 25 units SQ DAILY@0800 Insulin Regular, Human [NovoLIN R] 10 unit SQ BID@799,1999 Timolol 0.5% Ophth Soln [Timoptic 0.5% Ophth Soln] 1 drop BOTH EYES BID Venlafaxine HCl ER [Effexor XR] 75 mg PO DAILY Latanoprost [Xalatan 0.005%] 1 drop BOTH EYES HS Aspirin 81 mg PO DAILY chew Losartan [Cozaar] 50 mg PO DAILY #30 tab Atorvastatin [Lipitor] 80 mg PO DAILY #30 tab Metoprolol Tartrate [Lopressor] 25 mg PO BID #60 tab Nitroglycerin Sl Tabs [Nitrostat] 0.4 mg SUBLINGUAL Q5M PRN #30 tab PRN Reason: Chest Pain amLODIPine [Norvasc] 10 mg PO DAILY #30 tab Clopidogrel [Plavix] 75 mg PO DAILY #30 tab Venlafaxine HCl [Effexor XR] 150 mg PO DAILY Fluticasone Nasal Pala [Flonase Nasal Pala] 1 spray EA NOSTRIL HS Discharge Medication List glipiZIDE [Glucotrol] 10 mg PO AC-BID 01/14/15 [History] sitaGLIPtin [Januvia] 100 mg PO DAILY 01/14/15 [History] Insulin NPH Human Isophane [NovoLIN N] 10 unit SQ HS@0800 11/01/18 [History] Insulin NPH Human Isophane [NovoLIN N] 25 units SQ DAILY@0800 11/01/18 [History] Insulin Regular, Human [NovoLIN R] 10 unit SQ BID@799,199911/01/18 [History] Timolol 0.5% Ophth Soln [Timoptic 0.5% Ophth Soln] 1 drop BOTH EYES BID 11/01/18 [History] Latanoprost [Xalatan 0.005%] 1 drop BOTH EYES HS 01/29/20 [History] Venlafaxine HCl ER [Effexor XR] 75 mg PO DAILY 01/29/20 [History] Aspirin 81 mg PO DAILY chew 02/01/20 [Rx] Atorvastatin [Lipitor] 80 mg PO DAILY #30 tab 02/01/20 [Rx] Clopidogrel [Plavix] 75 mg PO DAILY #30 tab 02/01/20 [Rx] Losartan [Cozaar] 50 mg PO DAILY #30 tab 02/01/20 [Rx] Metoprolol Tartrate [Lopressor] 25 mg PO BID #60 tab 02/01/20 [Rx] Nitroglycerin Sl Tabs [Nitrostat] 0.4 mg SUBLINGUAL Q5M PRN #30 tab 02/01/20 [Rx] amLODIPine [Norvasc] 10 mg PO DAILY #30 tab 02/01/20 [Rx] Fluticasone Nasal Pala [Flonase Nasal Pala] 1 spray EA NOSTRIL HS 03/19/22 [History] Venlafaxine HCl [Effexor XR] 150 mg PO DAILY 03/19/22 [History] Follow up Appointment(s)/Referral(s): Bonifacio Peralta MD [STAFF PHYSICIAN] - 1 Week (CARDIOLOGY'S OFFICE WILL CONTACT YOU WITH AN APPOINTMENT DATE AND TIME.) Maritza Gonzalez MD [Primary Care Provider] - 1-2 days (PLEASE CONTACT AND SCHEDULE AN APPOINTMENT.) Ambulatory/Diagnostic Orders: Basic Metabolic Panel [LAB.AMB] Time Frame: 3 Days, Location: None Selected Patient Instructions/Handouts: *[facility] - After Heart Catheterization - [facility] [employer] Instructions, Chest Pain (DC) Activity/Diet/Wound Care/Special Instructions: Activity Limited until follow-up Follow-up with primary care provider on discharge Continue medications as prescribed Follow-up with cardiology as discussed Continue heart healthy diabetic diet Continue to monitor blood sugars and keep a diary for primary care follow-up Recommend repeat labs in the next 2-3 days Discharge Disposition: HOME SELF-CARE
== END 2022-03-21 14:06 | disposition home or self-care (01) ==
LOC: EC 21:46 → 6NMEDSUR 23:38 → 3SCARD 03-20 11:00
PROVIDERS: ADMIT Hospitalist; ATTEND Hospitalist
DX: I25.110 Atherosclerotic heart disease of native coronary artery with unstable angina pectoris (principal); E11.9 Type 2 diabetes mellitus without complications; I10 Essential (primary) hypertension; E78.5 Hyperlipidemia, unspecified; M19.90 Unspecified osteoarthritis, unspecified site; F32.A Depression, unspecified; F17.200 Nicotine dependence, unspecified, uncomplicated; Z85.46 Personal history of malignant neoplasm of prostate; Z95.5 Presence of coronary angioplasty implant and graft; Z79.4 Long term (current) use of insulin; Z79.02 Long term (current) use of antithrombotics/antiplatelets; Z79.82 Long term (current) use of aspirin; Z79.84 Long term (current) use of oral hypoglycemic drugs; Z79.899 Other long term (current) drug therapy; Z88.0 Allergy status to penicillin; Z88.5 Allergy status to narcotic agent
CPT/HCPCS: 96366 ×2; 96372; 96376 ×2; 96365; 96375; 99285; 36415; 93005; 93306; 37799; 93458; 80053; 80048 ×3; 83735; 84484 ×2; 85025 ×4; 85610 ×2; 85730 ×3; 71046; G0378 ×5; C1769 ×4; C1887; C1894; J2250; J0360; J1200; J2930; J2405; J2001; J3010; J1644 ×6; J1170; Q9967

== ENCOUNTER → 2022-11-03 | Outpatient (CLI) | payer MEDICARE ==
--- NOTE | 2022-11-05 00:09 | CT ---
EXAMINATION TYPE: CT abdomen pelvis wo con CT DLP: 1248 mGycm, Automated exposure control for dose reduction was used. DATE OF EXAM: 11/03/2022 4:47 PM COMPARISON: CT abdomen pelvis most recent from 01/22/2022 CLINICAL INDICATION:Male, 72 years old with history of R10.9, N23; flank pain. hx of kidney stones TECHNIQUE: Axial CT of the abdomen and pelvis. Sagittal and coronal reformats were created on a [employer] workstation. Contrast used: None Oral contrast used: without Oral Contrast FINDINGS: LOWER CHEST: Unremarkable ABDOMEN LIVER: Unremarkable GALLBLADDER AND BILE DUCTS: The gallbladder appears surgically absent. PANCREAS: Unremarkable. SPLEEN: Unremarkable. ADRENAL GLANDS: Unremarkable. KIDNEYS AND URETERS: The left kidney is atrophic. There is bilateral nonobstructing calculi measuring up tor 3 mm on the left and 4 mm on on the right No evidence of obstructive uropathy. No hydronephro sis. PELVIS BLADDER: Unremarkable REPRODUCTIVE: Prostate gland appears surgically absent. ABDOMEN & PELVIS STOMACH AND BOWEL: No evidence of bowel obstruction. The appendix is normal. Scattered colonic divert icula. Mild Fat stranding around the diverticula in the low pelvis near midline. Surrounding a divert icula. PERITONEUM/RETROPERITONEUM: No evidence of pneumoperitoneum or free fluid. VASCULATURE: Mild atherosclerotic calcifications are present throughout the abdominal aorta and its b ranches. No evidence of aortic aneurysm. MUSCULOSKELETAL: No acute osseous abnormalities. Severe disc degeneration changes are present through out the thoracolumbar spine. LYMPH NODES: No gross evidence for lymphadenopathy. SOFT TISSUE/ABDOMINAL WALL: Bilateral fat-containing inguinal hernias. Postsurgical changes anterior abdominal wall near midline. IMPRESSION: 1. No obstructive uropathy. Nonobstructing bilateral renal calculi. 2. Mild inflammation changes involving diverticula in the sigmoid colon. Could represent uncomplicat ed diverticulitis. No other finding in the abdomen or pelvis to correlate patient's left-sided pain.
== END | disposition home or self-care (01) ==
LOC: RADCTMAIN 16:23
PROVIDERS: ATTEND Urology
DX: N20.0 Calculus of kidney (principal); K57.30 Diverticulosis of large intestine without perforation or abscess without bleeding; N23 Unspecified renal colic
CPT/HCPCS: 74176

== ENCOUNTER 2022-12-09 20:37 | Emergency (ER) | payer MEDICARE ==
[2022-12-09 20:44] VITALS: RESP 18; TEMP 97.8
[2022-12-09] MEDS ORDERED: KETOROLAC 15 MG/ML 1 ML VIAL IVP STA (21:03)
--- NOTE | 2022-12-09 22:03 | ED ---
Back Pain HPI - General Chief Complaint: Back Pain/Injury Stated Complaint: Kidney stones Time Seen by Provider: 12/09/22 20:55 Source: patient Limitations: no limitations - History of Present Illness Initial Comments: 72-year-old male presenting with chief complaint of lower back pain. Patient states that this pain feels similar to previous kidney stones. States that he had a CT back in September which showed stones inside of the kidney, he states "I think that they've moved". Pain is on both sides. No loss of bowel or bladder control or saddle paresthesia. No radiation of pain to the abdomen or down the legs. No injury or trauma. States that he had blood in his urine yesterday. No dysuria or difficulty urinating. No fevers or chills. No nausea or vomiting. - Related Data Home Medications Medication Instructions Recorded Confirmed glipiZIDE [Glucotrol] 20 mg PO BID 01/14/15 12/10/22 sitaGLIPtin [Januvia] 100 mg PO DAILY 01/14/15 12/10/22 Timolol 0.5% Ophth Soln [Timoptic 1 drop BOTH EYES BID 11/01/18 12/10/22 0.5% Ophth Soln] Latanoprost [Xalatan 0.005%] 1 drop BOTH EYES HS 01/29/20 12/10/22 Venlafaxine HCl ER [Effexor XR] 75 mg PO DAILY 01/29/20 12/10/22 Venlafaxine HCl [Effexor XR] 150 mg PO DAILY 03/19/22 12/10/22 Cholecalciferol [Vitamin D3 (25 50 mcg PO DAILY 12/10/22 12/10/22 Mcg = 1000 Iu)] Insulin Glargine,Hum.rec.anlog 20 units SQ HS 12/10/22 12/10/22 [Lantus Solostar Pen] metFORMIN HCL ER [Glucophage XR] 1,000 mg PO PC-BID 12/10/22 12/10/22 Previous Rx's Medication Instructions Recorded Aspirin 81 mg PO DAILY chew 02/01/20 Atorvastatin [Lipitor] 80 mg PO DAILY #30 tab 02/01/20 Clopidogrel [Plavix] 75 mg PO DAILY #30 tab 02/01/20 Losartan [Cozaar] 50 mg PO DAILY #30 tab 02/01/20 Metoprolol Tartrate [Lopressor] 25 mg PO BID #60 tab 02/01/20 Nitroglycerin Sl Tabs [Nitrostat] 0.4 mg SUBLINGUAL Q5M PRN #30 tab 02/01/20 amLODIPine [Norvasc] 10 mg PO DAILY #30 tab 02/01/20 Acetaminophen-Codeine 300-30mg 1 tab PO Q4H PRN 3 Days #18 tablet 12/10/22 [Tylenol w/codeine #3] Ondansetron Odt [Zofran Odt] 4 mg PO Q8HR PRN #20 tab 12/10/22 Tamsulosin [Flomax] 0.4 mg PO DAILY #10 cap 12/10/22 Allergies Allergy/AdvReac Type Severity Reaction Status Date / Time Penicillins Allergy Swelling Verified 12/10/22 19:58 propoxyphene napsylate Allergy Rash/Hives Verified 12/10/22 19:58 [From Darvocet-N] Iodinated Contrast Media AdvReac Nausea & Verified 12/10/22 19:58 [Iodinated Contrast- Oral Vomiting and IV Dye] iohexol AdvReac Nausea & Verified 12/10/22 19:58 Vomiting Review of Systems ROS Statement: Those systems with pertinent positive or pertinent negative responses have been documented in the HPI. ROS Other: All systems not noted in ROS Statement are negative. Past Medical History Past Medical History: Cancer, Diabetes Mellitus, Eye Disorder, Hyperlipidemia, Hypertension, Osteoarthritis (OA), Prostate Disorder Additional Past Medical History / Comment(s): Kidney Stones; glaucoma; diverticulitis. Past hx of HTN. Prostate Cancer 07/2015, SURGERY, RADIATON. INCISIONAL HERNIA. History of Any Multi-Drug Resistant Organisms: None Reported Past Surgical History: Cholecystectomy, Hernia Repair, Prostate Surgery Additional Past Surgical History / Comment(s): Multiple Lithotripsies , Left Cataract removal. finger surgery. Hernia repair w/ mesh; UMBILICAL HERNIA. Cyst removed from tailbone. Past Anesthesia/Blood Transfusion Reactions: No Reported Reaction Date of Last Stent Placement:: 2018 Past Psychological History: Depression Smoking Status: Never smoker Past Alcohol Use History: None Reported Past Drug Use History: None Reported - Past Family History Brother(s) Family Medical History: Cancer Additional Family Medical History / Comment(s): Skin cancer Father Family Medical History: Cancer Additional Family Medical History / Comment(s): Skin cancer Mother Family Medical History: Cancer Additional Family Medical History / Comment(s): Skin cancer. General Exam Limitations: no limitations General appearance: alert, in no apparent distress Head exam: Present: atraumatic, normocephalic, normal inspection Eye exam: Present: normal appearance Neck exam: Present: normal inspection, full ROM Respiratory exam: Present: normal lung sounds bilaterally. Absent: respiratory distress, wheezes, rales, rhonchi, stridor Cardiovascular Exam: Present: regular rate, normal rhythm, normal heart sounds. Absent: systolic murmur, diastolic murmur, rubs, gallop, clicks GI/Abdominal exam: Present: soft. Absent: distended, tenderness, guarding, rebound, rigid Back exam: Present: normal inspection Neurological exam: Present: alert, oriented X3, CN II-XII intact Psychiatric exam: Present: normal affect, normal mood Skin exam: Present: warm, dry, intact, normal color. Absent: rash Course Vital Signs 12/09/22 12/09/22 12/10/22 20:42 23:54 01:06 Temperature 97.8 F Pulse Rate 75 65 60 Respiratory 18 18 18 Rate Blood Pressure 149/85 151/86 144/72 O2 Sat by Pulse 98 98 98 Oximetry 12/10/22 02:24 Temperature Pulse Rate 63 Respiratory 18 Rate Blood Pressure 138/80 O2 Sat by Pulse 97 Oximetry Medical Decision Making - Medical Decision Making Was pt. sent in by a medical professional or institution (, PA, LEGAL FINANCIAL SPECIALIST, urgent care, hospital, or long term...) When possible be specific @ -No Did you speak to anyone other than the patient for history (EMS, parent, family, police, friend...)? What history was obtained from this source @ -No Did you review nursing and triage notes (agree or disagree)? Why? @ -I reviewed and agree with nursing and triage notes Were old charts reviewed (outside hosp., previous admission, EMS record, old EKG, old radiological studies, urgent care reports/EKG's, long term records)? Report findings @ -No old charts were reviewed Differential Diagnosis (chest pain, altered mental status, abdominal pain women, abdominal pain men, vaginal bleeding, weakness, fever, dyspnea, syncope, headache, dizziness, GI bleed, back pain, seizure, CVA, palpatations, mental health, musculoskeletal)? @ - MDM Differential Back Pain: Strain, zoster, cauda equina syndrome, epidural abscess, vertebral osteomyelitis, discitis, fracture, subluxation, disc herniation, DJD, spinal stenosis, dissection, AAA, pancreatitis, peptic ulcer disease, pyelonephritis, kidney stone this is not meant to be an all-inclusive list. EKG interpreted by me (3pts min.). @ -As above X-rays interpreted by me (1pt min.). @ -None done CT interpreted by me (1pt min.). @ -CT shows 9 mm obstructing stone U/S interpreted by me (1pt. min.). @ -None done What testing was considered but not performed or refused? (CT, X-rays, U/S, labs)? Why? @ -None What meds were considered but not given or refused? Why? @ -None Did you discuss the management of the patient with other professionals (professionals i.e. , PA, LEGAL FINANCIAL SPECIALIST, lab, RT, psych nurse, psych social worker, assembler arranger, teacher, airplane first officer, piano case and bench assembler)? Give summary @ -No Was smoking cessation discussed for >3mins.? @ -No Was critical care preformed (if so, how long)? @ -No Were there social determinants of health that impacted care today? How? (Homelessness, low income, unemployed, alcoholism, drug addiction, transportation, low edu. Level, literacy, decrease access to med. care, fpc, rehab)? @ -No Was there de-escalation of care discussed even if they declined (Discuss DNR or withdrawal of care, Hospice)? DNR status @ -No What co-morbidities impacted this encounter? (DM, HTN, Smoking, COPD, CAD, Cancer, CVA, ARF, Chemo, Hep., AIDS, mental health diagnosis, sleep apnea, morbid obesity)? @ -None Was patient admitted / discharged? Hospital course, mention meds given and route, prescriptions, significant lab abnormalities, going to OR and other pertinent info. @ -72-year-old male presenting with chief complaint of lower back pain. No loss of bowel or bladder control or saddle paresthesia. History of kidney stones. Urine shows large blood. CT shows 9 mm obstructing stone. On reassessment patient is resting comfortably and his pain is well controlled. Patient would like to trial outpatient management with urology follow-up on Monday. He is provided with [place], Zofran, and Flomax. Follow-up with PCP. Report back to ER with any new or worsening symptoms. Discussed return parameters and answered all questions. Patient conveyed verbal understanding and agreed to the plan. I discussed this case in detail with my attending Dr. Espana Undiagnosed new problem with uncertain prognosis? @ -No Drug Therapy requiring intensive monitoring for toxicity (Heparin, Nitro, Insulin, Cardizem)? @ -No Were any procedures done? @ -No Diagnosis/symptom? @ -Kidney stone Acute, or Chronic, or Acute on Chronic? @ -Acute Uncomplicated (without systemic symptoms) or Complicated (systemic symptoms)? @ -Uncomplicated Side effects of treatment? @ -No Exacerbation, Progression, or Severe Exacerbation? @ -No Poses a threat to life or bodily function? How? (Chest pain, [place], [place], pneumonia, PE, COPD, DKA, ARF, appy, cholecystitis, CVA, Diverticulitis, Homicidal, Suicidal, threat to staff... and all critical care pts) @ -No - Lab Data Lab Results 12/09/22 Range/Units 21:31 Urine Color Yellow Urine Appearance Clear (Clear) Urine pH 6.0 (5.0-8.0) Ur Specific [place] 1.017 (1.001-1.035) Urine Protein 1+ H (Negative) Urine Glucose (UA) Trace H (Negative) Urine Ketones Negative (Negative) Urine Blood Large H (Negative) Urine Nitrite Negative (Negative) Urine Bilirubin Negative (Negative) Urine Urobilinogen <2.0 (<2.0) mg/dL Ur Leukocyte Esterase Trace H (Negative) Urine RBC >182 H (0-5) /hpf Urine WBC <1 (0-5) /hpf Urine Mucus Rare H (None) /hpf Disposition Clinical Impression: Kidney stone Disposition: HOME SELF-CARE Condition: Good Instructions (If sedation given, give patient instructions): Kidney Stones (ED) Additional Instructions: Follow up with urology. Report back to ER with any new or worsening symptoms. Take medication as prescribed. Prescriptions: Tamsulosin [Flomax] 0.4 mg PO DAILY #10 cap Acetaminophen-Codeine 300-30mg [Tylenol w/codeine #3] 1 tab PO Q4H PRN 3 Days #18 tablet PRN Reason: Pain Ondansetron Odt [Zofran Odt] 4 mg PO Q8HR PRN #20 tab PRN Reason: Nausea Is patient prescribed a controlled substance at d/c from ED?: Yes When asked, does pt state using other controlled substances?: No If prescribed controlled substance>3 days was MAPS reviewed?: Prescribed <3 Days If opioid is for acute pain is fill amount 7 days or less?: Yes If Rx opioid, was Start Talking consent form obtained?: Yes Referrals: Maritza Gonzalez MD [Primary Care Provider] - 1-2 days Time of Disposition: 02:17
[2022-12-09 22:07] LABS: Appearance,Urine Clear (Clear); Bilirubin,Urine Negative (Negative); Blood,Urine Large (Negative); Color,Urine Yellow; Glucose,Urine (UA) Trace (Negative); Ketones,Urine Negative (Negative); Leukocyte Esterase,Urine Trace (Negative); Mucus,Urine Rare /hpf; Nitrite,Urine Negative (Negative); Protein,Urine 1+ (Negative); RBC,Urine >182 /hpf (0-5); Specific Gravity,Urine 1.017 (1.001-1.035); Urobilinogen,Urine <2.0 mg/dL (<2.0); WBC,Urine <1 /hpf (0-5)
[2022-12-10] MEDS ORDERED: HYDROmorphone 0.5 MG/0.5 ML SYRINGE IVP STA ×2 (00:46→02:17)
--- NOTE | 2022-12-10 01:50 | CT ---
EXAM: CT Abdomen and Pelvis Without Intravenous Contrast CLINICAL HISTORY: flank pain TECHNIQUE: Axial computed tomography images of the abdomen and pelvis without intravenous contrast. CTDI is 17 mGy and DLP is 1004 mGy-cm. This CT exam was performed using one or more of the following dose reduction techniques: automated exposure control, adjustment of the mA and/or kV according to patient size, and/or use of iterative reconstruction technique. Coronal and sagittal reformatted images were created and reviewed. 493 images COMPARISON: 11/03/22 FINDINGS: Lung bases: Minimal left basilar atelectasis. ABDOMEN: Liver: Unremarkable. Gallbladder and bile ducts: Cholecystectomy clips. No ductal dilation. Pancreas: Unremarkable. No ductal dilation. Spleen: Unremarkable. No splenomegaly. Adrenals: Unremarkable. No mass. Kidneys and ureters: 9 mm obstructing stone in proximal right ureter, about 6 cm from renal pelvis, causes the mild hydroureter, hydronephrosis and perinephric stranding. Bilateral renal stones, more numerous and larger in right kidney, measuring up to 7 mm. Stomach and bowel: Subtle stranding surrounding short segment of mid sigmoid colon in central pelvis on series 201 image 129, is new, may suggest early diverticulitis. No obstruction. PELVIS: Appendix: Normal appendix. Bladder: Unremarkable. No stones. Reproductive: Unremarkable as visualized. ABDOMEN and PELVIS: Intraperitoneal space: Unremarkable. No free air. No significant fluid collection. Bones/joints: Osteopenia suspected. Moderate degenerative changes. 5 mm anterolisthesis of L4 on L5. No acute findings. Soft tissues: Unremarkable. Vasculature: Small amount of atherosclerotic calcifications. No abdominal aortic aneurysm. Lymph nodes: Unremarkable. No enlarged lymph nodes. IMPRESSION: 1. 9 mm obstructing stone in proximal right ureter, about 6 cm from renal pelvis, causes the mild hydroureter, hydronephrosis and perinephric stranding. 2. Bilateral nonobstructing renal stones 3. Suspect early sigmoid diverticulitis. No perforation or abscess.
[2022-12-10] MEDS ORDERED: TAMSULOSIN 0.4 MG CAP.ER.24H PO STA (02:17)
[2022-12-10 02:24] VITALS: BP 138/80; PULSE 63
== END 2022-12-10 02:36 | disposition home or self-care (01) ==
LOC: EC 20:37
DX: N13.2 Hydronephrosis with renal and ureteral calculous obstruction (principal); I10 Essential (primary) hypertension; E11.9 Type 2 diabetes mellitus without complications; E78.5 Hyperlipidemia, unspecified; F32.A Depression, unspecified; M19.90 Unspecified osteoarthritis, unspecified site; Z79.84 Long term (current) use of oral hypoglycemic drugs; Z79.4 Long term (current) use of insulin; Z79.899 Other long term (current) drug therapy; Z88.0 Allergy status to penicillin; Z88.8 Allergy status to other drugs, medicaments and biological substances; Z90.49 Acquired absence of other specified parts of digestive tract
CPT/HCPCS: 99284; 81001; 74176; 96374; 96375; 96376; J1885; J1170

== ENCOUNTER 2022-12-10 17:49 | Inpatient (IN) | payer MEDICARE, OTHER ==
[2022-12-10] MEDS ORDERED: HYDROmorphone 1 MG/ML 1 ML SYRINGE IVP STA (19:07)
[2022-12-10] MEDS ORDERED: KETOROLAC 15 MG/ML 1 ML VIAL IVP STA (19:07)
[2022-12-10] MEDS ORDERED: NALOXONE 0.4 MG/ML 1 ML VIAL IV PRN (20:07)
[2022-12-10] MEDS ORDERED: ONDANSETRON 4 MG/2 ML VIAL IVP PRN (20:07)
[2022-12-10 20:10] LABS: Basophils % (A) 0 %; Eosinophils # (A) 0.2 k/uL (0-0.7); Eosinophils % (A) 2 %; HCT 38.9 % (39.0-53.0); HGB 13.6 gm/dL (13.0-17.5); Lymphocytes # (A) 0.8 k/uL (1.0-4.8); Lymphocytes % (A) 9 %; MCH 30.3 pg (25.0-35.0); MCV 86.7 fL (80.0-100.0); Monocytes # (A) 0.4 k/uL (0-1.0); Monocytes % (A) 4 %; Neutrophils # (A) 7.9 k/uL (1.3-7.7); Neutrophils % (A) 85 %; Platelet Count 141 k/uL (150-450); RBC 4.49 m/uL (4.30-5.90); WBC 9.3 k/uL (3.8-10.6)
[2022-12-10] MEDS ORDERED: DEXTROSE 50% SYRINGE 50 ML IVP PRN ×2 (20:14)
[2022-12-10 20:25] LABS: ALT 40 U/L (4-49); AST 34 U/L (17-59); African American GFR (CKD) 50 (>60 ml/min/1.73 sqM); Albumin 3.6 g/dL (3.5-5.0); Alkaline Phosphatase 86 U/L (38-126); Anion Gap 12 mmol/L; Blood Urea Nitrogen 24 mg/dL (9-20); Calcium 8.8 mg/dL (8.4-10.2); Carbon Dioxide 24 mmol/L (22-30); Chloride 101 mmol/L (98-107); Glucose 163 mg/dL (74-99); Lipase 321 U/L (23-300); Magnesium 1.5 mg/dL (1.6-2.3); Non-African American GFR(CKD) 43 (>60 ml/min/1.73 sqM); Potassium 4.6 mmol/L (3.5-5.1); Sodium 137 mmol/L (137-145); Total Bilirubin 0.7 mg/dL (0.2-1.3); Total Protein 6.3 g/dL (6.3-8.2)
--- NOTE | 2022-12-10 20:35 | ED ---
General Adult HPI - General Chief complaint: Abdominal Pain Stated complaint: Abd pain Time Seen by Provider: 12/10/22 17:53 Source: EMS Mode of arrival: EMS Limitations: no limitations - History of Present Illness Initial comments: This is a 72-year-old male with a past medical history including hypertension, diabetes as well as multiple previous kidney stones presents emergency department once again for a kidney stone. The patient was seen in the emergency department here yesterday and was discharged home with a 9 mm stone on the right side. The patient denied of any pain or symptoms at that time and did trial home medications. The patient stated the pain became so severe that he called EMS control longer handle the pain. The patient stated that he had continued pain in the right side of his abdomen as well as right flank. The patient stated that this is consistent with his previous kidney stones. The patient reported associated nausea without vomiting. The patient denied any other acute pain or complaints at this time. - Related Data Home Medications Medication Instructions Recorded Confirmed glipiZIDE [Glucotrol] 20 mg PO BID 01/14/15 12/10/22 sitaGLIPtin [Januvia] 100 mg PO DAILY 01/14/15 12/10/22 Timolol 0.5% Ophth Soln [Timoptic 1 drop BOTH EYES BID 11/01/18 12/10/22 0.5% Ophth Soln] Latanoprost [Xalatan 0.005%] 1 drop BOTH EYES HS 01/29/20 12/10/22 Venlafaxine HCl ER [Effexor XR] 75 mg PO DAILY 01/29/20 12/10/22 Venlafaxine HCl [Effexor XR] 150 mg PO DAILY 03/19/22 12/10/22 Cholecalciferol [Vitamin D3 (25 50 mcg PO DAILY 12/10/22 12/10/22 Mcg = 1000 Iu)] Insulin Glargine,Hum.rec.anlog 20 units SQ HS 12/10/22 12/10/22 [Lantus Solostar Pen] metFORMIN HCL ER [Glucophage XR] 1,000 mg PO PC-BID 12/10/22 12/10/22 Previous Rx's Medication Instructions Recorded Aspirin 81 mg PO DAILY chew 02/01/20 Atorvastatin [Lipitor] 80 mg PO DAILY #30 tab 02/01/20 Clopidogrel [Plavix] 75 mg PO DAILY #30 tab 02/01/20 Losartan [Cozaar] 50 mg PO DAILY #30 tab 02/01/20 Metoprolol Tartrate [Lopressor] 25 mg PO BID #60 tab 02/01/20 Nitroglycerin Sl Tabs [Nitrostat] 0.4 mg SUBLINGUAL Q5M PRN #30 tab 02/01/20 amLODIPine [Norvasc] 10 mg PO DAILY #30 tab 02/01/20 Acetaminophen-Codeine 300-30mg 1 tab PO Q4H PRN 3 Days #18 tablet 12/10/22 [Tylenol w/codeine #3] Ondansetron Odt [Zofran Odt] 4 mg PO Q8HR PRN #20 tab 12/10/22 Tamsulosin [Flomax] 0.4 mg PO DAILY #10 cap 12/10/22 Allergies Allergy/AdvReac Type Severity Reaction Status Date / Time Penicillins Allergy Swelling Verified 12/10/22 19:58 propoxyphene napsylate Allergy Rash/Hives Verified 12/10/22 19:58 [From Darvocet-N] Iodinated Contrast Media AdvReac Nausea & Verified 12/10/22 19:58 [Iodinated Contrast- Oral Vomiting and IV Dye] iohexol AdvReac Nausea & Verified 12/10/22 19:58 Vomiting Review of Systems ROS Statement: Those systems with pertinent positive or pertinent negative responses have been documented in the HPI. ROS Other: All systems not noted in ROS Statement are negative. Past Medical History Past Medical History: Cancer, Diabetes Mellitus, Eye Disorder, Hyperlipidemia, Hypertension, Osteoarthritis (OA), Prostate Disorder Additional Past Medical History / Comment(s): Kidney Stones; glaucoma; diverticulitis. Past hx of HTN. Prostate Cancer 07/2015, SURGERY, RADIATON. INCISIONAL HERNIA. History of Any Multi-Drug Resistant Organisms: None Reported Past Surgical History: Cholecystectomy, Hernia Repair, Prostate Surgery Additional Past Surgical History / Comment(s): Multiple Lithotripsies , Left Cataract removal. finger surgery. Hernia repair w/ mesh; UMBILICAL HERNIA. Cyst removed from tailbone. Past Anesthesia/Blood Transfusion Reactions: No Reported Reaction Date of Last Stent Placement:: 2018 Past Psychological History: Depression Smoking Status: Never smoker Past Alcohol Use History: None Reported Past Drug Use History: None Reported - Past Family History Brother(s) Family Medical History: Cancer Additional Family Medical History / Comment(s): Skin cancer Father Family Medical History: Cancer Additional Family Medical History / Comment(s): Skin cancer Mother Family Medical History: Cancer Additional Family Medical History / Comment(s): Skin cancer. General Exam Limitations: no limitations General appearance: alert, in no apparent distress, obese Eye exam: Present: normal appearance, PERRL Pupils: Present: normal accommodation ENT exam: Present: normal exam, normal oropharynx, mucous membranes moist Neck exam: Present: normal inspection, full ROM Respiratory exam: Present: normal lung sounds bilaterally Cardiovascular Exam: Present: regular rate, normal rhythm, normal heart sounds GI/Abdominal exam: Present: soft, tenderness (TTP over the left lower quadrant) Extremities exam: Present: normal inspection, full ROM Back exam: Present: normal inspection, full ROM Neurological exam: Present: alert, oriented X3, CN II-XII intact Psychiatric exam: Present: normal affect, normal mood Skin exam: Present: warm, dry Course Vital Signs 12/10/22 12/10/22 12/10/22 17:52 21:00 22:11 Temperature 98.7 F 98.3 F Pulse Rate 68 76 Pulse Rate [ 63 Pulse Oximetery ] Respiratory 18 18 18 Rate Blood Pressure 149/89 130/78 Blood Pressure 146/79 [Right Arm] O2 Sat by Pulse 99 97 95 Oximetry Medical Decision Making - Medical Decision Making Was pt. sent in by a medical professional or institution (ARCHANA Myers, UNDERWRITING ACCOUNT REPRESENTATIVE, urgent care, hospital, or fdc...) When possible be specific @ -No Did you speak to anyone other than the patient for history (EMS, parent, family, police, friend...)? What history was obtained from this source @ -No Did you review nursing and triage notes (agree or disagree)? Why? @ -I reviewed and agree with nursing and triage notes Were old charts reviewed (outside hosp., previous admission, EMS record, old EK G, old radiological studies, urgent care reports/EKG's, fdc records)? Report findings @ -Yes, previous ER note was reviewed from yesterday as well as the previous computed tomography scan from yesterday. Differential Diagnosis (chest pain, altered mental status, abdominal pain women, abdominal pain men, vaginal bleeding, weakness, fever, dyspnea, syncope, headache, dizziness, GI bleed, back pain, seizure, CVA, palpatations, mental health)? @ -Obstructing kidney stone, septic stone, pyelonephritis EKG interpreted by me (3pts min.). @ -None X-rays interpreted by me (1pt min.). @ -None done CT interpreted by me (1pt min.). @ -None done U/S interpreted by me (1pt. min.). @ -None done What testing was considered but not performed or refused? (CT, X-rays, U/S, labs)? Why? @ -Computed tomography scan was not performed as he did have a computed tomography scan done yesterday that showed a 9 mm obstructing stone in the proximal right ureter. What meds were considered but not given or refused? Why? @ -None Did you discuss the management of the patient with other professionals (gris jason i.e. , PA, UNDERWRITING ACCOUNT REPRESENTATIVE, lab, RT, psych nurse, social sciences chair, varnishing unit operator, teacher, disability hearing officer, leather case finisher)? Give summary @ -Yes, the patient was discussed with the urologist on-call, Dr. Pacheco who agreed to admit the patient for likely stent placement tomorrow. Was smoking cessation discussed for >3mins.? @ -No Was critical care preformed (if so, how long)? @ -No Were there social determinants of health that impacted care today? How? (Homelessness, low income, unemployed, alcoholism, drug addiction, transportation, low edu. Level, literacy, decrease access to med. care, correction, rehab)? @ -No Was there de-escalation of care discussed even if they declined (Discuss DNR or withdrawal of care, Hospice)? DNR status @ -No What co-morbidities impacted this encounter? (DM, HTN, Smoking, COPD, CAD, Ca ncer, CVA, ARF, Chemo, Hep., AIDS, mental health diagnosis, sleep apnea, morbid obesity)? @ -Hypertension, diabetes, multiple previous kidney stones Was patient admitted / discharged? Hospital course, mention meds given and route, prescriptions, significant lab abnormalities, going to OR and other pertinent info. @ -The patient was seen and evaluated emergency department. Physical exam, the patient was resting in bed without any acute distress. Vital signs admission were stable. Due to the patient's known history and findings of kidney stone, the urologist was contacted. He did accept the patient for admission for likely stent placement tomorrow. The patient was given pain medications in the emergency department as well as started and all of his home medications. The patient was told of this plan and was agreeable. The patient on reevaluation had his symptoms greatly improved with his pain medication administration. The patient was admitted in stable condition. Undiagnosed new problem with uncertain prognosis? @ -No Drug Therapy requiring intensive monitoring for toxicity (Heparin, Nitro, Insulin, Cardizem)? @ -No Were any procedures done? @ -No Diagnosis/symptom? @ -9 mm obstructing kidney stone Acute, or Chronic, or Acute on Chronic? @ -Acute Uncomplicated (without systemic symptoms) or Complicated (systemic symptoms)? @ -Complicated Side effects of treatment? @ -No Exacerbation, Progression, or Severe Exacerbation? @ -No Poses a threat to life or bodily function? How? (Chest pain, [place], [place], pneumonia, PE, COPD, DKA, ARF, appy, cholecystitis, CVA, Diverticulitis, Homicidal, Suicidal, threat to staff... and all critical care pts) @ -No - Lab Data Result diagrams: 12/10/22 19:39 12/10/22 19:39 Lab Results 12/10/22 12/10/22 Range/Units 19:39 19:39 WBC 9.3 (3.8-10.6) k/uL RBC 4.49 (4.30-5.90) m/uL Hgb 13.6 (13.0-17.5) gm/dL Hct 38.9 L (39.0-53.0) % MCV 86.7 (80.0-100.0) fL MCH 30.3 (25.0-35.0) pg MCHC 35.0 (31.0-37.0) g/dL RDW 14.0 (11.5-15.5) % Plt Count 141 L (150-450) k/uL MPV 9.0 Neutrophils % 85 % Lymphocytes % 9 % Monocytes % 4 % Eosinophils % 2 % Basophils % 0 % Neutrophils # 7.9 H (1.3-7.7) k/uL Lymphocytes # 0.8 L (1.0-4.8) k/uL Monocytes # 0.4 (0-1.0) k/uL Eosinophils # 0.2 (0-0.7) k/uL Basophils # 0.0 (0-0.2) k/uL Sodium 137 (137-145) mmol/L Potassium 4.6 (3.5-5.1) mmol/L Chloride 101 (98-107) mmol/L Carbon Dioxide 24 (22-30) mmol/L Anion Gap 12 mmol/L BUN 24 H (9-20) mg/dL Creatinine 1.59 H (0.66-1.25) mg/dL Est GFR (CKD-EPI)AfAm 50 (>60 ml/min/1.73 sqM) Est GFR (CKD-EPI)NonAf 43 (>60 ml/min/1.73 sqM) Glucose 163 H (74-99) mg/dL Calcium 8.8 (8.4-10.2) mg/dL Magnesium 1.5 L (1.6-2.3) mg/dL Total Bilirubin 0.7 (0.2-1.3) mg/dL AST 34 (17-59) U/L ALT 40 (4-49) U/L Alkaline Phosphatase 86 (38-126) U/L Total Protein 6.3 (6.3-8.2) g/dL Albumin 3.6 (3.5-5.0) g/dL Lipase 321 H (23-300) U/L Disposition Clinical Impression: Kidney stone Disposition: ADMITTED IP TO THIS [facility] Condition: Stable Is patient prescribed a controlled substance at d/c from ED?: No Referrals: Maritza Gonzalez MD [Primary Care Provider] - 1-2 days Time of Disposition: 19:00 Decision to Admit Reason: Admit from EC Decision Date: 12/10/22 Decision Time: 19:00
[2022-12-10] MEDS ORDERED: LATANOPROST 0.005% OPHTH DROPS 2.5 ML BTL BOTH EYES SCH (21:00)
[2022-12-10 22:16] LABS: Glucose,Whole Blood 192 mg/dL (70-110)
[2022-12-10] MEDS: METOPROLOL TARTRATE 25 MG TAB PO SCH (22:37)
[2022-12-10] MEDS: INSULIN ASPART (NovoLOG) 100 UNIT/ML VIAL SQ SCH (22:38)
[2022-12-10] MEDS: SODIUM CHLORIDE 0.9% 1,000 ML IV SCH (22:38)
[2022-12-10] MEDS: HYDROmorphone 1 MG/ML 1 ML SYRINGE IVP PRN (23:10)
[2022-12-10 23:51] LABS: Appearance,Urine Clear (Clear); Bilirubin,Urine Negative (Negative); Blood,Urine Moderate (Negative); Color,Urine Yellow; Glucose,Urine (UA) Negative (Negative); Ketones,Urine Trace (Negative); Leukocyte Esterase,Urine Negative (Negative); Mucus,Urine Rare /hpf; Nitrite,Urine Negative (Negative); Protein,Urine 1+ (Negative); RBC,Urine 18 /hpf (0-5); Specific Gravity,Urine 1.018 (1.001-1.035); Squamous Epithelial Cell,Urine <1 /hpf (0-4); Urobilinogen,Urine <2.0 mg/dL (<2.0); WBC,Urine 2 /hpf (0-5)
[2022-12-11 01:42] LABS: Glucose,Whole Blood 154 mg/dL (70-110)
[2022-12-11 08:25] LABS: Glucose,Whole Blood 117 mg/dL (70-110)
[2022-12-11] MEDS: HYDROmorphone 1 MG/ML 1 ML SYRINGE IVP PRN ×2 (08:28→16:10)
[2022-12-11] MEDS ORDERED: LOSARTAN 50 MG TAB PO SCH (09:00)
[2022-12-11] MEDS ORDERED: ATORVASTATIN 80 MG TAB PO SCH (09:00)
[2022-12-11] MEDS ORDERED: LINAGLIPTIN 5 MG TABLET PO SCH (09:00)
[2022-12-11] MEDS ORDERED: amLODIPine 10 MG TAB PO SCH (09:00)
[2022-12-11] MEDS ORDERED: VENLAFAXINE HCL ER 75 MG CAP PO SCH (09:00)
[2022-12-11] MEDS: INSULIN ASPART (NovoLOG) 100 UNIT/ML VIAL SQ SCH ×3 (09:00→18:07)
[2022-12-11] MEDS ORDERED: VENLAFAXINE HCL ER 150 MG CAP PO SCH (09:00)
[2022-12-11] MEDS: glipiZIDE 10 MG TAB PO SCH ×2 (09:43→18:07)
[2022-12-11] MEDS: metFORMIN 500 MG TAB PO SCH ×2 (09:43→18:07)
[2022-12-11] MEDS: METOPROLOL TARTRATE 25 MG TAB PO SCH (09:44)
[2022-12-11] MEDS: SODIUM CHLORIDE 0.9% 1,000 ML IV SCH (09:47)
--- NOTE | 2022-12-11 12:09 | P.GSHP ---
History of Present Illness H&P Date: 12/11/22 72-year-old male admitted to the hospital because of ureteral colic due to a 9 mm proximal ureteral stone on the right. The pain began over 24 hours ago. He is seen in the emergency room yesterday and the pain was controlled. He was discharged home for spontaneous passage only to return again last night. He still having intermittent pain requiring narcotics. We discussed treatment options. He's admitted for pain control and probable stent placement. - Constitutional Constitutional: Denies chills, Denies fever - EENT Eyes: denies blurred vision, denies pain Ears, nose, mouth and throat: Denies headache, Denies sore throat - Cardiovascular Cardiovascular: Denies chest pain, Denies shortness of breath - Respiratory Respiratory: Denies cough, Denies 7 - Gastrointestinal Gastrointestinal: Denies abdominal pain, Denies diarrhea, Denies nausea, Denies vomiting - Genitourinary (Female) Genitourinary: Denies dysuria, Denies hematuria - Genitourinary (Male) Genitourinary: Denies dysuria, Denies hematuria - Musculoskeletal Musculoskeletal: Denies myalgias - Integumentary Integumentary: Denies pruritus, Denies rash - Neurological Neurological: Denies numbness, Denies weakness - Psychiatric Psychiatric: Denies anxiety, Denies depression - Endocrine Endocrine: Denies fatigue, Denies weight change Past Medical History Past Medical History: Cancer, Diabetes Mellitus, Eye Disorder, Hyperlipidemia, Hypertension, Osteoarthritis (OA), Prostate Disorder Additional Past Medical History / Comment(s): Kidney Stones; glaucoma; divertic ulitis. Past hx of HTN. Prostate Cancer 07/2015, SURGERY, RADIATON. INCISIONAL HERNIA. History of Any Multi-Drug Resistant Organisms: None Reported Past Surgical History: Cholecystectomy, Hernia Repair, Prostate Surgery Additional Past Surgical History / Comment(s): Multiple Lithotripsies , Left Cataract removal. finger surgery. Hernia repair w/ mesh; UMBILICAL HERNIA. Cyst removed from tailbone. Past Anesthesia/Blood Transfusion Reactions: No Reported Reaction Date of Last Stent Placement:: 2018 Past Psychological History: Depression Smoking Status: Never smoker Past Alcohol Use History: None Reported Past Drug Use History: None Reported - Past Family History Brother(s) Family Medical History: Cancer Additional Family Medical History / Comment(s): Skin cancer Father Family Medical History: Cancer Additional Family Medical History / Comment(s): Skin cancer Mother Family Medical History: Cancer Additional Family Medical History / Comment(s): Skin cancer. Medications and Allergies Home Medications Medication Instructions Recorded Confirmed Type glipiZIDE [Glucotrol] 20 mg PO BID 01/14/15 12/10/22 History sitaGLIPtin [Januvia] 100 mg PO DAILY 01/14/15 12/10/22 History Timolol 0.5% Ophth Soln [Timoptic 1 drop BOTH EYES BID 11/01/18 12/10/22 History 0.5% Ophth Soln] Latanoprost [Xalatan 0.005%] 1 drop BOTH EYES HS 01/29/20 12/10/22 History Venlafaxine HCl ER [Effexor XR] 75 mg PO DAILY 01/29/20 12/10/22 History Aspirin 81 mg PO DAILY chew 02/01/20 12/10/22 Rx Atorvastatin [Lipitor] 80 mg PO DAILY #30 tab 02/01/20 12/10/22 Rx Clopidogrel [Plavix] 75 mg PO DAILY #30 tab 02/01/20 12/10/22 Rx Losartan [Cozaar] 50 mg PO DAILY #30 tab 02/01/20 12/10/22 Rx Metoprolol Tartrate [Lopressor] 25 mg PO BID #60 tab 02/01/20 12/10/22 Rx Nitroglycerin Sl Tabs [Nitrostat] 0.4 mg SUBLINGUAL Q5M PRN #30 tab 02/01/20 12/10/22 Rx amLODIPine [Norvasc] 10 mg PO DAILY #30 tab 02/01/20 12/10/22 Rx Venlafaxine HCl [Effexor XR] 150 mg PO DAILY 03/19/22 12/10/22 History Acetaminophen-Codeine 300-30mg 1 tab PO Q4H PRN 3 Days #18 tablet 12/10/22 12/10/22 Rx [Tylenol w/codeine #3] Cholecalciferol [Vitamin D3 (25 50 mcg PO DAILY 12/10/22 12/10/22 History Mcg = 1000 Iu)] Insulin Glargine,Hum.rec.anlog 20 units SQ HS 12/10/22 12/10/22 History [Lantus Solostar Pen] Ondansetron Odt [Zofran Odt] 4 mg PO Q8HR PRN #20 tab 12/10/22 12/10/22 Rx Tamsulosin [Flomax] 0.4 mg PO DAILY #10 cap 12/10/22 12/10/22 Rx metFORMIN HCL ER [Glucophage XR] 1,000 mg PO PC-BID 12/10/22 12/10/22 History Allergies Allergy/AdvReac Type Severity Reaction Status Date / Time Penicillins Allergy Swelling Verified 12/10/22 19:58 propoxyphene napsylate Allergy Rash/Hives Verified 12/10/22 19:58 [From Darvocet-N] Iodinated Contrast Media AdvReac Nausea & Verified 12/10/22 19:58 [Iodinated Contrast- Oral Vomiting and IV Dye] iohexol AdvReac Nausea & Verified 12/10/22 19:58 Vomiting Surgical - Exam Vital Signs Temp Pulse Resp BP Pulse Ox 98.7 F 68 18 149/89 99 12/10/22 17:52 12/10/22 17:52 12/10/22 17:52 12/10/22 17:52 12/10/22 17:52 - General well developed, well nourished, moderate distress - Eyes normal ocular movement, no icteric - ENT no hearing loss, no congestion - Neck no masses, trachea midline - Respiratory normal respiratory effort, clear to auscultation - Abdomen Abdomen: soft, non tender, no guarding, no rigid, no rebound - Integumentary no rash, no abnormal pigmentation - Neurologic no disoriented, no combative - Psychiatric oriented to time, oriented to person, oriented to place, speech is normal, memory intact Results - Labs 12/10/22 19:39 12/10/22 19:39 Abnormal Lab Results - Last 24 Hours (Table) 12/10/22 12/10/22 12/10/22 Range/Units 19:08 19:39 19:39 Hct 38.9 L (39.0-53.0) % Plt Count 141 L (150-450) k/uL Neutrophils # 7.9 H (1.3-7.7) k/uL Lymphocytes # 0.8 L (1.0-4.8) k/uL BUN 24 H (9-20) mg/dL Creatinine 1.59 H (0.66-1.25) mg/dL Glucose 163 H (74-99) mg/dL POC Glucose (mg/dL) (70-110) mg/dL Magnesium 1.5 L (1.6-2.3) mg/dL Lipase 321 H (23-300) U/L Urine Protein 1+ H (Negative) Urine Ketones Trace H (Negative) Urine Blood Moderate H (Negative) Urine RBC 18 H (0-5) /hpf Urine Mucus Rare H (None) /hpf 12/10/22 12/11/22 12/11/22 Range/Units 22:13 01:39 08:24 Hct (39.0-53.0) % Plt Count (150-450) k/uL Neutrophils # (1.3-7.7) k/uL Lymphocytes # (1.0-4.8) k/uL BUN (9-20) mg/dL Creatinine (0.66-1.25) mg/dL Glucose (74-99) mg/dL POC Glucose (mg/dL) 192 H 154 H 117 H (70-110) mg/dL Magnesium (1.6-2.3) mg/dL Lipase (23-300) U/L Urine Protein (Negative) Urine Ketones (Negative) Urine Blood (Negative) Urine RBC (0-5) /hpf Urine Mucus (None) /hpf Diabetes panel 12/10/22 Range/Units 19:39 Sodium 137 (137-145) mmol/L Potassium 4.6 (3.5-5.1) mmol/L Chloride 101 (98-107) mmol/L Carbon Dioxide 24 (22-30) mmol/L BUN 24 H (9-20) mg/dL Creatinine 1.59 H (0.66-1.25) mg/dL Glucose 163 H (74-99) mg/dL Calcium 8.8 (8.4-10.2) mg/dL AST 34 (17-59) U/L ALT 40 (4-49) U/L Alkaline Phosphatase 86 (38-126) U/L Total Protein 6.3 (6.3-8.2) g/dL Albumin 3.6 (3.5-5.0) g/dL Calcium panel 12/10/22 Range/Units 19:39 Calcium 8.8 (8.4-10.2) mg/dL Albumin 3.6 (3.5-5.0) g/dL Pituitary panel 12/10/22 Range/Units 19:39 Sodium 137 (137-145) mmol/L Potassium 4.6 (3.5-5.1) mmol/L Chloride 101 (98-107) mmol/L Carbon Dioxide 24 (22-30) mmol/L BUN 24 H (9-20) mg/dL Creatinine 1.59 H (0.66-1.25) mg/dL Glucose 163 H (74-99) mg/dL Calcium 8.8 (8.4-10.2) mg/dL Adrenal panel 12/10/22 Range/Units 19:39 Sodium 137 (137-145) mmol/L Potassium 4.6 (3.5-5.1) mmol/L Chloride 101 (98-107) mmol/L Carbon Dioxide 24 (22-30) mmol/L BUN 24 H (9-20) mg/dL Creatinine 1.59 H (0.66-1.25) mg/dL Glucose 163 H (74-99) mg/dL Calcium 8.8 (8.4-10.2) mg/dL Total Bilirubin 0.7 (0.2-1.3) mg/dL AST 34 (17-59) U/L ALT 40 (4-49) U/L Alkaline Phosphatase 86 (38-126) U/L Total Protein 6.3 (6.3-8.2) g/dL Albumin 3.6 (3.5-5.0) g/dL - Imaging CT scan - abdomen: report reviewed, image reviewed CT scan - pelvis: report reviewed, image reviewed Assessment and Plan Assessment: Impression: Right ureteral calculus with colic. Multiple comorbidities. Recommendations: The patient is admitted for pain control. He undergo a cystoscopy and right double-J catheter placement to relieve the obstruction. Dr. Pacheco at a later date will do stone manipulation
[2022-12-11 12:20] LABS: Glucose,Whole Blood 141 mg/dL (70-110)
[2022-12-11] MEDS ORDERED: IV FLUID CONTINUATION 1,000 ML IV ONE (13:12)
[2022-12-11] MEDS ORDERED: fentaNYL (PF) 50 MCG/ML 2 ML AMP ONE (13:13)
[2022-12-11] MEDS ORDERED: MIDAZOLAM 2 MG/2 ML VIAL ONE (13:13)
[2022-12-11] MEDS ORDERED: PROPOFOL 10 MG/ML 20 ML VIAL IV ONE (13:13)
[2022-12-11] MEDS ORDERED: KETAMINE 10 MG/ML 20 ML VIAL ONE (13:13)
--- NOTE | 2022-12-11 13:31 | P.OP ---
Date of Procedure: 12/11/22 Preoperative Diagnosis: Right ureteral stone with obstruction Postoperative Diagnosis: Same Procedure(s) Performed: Cystoscopy with placement of 6 x 24 double-J catheter right Anesthesia: MAC Surgeon: Koffi Bryan Estimated Blood Loss (ml): 0 Pathology: none sent Condition: stable Disposition: PACU Indications for Procedure: The patient is 72. He has a history of stones. He has a 9 mm proximal ureteral stone on the right causing colic. He comes for a stent. At a later date Dr. kimble will remove the right ureteral stone, stent as well as another stone in the right kidney. Description of Procedure: Patient brought to the operative suite. Given IV sedation. He has a sterile prep and drape. Cystoscopy Foroblique lens and 22-Vincentian sheath identifies a soft lobar stricture dilated with the scope. The prostate shows previous resection. The bladder may unremarkable. The right ureteral orifice is identified and intubated with an 035 wire passed by the stone into the kidney. Over the wires passed a 6 x 24 double-J catheter up the right ureter into the renal pelvis. It coils in the renal pelvis and the bladder the bladder is drained the patient is awake and returned recovery room good condition. He'll be discharged home later today and follow with Dr. Fairbanks in 1 week.
--- NOTE | 2022-12-11 13:32 | P.DS ---
Providers Date of admission: 12/10/22 20:07 Attending physician: Savage Pacheco Primary care physician: [facility] Course: The patient was admitted the hospital with right ureteral colic due to a 9 mm right ureteral stone proximal. He also has a right renal stone. His pain was not adequately controlled. A right ureteral stent was placed on 12/11/2022 to relieve the obstruction and pain. His pain is controlled. He'll be discharged home later this afternoon and follow in the office with Dr. Pacheco in 1 week to set up formal stones and stent removal on the right side. Patient Condition at Discharge: Stable Plan - Discharge Summary Discharge Rx Participant: No New Discharge Prescriptions: No Action glipiZIDE [Glucotrol] 20 mg PO BID sitaGLIPtin [Januvia] 100 mg PO DAILY Timolol 0.5% Ophth Soln [Timoptic 0.5% Ophth Soln] 1 drop BOTH EYES BID Venlafaxine HCl ER [Effexor XR] 75 mg PO DAILY Latanoprost [Xalatan 0.005%] 1 drop BOTH EYES HS Aspirin 81 mg PO DAILY chew Losartan [Cozaar] 50 mg PO DAILY #30 tab Atorvastatin [Lipitor] 80 mg PO DAILY #30 tab Metoprolol Tartrate [Lopressor] 25 mg PO BID #60 tab Nitroglycerin Sl Tabs [Nitrostat] 0.4 mg SUBLINGUAL Q5M PRN #30 tab PRN Reason: Chest Pain amLODIPine [Norvasc] 10 mg PO DAILY #30 tab Clopidogrel [Plavix] 75 mg PO DAILY #30 tab Acetaminophen-Codeine 300-30mg [Tylenol w/codeine #3] 1 tab PO Q4H PRN 3 Days #18 tablet PRN Reason: Pain Ondansetron Odt [Zofran Odt] 4 mg PO Q8HR PRN #20 tab PRN Reason: Nausea Cholecalciferol [Vitamin D3 (25 Mcg = 1000 Iu)] 50 mcg PO DAILY metFORMIN HCL ER [Glucophage XR] 1,000 mg PO PC-BID Venlafaxine HCl [Effexor XR] 150 mg PO DAILY Tamsulosin [Flomax] 0.4 mg PO DAILY #10 cap Insulin Glargine,Hum.rec.anlog [Lantus Solostar Pen] 20 units SQ HS Discharge Medication List glipiZIDE [Glucotrol] 20 mg PO BID 01/14/15 [History] sitaGLIPtin [Januvia] 100 mg PO DAILY 01/14/15 [History] Timolol 0.5% Ophth Soln [Timoptic 0.5% Ophth Soln] 1 drop BOTH EYES BID 11/01/18 [History] Latanoprost [Xalatan 0.005%] 1 drop BOTH EYES HS 01/29/20 [History] Venlafaxine HCl ER [Effexor XR] 75 mg PO DAILY 01/29/20 [History] Aspirin 81 mg PO DAILY chew 02/01/20 [Rx] Atorvastatin [Lipitor] 80 mg PO DAILY #30 tab 02/01/20 [Rx] Clopidogrel [Plavix] 75 mg PO DAILY #30 tab 02/01/20 [Rx] Losartan [Cozaar] 50 mg PO DAILY #30 tab 02/01/20 [Rx] Metoprolol Tartrate [Lopressor] 25 mg PO BID #60 tab 02/01/20 [Rx] Nitroglycerin Sl Tabs [Nitrostat] 0.4 mg SUBLINGUAL Q5M PRN #30 tab 02/01/20 [Rx] amLODIPine [Norvasc] 10 mg PO DAILY #30 tab 02/01/20 [Rx] Venlafaxine HCl [Effexor XR] 150 mg PO DAILY 03/19/22 [History] Acetaminophen-Codeine 300-30mg [Tylenol w/codeine #3] 1 tab PO Q4H PRN 3 Days #18 tablet 12/10/22 [Rx] Cholecalciferol [Vitamin D3 (25 Mcg = 1000 Iu)] 50 mcg PO DAILY 12/10/22 [History] Insulin Glargine,Hum.rec.anlog [Lantus Solostar Pen] 20 units SQ HS 12/10/22 [H istory] Ondansetron Odt [Zofran Odt] 4 mg PO Q8HR PRN #20 tab 12/10/22 [Rx] Tamsulosin [Flomax] 0.4 mg PO DAILY #10 cap 12/10/22 [Rx] metFORMIN HCL ER [Glucophage XR] 1,000 mg PO PC-BID 12/10/22 [History] Follow up Appointment(s)/Referral(s): Savage Pacheco MD [STAFF PHYSICIAN] - 1 Week Sunilkumar,Mini, MD [Primary Care Provider] - 1-2 days Discharge Disposition: HOME SELF-CARE
[2022-12-11 13:46] VITALS: RESP 16; TEMP 99.1
[2022-12-11 14:01] VITALS: BP 143/74; PULSE 71
[2022-12-11] MEDS ORDERED: DOCUSATE 100 MG CAP PO PRN (15:10)
[2022-12-11 17:35] LABS: Glucose,Whole Blood 314 mg/dL (70-110)
--- NOTE | 2022-12-11 18:00 | FL ---
EXAMINATION TYPE: FL guidance operating room DATE OF EXAM: 12/11/2022 Comparison: None Clinical History: 72-year-old male Cysto with stent insertion Findings: Urologic intervention with placement of right ureteral stent. Cholecystectomy clips. FLUOROSCOPY Fluoroscopy time of 14 seconds was used during urologic intervention. 3 image/s document/s the sudeep sotomayor. Total DAP: 2.65 Gycm2. Impression: Fluoroscopy for urologic intervention.
== END 2022-12-11 18:45 | disposition home or self-care (01) | DRG 661 ==
LOC: EC 17:49 → 5NMEDONC 20:07
PROVIDERS: ADMIT Urology; ATTEND Urology
PROC: 0T768DZ Dilation of Right Ureter with Intraluminal Device, Via Natural or Artificial Opening Endoscopic (ICD-10-PCS; principal; 2022-12-11 13:00)
DX: N20.2 Calculus of kidney with calculus of ureter (principal); I10 Essential (primary) hypertension; E11.9 Type 2 diabetes mellitus without complications; E78.5 Hyperlipidemia, unspecified; F32.A Depression, unspecified; K43.2 Incisional hernia without obstruction or gangrene; M19.90 Unspecified osteoarthritis, unspecified site; K42.9 Umbilical hernia without obstruction or gangrene; H40.9 Unspecified glaucoma; Z87.442 Personal history of urinary calculi; Z85.46 Personal history of malignant neoplasm of prostate; Z92.3 Personal history of irradiation; Z79.899 Other long term (current) drug therapy; Z79.84 Long term (current) use of oral hypoglycemic drugs; Z79.82 Long term (current) use of aspirin; Z79.02 Long term (current) use of antithrombotics/antiplatelets; Z88.0 Allergy status to penicillin; Z91.041 Radiographic dye allergy status; Z88.5 Allergy status to narcotic agent
CPT/HCPCS: 36415; 80053; 81001; 83036; 83690; 83735; 85025; 96374; 96375; 99285

== ENCOUNTER 2022-12-23 07:37 | Day surgery (SDC) | payer MEDICARE, OTHER ==
[2022-12-20 10:30] VITALS: BMI 33.3
--- NOTE | 2022-12-22 23:06 | P.GSHP ---
History of Present Illness H&P Date: 12/22/22 Chief Complaint: Right renal colic The patient is a 72-year-old white male with a history of calcium oxalate urolithiasis. He was recently admitted with right flank pain and was found to have mild right hydronephrosis due to a 9 mm right proximal ureteral calculus. Bilateral renal calculi were also noted. He underwent right ureteral stent insertion. He now comes for removal of the calculus. - Constitutional Constitutional: Denies chills, Denies fever - Genitourinary (Male) Genitourinary: Reports flank pain, Reports kidney stones Past Medical History Past Medical History: Cancer, Diabetes Mellitus, Eye Disorder, Hyperlipidemia, Hypertension, Osteoarthritis (OA), Prostate Disorder Additional Past Medical History / Comment(s): Kidney Stones; glaucoma; diverticulitis. Past hx of HTN. Prostate Cancer 07/2015, SURGERY, RADIATON. INCISIONAL HERNIA. History of Any Multi-Drug Resistant Organisms: None Reported Past Surgical History: Cholecystectomy, Hernia Repair, Prostate Surgery Additional Past Surgical History / Comment(s): Multiple Lithotripsies , Left Cataract removal. finger surgery. Hernia repair w/ mesh; UMBILICAL HERNIA. Cyst removed from tailbone. RT URETRAL STENT 12/11/22, PROSTATECTOMY, COLONOSCOPY Past Anesthesia/Blood Transfusion Reactions: No Reported Reaction Date of Last Stent Placement:: 2018 Smoking Status: Former smoker - Past Family History Brother(s) Family Medical History: Cancer Additional Family Medical History / Comment(s): Skin cancer Father Family Medical History: Cancer Additional Family Medical History / Comment(s): Skin cancer Mother Family Medical History: Cancer Additional Family Medical History / Comment(s): Skin cancer. Medications and Allergies Home Medications Medication Instructions Recorded Confirmed Type glipiZIDE [Glucotrol] 20 mg PO BID 01/14/15 12/20/22 History sitaGLIPtin [Januvia] 100 mg PO DAILY 01/14/15 12/20/22 History Timolol 0.5% Ophth Soln [Timoptic 1 drop BOTH EYES BID 11/01/18 12/20/22 History 0.5% Ophth Soln] Latanoprost [Xalatan 0.005%] 1 drop BOTH EYES HS 01/29/20 12/20/22 History Venlafaxine HCl ER [Effexor XR] 75 mg PO DAILY 01/29/20 12/20/22 History Aspirin 81 mg PO DAILY chew 02/01/20 12/20/22 Rx Atorvastatin [Lipitor] 80 mg PO DAILY #30 tab 02/01/20 12/20/22 Rx Clopidogrel [Plavix] 75 mg PO DAILY #30 tab 02/01/20 12/20/22 Rx Losartan [Cozaar] 50 mg PO DAILY #30 tab 02/01/20 12/20/22 Rx Metoprolol Tartrate [Lopressor] 25 mg PO BID #60 tab 02/01/20 12/20/22 Rx Nitroglycerin Sl Tabs [Nitrostat] 0.4 mg SUBLINGUAL Q5M PRN #30 tab 02/01/20 12/20/22 Rx amLODIPine [Norvasc] 10 mg PO DAILY #30 tab 02/01/20 12/20/22 Rx Venlafaxine HCl [Effexor XR] 150 mg PO DAILY 03/19/22 12/20/22 History Acetaminophen-Codeine 300-30mg 1 tab PO Q4H PRN 3 Days #18 tablet 12/10/22 12/20/22 Rx [Tylenol w/codeine #3] Cholecalciferol [Vitamin D3 (25 50 mcg PO DAILY 12/10/22 12/20/22 History Mcg = 1000 Iu)] Insulin Glargine,Hum.rec.anlog 20 units SQ HS 12/10/22 12/20/22 History [Lantus Solostar Pen] Ondansetron Odt [Zofran Odt] 4 mg PO Q8HR PRN #20 tab 12/10/22 12/20/22 Rx Tamsulosin [Flomax] 0.4 mg PO DAILY #10 cap 12/10/22 12/20/22 Rx metFORMIN HCL ER [Glucophage XR] 1,000 mg PO PC-BID 12/10/22 12/20/22 History Allergies Allergy/AdvReac Type Severity Reaction Status Date / Time Penicillins Allergy Swelling Verified 12/20/22 10:16 propoxyphene napsylate Allergy Rash/Hives Verified 12/20/22 10:16 [From Darvocet-N] Iodinated Contrast Media AdvReac Nausea & Verified 12/20/22 10:16 [Iodinated Contrast- Oral Vomiting and IV Dye] iohexol AdvReac Nausea & Verified 12/20/22 10:16 Vomiting Surgical - Exam - General well developed, well nourished, no distress - Respiratory normal respiratory effort - Abdomen Abdomen: soft, non tender, no guarding, no rigid, no rebound - Genitourinary normal penis with no external lesions, testicles non-tender - Psychiatric oriented to time, oriented to person, oriented to place, speech is normal, memory intact Results - Imaging CT scan - abdomen: report reviewed, image reviewed Assessment and Plan (1) Kidney stone Status: Acute Code(s): N20.0 - CALCULUS OF KIDNEY SNOMED Code(s): 95792392 (2) Calculus of ureter Status: Acute Code(s): N20.1 - CALCULUS OF URETER SNOMED Code(s): 77900844 Plan: Cystoscopy, right ureteral stent removal, right ureteroscopy with Holmium laser lithotripsy and stone basketing. Patient is aware of risks, which include anesthesia, bleeding, infection, inability to remove all calculi, and ureteral injury.
--- NOTE | 2022-12-23 07:55 | XR ---
EXAMINATION TYPE: XR KUB DATE OF EXAM: 12/23/2022 HISTORY: Right Ureteral Calculi Right Renal Calculi Comparison: None.Single KUB is submitted for interpretation. Findings: Right renal calculi: Vague calculi overlying the lower pole of the right kidney measuring 4 mm and 4. 2 mm respectively. Right ureteral calculi: Right ureteral stent appears to be appropriately placed. No definite calculus along the course of the stent at this time. Left renal calculi: 6 mm calculus overlying the mid to lower pole left kidney. Left ureteral calculi: None Visualized. Pelvic calcifications: Phlebolith right hemipelvis. Bowel gas pattern is unremarkable. No free air. No mass effects. IMPRESSION: 1. Bilateral nephrolithiasis. 2. Right ureteral stent. No definite radiopaque calculus is seen along the expected course of the ure ter.
[2022-12-23] MEDS ORDERED: ONDANSETRON 4 MG/2 ML VIAL IVP ONE (08:02)
[2022-12-23] MEDS ORDERED: DEXAMETHASONE SOD PHOSPHATE 4 MG/ML 1 ML VIAL IV ONE (08:02)
[2022-12-23] MEDS ORDERED: METOCLOPRAMIDE 5 MG/ML 2 ML VIAL IVP PRN (08:02)
[2022-12-23] MEDS ORDERED: HYDROmorphone 0.5 MG/0.5 ML SYRINGE IVP PRN (08:02)
[2022-12-23] MEDS ORDERED: LIDOCAINE 1% (10MG/ML) FOR IV START INTRADERMA PRN (08:02)
[2022-12-23] MEDS: LACTATED RINGERS 1,000 ML IV SCH ×2 (08:33→09:16)
[2022-12-23 08:39] LABS: Glucose,Whole Blood 181 mg/dL (70-110)
[2022-12-23] MEDS ORDERED: HYDROmorphone (PF) 1 MG/ML ONE (09:10)
[2022-12-23] MEDS ORDERED: fentaNYL (PF) 50 MCG/ML 2 ML AMP ONE (09:10)
[2022-12-23] MEDS ORDERED: ePHEDrine 50 MG/ML 1 ML VIAL ONE (09:10)
[2022-12-23] MEDS ORDERED: PHENYLEPHRINE-0.9% NACL SYG 1,000 MCG/10 ML SYRINGE ONE (09:10)
[2022-12-23] MEDS ORDERED: PROPOFOL 10 MG/ML 20 ML VIAL IV ONE (09:10)
[2022-12-23] MEDS ORDERED: GLYCOPYRROLATE 0.2 MG/ML 2 ML VIAL ONE (09:10)
[2022-12-23] MEDS ORDERED: LIDOCAINE 2% INJ 20 MG/ML (2 ML VIAL) ONE (09:10)
[2022-12-23] MEDS ORDERED: MIDAZOLAM 2 MG/2 ML VIAL ONE (09:10)
[2022-12-23] MEDS ORDERED: SUCCINYLCHOLINE CHLORIDE 200 MG/10 ML VIAL IV ONE (09:10)
[2022-12-23] MEDS ORDERED: LACTATED RINGERS 1,000 ML IV ONE ×2 (10:17→12:21)
[2022-12-23 11:07] VITALS: TEMP 98.1
--- NOTE | 2022-12-23 11:14 | P.OP ---
Date of Procedure: 12/23/22 Preoperative Diagnosis: Right ureteral calculus, bilateral renal calculi Postoperative Diagnosis: Same Procedure(s) Performed: Cystoscopy, bilateral ureteroscopy with Holmium laser lithotripsy and stone basketing, right ureteral stent removal, left ureteral stent insertion Anesthesia: EULALIOA Surgeon: Savage Pacheco Estimated Blood Loss (ml): 5 IV fluids (ml): 1,300 Pathology: none sent Condition: stable Disposition: PACU Indications for Procedure: The patient is a 72-year-old white male with a history of calcium oxalate urolithiasis. He was recently admitted with right flank pain and was found to have mild right hydronephrosis due to a 9 mm right proximal ureteral calculus. Bilateral renal calculi were also noted. He underwent right ureteral stent insertion. He now comes for removal of the calculus. He also has 2 left renal calculi, and he requests that these be removed as well. Operative Findings: Right proximal ureteral calculus, right mid pole calculi, right lower pole calculi, all fragmented and basketed. Small left mid pole calculus, fragmented completely. Multiple small left lower pole calculi, all removed via Stone basketing. Description of Procedure: The patient was taken to the operating room and placed in the dorsolithotomy position, with legs supported in Balwinder stirrups. The external genitalia was prepped and draped sterilely. The 30 lens was used to introduce the 21-Danish English cystoscopic sheath through the urethra and into the bladder under direct vision. The bladder was examined in its entirety. No abnormalities were seen. The prostate is surgically absent. Grasping forceps were used to grasp the distal end of the right ureteral stent, which was removed along with the cystoscope. A 0.038 inch Glidewire was passed through the stent and up to the right renal pelvis, were it coiled. The stent was removed, and an 11/13-Danish ureteral access catheter was passed over the wire, up to the proximal ureter. The [employer]ia flexible ureteroscope was then passed through the ureteral access catheter sheath, up to the renal pelvis. The right proximal ureteral stent was dislodged and refluxed into the kidney. The 272 micron Holmium laser probe was passed through the ureteroscope, and lithotripsy was performed utilizing a dusting mode. As the calculus began to fragment, a refluxed into an upper pole calyx, where lithotripsy was completed. The outer portion of the stone was soft and fragmented readily be a dusting. The car was darker brown and very dense. After dusting the outer portion of the stone, the dark core of the calculus was removed via Stone basketing using a nitinol basket. An additional mid pole calculus was dusted. Lastly, multiple calculi were seen within a lower pole calyx measuring up to 8 mm in size. These again were dusted, with larger fragments removed via Stone basketing. This was continued until only dust remained. Pullout ureteroscopy showed no evidence of ureteral trauma. The cystoscope was replaced in the bladder, and the Glidewire was passed up to the left renal pelvis. The 11/13-Danish ureteral access catheter was passed over the wire, up to the proximal ureter. The flexible ureteroscope was then passed through the ureteral access catheter sheath and up to the left renal pelvis. Each calyx was examined. With N/A mid pole calyx, a several millimeter submucosal calculus was seen. This was dusted using the holmium laser. Within a lower pole calyx, multiple small, round calculi were identified. These measured 2-3 mm in size, and numbered at least 12. They were all removed using the nitinol basket. Pullout ureteroscopy showed no evidence of left ureteral trauma. The Glidewire was passed through the ureteroscope, which was removed. The Glidewire was backloaded into the cystoscope, which was passed into the bladder. A 26 cm, 4.8-Danish double-J ureteral stent was placed over the wire. Proper stent positioning was verified fluoroscopically and endoscopically. The bladder was emptied and the cystoscope removed. The string was secured to the patient's penis using a Tegaderm dressing. The patient tolerated the procedure well and was taken to the recovery room in stable condition. [employer] Report: Procedure Acuity: Elective Stone Size and Location: 8 mm, right proximal ureter. Bilateral renal calculi. Ureteral Dilation: No Ureteral Access Sheath Used: Yes Stone Sent for Analysis: No All Stones/Fragments Were Removed with a Basket: Yes Complications: No Preoperative Antibiotics Given: Yes Stent Placed: Yes If Stent Placed, Was String Left Attached: Yes If Stent Placed, When is it to be Removed: 1 week Discharge Medications: None
[2022-12-23] MEDS ORDERED: KETOROLAC 15 MG/ML 1 ML VIAL ONE (12:18)
[2022-12-23] MEDS ORDERED: KETOROLAC 15 MG/ML 1 ML VIAL IVP ONE (12:20)
[2022-12-23 12:43] VITALS: PULSE 70
--- NOTE | 2022-12-23 12:49 | FL ---
Fluoroscopy History: RT URETERAL/KID STONE BILAT KIDNEY STONES, 25SEC FL TIME, DAP=[phone]
[2022-12-23 13:01] VITALS: BP 129/79; RESP 18
== END 2022-12-23 14:11 | disposition home or self-care (01) ==
LOC: OR 07:37
PROVIDERS: ATTEND Urology
DX: N20.2 Calculus of kidney with calculus of ureter (principal); E11.9 Type 2 diabetes mellitus without complications; E78.5 Hyperlipidemia, unspecified; I10 Essential (primary) hypertension; Z98.890 Other specified postprocedural states; Z90.49 Acquired absence of other specified parts of digestive tract; Z87.891 Personal history of nicotine dependence; Z79.899 Other long term (current) drug therapy
CPT/HCPCS: 74018; 52356; C2625; C1769; J2250; J0330; J1100; J0690; J2405; J3010; J1170; J1885; J2704; J2001; J2371

== ENCOUNTER → 2023-03-09 | Outpatient (CLI) | payer MEDICARE, OTHER ==
--- NOTE | 2023-03-09 12:51 | US ---
EXAMINATION TYPE: US kidneys/renal and bladder DATE OF EXAM: 03/09/2023 COMPARISON: NONE CLINICAL INDICATION: Male, 72 years old with history of N13.2 RENAL AND URETERAL CALCULOUS OBSTRUCTI ON; History of kidney stones. Removal of kidney stones bilaterally 3 months ago EXAM MEASUREMENTS: Right Kidney: 12.7 x 5.4 x 5.0 cm Left Kidney: 11.0 x 5.3 x 3.8. cm Right Kidney: no evidence of hydronephrosis Left Kidney: no evidence of hydronephrosis Bladder: appears wnl Bilateral Jets seen: no There is no evidence for hydronephrosis at this point in time. No nephrolithiasis is seen. No alicia s are identified. The urinary bladder is anechoic. Bilateral ureteral jets are seen. IMPRESSION: Unremarkable study.
== END | disposition home or self-care (01) ==
LOC: RADUSWWP 12:03
PROVIDERS: ATTEND Urology
DX: N13.2 Hydronephrosis with renal and ureteral calculous obstruction (principal); Z87.442 Personal history of urinary calculi
CPT/HCPCS: 76770

== ENCOUNTER 2023-04-18 14:35 | Emergency (ER) | payer MEDICARE, OTHER ==
--- NOTE | 2023-04-18 15:17 | ED ---
General Adult HPI - General Source: patient, RN notes reviewed Mode of arrival: ambulatory Limitations: no limitations <Americo Canales - Last Filed: 04/18/23 15:16> - General Source: RN notes reviewed, old records reviewed Mode of arrival: ambulatory Limitations: no limitations - History of Present Illness -: unknown Radiation: non-radiation Severity scale (1-10): 2 Consistency: intermittent, now resolved Improves with: none Associated Symptoms: chest pain <Ronald Keating - Last Filed: 04/25/23 22:42> - General Stated complaint: heart issues bad ekg Time Seen by Provider: 04/18/23 15:16 - History of Present Illness Initial comments: 73-year-old male presents emergency Department with chief complaint chest discomfort. 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 Patient states that he started on some symptoms last week when he was trying to use a drill region above his head. Patient states she has 1 prior cardiac stent does have history of diabetes or medications. Patient states he has slight chest discomfort as blood pressure has been slightly high. (Americo Canales) This is a 73-year-old male was sent [employer] under normal. Patient was told he has abnormal EKG but he has no complaints, has had episodic chest pain but no current chest pain (Ronald Keating) - Related Data Home Medications Medication Instructions Recorded Confirmed glipiZIDE [Glucotrol] 10 mg PO BID 01/14/15 04/25/23 sitaGLIPtin [Januvia] 100 mg PO DAILY 01/14/15 04/25/23 Timolol 0.5% Ophth Soln [Timoptic 1 drop BOTH EYES BID 11/01/18 04/25/23 0.5% Ophth Soln] Latanoprost [Xalatan 0.005%] 1 drop BOTH EYES HS 01/29/20 04/25/23 Venlafaxine HCl ER [Effexor XR] 75 mg PO DAILY 01/29/20 04/25/23 Venlafaxine HCl [Effexor XR] 150 mg PO DAILY 03/19/22 04/25/23 Cholecalciferol [Vitamin D3 (25 50 mcg PO DAILY 12/10/22 04/25/23 Mcg = 1000 Iu)] Insulin Glargine,Hum.rec.anlog 20 units SQ 12/10/22 04/25/23 [Lantus Solostar Pen] metFORMIN HCL ER [Glucophage XR] 1,000 mg PO BID-W/MEALS 12/10/22 04/25/23 Previous Rx's Medication Instructions Recorded Aspirin 81 mg PO DAILY chew 02/01/20 Atorvastatin [Lipitor] 80 mg PO DAILY #30 tab 02/01/20 Clopidogrel [Plavix] 75 mg PO DAILY #30 tab 02/01/20 Losartan [Cozaar] 50 mg PO DAILY #30 tab 02/01/20 Metoprolol Tartrate [Lopressor] 25 mg PO BID #60 tab 02/01/20 amLODIPine [Norvasc] 10 mg PO DAILY #30 tab 02/01/20 Allergies Allergy/AdvReac Type Severity Reaction Status Date / Time Penicillins Allergy Swelling Verified 04/25/23 20:38 propoxyphene napsylate Allergy Rash/Hives Verified 04/25/23 20:38 [From Darvocet-N] Iodinated Contrast Media AdvReac Nausea & Verified 04/25/23 20:38 [Iodinated Contrast- Oral Vomiting and IV Dye] iohexol AdvReac Nausea & Verified 04/25/23 20:38 Vomiting Review of Systems ROS Other: All systems not noted in ROS Statement are negative. <Americo Canales - Last Filed: 04/18/23 15:16> ROS Other: All systems not noted in ROS Statement are negative. <Ronald Keating - Last Filed: 04/25/23 22:42> ROS Statement: Those systems with pertinent positive or pertinent negative responses have been documented in the HPI. Past Medical History Past Medical History: Cancer, Diabetes Mellitus, Eye Disorder, Hyperlipidemia, Hypertension, Osteoarthritis (OA), Prostate Disorder Additional Past Medical History / Comment(s): Kidney Stones; glaucoma; diverticulitis. Past hx of HTN. Prostate Cancer 07/2015, SURGERY, RADIATON. INCISIONAL HERNIA. History of Any Multi-Drug Resistant Organisms: None Reported Past Surgical History: Cholecystectomy, Hernia Repair, Prostate Surgery Additional Past Surgical History / Comment(s): Multiple Lithotripsies , Left Cataract removal. finger surgery. Hernia repair w/ mesh; UMBILICAL HERNIA. Cyst removed from [facility]. RT URETRAL STENT 12/11/22, PROSTATECTOMY, COLONOSCOPY Past Anesthesia/Blood Transfusion Reactions: No Reported Reaction Date of Last Stent Placement:: 2018 Smoking Status: Former smoker - Past Family History Brother(s) Family Medical History: Cancer Additional Family Medical History / Comment(s): Skin cancer Father Family Medical History: Cancer Additional Family Medical History / Comment(s): Skin cancer Mother Family Medical History: Cancer Additional Family Medical History / Comment(s): Skin cancer. <Americo Canales - Last Filed: 04/18/23 15:16> General Exam <Americo Canales - Last Filed: 04/18/23 15:16> General appearance: alert, in no apparent distress Head exam: Present: atraumatic, normocephalic, normal inspection Eye exam: Present: normal appearance, PERRL, EOMI. Absent: scleral icterus, conjunctival injection, periorbital swelling ENT exam: Present: normal exam, mucous membranes moist Neck exam: Present: normal inspection. Absent: tenderness, meningismus, lymphadenopathy Respiratory exam: Present: normal lung sounds bilaterally. Absent: respiratory distress, wheezes, rales, rhonchi, stridor Cardiovascular Exam: Present: regular rate, normal rhythm, normal heart sounds. Absent: systolic murmur, diastolic murmur, rubs, gallop, clicks GI/Abdominal exam: Present: soft, normal bowel sounds. Absent: distended, tenderness, guarding, rebound, rigid Extremities exam: Present: normal inspection, full ROM, normal capillary refill. Absent: tenderness, pedal edema, joint swelling, calf tenderness Back exam: Present: normal inspection Neurological exam: Present: alert, oriented X3, CN II-XII intact Psychiatric exam: Present: normal affect, normal mood Skin exam: Present: warm, dry, intact, normal color. Absent: rash <Ronald Keating - Last Filed: 04/25/23 22:42> - General Exam Comments Initial Comments: Visual Physical Exam Vital signs reviewed General: Well-appearing, nontoxic, no acute distress. Head: Normocephalic, atraumatic Eyes: PERRLA, EOMI ENT: Airway patent Chest: Nonlabored breathing Skin: No visual rash, normal skin tone Neuro: Alert and oriented 3 Musculoskeletal: No gross abnormalities (Americo Canales) Course <Ronald Keating - Last Filed: 04/25/23 22:42> Vital Signs 04/18/23 04/18/23 15:13 18:55 Temperature 98.3 F Pulse Rate 80 72 Respiratory 18 18 Rate Blood Pressure 143/77 135/84 O2 Sat by Pulse 97 99 Oximetry - Reevaluation(s) Reevaluation #1: 04/18/23 Medical records reviewed (Ronald Keating) Reevaluation #2: 04/18/23 Patient symptoms are unchanged (Ronald Keating) Reevaluation #3: 04/18/23 Patient informed results and questions answered (Ronald Keating) Reevaluation #4: Was pt. sent in by a medical professional or institution (, ARCHANA, CORPORATE STRATEGY ANALYST, urgent c are, hospital, or detention...) When possible be specific @ -no Did you speak to anyone other than the patient for history (EMS, parent, family, police, friend...)? What history was obtained from this source @ -no Did you review nursing and triage notes (agree or disagree)? Why? @ -agree Are old charts reviewed (outside hosp., previous admission, EMS record, old EKG, old radiological studies, urgent care reports/EKG's, detention records)? Report findings @ -yes Differential Diagnosis (chest pain, altered mental status, abdominal pain women, abdominal pain men, vaginal bleeding, weakness, fever, dyspnea, syncope, headache, dizziness, GI bleed, back pain, seizure, CVA, palpatations, mental health, musculoskeletal)? @ -prior EKG interpreted by me (3pts min.). @ -yes X-rays interpreted by me (1pt min.). @ -yes CT interpreted by me (1pt min.). @ -no U/S interpreted by me (1pt. min.). @ -no What testing was considered but not performed or refused? (CT, X-rays, U/S, labs)? Why? @ -none What meds were considered but not given or refused? Why? @ -none Did you discuss the management of the patient with other professionals (professionals i.e. ARCHANA Myers, CORPORATE STRATEGY ANALYST, lab, RT, psych nurse, sexual assault social worker, repair servicer, teacher, correctional officer sergeant, social work case manager)? Give summary @ -no Was smoking cessation discussed for >3mins.? @ -no Was critical care preformed (if so, how long)? @ -no Were there social determinants of health that impacted care today? How? (Homelessness, low income, unemployed, alcoholism, drug addiction, transportation, low edu. Level, literacy, decrease access to med. care, shelter, rehab)? @ -none Was there de-escalation of care discussed even if they declined (Discuss DNR or withdrawal of care, Hospice)? DNR status @ -no What co-morbidities impacted this encounter? (DM, HTN, Smoking, COPD, CAD, Cancer, CVA, ARF, Chemo, Hep., AIDS, mental health diagnosis, sleep apnea, morbid obesity)? @ -none Was patient admitted / discharged? Hospital course, mention meds given and route, prescriptions, significant lab abnormalities, going to OR and other pertinent info. @ -73 male to the emergency room today. Sent for evaluation of possible abnormal EKG in office. Patient has no complaints here in the ER and can be discharged with normal EKG here Discharged Undiagnosed new problem with uncertain prognosis? @ -no Drug Therapy requiring intensive monitoring for toxicity (Heparin, Nitro, Insulin, Cardizem)? @ -no Were any procedures done? @ -no Diagnosis/symptom? @ -Normal exam with abnormal EKG Acute, or Chronic, or Acute on Chronic? @ -Acute Uncomplicated (without systemic symptoms) or Complicated (systemic symptoms)? @ -Complicated Side effects of treatment? @ -no Exacerbation, Progression, or Severe Exacerbation? @ -exacerbation Poses a threat to life or bodily function? How? (Chest pain, [place], HI, pneumonia, PE, COPD, DKA, ARF, appy, cholecystitis, CVA, Diverticulitis, Homicidal, Suicidal, threat to staff... and all critical care pts) @ -no (Ronald Keating) Reevaluation #5: Differential Chest Pain: Stable Angina, Unstable Angina, STEMI, NSTEMI Aortic Dissection, Pneumothorax, Musculoskeletal, Esophageal Spasm GERD, Cholecystitis, Pancreatitis, Zoster, this is not meant to be an all-inclusive list. (Ronald Keating) EKG Findings - EKG Comments: EKG Findings:: EKG sinus 68 LA 13 QRS 64 QTC 397 - EKG Results: EKG: interpreted by ERMD <Ronald Keating - Last Filed: 04/25/23 22:42> Medical Decision Making <Americo Canales - Last Filed: 04/18/23 15:16> - Lab Data Result diagrams: 04/18/23 16:33 04/18/23 16:33 - EKG Data -: EKG Interpreted by Me (EKG is sinus 60 LA 163 QRS 108 QTc 397) - Radiology Data Radiology results: report reviewed (Chest x-rays negative for acute disease), image reviewed <Ronald Keating - Last Filed: 04/25/23 22:42> - Medical Decision Making I performed a quick note portion of this chart signed Americo FRIEDMAN (Americo Canales) 73 male presenting for evaluation of abnormal outpatient EKG. Patient has normal EKG here in the ER unchanged from prior testing. Patient has normal lab testing and imaging can be discharged home (Ronald Keating) - Lab Data Lab Results 04/18/23 04/18/23 04/18/23 Range/Units 16:33 16:33 16:33 WBC 8.3 (3.8-10.6) k/uL RBC 4.86 (4.30-5.90) m/uL Hgb 14.7 (13.0-17.5) gm/dL Hct 42.6 (39.0-53.0) % MCV 87.6 (80.0-100.0) fL MCH 30.2 (25.0-35.0) pg MCHC 34.5 (31.0-37.0) g/dL RDW 14.0 (11.5-15.5) % Plt Count 192 (150-450) k/uL MPV 9.4 Neutrophils % 68 % Lymphocytes % 22 % Monocytes % 4 % Eosinophils % 4 % Basophils % 1 % Neutrophils # 5.7 (1.3-7.7) k/uL Lymphocytes # 1.8 (1.0-4.8) k/uL Monocytes # 0.4 (0-1.0) k/uL Eosinophils # 0.3 (0-0.7) k/uL Basophils # 0.1 (0-0.2) k/uL PT 11.0 (10.0-12.5) sec INR 1.0 (<1.2) APTT 23.8 (22.0-30.0) sec Sodium 140 (137-145) mmol/L Potassium 4.8 (3.5-5.1) mmol/L Chloride 105 (98-107) mmol/L Carbon Dioxide 24 (22-30) mmol/L Anion Gap 11 mmol/L BUN 20 (9-20) mg/dL Creatinine 0.99 (0.66-1.25) mg/dL Est GFR (CKD-EPI)AfAm 88 (>60 ml/min/1.73 sqM) Est GFR (CKD-EPI)NonAf 76 (>60 ml/min/1.73 sqM) Glucose 189 H (74-99) mg/dL Calcium 9.9 (8.4-10.2) mg/dL Magnesium 1.6 (1.6-2.3) mg/dL Total Bilirubin 0.5 (0.2-1.3) mg/dL AST 38 (17-59) U/L ALT 48 (4-49) U/L Alkaline Phosphatase 89 (38-126) U/L Troponin I (0.000-0.034) ng/mL NT-Pro-B Natriuret Pep 83 pg/mL Total Protein 6.9 (6.3-8.2) g/dL Albumin 4.1 (3.5-5.0) g/dL 04/18/23 Range/Units 16:33 WBC (3.8-10.6) k/uL RBC (4.30-5.90) m/uL Hgb (13.0-17.5) gm/dL Hct (39.0-53.0) % MCV (80.0-100.0) fL MCH (25.0-35.0) pg MCHC (31.0-37.0) g/dL RDW (11.5-15.5) % Plt Count (150-450) k/uL MPV Neutrophils % % Lymphocytes % % Monocytes % % Eosinophils % % Basophils % % Neutrophils # (1.3-7.7) k/uL Lymphocytes # (1.0-4.8) k/uL Monocytes # (0-1.0) k/uL Eosinophils # (0-0.7) k/uL Basophils # (0-0.2) k/uL PT (10.0-12.5) sec INR (<1.2) APTT (22.0-30.0) sec Sodium (137-145) mmol/L Potassium (3.5-5.1) mmol/L Chloride (98-107) mmol/L Carbon Dioxide (22-30) mmol/L Anion Gap mmol/L BUN (9-20) mg/dL Creatinine (0.66-1.25) mg/dL Est GFR (CKD-EPI)AfAm (>60 ml/min/1.73 sqM) Est GFR (CKD-EPI)NonAf (>60 ml/min/1.73 sqM) Glucose (74-99) mg/dL Calcium (8.4-10.2) mg/dL Magnesium (1.6-2.3) mg/dL Total Bilirubin (0.2-1.3) mg/dL AST (17-59) U/L ALT (4-49) U/L Alkaline Phosphatase (38-126) U/L Troponin I <0.012 (0.000-0.034) ng/mL NT-Pro-B Natriuret Pep pg/mL Total Protein (6.3-8.2) g/dL Albumin (3.5-5.0) g/dL Disposition <Americo Canales M - Last Filed: 04/18/23 15:16> Is patient prescribed a controlled substance at d/c from ED?: No Time of Disposition: 18:00 <Ronald Keating - Last Filed: 04/25/23 22:42> Clinical Impression: Normal exam Disposition: HOME SELF-CARE Condition: Good Instructions (If sedation given, give patient instructions): Normal Exam (ED) Referrals: Maritza Gonzalez MD [Primary Care Provider] - 1-2 days
[2023-04-18 15:41] VITALS: RESP 18; TEMP 98.3
--- NOTE | 2023-04-18 16:01 | XR ---
EXAMINATION TYPE: XR chest 2V DATE OF EXAM: 04/18/2023 COMPARISON: 03/18/2022 HISTORY: 73-year-old male with chest pain TECHNIQUE: PA and lateral views FINDINGS: The cardiomediastinal silhouette, aorta, and pulmonary vasculature are within normal limits. Lungs an d pleural spaces are clear. IMPRESSION: No acute cardiopulmonary process.
[2023-04-18 16:49] LABS: Basophils # (A) 0.1 k/uL (0-0.2); Basophils % (A) 1 %; Eosinophils # (A) 0.3 k/uL (0-0.7); Eosinophils % (A) 4 %; HCT 42.6 % (39.0-53.0); HGB 14.7 gm/dL (13.0-17.5); Lymphocytes # (A) 1.8 k/uL (1.0-4.8); Lymphocytes % (A) 22 %; MCH 30.2 pg (25.0-35.0); MCHC 34.5 g/dL (31.0-37.0); MCV 87.6 fL (80.0-100.0); Mean Platelet Volume 9.4; Monocytes # (A) 0.4 k/uL (0-1.0); Monocytes % (A) 4 %; Neutrophils # (A) 5.7 k/uL (1.3-7.7); Neutrophils % (A) 68 %; Platelet Count 192 k/uL (150-450); RBC 4.86 m/uL (4.30-5.90); WBC 8.3 k/uL (3.8-10.6)
[2023-04-18 16:58] LABS: Partial Thromboplastin Time 23.8 sec (22.0-30.0)
[2023-04-18 17:03] LABS: ALT 48 U/L (4-49); AST 38 U/L (17-59); African American GFR (CKD) 88 (>60 ml/min/1.73 sqM); Albumin 4.1 g/dL (3.5-5.0); Alkaline Phosphatase 89 U/L (38-126); Anion Gap 11 mmol/L; Blood Urea Nitrogen 20 mg/dL (9-20); Calcium 9.9 mg/dL (8.4-10.2); Carbon Dioxide 24 mmol/L (22-30); Chloride 105 mmol/L (98-107); Glucose 189 mg/dL (74-99); Magnesium 1.6 mg/dL (1.6-2.3); Non-African American GFR(CKD) 76 (>60 ml/min/1.73 sqM); Potassium 4.8 mmol/L (3.5-5.1); Sodium 140 mmol/L (137-145); Total Bilirubin 0.5 mg/dL (0.2-1.3); Total Protein 6.9 g/dL (6.3-8.2)
[2023-04-18 17:11] LABS: NT-Pro-B-Type Natriuretic Pept 83 pg/mL
[2023-04-18 19:10] VITALS: BP 135/84; PULSE 72
== END 2023-04-18 19:05 | disposition home or self-care (01) ==
LOC: EC 14:35
DX: Z00.8 Encounter for other general examination (principal); E11.9 Type 2 diabetes mellitus without complications; E78.5 Hyperlipidemia, unspecified; I10 Essential (primary) hypertension; M19.90 Unspecified osteoarthritis, unspecified site; Z87.891 Personal history of nicotine dependence; Z88.0 Allergy status to penicillin; Z88.8 Allergy status to other drugs, medicaments and biological substances; Z91.041 Radiographic dye allergy status; Z79.84 Long term (current) use of oral hypoglycemic drugs; Z79.4 Long term (current) use of insulin; Z79.899 Other long term (current) drug therapy
CPT/HCPCS: 36415; 71046; 80053; 83735; 83880; 84484; 85025; 85610; 85730; 93005; 99285

== ENCOUNTER 2023-04-25 18:18 | Observation (INO) | payer MEDICARE, OTHER ==
--- NOTE | 2023-04-25 18:25 | ED ---
General Adult HPI - General Source: RN notes reviewed <Elaine Lee - Last Filed: 04/25/23 18:25> <Garry Mccauley - Last Filed: 04/25/23 20:26> - General Stated complaint: heavy chest feeling chest pains Time Seen by Provider: 04/25/23 18:24 - History of Present Illness Initial comments: 73-year-old male with past medical history significant for cardiac stents presents the emergency department with a chief complaint of chest pain. Patient reports chest pain and chest heaviness. Patient saw Dr. Escobar prior to arrival who recommended him be evaluated in the ED for further evaluation. (Elaine Lee) Dictation was produced using [employer] dictation software. please excuse any grammatical, word or spelling errors. Chief Complaint: 73-year-old male presents with chest pressure History of Present Illness: 83-year-old male presents to emergency room chest pressure. He was seen here last week for the same complaint. He ultimately was discharged home. States that he is here today after being seen by his primary care doctor. She states that she saw some specific EKG changes. 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 Patient states he has mild pressure to his substernal chest. Nonradiating not associated diaphoresis or nausea. The ROS documented in this emergency department record has been reviewed and confirmed by me. Those systems with pertinent positive or negative responses have been documented in the HPI. All other systems are other negative and/or noncontributory. (Garry Mccauley) - Related Data Home Medications Medication Instructions Recorded Confirmed glipiZIDE [Glucotrol] 20 mg PO BID 01/14/15 12/20/22 sitaGLIPtin [Januvia] 100 mg PO DAILY 01/14/15 12/20/22 Timolol 0.5% Ophth Soln [Timoptic 1 drop BOTH EYES BID 11/01/18 12/20/22 0.5% Ophth Soln] Latanoprost [Xalatan 0.005%] 1 drop BOTH EYES HS 01/29/20 12/20/22 Venlafaxine HCl ER [Effexor XR] 75 mg PO DAILY 01/29/20 12/20/22 Venlafaxine HCl [Effexor XR] 150 mg PO DAILY 03/19/22 12/20/22 Cholecalciferol [Vitamin D3 (25 50 mcg PO DAILY 12/10/22 12/20/22 Mcg = 1000 Iu)] Insulin Glargine,Hum.rec.anlog 20 units SQ HS 12/10/22 12/20/22 [Lantus Solostar Pen] metFORMIN HCL ER [Glucophage XR] 1,000 mg PO PC-BID 12/10/22 12/20/22 Previous Rx's Medication Instructions Recorded Aspirin 81 mg PO DAILY chew 02/01/20 Atorvastatin [Lipitor] 80 mg PO DAILY #30 tab 02/01/20 Clopidogrel [Plavix] 75 mg PO DAILY #30 tab 02/01/20 Losartan [Cozaar] 50 mg PO DAILY #30 tab 02/01/20 Metoprolol Tartrate [Lopressor] 25 mg PO BID #60 tab 02/01/20 Nitroglycerin Sl Tabs [Nitrostat] 0.4 mg SUBLINGUAL Q5M PRN #30 tab 02/01/20 amLODIPine [Norvasc] 10 mg PO DAILY #30 tab 02/01/20 Acetaminophen-Codeine 300-30mg 1 tab PO Q4H PRN 3 Days #18 tablet 12/10/22 [Tylenol w/codeine #3] Ondansetron Odt [Zofran Odt] 4 mg PO Q8HR PRN #20 tab 12/10/22 Tamsulosin [Flomax] 0.4 mg PO DAILY #10 cap 12/10/22 HYDROcodone/APAP 5-325MG [[place] 1 - 2 tab PO Q4HR PRN #10 tab 12/23/22 5-325] Allergies Allergy/AdvReac Type Severity Reaction Status Date / Time Penicillins Allergy Swelling Verified 04/18/23 15:17 propoxyphene napsylate Allergy Rash/Hives Verified 04/18/23 15:17 [From Jarvis] Iodinated Contrast Media AdvReac Nausea & Verified 04/18/23 15:17 [Iodinated Contrast- Oral Vomiting and IV Dye] iohexol AdvReac Nausea & Verified 04/18/23 15:17 Vomiting Review of Systems ROS Other: All systems not noted in ROS Statement are negative. <Elaine Lee - Last Filed: 04/25/23 18:25> ROS Other: All systems not noted in ROS Statement are negative. <Garry Mccauley - Last Filed: 04/25/23 20:26> ROS Statement: Those systems with pertinent positive or pertinent negative responses have been documented in the HPI. Past Medical History Past Medical History: Cancer, Diabetes Mellitus, Eye Disorder, Hyperlipidemia, Hypertension, Osteoarthritis (OA), Prostate Disorder Additional Past Medical History / Comment(s): Kidney Stones; glaucoma; diverticulitis. Past hx of HTN. Prostate Cancer 07/2015, SURGERY, RADIATON. INCISIONAL HERNIA. History of Any Multi-Drug Resistant Organisms: None Reported Past Surgical History: Cholecystectomy, Hernia Repair, Prostate Surgery Additional Past Surgical History / Comment(s): Multiple Lithotripsies , Left Cataract removal. finger surgery. Hernia repair w/ mesh; UMBILICAL HERNIA. Cyst removed from tailbone. RT URETRAL STENT 12/11/22, PROSTATECTOMY, COLONOSCOPY Past Anesthesia/Blood Transfusion Reactions: No Reported Reaction Date of Last Stent Placement:: 2018 Smoking Status: Former smoker - Past Family History Brother(s) Family Medical History: Cancer Additional Family Medical History / Comment(s): Skin cancer Father Family Medical History: Cancer Additional Family Medical History / Comment(s): Skin cancer Mother Family Medical History: Cancer Additional Family Medical History / Comment(s): Skin cancer. <Elaine Lee - Last Filed: 04/25/23 18:25> General Exam <Elaine Lee - Last Filed: 04/25/23 18:25> <Garry Mccauley - Last Filed: 04/25/23 20:26> - General Exam Comments Initial Comments: Visual Physical Exam Vital signs reviewed General: Well-appearing, nontoxic, no acute distress. Head: Normocephalic, atraumatic Eyes: PERRLA, EOMI ENT: Airway patent Chest: Nonlabored breathing Skin: No visual rash, normal skin tone Neuro: Alert and oriented 3 Musculoskeletal: No gross abnormalities (Elaine Lee) PHYSICAL EXAM: General Impression: Alert and oriented x3, not in acute distress HEENT: Normocephalic atraumatic, extra-ocular movements intact, pupils equal and reactive to light bilaterally, mucous membranes moist. 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 159, QRS 898, QTc 403. No WI prolongation, no QTC prolongation, no ST or T-wave changes noted. Overall, this EKG is unremarkable <Garry Mccauley - Last Filed: 04/25/23 20:26> Medical Decision Making <Elaine Lee - Last Filed: 04/25/23 18:25> - Lab Data Result diagrams: 04/25/23 19:10 04/25/23 19:10 <Garry Mccauley - Last Filed: 04/25/23 20:26> - Medical Decision Making I performed the quick note portion of this exam, verbal signature Elaine Lee PA-C (Elaine Lee) Was pt. sent in by a medical professional or institution ([facility], [employer] H[employer] TRIMMER, urgent care, hospital, or usp...) When possible be specific @ -Sent in by primary care doctor Did you speak to anyone other than the patient for history (EMS, parent, family, police, friend...)? What history was obtained from this source @ -History obtained from Dr. Dr. Retana over the phone Did you review nursing and triage notes (agree or disagree)? Why? @ -I reviewed and agree with nursing and triage notes Were old charts reviewed (outside hosp., previous admission, EMS record, old EKG, old radiological studies, urgent care reports/EKG's, usp records)? Report findings @ -No old charts were reviewed Differential Diagnosis (chest pain, altered mental status, abdominal pain women, abdominal pain men, vaginal bleeding, musculoskeletal, weakness, fever, dyspnea, syncope, headache, dizziness, GI bleed, back pain, seizure, CVA, palpatations, mental health)? @ -Differential Chest Pain: Stable Angina, Unstable Angina, STEMI, NSTEMI Aortic Dissection, Pneumothorax, Musculoskeletal, Esophageal Spasm GERD, Cholecystitis, Pancreatitis, Zoster, t his is not meant to be an all-inclusive list. EKG interpreted by me (3pts min.). @ -See above X-rays interpreted by me (1pt min.). @ -Chest x-ray is nonacute CT interpreted by me (1pt min.). @ -None done U/S interpreted by me (1pt. min.). @ -None done What testing was considered but not performed or refused? (CT, X-rays, U/S, labs)? Why? @ -None What meds were considered but not given or refused? Why? @ -None Did you discuss the management of the patient with other professionals (professionals i.e. , PA, RAW HIDE TRIMMER, lab, RT, psych nurse, medical social worker, buyer, teacher, fisheries enforcement officer, pillowcase folder)? Give summary @ -Discussed with hospitalist for admission Was smoking cessation discussed for >3mins.? @ -No Was critical care preformed (if so, how long)? @ -No Were there social determinants of health that impacted care today? How? (Homelessness, low income, unemployed, alcoholism, drug addiction, transportation, low edu. Level, literacy, decrease access to med. care, [place] [facility], rehab)? @ -No Was there de-escalation of care discussed even if they declined (Discuss DNR or withdrawal of care, Hospice)? DNR status @ -No What co-morbidities impacted this encounter? (DM, HTN, Smoking, COPD, CAD, Cancer, CVA, ARF, Chemo, Hep., AIDS, mental health diagnosis, sleep apnea, morbid obesity)? @ -None Was patient admitted / discharged? Hospital course, mention meds given and route, prescriptions, significant lab abnormalities, going to OR and other pertinent info. @ -73-year-old male presents emergency department for atypical chest pain typical features. Sent in from primary care physician's office. Vital signs upon arrival shows mild tachycardia repeat heart rate is normal. Laboratory evaluation is unremarkable. EKG is negative. Troponins negative. Patient be admitted observation for cardiology consultation Undiagnosed new problem with uncertain prognosis? @ -No Drug Therapy requiring intensive monitoring for toxicity (Heparin, Nitro, Insulin, Cardizem)? @ -No Were any procedures done? @ -No Diagnosis/symptom? Acute, or Chronic, or Acute on Chronic? Uncomplicated (without systemic symptoms) or Complicated (systemic symptoms)? @ -Chest pain Side effects of treatment? @ -No Exacerbation, Progression, or Severe Exacerbation? @ -No Poses a threat to life or bodily function? How? (Chest pain, [place], [place], pneumonia, PE, COPD, DKA, ARF, appy, cholecystitis, CVA, Diverticulitis, Homicidal, Suicidal, threat to staff... and all critical care pts) @ -yes (Garry Mccauley) - Lab Data Lab Results 04/25/23 04/25/23 04/25/23 Range/Units 19:10 19:10 19:10 WBC 8.6 (3.8-10.6) k/uL RBC 4.95 (4.30-5.90) m/uL Hgb 14.6 (13.0-17.5) gm/dL Hct 42.8 (39.0-53.0) % MCV 86.3 (80.0-100.0) fL MCH 29.5 (25.0-35.0) pg MCHC 34.2 (31.0-37.0) g/dL RDW 14.2 (11.5-15.5) % Plt Count 193 (150-450) k/uL MPV 9.6 Neutrophils % 72 % Lymphocytes % 19 % Monocytes % 5 % Eosinophils % 3 % Basophils % 1 % Neutrophils # 6.2 (1.3-7.7) k/uL Lymphocytes # 1.6 (1.0-4.8) k/uL Monocytes # 0.4 (0-1.0) k/uL Eosinophils # 0.3 (0-0.7) k/uL Basophils # 0.0 (0-0.2) k/uL PT 11.3 (10.0-12.5) sec INR 1.0 (<1.2) APTT 24.5 (22.0-30.0) sec Sodium 139 (137-145) mmol/L Potassium 4.5 (3.5-5.1) mmol/L Chloride 102 (98-107) mmol/L Carbon Dioxide 24 (22-30) mmol/L Anion Gap 13 mmol/L BUN 25 H (9-20) mg/dL Creatinine 1.20 (0.66-1.25) mg/dL Est GFR (CKD-EPI)AfAm 70 (>60 ml/min/1.73 sqM) Est GFR (CKD-EPI)NonAf 60 (>60 ml/min/1.73 sqM) Glucose 207 H (74-99) mg/dL Calcium 9.5 (8.4-10.2) mg/dL Magnesium 1.5 L (1.6-2.3) mg/dL Total Bilirubin 0.5 (0.2-1.3) mg/dL AST 35 (17-59) U/L ALT 39 (4-49) U/L Alkaline Phosphatase 106 (38-126) U/L Troponin I (0.000-0.034) ng/mL Total Protein 6.8 (6.3-8.2) g/dL Albumin 4.1 (3.5-5.0) g/dL 04/25/23 Range/Units 19:10 WBC (3.8-10.6) k/uL RBC (4.30-5.90) m/uL Hgb (13.0-17.5) gm/dL Hct (39.0-53.0) % MCV (80.0-100.0) fL MCH (25.0-35.0) pg MCHC (31.0-37.0) g/dL RDW (11.5-15.5) % Plt Count (150-450) k/uL MPV Neutrophils % % Lymphocytes % % Monocytes % % Eosinophils % % Basophils % % Neutrophils # (1.3-7.7) k/uL Lymphocytes # (1.0-4.8) k/uL Monocytes # (0-1.0) k/uL Eosinophils # (0-0.7) k/uL Basophils # (0-0.2) k/uL PT (10.0-12.5) sec INR (<1.2) APTT (22.0-30.0) sec Sodium (137-145) mmol/L Potassium (3.5-5.1) mmol/L Chloride (98-107) mmol/L Carbon Dioxide (22-30) mmol/L Anion Gap mmol/L BUN (9-20) mg/dL Creatinine (0.66-1.25) mg/dL Est GFR (CKD-EPI)AfAm (>60 ml/min/1.73 sqM) Est GFR (CKD-EPI)NonAf (>60 ml/min/1.73 sqM) Glucose (74-99) mg/dL Calcium (8.4-10.2) mg/dL Magnesium (1.6-2.3) mg/dL Total Bilirubin (0.2-1.3) mg/dL AST (17-59) U/L ALT (4-49) U/L Alkaline Phosphatase (38-126) U/L Troponin I <0.012 (0.000-0.034) ng/mL Total Protein (6.3-8.2) g/dL Albumin (3.5-5.0) g/dL Disposition <Elaine Lee - Last Filed: 04/25/23 18:25> Decision Time: 20:26 <Garry Mccauley - Last Filed: 04/25/23 20:26> Clinical Impression: Chest pain Disposition: ADMITTED IP TO THIS [facility] Condition: Fair Referrals: Maritza Gonzalez MD [Primary Care Provider] - 1-2 days
[2023-04-25 19:22] LABS: Basophils % (A) 1 %; Eosinophils # (A) 0.3 k/uL (0-0.7); Eosinophils % (A) 3 %; HCT 42.8 % (39.0-53.0); HGB 14.6 gm/dL (13.0-17.5); Lymphocytes # (A) 1.6 k/uL (1.0-4.8); Lymphocytes % (A) 19 %; MCH 29.5 pg (25.0-35.0); MCHC 34.2 g/dL (31.0-37.0); MCV 86.3 fL (80.0-100.0); Mean Platelet Volume 9.6; Monocytes # (A) 0.4 k/uL (0-1.0); Monocytes % (A) 5 %; Neutrophils # (A) 6.2 k/uL (1.3-7.7); Neutrophils % (A) 72 %; Platelet Count 193 k/uL (150-450); RBC 4.95 m/uL (4.30-5.90); RDW 14.2 % (11.5-15.5); WBC 8.6 k/uL (3.8-10.6)
--- NOTE | 2023-04-25 19:31 | XR ---
EXAMINATION TYPE: XR chest 2V DATE OF EXAM: 04/25/2023 COMPARISON: 04/18/2023 HISTORY: Shortness of breath TECHNIQUE: Frontal and lateral views of the chest are obtained. FINDINGS: Scattered senescent parenchymal changes noted. Hyperinflation compatible with COPD. No evidence for infiltrate. No evidence for atelectasis. Heart size is stable. Mediastinal structures are stable and grossly unremarkable. No evidence for hilar prominence. Degenerative changes dorsal spine. IMPRESSION: 1. No evidence for acute pulmonary disease.
[2023-04-25 19:37] LABS: ALT 39 U/L (4-49); AST 35 U/L (17-59); African American GFR (CKD) 70 (>60 ml/min/1.73 sqM); Albumin 4.1 g/dL (3.5-5.0); Alkaline Phosphatase 106 U/L (38-126); Anion Gap 13 mmol/L; Blood Urea Nitrogen 25 mg/dL (9-20); Calcium 9.5 mg/dL (8.4-10.2); Carbon Dioxide 24 mmol/L (22-30); Chloride 102 mmol/L (98-107); Glucose 207 mg/dL (74-99); Magnesium 1.5 mg/dL (1.6-2.3); Non-African American GFR(CKD) 60 (>60 ml/min/1.73 sqM); Potassium 4.5 mmol/L (3.5-5.1); Sodium 139 mmol/L (137-145); Total Bilirubin 0.5 mg/dL (0.2-1.3); Total Protein 6.8 g/dL (6.3-8.2)
[2023-04-25 19:45] LABS: Partial Thromboplastin Time 24.5 sec (22.0-30.0); Prothrombin Time 11.3 sec (10.0-12.5)
[2023-04-25] MEDS ORDERED: NITROGLYCERIN SL TABS 0.4 MG TAB SUBLINGUAL PRN (20:23)
[2023-04-25] MEDS ORDERED: ASPIRIN 81 MG PO STA (20:23)
[2023-04-25] MEDS ORDERED: MAGNESIUM OXIDE 400 MG TAB PO STA (20:29)
[2023-04-26] MEDS ORDERED: DEXTROSE 50% SYRINGE 50 ML IVP PRN ×2 (05:38)
[2023-04-26] MEDS ORDERED: ALPRAZolam 0.5 MG TAB PO PRN (07:39)
[2023-04-26] MEDS ORDERED: ALPRAZolam 0.25 MG TAB PO PRN (07:39)
[2023-04-26] MEDS ORDERED: ATORVASTATIN 80 MG TAB PO STA (07:39)
[2023-04-26] MEDS ORDERED: NITROGLYCERIN SL TABS 0.4 MG TAB SUBLINGUAL PRN ×2 (07:39→12:03)
[2023-04-26] MEDS ORDERED: ASPIRIN 325 MG TAB PO STA (07:39)
[2023-04-26] MEDS: CLOPIDOGREL 75 MG TAB PO SCH (08:06)
[2023-04-26] MEDS: VENLAFAXINE HCL ER 150 MG CAP PO SCH (08:06)
[2023-04-26] MEDS: LINAGLIPTIN 5 MG TABLET PO SCH (08:06)
[2023-04-26] MEDS: ATORVASTATIN 80 MG TAB PO SCH (08:06)
[2023-04-26] MEDS: amLODIPine 10 MG TAB PO SCH (08:06)
[2023-04-26] MEDS: TIMOLOL 0.5% OPHTH DROPS 5 ML BTL BOTH EYES SCH ×2 (08:06→21:25)
[2023-04-26] MEDS: METOPROLOL TARTRATE 25 MG TAB PO SCH ×2 (08:06→21:25)
[2023-04-26] MEDS: LOSARTAN 50 MG TAB PO SCH (08:06)
[2023-04-26] MEDS: CHOLECALCIFEROL 25 MCG (1000 IU) TABLET PO SCH (08:06)
[2023-04-26] MEDS: VENLAFAXINE HCL ER 75 MG CAP PO SCH (08:06)
[2023-04-26 08:13] LABS: Glucose,Whole Blood 171 mg/dL (70-110)
[2023-04-26] MEDS: INSULIN ASPART (NovoLOG) 100 UNIT/ML VIAL SQ SCH ×4 (08:13→21:25)
[2023-04-26] MEDS ORDERED: ASPIRIN 325 MG TAB PO SCH (09:00)
[2023-04-26] MEDS ORDERED: IV FLUID CONTINUATION 1,000 ML IV ONE (10:30)
[2023-04-26] MEDS ORDERED: HEPARIN SODIUM 1,000 UN/ML (10ML VL) ONE (10:49)
[2023-04-26] MEDS ORDERED: diphenhydrAMINE 50 MG/ML 1 ML VIAL ONE (10:49)
[2023-04-26] MEDS ORDERED: fentaNYL (PF) 50 MCG/ML 2 ML AMP ONE (10:49)
[2023-04-26] MEDS ORDERED: methylPREDNISolone SOD SUCCI 125 MG/2 ML VIAL ONE (10:49)
--- NOTE | 2023-04-26 10:53 | P.CRDCN ---
History of Present Illness Consult date: 04/26/23 Consult reason: chest pain History of present illness: History of present illness: This is a 73-year-old male patient of Dr. Michelle Escobar with past medical history of coronary artery disease status post multivessel angioplasty, hypertension, dyslipidemia. We have been asked to evaluate the patient for chest pain.patient complains of chest pressure. He was at his PCP office and due to EKG changes, was recommended to come into the hospital after cardiology was contacted.patient is seen today in the emergency center waiting for a bed on the observation unit. EKGsinus rhythm with non-specific ST changes present on previous EKG Chest x-ray:no acute process CBC within normal limits. INR 1. Electrolytes normal. BUN 25 and creatinine 1.2. Blood sugar 207. Magnesium 1.5 troponin negative 3. Liver function tests are normal. Home cardiac medications: amlodipine 10 mg daily, aspirin 81 mg daily, Lipitor 80 mg daily, Plavix any 5 mg daily, losartan 50 mg daily, Lopressor 25 mg twice daily. Cardiac catheterization 03/18/2022 revealed patent stent within the left anterior descending and intermediate lesion in the proximal left anterior d escending. IFR was normal at 0.92. Echocardiogram performed 03/19/2022 revealed normal LV systolic function. Mild mitral regurgitation. Mild tricuspid regurgitation. Review Of Systems: At the time of my evaluation: Constitutional: No fever, no chills. No weakness, fatigue or lethargy. EENT: No headache. No dizziness. Lungs: No shortness of breath, cough, no sputum production. No wheezing. Cardiovascular: No chest pain, no lower extremity edema. No palpitations. No paroxysmal nocturnal dyspnea. No orthopnea. No lightheadedness or dizziness. No syncopal episodes. Abdominal: No abdominal pain. No nausea, vomiting. Musculoskeletal: No myalgias. No muscle weakness, no frequent falls. Integumentary: No wounds. No rash. No unusual bruising. Neurologic: No aphasia. No facial droop. No change in mentation. Physical examination: Gen: This is a 73-year-old male. He is resting in the ER stretcher and appears to be comfortable and in no acute distress. VS: reviewed HEENT: Head is atraumatic, normocephalic. Pupils equal, round. Sclerae is anicteric. NECK: Supple. No JVD. LUNGS: Clear to auscultation. No wheezes or rhonchi. No intercostal retractions. HEART: Regular rate and rhythm. No murmur. ABDOMEN: Soft No tenderness. EXTREMITIES: No pedal edema. NEUROLOGICAL: Patient is awake, alert and oriented x3. Assessment: Unstable angina Hypomagnesemia status post replacement History of coronary artery disease with multivessel angioplasty Hypertension Dyslipidemia Plan: resume patient's home cardiac medications Schedule patient for cardiac catheterization today with Dr. Michelle Escobar Obtain 2-D echocardiogram and Doppler study to assess cardiac structure and function Further recommendations to follow based upon clinical course Thank you kindly for this consultation. Nurse practitioner note has been reviewed, I agree with documented findings and plan of care. Patient was seen and examined. Past Medical History Past Medical History: Cancer, Diabetes Mellitus, Eye Disorder, Hyperlipidemia, Hypertension, Osteoarthritis (OA), Prostate Disorder Additional Past Medical History / Comment(s): Kidney Stones; glaucoma; diverticulitis. Past hx of HTN. Prostate Cancer 07/2015, SURGERY, RADIATON. INCISIONAL HERNIA. History of Any Multi-Drug Resistant Organisms: None Reported Past Surgical History: Cholecystectomy, Hernia Repair, Prostate Surgery Additional Past Surgical History / Comment(s): Multiple Lithotripsies , Left Cataract removal. finger surgery. Hernia repair w/ mesh; UMBILICAL HERNIA. Cyst removed from tailbone. RT URETRAL STENT 12/11/22, PROSTATECTOMY, COLONOSCOPY Past Anesthesia/Blood Transfusion Reactions: No Reported Reaction Date of Last Stent Placement:: 2018 Smoking Status: Former smoker - Past Family History Brother(s) Family Medical History: Cancer Additional Family Medical History / Comment(s): Skin cancer Father Family Medical History: Cancer Additional Family Medical History / Comment(s): Skin cancer Mother Family Medical History: Cancer Additional Family Medical History / Comment(s): Skin cancer. Medications and Allergies Home Medications Medication Instructions Recorded Confirmed Type glipiZIDE [Glucotrol] 10 mg PO BID 01/14/15 04/25/23 History sitaGLIPtin [Januvia] 100 mg PO DAILY 01/14/15 04/25/23 History Timolol 0.5% Ophth Soln [Timoptic 1 drop BOTH EYES BID 11/01/18 04/25/23 History 0.5% Ophth Soln] Latanoprost [Xalatan 0.005%] 1 drop BOTH EYES HS 01/29/20 04/25/23 History Venlafaxine HCl ER [Effexor XR] 75 mg PO DAILY 01/29/20 04/25/23 History Aspirin 81 mg PO DAILY chew 02/01/20 04/25/23 Rx Atorvastatin [Lipitor] 80 mg PO DAILY #30 tab 02/01/20 04/25/23 Rx Clopidogrel [Plavix] 75 mg PO DAILY #30 tab 02/01/20 04/25/23 Rx Losartan [Cozaar] 50 mg PO DAILY #30 tab 02/01/20 04/25/23 Rx Metoprolol Tartrate [Lopressor] 25 mg PO BID #60 tab 02/01/20 04/25/23 Rx amLODIPine [Norvasc] 10 mg PO DAILY #30 tab 02/01/20 04/25/23 Rx Venlafaxine HCl [Effexor XR] 150 mg PO DAILY 03/19/22 04/25/23 History Cholecalciferol [Vitamin D3 (25 50 mcg PO DAILY 12/10/22 04/25/23 History Mcg = 1000 Iu)] Insulin Glargine,Hum.rec.anlog 20 units SQ HS 12/10/22 04/25/23 History [Lantus Solostar Pen] metFORMIN HCL ER [Glucophage XR] 1,000 mg PO BID-W/MEALS 12/10/22 04/25/23 History Allergies Allergy/AdvReac Type Severity Reaction Status Date / Time Penicillins Allergy Swelling Verified 04/25/23 20:38 propoxyphene napsylate Allergy Rash/Hives Verified 04/25/23 20:38 [From Nathalie-N] Iodinated Contrast Media AdvReac Nausea & Verified 04/25/23 20:38 [Iodinated Contrast- Oral Vomiting and IV Dye] iohexol AdvReac Nausea & Verified 04/25/23 20:38 Vomiting Physical Exam Vitals: Vital Signs Temp Pulse Pulse Resp BP Pulse Ox 04/26/23 04:00 64 18 136/74 98 04/26/23 02:00 70 18 129/60 98 04/26/23 00:00 66 18 131/72 98 04/25/23 22:00 76 18 148/79 97 04/25/23 21:00 78 18 138/86 100 04/25/23 20:00 76 18 134/75 100 04/25/23 19:30 75 18 139/81 100 04/25/23 19:18 68 04/25/23 18:21 97.7 F 113 H 18 163/89 96 Intake and Output 04/25/23 04/26/23 04/26/23 22:59 06:59 14:59 Other: Weight 101.151 kg Results 04/25/23 19:10 04/25/23 19:10 Cardiac Enzymes 04/25/23 04/25/23 04/25/23 Range/Units 19:10 19:10 22:32 AST 35 (17-59) U/L Troponin I <0.012 <0.012 (0.000-0.034) ng/mL 04/26/23 Range/Units 01:30 AST (17-59) U/L Troponin I <0.012 (0.000-0.034) ng/mL Coagulation 04/25/23 Range/Units 19:10 PT 11.3 (10.0-12.5) sec APTT 24.5 (22.0-30.0) sec CBC 04/25/23 Range/Units 19:10 WBC 8.6 (3.8-10.6) k/uL RBC 4.95 (4.30-5.90) m/uL Hgb 14.6 (13.0-17.5) gm/dL Hct 42.8 (39.0-53.0) % Plt Count 193 (150-450) k/uL Comprehensive Metabolic Panel 04/25/23 Range/Units 19:10 Sodium 139 (137-145) mmol/L Potassium 4.5 (3.5-5.1) mmol/L Chloride 102 (98-107) mmol/L Carbon Dioxide 24 (22-30) mmol/L BUN 25 H (9-20) mg/dL Creatinine 1.20 (0.66-1.25) mg/dL Glucose 207 H (74-99) mg/dL Calcium 9.5 (8.4-10.2) mg/dL AST 35 (17-59) U/L ALT 39 (4-49) U/L Alkaline Phosphatase 106 (38-126) U/L Total Protein 6.8 (6.3-8.2) g/dL Albumin 4.1 (3.5-5.0) g/dL Current Medications Generic Name Dose Route Start Last Admin Trade Name Freq PRN Reason Stop Dose Admin Alprazolam 0.25 mg 04/26/23 07:39 Alprazolam 0.25 Mg Tab PO Q6HR PRN Mild Anxiety Alprazolam 0.5 mg 04/26/23 07:39 Alprazolam 0.5 Mg Tab PO Q6HR PRN Moderate Anxiety Amlodipine Besylate 10 mg 04/26/23 09:00 Amlodipine 10 Mg Tab PO DAILY [facility] Aspirin 325 mg 04/26/23 09:00 Aspirin 325 Mg Tab PO DAILY [facility] Aspirin 325 mg 04/26/23 07:39 Aspirin 325 Mg Tab PO 04/26/23 07:40 ONCE STA Atorvastatin Calcium 80 mg 04/26/23 09:00 Atorvastatin 80 Mg Tab PO DAILY [facility] Atorvastatin Calcium 80 mg 04/26/23 07:39 Atorvastatin 80 Mg Tab PO 04/26/23 07:40 ONCE STA Cholecalciferol 50 mcg 04/26/23 09:00 Cholecalciferol 25 Mcg (1000 Iu) Tablet PO DAILY [facility] Clopidogrel Bisulfate 75 mg 04/26/23 09:00 Clopidogrel 75 Mg Tab PO DAILY [facility] Dextrose/Water 25 ml 04/26/23 05:38 Dextrose 50% Syringe 50 Ml IVP PER PROTOCOL PRN Hypoglycemia Protocol Dextrose/Water 50 ml 04/26/23 05:38 Dextrose 50% Syringe 50 Ml IVP PER PROTOCOL PRN Hypoglycemia Protocol Heparin Sodium (Porcine) 10, 1,001 mls @ 999 mls/hr 04/27/23 07:00 000 unit/ Sodium Chloride IRRIGATION 04/27/23 23:00 ONCE PRN INTRA-OP Heparin Sodium (Porcine) 2,500 250.5 mls @ 250 mls/hr 04/27/23 07:00 unit/ Sodium Chloride IRRIGATION 04/27/23 23:00 ONCE PRN INTRA-OP Insulin Aspart 0 unit 04/26/23 07:30 Insulin Aspart (Novolog) 100 Unit/Ml Vial SQ ACHS [facility] Protocol Insulin Detemir 20 unit 04/26/23 21:00 Insulin Detemir (Levemir) 100 Unit/Ml Syr SQ HS [facility] Latanoprost 1 drops 04/26/23 21:00 Latanoprost 0.005% Ophth Drops 2.5 Ml Btl BOTH EYES HS [facility] Linagliptin 5 mg 04/26/23 09:00 Linagliptin 5 Mg Tablet PO DAILY [facility] Losartan Potassium 50 mg 04/26/23 09:00 Losartan 50 Mg Tab PO DAILY [facility] Metoprolol Tartrate 25 mg 04/26/23 09:00 Metoprolol Tartrate 25 Mg Tab PO BID [facility] Nitroglycerin 0.4 mg 04/25/23 20:23 Nitroglycerin Sl Tabs 0.4 Mg Tab SUBLINGUAL Q5M PRN Chest Pain Nitroglycerin 0.4 mg 04/26/23 07:39 Nitroglycerin Sl Tabs 0.4 Mg Tab SUBLINGUAL Q5M PRN Chest Pain Timolol Maleate 1 drops 04/26/23 09:00 Timolol 0.5% Ophth Drops 5 Ml Btl BOTH EYES BID [facility] Venlafaxine HCl 150 mg 04/26/23 09:00 Venlafaxine Hcl Er 150 Mg Cap PO DAILY [facility] Venlafaxine HCl 75 mg 04/26/23 09:00 Venlafaxine Hcl Er 75 Mg Cap PO DAILY [facility] Intake and Output 04/25/23 04/26/23 04/26/23 22:59 06:59 14:59 Other: Weight 101.151 kg 04/25/23 19:10 04/25/23 19:10
[2023-04-26] MEDS ORDERED: diphenhydrAMINE 50 MG/ML 1 ML VIAL IVP ONE (10:57)
[2023-04-26] MEDS ORDERED: VERAPAMIL 2.5 MG/ML 2 ML AMP ONE (10:57)
[2023-04-26] MEDS ORDERED: LIDOCAINE 1% INJ 10MG/ML (20 ML MDV) ONE (10:57)
[2023-04-26] MEDS ORDERED: methylPREDNISolone SOD SUCCI 125 MG/2 ML VIAL IVP ONE (10:57)
[2023-04-26] MEDS ORDERED: fentaNYL (PF) 50 MCG/1 ML VIAL IVP ONE (10:58)
[2023-04-26] MEDS ORDERED: MIDAZOLAM 2 MG/2 ML VIAL IVP ONE (10:58)
[2023-04-26] MEDS ORDERED: LIDOCAINE 1% INJ 10MG/ML (20 ML MDV) SQ ONE (10:58)
[2023-04-26] MEDS ORDERED: VERAPAMIL SYRINGE (5 MG/10 ML) INTRAARTER ONE (11:04)
[2023-04-26] MEDS: HEPARIN SODIUM 1,000 UN/ML (10ML VL) IV ONE ×2 (11:07→11:37)
[2023-04-26 11:16] LABS: Chol/HDL Ratio 2.67 Ratio; LDL Cholesterol,Calculated -9.2 mg/dL (0.0-131.0)
[2023-04-26] MEDS ORDERED: CLOPIDOGREL 75 MG TAB ONE (11:48)
[2023-04-26] MEDS ORDERED: CLOPIDOGREL 75 MG TAB PO ONE (11:50)
[2023-04-26] MEDS ORDERED: IOPAMIDOL-370 100ML BTL INJ ONE (12:00)
[2023-04-26] MEDS ORDERED: MAG HYDROX/AL HYDROX/SIMETH 30 ML CUP PO PRN (12:03)
[2023-04-26] MEDS ORDERED: RX INFO: IV CONTRAST WAS GIVEN 1 EACH MISC MISCELLANE PRN (12:03)
[2023-04-26] MEDS ORDERED: ATROPINE SULFATE 0.1 MG/ML 10ML SYRINGE IV PRN (12:03)
[2023-04-26] MEDS ORDERED: ZOLPIDEM 5 MG TAB PO PRN (12:03)
--- NOTE | 2023-04-26 12:07 | P.PCN ---
Date of Procedure: 04/26/23 Operative Findings: PERCUTANEOUS CORONARY INTERVENTION Performing physician Boy Grimes M.D. Procedure Performed: 1. Successful stenting of the mid LAD using 3.5 x 18 mm Xience drug-eluting stent with an excellent angiographic results. 2. Adjunctive use of intravascular imaging and Doppler wire Indication: Unstable angina Approach: Right radial artery Complications: None Level of Sedation: Moderate with a sedation length of 40 minutes Procedure Discussion: Please refer to diagnosed sick heart catheterization was performed by Dr. Weller earlier today. We decided to pursue with an Doppler wire measurement to the LAD. After zeroing the Doppler wire and equalizing between the Doppler wire and guiding catheter which was JL 3.5 guiding catheter the left main was engaged and the LAD was wired. Subsequently we did iFR and that came in to be ischemic 0.83. Intravascular ultrasound was performed and showed a diameter of 3.5 mm and the artery was not extremely calcified. I did balloon angioplasty using 3.0 mm noncompliant balloon which was inflated under 14 joel for 20 seconds before I deployed 3.5 x 18 mm Xience SHELBY where the stent was positioned under fluoroscopy guidance and deployed under fluoroscopy guidance. An angiogram was performed and showed that there was possible distal edge dissection was not flow-limiting nor dye staining was identified. I did again intravascular ultrasound and no dissection was identified. The patient was asymptomatic. No EKG changes. JL-3 flow. No dye staining. We decided to pursue with no further intervention and the procedure was completed was no complication Postprocedure Management: 1. Dual antiplatelet therapy using aspirin and Plavix for at least 6 month 2. Aggressive cholesterol control 3. Consider Doppler wire measurement of the RCA is the patient remains symptomatic
[2023-04-26] MEDS ORDERED: SODIUM CHLORIDE 0.9% 1,000 ML in EMPTY BAG 1 BAG IV SCH (12:15)
[2023-04-26 12:55] LABS: Glucose,Whole Blood 192 mg/dL (70-110)
--- NOTE | 2023-04-26 13:36 | P.HPIM ---
History of Present Illness 71-year-old pleasant male with a known history of coronary artery disease and multi-vessel angioplasties in the past came in with atypical chest pain and nonspecific ST-T wave changes although troponins were negative because of the tip related to the chest pain it was recommended that patient undergoes cardiac catheterization for unstable angina and patient is found to have occlusion of LAD and a stent was placed in LAD with excellent angiographic results. And patient is presently enrolled antiplatelet therapy, statin, beta castillo. Patient is pain-free at this time. Patient had normal LV function in the past. REVIEW OF SYSTEMS: CONSTITUTIONAL: No fever, no malaise, no fatigue. HEENT: No recent visual problems or hearing problems. Denied any sore throat. CARDIOVASCULAR: No chest pain, orthopnea, PND, no palpitations, no syncope. PULMONARY: No shortness of breath, no cough, no hemoptysis. GASTROINTESTINAL: No diarrhea, no nausea, no vomiting, no abdominal pain. NEUROLOGICAL: No headaches, no weakness, no numbness. HEMATOLOGICAL: Denies any bleeding or petechiae. GENITOURINARY: Denies any burning micturition, frequency, or urgency. MUSCULOSKELETAL/RHEUMATOLOGICAL: Denies any joint pain, swelling, or any muscle pain. ENDOCRINE: Denies any polyuria or polydipsia. The rest of the 14-point review of systems is negative. PHYSICAL EXAMINATION: GENERAL: The patient is alert and oriented x3, not in any acute distress. Well developed, well nourished. HEENT: Pupils are round and equally reacting to light. EOMI. No scleral icterus. No conjunctival pallor. Normocephalic, atraumatic. No pharyngeal erythema. No thyromegaly. CARDIOVASCULAR: S1 and S2 present. No murmurs, rubs, or gallops. PULMONARY: Chest is clear to auscultation, no wheezing or crackles. ABDOMEN: Soft, nontender, nondistended, normoactive bowel sounds. No palpable organomegaly. MUSCULOSKELETAL: No joint swelling or deformity. EXTREMITIES: No cyanosis, clubbing, or pedal edema. NEUROLOGICAL: Gross neurological examination did not reveal any focal deficits. SKIN: No rashes. Assessment and plan -Unstable angina: Status post cardiac catheterization and stent to LAD patient is clinically doing well continue with the above-mentioned medications. And -Hypertension uncontrolled elevated blood pressure amlodipine was added along with beta castillo for coronary artery disease. -Dyslipidemia -Hypomagnesemia magnesium will be replaced DVT prophylaxis: Early ambulation5 Past Medical History Past Medical History: Cancer, Diabetes Mellitus, Eye Disorder, Hyperlipidemia, Hypertension, Osteoarthritis (OA), Prostate Disorder Additional Past Medical History / Comment(s): Kidney Stones; glaucoma; diverticulitis. Past hx of HTN. Prostate Cancer 07/2015, SURGERY, RADIATON. INCISIONAL HERNIA. History of Any Multi-Drug Resistant Organisms: None Reported Past Surgical History: Cholecystectomy, Hernia Repair, Prostate Surgery Additional Past Surgical History / Comment(s): Multiple Lithotripsies , Left Cataract removal. finger surgery. Hernia repair w/ mesh; UMBILICAL HERNIA. Cyst removed from tailbone. RT URETRAL STENT 12/11/22, PROSTATECTOMY, COLONOSCOPY Past Anesthesia/Blood Transfusion Reactions: No Reported Reaction Date of Last Stent Placement:: 2018 Smoking Status: Former smoker - Past Family History Brother(s) Family Medical History: Cancer Additional Family Medical History / Comment(s): Skin cancer Father Family Medical History: Cancer Additional Family Medical History / Comment(s): Skin cancer Mother Family Medical History: Cancer Additional Family Medical History / Comment(s): Skin cancer. Medications and Allergies Home Medications Medication Instructions Recorded Confirmed Type glipiZIDE [Glucotrol] 10 mg PO BID 01/14/15 04/25/23 History sitaGLIPtin [Januvia] 100 mg PO DAILY 01/14/15 04/25/23 History Timolol 0.5% Ophth Soln [Timoptic 1 drop BOTH EYES BID 11/01/18 04/25/23 History 0.5% Ophth Soln] Latanoprost [Xalatan 0.005%] 1 drop BOTH EYES HS 01/29/20 04/25/23 History Venlafaxine HCl ER [Effexor XR] 75 mg PO DAILY 01/29/20 04/25/23 History Aspirin 81 mg PO DAILY chew 02/01/20 04/25/23 Rx Atorvastatin [Lipitor] 80 mg PO DAILY #30 tab 02/01/20 04/25/23 Rx Clopidogrel [Plavix] 75 mg PO DAILY #30 tab 02/01/20 04/25/23 Rx Losartan [Cozaar] 50 mg PO DAILY #30 tab 02/01/20 04/25/23 Rx Metoprolol Tartrate [Lopressor] 25 mg PO BID #60 tab 02/01/20 04/25/23 Rx amLODIPine [Norvasc] 10 mg PO DAILY #30 tab 02/01/20 04/25/23 Rx Venlafaxine HCl [Effexor XR] 150 mg PO DAILY 03/19/22 04/25/23 History Cholecalciferol [Vitamin D3 (25 50 mcg PO DAILY 12/10/22 04/25/23 History Mcg = 1000 Iu)] Insulin Glargine,Hum.rec.anlog 20 units SQ HS 12/10/22 04/25/23 History [Lantus Solostar Pen] metFORMIN HCL ER [Glucophage XR] 1,000 mg PO BID-W/MEALS 12/10/22 04/25/23 History Allergies Allergy/AdvReac Type Severity Reaction Status Date / Time Penicillins Allergy Swelling Verified 04/25/23 20:38 propoxyphene napsylate Allergy Rash/Hives Verified 04/25/23 20:38 [From Darbrennat-N] Iodinated Contrast Media AdvReac Nausea & Verified 04/25/23 20:38 [Iodinated Contrast- Oral Vomiting and IV Dye] iohexol AdvReac Nausea & Verified 04/25/23 20:38 Vomiting Physical Exam Vitals: Vital Signs Temp Pulse Pulse Resp BP BP BP 04/26/23 13:00 75 16 170/90 04/26/23 12:48 98 F 90 18 149/84 04/26/23 12:45 66 16 145/89 04/26/23 12:30 98.0 F 71 16 149/84 04/26/23 09:35 75 18 146/57 04/26/23 08:07 79 18 168/79 04/26/23 04:00 64 18 136/74 04/26/23 02:00 70 18 129/60 04/26/23 00:00 66 18 131/72 04/25/23 22:00 76 18 148/79 04/25/23 21:00 78 18 138/86 04/25/23 20:00 76 18 134/75 04/25/23 19:30 75 18 139/81 04/25/23 19:18 68 04/25/23 18:21 97.7 F 113 H 18 163/89 Pulse Ox 04/26/23 13:00 93 L 04/26/23 12:48 93 L 04/26/23 12:45 93 L 04/26/23 12:30 93 L 04/26/23 09:35 96 04/26/23 08:07 96 04/26/23 04:00 98 04/26/23 02:00 98 04/26/23 00:00 98 04/25/23 22:00 97 04/25/23 21:00 100 04/25/23 20:00 100 04/25/23 19:30 100 04/25/23 19:18 04/25/23 18:21 96 Intake and Output 04/25/23 04/26/23 04/26/23 22:59 06:59 14:59 Intake Total 150 Balance 150 Intake: IV 150 Other: Weight 101.151 kg Results CBC & Chem 7: 04/25/23 19:10 04/25/23 19:10 Labs: Abnormal Lab Results - Last 24 Hours (Table) 04/25/23 04/25/23 04/26/23 Range/Units 19:10 19:10 01:30 BUN 25 H (9-20) mg/dL Glucose 207 H (74-99) mg/dL POC Glucose (mg/dL) (70-110) mg/dL Hemoglobin A1c 7.8 H (<=6.0) % Magnesium 1.5 L (1.6-2.3) mg/dL Triglycerides 287.00 H (0.00-149.00) mg/dL LDL Cholesterol, Calc -9.2 L (0.0-131.0) mg/dL VLDL Cholesterol, Calc 57.40 H (5.00-40.00) mg/dL HDL Cholesterol 28.80 L (40.00-60.00) mg/dL 04/26/23 04/26/23 Range/Units 08:12 12:52 BUN (9-20) mg/dL Glucose (74-99) mg/dL POC Glucose (mg/dL) 171 H 192 H (70-110) mg/dL Hemoglobin A1c (<=6.0) % Magnesium (1.6-2.3) mg/dL Triglycerides (0.00-149.00) mg/dL LDL Cholesterol, Calc (0.0-131.0) mg/dL VLDL Cholesterol, Calc (5.00-40.00) mg/dL HDL Cholesterol (40.00-60.00) mg/dL
[2023-04-26 17:55] LABS: Glucose,Whole Blood 388 mg/dL (70-110)
[2023-04-26 20:18] LABS: Glucose,Whole Blood 471 mg/dL (70-110)
[2023-04-26] MEDS ORDERED: INSULIN DETEMIR (LEVEMIR) 100 UNIT/ML SYR SQ SCH (21:00)
[2023-04-26] MEDS ORDERED: LATANOPROST 0.005% OPHTH DROPS 2.5 ML BTL BOTH EYES SCH (21:00)
[2023-04-26] MEDS ORDERED: INSULIN DETEMIR (LEVEMIR) 100 UNIT/ML SYR SQ STA (21:02)
--- NOTE | 2023-04-26 22:04 | CC ---
CARDIAC CATHETERIZATION REPORT INDICATION: Unstable angina. PROCEDURE NOTE: After obtaining informed consent, left heart catheterization and coronary angiogram were performed via the right radial artery using standard Alfa catheters. The patient tolerated the procedure well without any obvious immediate complications. The patient received moderate conscious sedation. Total sedation time was 26 minutes. Intravenous verapamil and heparin were given per protocol. Right radial artery access was obtained using Seldinger technique. A 6-Bhutanese sheath was placed. Catheters and wires were floated into the ascending aorta under fluoroscopic guidance. FINDINGS: 1. HEMODYNAMICS: Central aortic pressure is 130/70 mmHg. 2. LEFT VENTRICULOGRAM: Left ventriculogram is not performed. 3. ANGIOGRAPHIC DATA: a.Right coronary artery: Right coronary artery is a large dominant vessel, that shows a 30% to 40% stenosis proximally. b.Left main coronary artery is a normal-sized vessel and is free of stenosis. Divides into left anterior descending coronary artery and circumflex coronary artery. c.Circumflex coronary artery and its branches are free of significant stenosis. d.LAD in its midportion shows a 50% to 60% stenosis, which has remained unchanged. CONCLUSIONS: 50% to 60% mid LAD stenosis, 30% stenosis involving right coronary artery. PLAN: Dr. Grimes, the on-call brine supervisor, reviewed the angiographic data and will perform FFR of the LAD lesion, and if it comes back significant, he is going to stent it; if not, we will treat him with medical therapy. MMRAY / SCOTT: [id number] /
[2023-04-27 03:34] VITALS: PULSE 72
[2023-04-27 05:07] LABS: Glucose,Whole Blood 350 mg/dL (70-110)
[2023-04-27] MEDS: INSULIN ASPART (NovoLOG) 100 UNIT/ML VIAL SQ SCH ×2 (05:44→13:15)
[2023-04-27 06:56] LABS: African American GFR (CKD) 90 (>60 ml/min/1.73 sqM); Non-African American GFR(CKD) 77 (>60 ml/min/1.73 sqM)
[2023-04-27] MEDS ORDERED: HEPARIN SODIUM,PORCINE (1 ML) 2,500 UNIT in SODIUM CHLORIDE 0.9% 250 ML IRRIGATION PRN (07:00)
[2023-04-27] MEDS ORDERED: HEPARIN SODIUM,PORCINE 10,000 UNIT in SODIUM CHLORIDE 0.9% 1,000 ML IRRIGATION PRN (07:00)
[2023-04-27 08:04] VITALS: BP 152/77; TEMP 98.2
[2023-04-27] MEDS: LOSARTAN 50 MG TAB PO SCH (08:07)
[2023-04-27] MEDS: ATORVASTATIN 80 MG TAB PO SCH (08:07)
[2023-04-27] MEDS: CHOLECALCIFEROL 25 MCG (1000 IU) TABLET PO SCH (08:08)
[2023-04-27] MEDS: amLODIPine 10 MG TAB PO SCH (08:08)
[2023-04-27] MEDS: VENLAFAXINE HCL ER 75 MG CAP PO SCH (08:08)
[2023-04-27] MEDS: METOPROLOL TARTRATE 25 MG TAB PO SCH (08:08)
[2023-04-27] MEDS: CLOPIDOGREL 75 MG TAB PO SCH (08:08)
[2023-04-27] MEDS: VENLAFAXINE HCL ER 150 MG CAP PO SCH (08:08)
[2023-04-27] MEDS: LINAGLIPTIN 5 MG TABLET PO SCH (08:08)
[2023-04-27] MEDS: TIMOLOL 0.5% OPHTH DROPS 5 ML BTL BOTH EYES SCH (08:10)
--- NOTE | 2023-04-27 08:18 | P.PN ---
Subjective Progress Note Date: 04/27/23 History of present illness: This is a 73-year-old male patient of Dr. Michelle Escobar with past medical history of coronary artery disease status post multivessel angioplasty, hypertension, dyslipidemia. We have been asked to evaluate the patient for chest pain.patient complains of chest pressure. He was at his PCP office and due to EKG changes, was recommended to come into the hospital after cardiology was contacted.patient is seen today in the emergency center waiting for a bed on the observation unit. EKGsinus rhythm with non-specific ST changes present on previous EKG Chest x-ray:no acute process CBC within normal limits. INR 1. Electrolytes normal. BUN 25 and creatinine 1.2. Blood sugar 207. Magnesium 1.5 troponin negative 3. Liver function tests are normal. Home cardiac medications: amlodipine 10 mg daily, aspirin 81 mg daily, Lipitor 80 mg daily, Plavix any 5 mg daily, losartan 50 mg daily, Lopressor 25 mg twice daily. Cardiac catheterization 03/18/2022 revealed patent stent within the left anterior descending and intermediate lesion in the proximal left anterior descending. IFR was normal at 0.92. Echocardiogram performed 03/19/2022 revealed normal LV systolic function. Mild mitral regurgitation. Mild tricuspid regurgitation. 04/27 Patient is seen today on the observation unit. Yesterday, patient underwent cardiac catheterization by Dr. Michelle Escobar which revealed 50-60% mid LAD stenosis, 30% stenosis involving the right coronary artery. IFR was performed that came back ischemic at 0.83 followed by successful stenting of the mid LAD by Dr. Grimes. Repeat creatinine is 0.98. EKG shows no acute ST changes. Patient has been afebrile, heart rate 72, blood pressure 151/79, pulse ox 96% on room air. Echocardiogram is pending. Physical examination: Gen: This is a 73-year-old male. He is resting and appears to be comfortable and in no acute distress. VS: reviewed HEENT: Head is atraumatic, normocephalic. Pupils equal, round. Sclerae is anicteric. NECK: Supple. No JVD. LUNGS: Clear to auscultation. No wheezes or rhonchi. No intercostal retractions. HEART: Regular rate and rhythm. No murmur. ABDOMEN: Soft No tenderness. EXTREMITIES: No pedal edema. NEUROLOGICAL: Patient is awake, alert and oriented x3. Assessment: Unstable angina Hypomagnesemia status post replacement History of coronary artery disease with multivessel angioplasty Hypertension Dyslipidemia Plan: Continue patient on aspirin 81 mg daily, Plavix 75 mg daily, atorvastatin 80 mg daily, Lopressor 25 mg twice daily and Nitrostat. Obtain 2-D echocardiogram and Doppler study to assess cardiac structure and function Patient is cleared from cardiology for discharge once echocardiogram has been obtained. Nurse practitioner note has been reviewed, I agree with documented findings and plan of care. Patient was seen and examined. Objective - Vital Signs Vital signs: Vital Signs Temp 98.0 F 04/27/23 02:56 Pulse 72 04/27/23 02:56 Resp 15 04/27/23 02:56 BP 151/79 04/27/23 02:56 Pulse Ox 96 04/27/23 02:56 FiO2 Intake & Output 04/26/23 04/27/23 04/27/23 18:59 06:59 18:59 Intake Total 420 Balance 420 Weight 101.151 kg Intake: IV 150 Intake, IV Titration 150 Amount Sodium Chloride 0.9% 1, 150 000 ml In Empty Bag 1 bag @ 75 mls/hr IV .[id number] ALONDRA Rx#:[id number] Oral 120 Other: # Voids 3 - Labs CBC & Chem 7: 04/25/23 19:10 04/27/23 05:13 Labs: Abnormal Lab Results - Last 24 Hours (Table) 04/25/23 04/26/23 04/26/23 Range/Units 19:10 01:30 08:12 POC Glucose (mg/dL) 171 H (70-110) mg/dL Hemoglobin A1c 7.8 H (<=6.0) % Triglycerides 287.00 H (0.00-149.00) mg/dL LDL Cholesterol, Calc -9.2 L (0.0-131.0) mg/dL VLDL Cholesterol, Calc 57.40 H (5.00-40.00) mg/dL HDL Cholesterol 28.80 L (40.00-60.00) mg/dL 04/26/23 04/26/23 04/26/23 Range/Units 12:52 17:47 20:17 POC Glucose (mg/dL) 192 H 388 H 471 H (70-110) mg/dL Hemoglobin A1c (<=6.0) % Triglycerides (0.00-149.00) mg/dL LDL Cholesterol, Calc (0.0-131.0) mg/dL VLDL Cholesterol, Calc (5.00-40.00) mg/dL HDL Cholesterol (40.00-60.00) mg/dL 04/27/23 Range/Units 05:06 POC Glucose (mg/dL) 350 H (70-110) mg/dL Hemoglobin A1c (<=6.0) % Triglycerides (0.00-149.00) mg/dL LDL Cholesterol, Calc (0.0-131.0) mg/dL VLDL Cholesterol, Calc (5.00-40.00) mg/dL HDL Cholesterol (40.00-60.00) mg/dL
[2023-04-27] MEDS ORDERED: CLOPIDOGREL 75 MG TAB PO SCH (09:00)
[2023-04-27] MEDS ORDERED: ASPIRIN 81 MG PO SCH (09:00)
[2023-04-27 11:40] LABS: Glucose,Whole Blood 336 mg/dL (70-110)
[2023-04-27 12:40] VITALS: RESP 17
--- NOTE | 2023-04-28 09:18 | CA ---
Transthoracic Echo Report Name: Art Hinojosa Age: 73 Gender: M : 1950 Exam Date: 04/27/2023 12:10 Exam Location: [facility] Ht (in): 68 Wt (lb): 223 Ordering Physician: Laura Payne Attending/Referring Phys: [id number], Kerry Strategic Planning Director Bill Andrade Procedure CPT: Indications: LVF Cardiac Hx: Technical Quality: Fair Contrast 1: Definity Total Dose (mL): 2 Contrast 2: Total Dose (mL): MEASUREMENTS (Male / Female) Normal Values 2D ECHO LV Diastolic Diameter PLAX 4.9 cm 4.2 - 5.9 / 3.9 - 5.3 cm LV Systolic Diameter PLAX 2.6 cm IVS Diastolic Thickness 1.3 cm 0.6 - 1.0 / 0.6 - 0.9 cm LVPW Diastolic Thickness 1.4 cm 0.6 - 1.0 / 0.6 - 0.9 cm LV Relative Wall Thickness 0.6 RV Internal Dim ED PLAX 3.4 cm LVOT Diameter 2.7 cm Aortic Root Diameter 3.7 cm LA Systolic Diameter LX 2.7 cm 3.0 - 4.0 / 2.7 - 3.8 cm LV Diastolic Volume MOD BP 61.9 cm??? 67 - 155 / 56 - 104 cm??? LV Systolic Volume MOD BP 26.3 cm??? - 58 / 19 - 49 cm??? LV Ejection Fraction MOD BP 57.5 % >= 55 % LV Cardiac Index MOD BP 1113.1 cm???/min???m??? LV Diastolic Volume MOD 4C 66.9 cm??? LV Systolic Volume MOD 4C 34.6 cm??? LV Ejection Fraction MOD 4C 48.2 % LV Cardiac Index MOD 4C 1008.8 cm???/min???m??? LV Diastolic Length 4C 7.9 cm LV Systolic Length 4C 7.0 cm LV Diastolic Volume MOD 2C 54.3 cm??? LV Systolic Volume MOD 2C 19.8 cm??? LV Ejection Fraction MOD 2C 63.5 % LV Cardiac Index MOD 2C 1077.8 cm???/min???m??? LV Diastolic Length 2C 7.4 cm LV Systolic Length 2C 7.1 cm LA Volume 37.8 cm??? 18 - 58 / 22 - 52 cm??? LA Volume Index 16.9 cm???/m??? 16 - 28 cm???/m??? DOPPLER AV Peak Velocity 124.1 cm/s AV Peak Gradient 6.2 mmHg LVOT Peak Velocity 114.5 cm/s LVOT Peak Gradient 5.2 mmHg LVOT Velocity Time Integral 28.7 cm LVOT Stroke Volume 158.2 cm??? LVOT Stroke Volume Index 73.9 ml/m??? LVOT Cardiac Index 4946.3 cm???/min???m??? AV Area Cont Eq pk 5.1 cm??? MV Peak Velocity 116.6 cm/s MV Peak Gradient 5.4 mmHg MV Mean Velocity 63.6 cm/s MV Mean Gradient 1.9 mmHg MV Velocity Time Integral 34.9 cm Mitral E Point Velocity 82.9 cm/s Mitral A Point Velocity 101.2 cm/s Mitral E to A Ratio 0.8 MV Deceleration Time 287.9 ms MV E' Velocity 5.1 cm/s Mitral E to MV E' Ratio 16.2 TR Peak Velocity 133.6 cm/s TR Peak Gradient 7.1 mmHg PV Peak Velocity 118.0 cm/s PV Peak Gradient 5.6 mmHg FINDINGS Left Ventricle Normal LV size. Mild concentric LVH. Left ventricular ejection fraction is estimated at 55-60 %. Right Ventricle Normal right ventricular size. Right Atrium Normal right atrial size. Left Atrium Normal left atrial size. Mitral Valve Structurally normal mitral valve. No mitral regurgitation. Aortic Valve Trileaflet aortic valve. No aortic valve stenosis or regurgitation. Tricuspid Valve Structurally normal tricuspid valve. Trace TR. Pulmonic Valve Pulmonic valve not well visualized. No pulmonic regurgitation. Pericardium Not visualized. Aorta Normal size aortic root. CONCLUSIONS Normal LV function Previewed by: Dr. Marshal Escobar MD (Electronically Signed) Final Date: 28 April 2023 09:17
--- NOTE | 2023-04-29 12:30 | P.DS ---
Providers Date of admission: 04/25/23 20:24 Attending physician: Etta Aburto Consults: 04/25/23 20:23 Consult Physician Urgent Consulting Provider: Marshal Escobar Consult Reason/Comments: chest pain Do you want consulting provider notified?: Yes 04/26/23 12:03 Consult Physician Routine Consulting Provider: [facility] Consult Reason/Comments: Post Interventional patient Do you want consulting provider notified?: Already Contacted Primary care physician: Maritza Gonzalez Hospital Course: Final Diagnosis -Unstable angina: Status post cardiac catheterization and stent to LAD -Hypertension uncontrolled elevated blood pressure amlodipine was added along with beta castillo for coronary artery disease. -Dyslipidemia -Hypomagnesemia magnesium will be replaced -Diabetes Mellitus type 2 with hyperglycemia Discharge Disposition Patient is cleared for discharge home to continue on dual antiplatelet therapy with aspirin/plavix and high dose statin. Patient to follow up with cardiology outpatient has an appt with Dr. Escobar on 05/11/23. Recommend to see PCP Dr Gonzalez in 1 to 2 days. Patient is given information for outpatient diabetic education. Hospital Course 71-year-old pleasant male with a known history of coronary artery disease and multi-vessel angioplasties in the past came in with atypical chest pain and nonspecific ST-T wave changes although troponins were negative because of the tip related to the chest pain it was recommended that patient undergoes cardiac catheterization for unstable angina and patient is found to have occlusion of LAD and a stent was placed in LAD with excellent angiographic results. Patient is currently on antiplatelet therapy, statin, beta castillo. Patient is pain- free at this time. Patient had normal LV function in the past. Echocardiogram was repeated showing normal LV function with EF of 55-60%. Lipid panel showing triglycerides 287, cholesterol 77, LDl less than 9.2, and HDL 28.80. Hemoglobin A1C 7.8. Patient does discuss he has been set up with his PCP to see endocrinology outpatient as he has been having a hard time getting his sugar down. He is given information for outpatient diabetic education on his discharge instructions. He has no chest pain, no shortness of breath. radial site positive pulse no hematoma. His lungs are clear. He will be discharged home. Please see medication reconciliation for a list of current medication. Thank you for allowing us to participate in the care of this patient. The impression and plan of care has been dictated by Nelda Sarmiento, Nurse Practitioner as directed. Dr. Isai MD I have performed a history and physical examination and medical decision making of this patient, discussed the same with the dictator, and agree with the dictators assessment and plan as written, documented as a scribe. Based on total visit time, I have performed more than 50% of this visit. Patient Condition at Discharge: Fair Plan - Discharge Summary Discharge Rx Participant: No New Discharge Prescriptions: New Nitroglycerin Sl Tabs [Nitrostat] 0.4 mg SUBLINGUAL Q5M PRN tab PRN Reason: Chest Pain Continue glipiZIDE [Glucotrol] 10 mg PO BID sitaGLIPtin [Januvia] 100 mg PO DAILY Timolol 0.5% Ophth Soln [Timoptic 0.5% Ophth Soln] 1 drop BOTH EYES BID Venlafaxine HCl ER [Effexor XR] 75 mg PO DAILY Latanoprost [Xalatan 0.005%] 1 drop BOTH EYES HS Aspirin 81 mg PO DAILY chew Losartan [Cozaar] 50 mg PO DAILY #30 tab Atorvastatin [Lipitor] 80 mg PO DAILY #30 tab Metoprolol Tartrate [Lopressor] 25 mg PO BID #60 tab amLODIPine [Norvasc] 10 mg PO DAILY #30 tab Clopidogrel [Plavix] 75 mg PO DAILY #30 tab Cholecalciferol [Vitamin D3 (25 Mcg = 1000 Iu)] 50 mcg PO DAILY metFORMIN HCL ER [Glucophage XR] 1,000 mg PO BID-W/MEALS Venlafaxine HCl [Effexor XR] 150 mg PO DAILY Insulin Glargine,Hum.rec.anlog [Lantus Solostar Pen] 20 units SQ HS Discharge Medication List glipiZIDE [Glucotrol] 10 mg PO BID 01/14/15 [History] sitaGLIPtin [Januvia] 100 mg PO DAILY 01/14/15 [History] Timolol 0.5% Ophth Soln [Timoptic 0.5% Ophth Soln] 1 drop BOTH EYES BID 11/01/18 [History] Latanoprost [Xalatan 0.005%] 1 drop BOTH EYES HS 01/29/20 [History] Venlafaxine HCl ER [Effexor XR] 75 mg PO DAILY 01/29/20 [History] Aspirin 81 mg PO DAILY chew 02/01/20 [Rx] Atorvastatin [Lipitor] 80 mg PO DAILY #30 tab 02/01/20 [Rx] Clopidogrel [Plavix] 75 mg PO DAILY #30 tab 02/01/20 [Rx] Losartan [Cozaar] 50 mg PO DAILY #30 tab 02/01/20 [Rx] Metoprolol Tartrate [Lopressor] 25 mg PO BID #60 tab 02/01/20 [Rx] amLODIPine [Norvasc] 10 mg PO DAILY #30 tab 02/01/20 [Rx] Venlafaxine HCl [Effexor XR] 150 mg PO DAILY 03/19/22 [History] Cholecalciferol [Vitamin D3 (25 Mcg = 1000 Iu)] 50 mcg PO DAILY 12/10/22 [History] Insulin Glargine,Hum.rec.anlog [Lantus Solostar Pen] 20 units SQ HS 12/10/22 [History] metFORMIN HCL ER [Glucophage XR] 1,000 mg PO BID-W/MEALS 12/10/22 [History] Nitroglycerin Sl Tabs [Nitrostat] 0.4 mg SUBLINGUAL Q5M PRN tab 04/27/23 [Rx] Follow up Appointment(s)/Referral(s): Maritza Gonzalez MD [Primary Care Provider] - 1-2 days Marshal Escobar MD [STAFF PHYSICIAN] - 05/11/23 4:00 pm Ambulatory/Diagnostic Orders: Basic Metabolic Panel [LAB.AMB] Time Frame: 3 Days, Location: None Selected Patient Instructions/Handouts: *Surgery [facility] - After Heart Catheterization - Paediatrician Instructions Activity/Diet/Wound Care/Special Instructions: Recommend to follow up with outpatient diabetes education offered through [facility] [email or web address] [phone] [email or web address] [address] Discharge Disposition: HOME SELF-CARE
== END 2023-04-27 14:10 | disposition home or self-care (01) ==
LOC: EC 18:18 → 6NMEDSUR 20:24
PROVIDERS: ADMIT Hospitalist; ATTEND Hospitalist
DX: I25.110 Atherosclerotic heart disease of native coronary artery with unstable angina pectoris (principal); E78.5 Hyperlipidemia, unspecified; E83.42 Hypomagnesemia; E11.65 Type 2 diabetes mellitus with hyperglycemia; I10 Essential (primary) hypertension; Z85.46 Personal history of malignant neoplasm of prostate; Z87.891 Personal history of nicotine dependence; Z92.3 Personal history of irradiation; Z96.0 Presence of urogenital implants; Z79.899 Other long term (current) drug therapy; Z79.84 Long term (current) use of oral hypoglycemic drugs; Z79.82 Long term (current) use of aspirin; Z79.02 Long term (current) use of antithrombotics/antiplatelets; Z88.0 Allergy status to penicillin
CPT/HCPCS: 96372 ×2; 99285; 36415; 93005 ×2; 92978; 93454; 93799; 80061; 80053; 82565; 83735; 84484 ×2; 85025; 85610; 85730; 83036; 71046; G0378 ×3; C8929; C1769 ×4; C9600; C1887; C1894; C1753; C1874; C1725 ×2; J2250; J1200; J2930; J2001; Q9957; J1644; Q9967; J3010; 93306

== ENCOUNTER → 2023-11-14 | Outpatient (CLI) | payer MEDICARE | END | disposition home or self-care (01) | LOC: LABWHC1 11:22 | PROVIDERS: ATTEND Urology | DX: C61 Malignant neoplasm of prostate (principal) | CPT/HCPCS: 36415; 84153 ==

== ENCOUNTER → 2024-05-01 | Outpatient (CLI) | payer MEDICARE ==
--- NOTE | 2024-05-01 11:36 | XR ---
EXAMINATION TYPE: XR lumbosacral spine min 4V DATE OF EXAM: 05/01/2024 10:20 AM COMPARISON: None CLINICAL INDICATION: Male, 74 years old with history of M54.50 LW BK PN G89.29 OTHER CHRON PAIN; H TECHNIQUE: XR lumbosacral spine min 4V - Frontal, lateral , bilateral oblique and coned in L5-S1 late ral views of the spine. FINDINGS: No evidence of any acute osseous pathology. No evidence of loss of vertebral body height i s seen. Grade 1 anterolisthesis of L4 on L5. Mild scattered disc space narrowing. Multilevel marginal osteophyte formation throughout the visualized spine. There is facet joint arthropathy throughout th e spine. Scattered at least mild neural foraminal stenosis. Atherosclerosis of the arterial vasculatu re. Postsurgical clips present. IMPRESSION: 1. No acute fracture. 2. Moderate to severe multilevel disc degeneration. 3. Grade 1 anterolisthesis of L4 and L5. [facility], , 05/01/2024 11:33 AM
== END | disposition home or self-care (01) ==
LOC: RADXRMAIN 09:41
PROVIDERS: ATTEND Family Medicine
DX: M43.16 Spondylolisthesis, lumbar region (principal); G89.29 Other chronic pain
CPT/HCPCS: 72110

== ENCOUNTER 2024-05-05 10:23 | Emergency (ER) | payer MEDICARE ==
[2024-05-05 10:31] VITALS: RESP 18; TEMP 97.8
--- NOTE | 2024-05-05 11:03 | ED ---
General Adult HPI - General Chief complaint: Back Pain/Injury Stated complaint: Back pain Time Seen by Provider: 05/05/24 10:27 Source: patient, family, RN notes reviewed Mode of arrival: EMS Limitations: no limitations - History of Present Illness Initial comments: Patient is a 74-year-old male present to the emergency department with concerns for back pain. Symptoms started around a week ago. Patient had x-ray showing degenerative joint disease. No history of chronic significant back pain however has had some mild back discomfort in the past. Patient denies any incontinence or retention of bowel or bladder product. Patient denies any weakness. On exam there is noticed some weakness and family states they believe this started 2 days ago. - Related Data Home Medications Medication Instructions Recorded Confirmed glipiZIDE [Glucotrol] 10 mg PO BID 01/14/15 04/25/23 sitaGLIPtin [Januvia] 100 mg PO DAILY 01/14/15 04/25/23 Timolol 0.5% Ophth Soln [Timoptic 1 drop BOTH EYES BID 11/01/18 04/25/23 0.5% Ophth Soln] Latanoprost [Xalatan 0.005%] 1 drop BOTH EYES HS 01/29/20 04/25/23 Venlafaxine HCl ER [Effexor XR] 75 mg PO DAILY 01/29/20 04/25/23 Venlafaxine HCl [Effexor XR] 150 mg PO DAILY 03/19/22 04/25/23 Cholecalciferol [Vitamin D3 (25 50 mcg PO DAILY 12/10/22 04/25/23 Mcg = 1000 Iu)] Insulin Glargine,Hum.rec.anlog 20 units SQ HS 12/10/22 04/25/23 [Lantus Solostar Pen] metFORMIN HCL ER [Glucophage XR] 1,000 mg PO BID-W/MEALS 12/10/22 04/25/23 Previous Rx's Medication Instructions Recorded Aspirin 81 mg PO DAILY chew 02/01/20 Atorvastatin [Lipitor] 80 mg PO DAILY #30 tab 02/01/20 Clopidogrel [Plavix] 75 mg PO DAILY #30 tab 02/01/20 Losartan [Cozaar] 50 mg PO DAILY #30 tab 02/01/20 Metoprolol Tartrate [Lopressor] 25 mg PO BID #60 tab 02/01/20 amLODIPine [Norvasc] 10 mg PO DAILY #30 tab 02/01/20 Nitroglycerin Sl Tabs [Nitrostat] 0.4 mg SUBLINGUAL Q5M PRN tab 04/27/23 Cyclobenzaprine [Flexeril] 10 mg PO TID PRN #21 tablet 05/05/24 methylPREDNISolone Dose Pack 4 mg PO DIRECTED #21 tab 05/05/24 [Medrol Dose Pack] Allergies Allergy/AdvReac Type Severity Reaction Status Date / Time Penicillins Allergy Swelling Verified 04/25/23 20:38 propoxyphene napsylate Allergy Rash/Hives Verified 04/25/23 20:38 [From Darvocet-N] Iodinated Contrast Media AdvReac Nausea & Verified 04/25/23 20:38 [Iodinated Contrast- Oral Vomiting and IV Dye] iohexol AdvReac Nausea & Verified 04/25/23 20:38 Vomiting Review of Systems ROS Statement: Those systems with pertinent positive or pertinent negative responses have been documented in the HPI. ROS Other: All systems not noted in ROS Statement are negative. Constitutional: Denies: fever Eyes: Denies: eye pain ENT: Denies: ear pain Respiratory: Denies: cough Cardiovascular: Denies: chest pain Endocrine: Denies: fatigue Gastrointestinal: Denies: abdominal pain Musculoskeletal: Reports: as per HPI, back pain Neurological: Reports: as per HPI. Denies: headache, confusion Past Medical History Past Medical History: Cancer, Diabetes Mellitus, Eye Disorder, Hyperlipidemia, Hypertension, Osteoarthritis (OA), Prostate Disorder Additional Past Medical History / Comment(s): Kidney Stones; glaucoma; diverticulitis. Past hx of HTN. Prostate Cancer 07/2015, SURGERY, RADIATON. INCISIONAL HERNIA. History of Any Multi-Drug Resistant Organisms: None Reported Past Surgical History: Cholecystectomy, Hernia Repair, Prostate Surgery Additional Past Surgical History / Comment(s): Multiple Lithotripsies , Left Cataract removal. finger surgery. Hernia repair w/ mesh; UMBILICAL HERNIA. Cyst removed from tailbone. RT URETRAL STENT 12/11/22, PROSTATECTOMY, COLONOSCOPY Past Anesthesia/Blood Transfusion Reactions: No Reported Reaction Date of Last Stent Placement:: 2018 Past Psychological History: Depression Smoking Status: Former smoker - Past Family History Brother(s) Family Medical History: Cancer Additional Family Medical History / Comment(s): Skin cancer Father Family Medical History: Cancer Additional Family Medical History / Comment(s): Skin cancer Mother Family Medical History: Cancer Additional Family Medical History / Comment(s): Skin cancer. General Exam Limitations: no limitations General appearance: alert, in no apparent distress Head exam: Present: normocephalic Eye exam: Present: normal appearance Neck exam: Present: normal inspection Respiratory exam: Present: normal lung sounds bilaterally Cardiovascular Exam: Present: regular rate, normal rhythm Expanded Peripheral pulses: 2+: Posterior Tibialis (R), Posterior Tibialis (L) GI/Abdominal exam: Present: soft. Absent: distended, tenderness, pulsatile mass Extremities exam: Present: normal inspection, full ROM. Absent: tenderness Back exam: Absent: tenderness, vertebral tenderness Neurological exam: Present: alert Expanded Neurological exam: Present: protecting the airway Speech: Present: fluid speech Sensory exam: Lower Extremity Light Touch: Normal Motor strength exam: RUE: 5, LUE: 5, RLE: 5, LLE: 4 (Also some weakness with dorsi and plantarflexion of the foot) Eye Response: (4) open spontaneously Motor Response: (6) obeys commands Verbal Response: (5) oriented Psychiatric exam: Present: normal affect, normal mood Skin exam: Present: normal color Course Vital Signs 05/05/24 10:28 Temperature 97.8 F Pulse Rate 77 Respiratory 18 Rate Blood Pressure 155/86 O2 Sat by Pulse 98 Oximetry Medical Decision Making - Medical Decision Making MDM was pt. sent in by a medical professional or institution (, PA, DISTRIBUTION CENTER ASSISTANT, [facility], hospital, or detention...) When possible be specific @ -No Did you speak to anyone other than the patient for history (EMS, parent, family, police, friend...)? What history was obtained from this source @ - is present and provides additional history of patient having some leg weakness 1 question Did you review nursing and triage notes (agree or disagree)? Why? @ -I reviewed and agree with nursing and triage notes Were old charts reviewed (outside hosp., previous admission, EMS record, old EKG, old radiological studies, urgent care reports/EKG's, detention records)? Report findings @ -No old charts were reviewed Differential Diagnosis (chest pain, altered mental status, abdominal pain women, abdominal pain men, vaginal bleeding, weakness, fever, dyspnea, syncope, h eadache, dizziness, GI bleed, back pain, seizure, CVA, palpatations, mental health, musculoskeletal)? @ -Differential Back Pain: Strain, zoster, cauda equina syndrome, epidural abscess, vertebral os teomyelitis, discitis, fracture, subluxation, disc herniation, DJD, spinal stenosis, dissection, AAA, pancreatitis, peptic ulcer disease, pyelonephritis, kidney stone, this is not meant to be an all-inclusive list. EKG interpreted by me (3pts min.). @ -As above X-rays interpreted by me (1pt min.). @ -None done CT interpreted by me (1pt min.). @ -CT lumbar spine has degenerative changes U/S interpreted by me (1pt. min.). @ -None done What testing was considered but not performed or refused? (CT, X-rays, U/S, labs)? Why? @ -None What meds were considered but not given or refused? Why? @ -None Did you discuss the management of the patient with other professionals (professionals i.e. , PA, DISTRIBUTION CENTER ASSISTANT, lab, RT, psych nurse, social media sr strategy manager, machine spring former, teacher, loan service officer, case liner)? Give summary @ -Case was discussed with Dr. Goodman meyer who can follow-up with patient in the office. He does recommend steroids and muscle relaxers. Was smoking cessation discussed for >3mins.? @ -No Was critical care preformed (if so, how long)? @ -No Were there social determinants of health that impacted care today? How? (Homelessness, low income, unemployed, alcoholism, drug addiction, transpor tation, low edu. Level, literacy, decrease access to med. care, [facility], rehab)? @ -No Was there de-escalation of care discussed even if they declined (Discuss DNR or withdrawal of care, Hospice)? DNR status @ -No What co-morbidities impacted this encounter? (DM, HTN, Smoking, COPD, CAD, Cancer, CVA, ARF, Chemo, Hep., AIDS, mental health diagnosis, sleep apnea, morbid obesity)? @ -None Was patient admitted / discharged? Hospital course, mention meds given and route, prescriptions, significant lab abnormalities, going to OR and other pertinent info. @ -Patient presents with back pain and does have some leg weakness. CT scan unremarkable for acute abnormality. Patient will be discharged with prescriptions and close follow-up with spine surgery Undiagnosed new problem with uncertain prognosis? @ -No Drug Therapy requiring intensive monitoring for toxicity (Heparin, Nitro, Insulin, Cardizem)? @ -No Were any procedures done? @ -No Diagnosis/symptom? @ -Back pain Acute, or Chronic, or Acute on Chronic? @ -Acute Uncomplicated (without systemic symptoms) or Complicated (systemic symptoms)? @ -Complicated with some mild leg weakness Side effects of treatment? @ -No Exacerbation, Progression, or Severe Exacerbation? @ -No Poses a threat to life or bodily function? How? (Chest pain, [place], [place], pneumonia, PE, COPD, DKA, ARF, appy, cholecystitis, CVA, Diverticulitis, Homicidal, Isabelle cidal, threat to staff... and all critical care pts) @ -Threat to neurological function - Lab Data Result diagrams: 05/05/24 11:19 05/05/24 11:19 Lab Results 05/05/24 05/05/24 Range/Units 11:19 11:19 WBC 9.3 (3.8-10.6) k/uL RBC 5.37 (4.30-5.90) m/uL Hgb 15.5 (13.0-17.5) gm/dL Hct 47.5 (39.0-53.0) % MCV 88.3 (80.0-100.0) fL MCH 28.9 (25.0-35.0) pg MCHC 32.7 (31.0-37.0) g/dL RDW 14.2 (11.5-15.5) % Plt Count 151 (150-450) k/uL MPV 9.0 Neutrophils % 73 % Lymphocytes % 19 % Monocytes % 5 % Eosinophils % 2 % Basophils % 0 % Neutrophils # 6.8 (1.3-7.7) k/uL Lymphocytes # 1.7 (1.0-4.8) k/uL Monocytes # 0.5 (0-1.0) k/uL Eosinophils # 0.2 (0-0.7) k/uL Basophils # 0.0 (0-0.2) k/uL Sodium 139 (137-145) mmol/L Potassium 4.5 (3.5-5.1) mmol/L Chloride 107 (98-107) mmol/L Carbon Dioxide 22 (22-30) mmol/L Anion Gap 10 mmol/L BUN 31 H (9-20) mg/dL Creatinine 1.06 (0.66-1.25) mg/dL Est GFR (CKD-EPI)AfAm 81 (>60 ml/min/1.73 sqM) Est GFR (CKD-EPI)NonAf 70 (>60 ml/min/1.73 sqM) Glucose 219 H (74-99) mg/dL Calcium 9.4 (8.4-10.2) mg/dL Total Bilirubin 0.7 (0.2-1.3) mg/dL AST 30 (17-59) U/L ALT 38 (4-49) U/L Alkaline Phosphatase 62 (38-126) U/L Total Protein 6.6 (6.3-8.2) g/dL Albumin 4.3 (3.5-5.0) g/dL Disposition Clinical Impression: Back pain Disposition: HOME SELF-CARE Condition: Stable Instructions (If sedation given, give patient instructions): Acute Low Back Pain (ED) Additional Instructions: Please do follow-up with Dr. Kong send beginning of the week, number provided. Please also follow-up with your regular doctor beginning of the week. Return for increased leg weakness, loss of control of bowel or bladder, uncontrolled pain, fevers, worsening symptoms or any other concerns. Prescriptions: Cyclobenzaprine [Flexeril] 10 mg PO TID PRN #21 tablet PRN Reason: Pain methylPREDNISolone Dose Pack [Medrol Dose Pack] 4 mg PO DIRECTED #21 tab Is patient prescribed a controlled substance at d/c from ED?: No Referrals: Maritza Gonzalez MD [Primary Care Provider] - 1-2 days Time of Disposition: 13:18
[2024-05-05] MEDS: KETOROLAC 15 MG/ML 1 ML VIAL IVP STA (11:24)
[2024-05-05] MEDS: methylPREDNISolone SOD SUCCI 125 MG/2 ML VIAL IM STA (11:26)
[2024-05-05 11:33] LABS: Basophils % (A) 0 %; Eosinophils # (A) 0.2 k/uL (0-0.7); Eosinophils % (A) 2 %; HCT 47.5 % (39.0-53.0); HGB 15.5 gm/dL (13.0-17.5); Lymphocytes # (A) 1.7 k/uL (1.0-4.8); Lymphocytes % (A) 19 %; MCH 28.9 pg (25.0-35.0); MCHC 32.7 g/dL (31.0-37.0); MCV 88.3 fL (80.0-100.0); Monocytes # (A) 0.5 k/uL (0-1.0); Monocytes % (A) 5 %; Neutrophils # (A) 6.8 k/uL (1.3-7.7); Neutrophils % (A) 73 %; Platelet Count 151 k/uL (150-450); RBC 5.37 m/uL (4.30-5.90); RDW 14.2 % (11.5-15.5); WBC 9.3 k/uL (3.8-10.6)
[2024-05-05 11:47] LABS: ALT 38 U/L (4-49); AST 30 U/L (17-59); African American GFR (CKD) 81 (>60 ml/min/1.73 sqM); Albumin 4.3 g/dL (3.5-5.0); Alkaline Phosphatase 62 U/L (38-126); Anion Gap 10 mmol/L; Blood Urea Nitrogen 31 mg/dL (9-20); Calcium 9.4 mg/dL (8.4-10.2); Carbon Dioxide 22 mmol/L (22-30); Chloride 107 mmol/L (98-107); Glucose 219 mg/dL (74-99); Non-African American GFR(CKD) 70 (>60 ml/min/1.73 sqM); Potassium 4.5 mmol/L (3.5-5.1); Sodium 139 mmol/L (137-145); Total Bilirubin 0.7 mg/dL (0.2-1.3); Total Protein 6.6 g/dL (6.3-8.2)
--- NOTE | 2024-05-05 12:00 | CT ---
EXAMINATION TYPE: CT lumbar spine wo con DATE OF EXAM: 05/05/2024 11:46 AM COMPARISON: None CLINICAL INDICATION: Male, 74 years old with history of lbp. lle weak; PHH, back pain TECHNIQUE: Unenhanced CT of the lumbar spine was performed. Bone and soft tissue window settings are submitted as well as coronal and sagittal reconstructions. CT DLP: 1241.[address] CTDI: mGy Automated exposure control for dose reduction was used. FINDINGS: The lumbar vertebral segments are normal in height and alignment. There is no fracture pressure. This is slight anterolisthesis, grade 1, of L4 on L5. The disc spaces are well preserved in height. There is mild spondylosis throughout indicating mild de generative disc disease. There is no large lumbar disc herniation. Secondary to circumferential disc bulge and thickening of ligamentum flavum, there is mild spinal henrik nosis at the L2-3 level, moderate spinal stenosis at the L3-4 level and severe spinal stenosis at the L4-5 level. There are marked osteoarthritic changes of facet joints at the L4-5 and L5-S1 levels and mild osteoar thritis at the L3-4 level. 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 There is mild arthritis of the SI joints. IMPRESSION: 1. Slight, grade 1 anterolisthesis of L4 and L5. No lumbar spine fracture. 2. Minimal degenerative disease throughout the lumbar region. 3. Advanced facet arthropathy at the L4-5 and L5-S1 levels. 4. Multilevel spinal stenosis at the L2-3, L3-4 and L4-5 levels. Severe at the L4-5 level, see above 5. No large disc herniation. 6. 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 [facility], , 05/05/2024 11:58 AM
[2024-05-05 13:41] VITALS: BP 153/71; PULSE 72
== END 2024-05-05 13:41 | disposition home or self-care (01) ==
LOC: EC 10:23
DX: M54.9 Dorsalgia, unspecified (principal); Z88.0 Allergy status to penicillin; Z91.041 Radiographic dye allergy status; Z88.8 Allergy status to other drugs, medicaments and biological substances; Z87.891 Personal history of nicotine dependence
CPT/HCPCS: 36415; 80053; 85025; 72131; 99284; 96374; 96372; J1885; J2919

== ENCOUNTER → 2024-05-10 | Outpatient (CLI) | payer MEDICARE ==
--- NOTE | 2024-05-10 17:57 | MR ---
EXAMINATION TYPE: MR lumbar spine wo con DATE OF EXAM: 05/10/2024 12:35 PM COMPARISON: None. CLINICAL INDICATION: Male, 74 years old with history of M54.50 low back pain, Low back pain into left side x 2 weeks TECHNIQUE: Multiplanar, multisequence images of the lumbar spine were acquired. IV Contrast: mL (None, if empty) FINDINGS: Cord ends at the T12-L1 level L5-S1: No focal disc herniation or significant disc bulge. No spinal canal stenosis. Neural foramen are patent. Facet hypertrophy is present. L4-L5: Facet hypertrophy is present. Mild posterior lateral thecal sac compression is present on righ t. Disc desiccation is present. Neural foramen are patent. No significant disc. L3-L4: Facet hypertrophy is present with ligamentum flavum laxity. This has some mild posterior later al thecal sac compression. Mild disc bulge is present slightly greater centrally with mild anterior t hecal sac compression no AP spinal canal stenosis is present. Foramina are patent. L2-L3: Small central disc bulge is present with anterior sac contact. No spinal canal stenosis presen t. Facet hypertrophy and ligamentum flavum laxity is present. Mild posterior lateral thecal sac compr ession is evident. No spinal canal stenosis present. Neural foramen are patent L1-L2: No focal disc herniation or significant disc bulge. There is some mild facet hypertrophy label ed laxity. T12-L1: No focal disc herniation or significant disc bulge. No spinal canal stenosis. Neural forame n are patent. IMPRESSION: 1. Multilevel facet hypertrophy greater in the lower lumbar spine. Some mild posterior lateral thecal sac compression may be present. 2. Mild disc bulging and central disc bulging present at L2-3 L3-4 without spinal canal stenosis [facility], , 05/10/2024 5:54 PM
== END | disposition home or self-care (01) ==
LOC: RADMRIMAIN 11:02
PROVIDERS: ATTEND Family Medicine
DX: M51.360 Other intervertebral disc degeneration, lumbar region with discogenic back pain only (principal); M47.816 Spondylosis without myelopathy or radiculopathy, lumbar region; G89.29 Other chronic pain
CPT/HCPCS: 72148

== ENCOUNTER → 2024-05-14 | Outpatient (CLI) | payer MEDICARE ==
--- NOTE | 2024-05-14 11:30 | MR ---
EXAMINATION TYPE: MR thoracic spine wo con DATE OF EXAM: 05/14/2024 10:57 AM COMPARISON: CT/plain film. 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 TECHNIQUE: Multi planar, multi sequence imaging was performed utilizing: T1-weighted, short-tau inver jared recovery and T2-weighted of the thoracic spine. IV Contrast: mL (None, if empty) FINDINGS: Alignment: Alignment is within normal limits. Vertebral bodies have preserved heights. Spinal cord: Spinal cord is within normal limits for signal. Discs: Multilevel disc desiccation. No evidence of significant spinal canal or neural foraminal steno sis. There is no evidence of extradural defects or central spinal canal narrowing at any thoracic antonio tebral body level Osseous structures: No abnormal bony edema on inversion recovery sequences. Multilevel osteophyte for mation and facet joint arthropathy. Scattered disc space narrowing. The descending thoracic aorta measures up to 35 mm. No focal aneurysmal dilation however. IMPRESSION: 1. No evidence for bony edema to suggest fracture. 2. No evidence for significant spinal canal or neural foraminal stenosis. 3. Mild multilevel degeneration changes throughout the spine. [facility], , 05/14/2024 11:28 AM
== END | disposition home or self-care (01) ==
LOC: RADMRIMAIN 09:55
PROVIDERS: ATTEND Orthopaedic Surgery
DX: G95.9 Disease of spinal cord, unspecified (principal); N39.46 Mixed incontinence; M48.02 Spinal stenosis, cervical region; M62.81 Muscle weakness (generalized); M47.24 Other spondylosis with radiculopathy, thoracic region
CPT/HCPCS: 72146

== ENCOUNTER → 2024-06-05 | Outpatient (CLI) | payer MEDICARE | END | disposition home or self-care (01) | LOC: LABPAT 14:45 | PROVIDERS: ATTEND Orthopaedic Surgery | DX: M48.061 Spinal stenosis, lumbar region without neurogenic claudication (principal); M47.26 Other spondylosis with radiculopathy, lumbar region; Z22.322 Carrier or suspected carrier of Methicillin resistant Staphylococcus aureus | CPT/HCPCS: 86850; 86900; 86901; 87070 ==

== ENCOUNTER 2024-06-11 11:35 | Observation (INO) | payer MEDICARE ==
--- NOTE | 2024-06-10 22:07 | P.HPOR ---
History of Present Illness H&P Date: 06/05/24 .D:Date: 06/05/24 : 05:46pm .T:Title: *PRE-OP H1 [facility] [address] [place] [id number]| PROVIDER: BHARGAVI MARTINES DO CLINICAL SUMMARY: *Mr. Hinojosa is a 74-year-old retired male presenting for pre-operative evaluation for a planned L4-5 minimally invasive posterior lumbar interbody fusion with decompression, demonstrating acute neurological deterioration over the past two weeks. He presents with severe low back pain (VAS 8/10) radiating to lower extremities, progressive left lower extremity weakness (3/5 strength), new onset urinary incontinence, and three recent falls due to leg weakness. Neurological examination reveals significant deficits including left-sided positive straight leg raise, diminished patellar and Achilles reflexes (1+ on left), 7-beat clonus on the left, thoracic myelopathic gait, and L4-5 dermatomal deficits bilaterally. Imaging studies demonstrate an unstable Grade I L4-5 spondylolisthesis with bilateral pars defects, severe central and foraminal stenosis, facet arthropathy, and evidence of ligamental disruption with interspinous edema. The patient requires a walker for ambulation, demonstrates inability to perform basic activities like independent dressing, and has failed conservative management including medications (Gabapentin, NSAIDs, muscle relax ants) and physical therapy, with his confirming significant functional decline over the past two weeks. DEMOGRAPHICS: Age: 74 year Height: 5'7" Weight: 212 lbs BP:130/70 BMI: 33.25 kg/m2 Occupation: *Retired CC: *LE weakness, unsteady gait, urinary incontinence, low back pain VAS: * 8 HISTORY: Mr. Hinojosa presents to the office today, 06/05/24, for *a pre-operative appointment preceding his L4-5 PLIBF with decompression. Patient continues to report pain across the low back that radiates into the lower extremities. Patient has fallen 3 times since last office visit. He cannot fire his quad muscle and is unable to flex his hip due to weakness in his leg.He has been using a walker due to profound weakness and his legs "giving out" on his several times causing him to fall. He states he has also noted that he will get up from his chair and have wet his pants and not known. He does have a history of prostate CA and issues with his urethral structures, but this UI is new for him. It is intermittent and he is not retaining as of now but in the hospital did need a catheter placed. He states he has no genital numbness, but that his inner thighs have a different sensation and that overall his LLE has a "" feeling to it. He states no other sx at this time. in room agrees with hx and states he has deteriorated significantly in the past two weeks. Patient is taking Gabapentin and Aspirin. * Patient denies any f/c/sob/cp, perineal numbness or tingling, bowel, or bladder incontinence/retention. * The patients past social, medical, family, surgical history, as well as review of systems, have been reviewed. Please refer to the History and Physical form that has been scanned into our electronic medical record system. * 16 points review of systems completed and as stated in HPI, all other systems reviewed are negative. PAST TREATMENTS: PAST IMAGING: -YES -MRI, XR TRAUMA RELATED: -NO -BUT HAS HAD SEVERAL FALLS DUE TO LEG WEAKNESS WORK RELATED: -NO - PT IN LAST 6 MONTHS: -YES -PREVIOUSLY FOR HIS LOW BACK PAIN, MADE WORSE PHYSICIAN DIRECTED HOME EXERCISE PROGRAM: -YES - ACTIVITY MODIFICAITON: -YES -USES A WALKER NOW, CANNOT PUT ON PANTS BY HIMSELF DUE TO WEAKNESS, CANNOT REACH DOWN TO PUT ON SOCKS, FALLS IF HE LETS GO OF HIS WALKER MEDICATIONS: -YES -PREDNISONE, MOTRIN, GABAPENTIN, NORCO, ASPIRIN ALTERNATIVE INTERVENTIONS (CHIROPRACTIC, ACCUPUNCTURE, MASSAGE, RICE): -YES -RICE BRACING: -NO - INJECTIONS (NASH, TF, RFA): -NO MEDICAL HISTORY: Past Medical History: REVIEWED STATED IN CHART Past Surgical History: REVIEWED STATED IN CHART Social History: REVIEWED STATED IN CHART SMOKING: Never smoker ETOH: None SUBSTANCES: None Family History: REVIEWED STATED IN CHART P1 Current Medications: Rx: amLODIPine 10 mg tablet Ref: 0 Instructions: take 1 tablet (10 mg) by oral route once daily Rx: aspirin 81 mg tablet,delayed release Ref: 0 Instructions: take 1 tablet (81 mg) by oral route once daily Rx: atorvastatin 80 mg tablet Ref: 0 Instructions: take 1 tablet (80 mg) by oral route once daily Rx: busPIRone 5 mg tablet Ref: 0 Instructions: take 1 tablet (5 mg) by oral route 2 times per day Rx: dapagliflozin propanediol 5 mg tablet Ref: 0 Instructions: take 1 tablet (5 mg) by oral route once daily in the morning Rx: metFORMIN ER 500 mg 24 hr tablet,extended release (gastric retention) Ref: 0 Instructions: take 1 tablet (500 mg) by oral route once daily with the evening meal Rx: metoprolol tartrate 25 mg tablet Ref: 0 Instructions: take 1 tablet (25 mg) by oral route 2 times per day Rx: venlafaxine ER 150 mg capsule,extended release 24 hr Ref: 0 Instructions: take 1 capsule (150 mg) by oral route once daily Rx: Vitamin D3 Ref: 0 Rx: Flexeril Ref: 0 Rx: Eliquis Ref: 0 Rx: gabapentin 300 mg capsule Ref: 0 Instructions: take 1 capsule (300 mg) by oral route 3 times per day Rx: methocarbamoL 750 mg tablet Ref: 0 Instructions: take 1 tablet (750 mg) by oral route 3 times per day P1 PHYSICAL EXAM: General: AOX3, NAD, Well hydrate, well nourished, in no acute distress HEENT: No lumps or masses Extremities: No color changes, no pooling Heart: RRR, no murmur, no gallop Lungs: CTAB, no w/r/r INTEGUMENT: Appearance: Normal color and turgor Surgical Incisions: NA Hairy Patches: ABSENT Dorsal Skin Dimples: Normal [employer] spots: ABSENT PALPATION: TTP Midline: YES Paracervical: NO Parathoracic: NO Paralumbar: YES WITH STEP OFF AT L4-5 PALPABLE SIJ TESTING (Remington's, FABER4, Compression, Distraction, Thigh Thrust, Hip Thrust): TESTED/NOT TESTED * POSITIVE FINDINGS: REMINGTON'S B/L; RIGHT COMPRESSION NEGATIVE FINDINGS: LEFT COMPRESSION, DISTRACTION, THIGH THRUST, HIP THRUST; RIGHT DISTRACTION, HIP/THIGH THRUST POSTURAL BALANCE: Coronal: BALANCED Sagittal: BALANCED Shoulder height: LEVEL Pelvic Girdle: LEVEL ROM AND APPEARANCE: Neck: UNRESTRICTED Lumbar: RESTRICTED WITH PAIN Shoulders: Symmetrical Hips: Symmetrical Knees: Symmetrical Hands: Symmetrical Feet: Symmetrical VASCULAR STATUS: PALPABLE PULSES B/L UE AND LE 2/4 RAD/ULNAR/DP/PT Edema: NONE NEUROLOGICAL EXAMINATION: Mental Status: Awake, alert, fully oriented with normal attention, concentration, and memory. Fluent appropriate speech. CRANIAL NERVES: I: Olfactory not assessed. II: Visual acuity normal, no visual field deficit noted with confrontation. III, IV: Normal pupillary reflexes & intact extraocular movements without nystagmus. V, : Intact symmetrical facial sensation. VII: Intact symmetrical facial motor movement: Hearing intact. IX, X: Intact gag, swallow, & normal voice. XI: Sternocleidomastoid, trapezius function intact. XII: Tongue midline with normal movements. TENSIONING: * L'HERMITTE'S SIG:NEG SPURLUNG'S SIGN:NEG UPPER EXTREMITY TENSIONING SIGNS: NEG CUBITAL TUNNEL COMPRESSION:NEG TINELS AT WRIST:NEG STRAIGHT LEG RAISE:POS LLE CONTRALATERAL STRAIGHT LEG RAISE: NEG MOTOR EXAM (0-5/5, NT) Muscle appearance: Symmetrical, without signs of atrophy or dystrophy UPPER EXTREMITY RIGHT LEFT Shoulder Abduction 5 5 Biceps 5 5 Triceps 5 5 Wrist Extension 5 5 Hand Intrinsics 5 5 Head Sawyer 5 5 LOWER EXTREMITY RIGHT LEFT Hip Flexion 5 3 Knee Extension 5 3 Knee Flexion 5 3 Dorsiflexion 4+ 3 Plantarflexion 4 3 EHL 4- 3 FHL 4- 3 REFLEXES (0-4/2, NT): RIGHT LEFT Bicep 2 2 Brachioradialis 2 2 Triceps 2 2 Patellar 2 1 Achilles 2 1 PATHOLOGICAL REFLEXES: RIGHT LEFT JOHNS'S ABSENT ABSENT CLONUS ABSENT PRESENT 7 BEATS BABINSKI ABSENT ABSENT RECTAL TONE: INTACT/NT SENSATION (0-4, NT): Sensation intact to LT and Pain * C5-T1 distribution BUE * L2-S2 distribution BLE *Exceptions below* DERMATOMAL DEFICIT/RADICULAR PATTERN: L4-5 BLE GAIT AND FUNCTIONAL EVALUATION: AMBULATORY AID WALKER ROMBERG'S TEST NOT INTACT HAND AND FINGER DEXTERITY INTACT YES DYSDIADOCHOKINESIA EXAM NEG B/L YES TOE/HEEL WALK INTACT WITH GOOD BALANCE NO SQUAT AND RISE W/O ASSISTANCE TO 60 DEG KNEE FLEXION NO SINGLE LEG STANCE NOT INTACT [place] NT IMAGING: XRAY Date: 07/09/23 Location: [facility] Region: LUMBAR Views: AP/LAT/FLEX/EXT/OB/AP PELVIS IMAGES ARE REVIEWED WITH THE PATIENT IN OFFICE AND DEMONSTRATE THE FOLLOWING: FINDINGS: L4-5 GRADE I UNSTABLE SPONDYLOLISTHESIS WITH PARS ELONGATION, POSSIBLE PARS FRACTURE VS DEFECT WITH FACET ARTHROPATHY, SEVERE. DISC DEGENERATION WITH COLLAPSE AND SPONDYLOSIS WITH FORAMINAL STENOSIS DUE TO COLLAPSE. FLATTENED LL SEGMENTAL. L5-S1 SPONDYLOSIS WITH DISC COLLAPSE, HEIGHT LOSS, FORAMINAL STENOSIS. NO FRACTURES NOTED. FACET ARTHROPATHY SEVERE. L3-4 SPONDYLOSIS MILD TO MODERATE WITH MODERATE FACET ARTHROSIS. NO FRACTURES. L1-3 MILD TO MODERATE SPONDYLOSIS. NO FRACTURES. AP PELVIS SHOWS CONGRUENT LEVEL PELVIS NO FRACTURES. CT Date: 05/05/24 [facility] Region: LUMBAR Contrast: N IMAGES ARE REVIEWED WITH THE PATIENT IN OFFICE AND DEMONSTRATE THE FOLLOWING: FINDINGS: L4-5 SPONDYLOLISTHESIS WITH VACUUM DISC, DISC HEIGHT LOSS, FACET ARTHROSIS SEVERE WITH PARS ELONGATION AND PARS DEFECTS B/L. DEFECTS ARE LIKELY DUE TO MICROFRACTURE WITH HEALING DUE TO PARS ELONGATION, SCLEROSIS AND INCOMPLETE HEALING OF THE PARS WITH FRACTURE LINES STILL EVIDENT HERE THAT ARE PARTIALLY HEALED. NO OTHER FRACTURES NOTED. SPONDYLOSIS NOTED L3-4 AND L5-1 THAT IS MODERATE TO SEVERE WITH SEVERE FACET ARTHROSIS, MILD STENOSIS. 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 NO LESIONS. MRI Date: 05/10/24 Comparison: Lumbar MRI w/o 03/13/23 [facility] Region: LUMBAR Contrast: N IMAGES ARE REVIEWED WITH THE PATIENT IN OFFICE AND DEMONSTRATE THE FOLLOWING: FINDINGS: SIMILAR FINDINGS TO CT SCAN WITH SPONDYLOSIS SEVERE WITH GRADE I UNSTABLE SPONDYLOLISTHESIS L4-5 WITH SEVERE STENOSIS AT L4-5 DUE TO FACET ARTHROPATHY, PARS AND FACET OVERGROWTH, OSTEOPHYTE FORMATION WELL LIGAMENTAL HYPERTROPHY. THERE ARE BOGGY FACETS AT L4-5 CAUSING SUBLIGAMENTAL AND SUBFACET STENOSIS. THERE IS FORAMINAL STENOSIS THAT IS MODERATE TO SEVERE B/L. THE FRACTURES AT THE PARS OF L4 ARE EVIDENT THAT PARTIAL HEALING HAS HAPPENED DUE TO THE EDEMA IN PART OF THE FRACTURE WITH BLACK LINE THROUGH AND THROUGH. THERE IS ALSO EDEMA IN THE INTERSPINOUS SPACE SUGGESTING INSTABILITY WITH LIGAMENTAL DISRUPTION WELL. L1-4 AND L5-S1 SHOW SPONDYLOSIS WITH MODERATE STENOSIS AND SEVERE FACET ARTHROSIS WITHOUT STENOSIS TO EXPLAIN HIS SX. Similar findings to previous MRI. Thoracic spine MRI warranted. SX OF PROXIMAL LLE WEAKNESS ARE POORLY EXPLAINED AND MRI OF THE THORACIC SPINE ARE WARRANTED DUE TO THE MYELOPATHIC GAIT AND WEAKNESS HE PRESENTS WITH WELL THE BI AND UI. IMPRESSION: It was my pleasure to have seen and examined Art. I reviewed the patient's clinical syndrome, physical findings, and imaging studies during the appointment today. It is my impression that the patient has a diagnosis of. 1.L4-5 Grade I spondylolisthesis with spondylosis and stenosis 2.Neurogenic claudication 3.Lower extremity weakness PLAN: DISCUSSION: -I have discussed with the patient their clinical signs and symptoms, imaging, and treatment options. We have discussed risks, benefits, potential outcomes and natural course as pertains top their issues. The patient understands and would like to proceed as follows below: SURGICAL RECOMMENDATION -L4-5 IN PLIBF Left THERAPIES -Cont. with home exercises and home PT exercises as able -Cont. with Heat/Ice as warranted -Cont. with supplementation Vit D, Vit C, Ca2+, High protein diet -OK for massage or other alternative treatment modalities as able. If it exacerbates your sx do not continue ACTIVITY - -NO LIFTING BENDING TWISTING PUSHING PULLING GREATER THAN -20lbs -Recommend walking up to 30 min 2x daily on a flat easy surface with good support. MEDICATIONS -Rx: Robaxin 750 #60 and Gabapentin 300 TID #90 -Take as directed -Cont. home medications as directed by your PCP. Check with your PCP for any medication interactions or issues if needed. IMAGING -N/A INJECTIONS -N/A Spine Surgery Risk Review Mr. Hinojosa is presenting for evaluation of lumbar pain. It was my pleasure to have seen and examined Mr. Hinojosa. In our visit today we have had a chance to go over subjective complaints, physical examination findings and treatments including the natural course history without intervention and various interventional options. The patients imaging demonstrates: XRAY Date: 07/09/23 Location: [facility] Region: LUMBAR Views: AP/LAT/FLEX/EXT/OB/AP PELVIS IMAGES ARE REVIEWED WITH THE PATIENT IN OFFICE AND DEMONSTRATE THE FOLLOWING: FINDINGS: L4-5 GRADE I UNSTABLE SPONDYLOLISTHESIS WITH PARS ELONGATION, POSSIBLE PARS FRACTURE VS DEFECT WITH FACET ARTHROPATHY, SEVERE. DISC DEGENERATION WITH COLLAPSE AND SPONDYLOSIS WITH FORAMINAL STENOSIS DUE TO COLLAPSE. FLATTENED LL SEGMENTAL. L5-S1 SPONDYLOSIS WITH DISC COLLAPSE, HEIGHT LOSS, FORAMINAL STENOSIS. NO FRACTURES NOTED. FACET ARTHROPATHY SEVERE. L3-4 SPONDYLOSIS MILD TO MODERATE WITH MODERATE FACET ARTHROSIS. NO FRACTURES. L1-3 MILD TO MODERATE SPONDYLOSIS. NO FRACTURES. AP PELVIS SHOWS CONGRUENT LEVEL PELVIS NO FRACTURES. CT Date: 05/05/24 Location: [facility] Region: LUMBAR Contrast: N IMAGES ARE REVIEWED WITH THE PATIENT IN OFFICE AND DEMONSTRATE THE FOLLOWING: FINDINGS: L4-5 SPONDYLOLISTHESIS WITH VACUUM DISC, DISC HEIGHT LOSS, FACET ARTHROSIS SEVERE WITH PARS ELONGATION AND PARS DEFECTS B/L. DEFECTS ARE LIKELY DUE TO MICROFRACTURE WITH HEALING DUE TO PARS ELONGATION, SCLEROSIS AND INCOMPLETE HEALING OF THE PARS WITH FRACTURE LINES STILL EVIDENT HERE THAT ARE PARTIALLY HEALED. NO OTHER FRACTURES NOTED. SPONDYLOSIS NOTED L3-4 AND L5-1 THAT IS MODERATE TO SEVERE WITH SEVERE FACET ARTHROSIS, MILD STENOSIS. 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 NO LESIONS. MRI Date: 05/10/24 Comparison: Lumbar MRI w/o 03/13/23 [facility] Region: LUMBAR Contrast: N IMAGES ARE REVIEWED WITH THE PATIENT IN OFFICE AND DEMONSTRATE THE FOLLOWING: FINDINGS: SIMILAR FINDINGS TO CT SCAN WITH SPONDYLOSIS SEVERE WITH GRADE I UNSTABLE SPONDYLOLISTHESIS L4-5 WITH SEVERE STENOSIS AT L4-5 DUE TO FACET ARTHROPATHY, PARS AND FACET OVERGROWTH, OSTEOPHYTE FORMATION WELL LIGAMENTAL HYPERTROPHY. THERE ARE BOGGY FACETS AT L4-5 CAUSING SUBLIGAMENTAL AND SUBFACET STENOSIS. THERE IS FORAMINAL STENOSIS THAT IS MODERATE TO SEVERE B/L. THE FRACTURES AT THE PARS OF L4 ARE EVIDENT THAT PARTIAL HEALING HAS HAPPENED DUE TO THE EDEMA IN PART OF THE FRACTURE WITH BLACK LINE THROUGH AND THROUGH. THERE IS ALSO EDEMA IN THE INTERSPINOUS SPACE SUGGESTING INSTABILITY WITH LIGAMENTAL DISRUPTION WELL. L1-4 AND L5-S1 SHOW SPONDYLOSIS WITH MODERATE STENOSIS AND SEVERE FACET ARTHROSIS WITHOUT STENOSIS TO EXPLAIN HIS SX. Similar findings to previous MRI. Thoracic spine MRI warranted. SX OF PROXIMAL LLE WEAKNESS ARE POORLY EXPLAINED AND MRI OF THE THORACIC SPINE ARE WARRANTED DUE TO THE MYELOPATHIC GAIT AND WEAKNESS HE PRESENTS WITH WELL THE BI AND UI. On physical exam, Mr. Hinojosa demonstrates: Recently he has been having more back pain and to the point where he has been in the ED twice now, in the past 1 week.He is also having more LLE weakness which started about a month ago and is progressively getting worse.He now cannot fire his quad muscle and is unable to flex his hip due to weakness in his leg.He has been using a walker for the past two weeks due to profound weakness and his legs "giving out" on his several times causing him to fall. He states he has also noted that he will get up from his chair and have wet his pants and not known. He does have a history of prostate CA and issues with his urethral strictures, but this UI is new for him. It is intermittent and he is not retaining as of now but in the hospital did need a catheter placed. He states he has no genital numbness, but that his inner thighs have a different sensation and that overall his LLE has a "" feeling to it. He states no other sx at this time. in room agrees with hx and states he has deteriorated significantly in the past two weeks. Patient is taking Reyno and Aspirin. I have explained to the patient that as their condition progresses it will cause further neurological deficits and eventual paralysis. Based on the patients imaging, physical exam, and the rapid progression and disabling nature of their symptoms, at this time I recommend surgery in the form of a: L4-5 IN PLIBF Left. I discussed the risk and benefits of this procedure at length with Mr. Hinojosa. The patient agreed to considered pursuing the procedure abovementioned. Prior to surgery, she should follow up with her PCP (Cardio, ID, IM etc) for clearance. Questions were invited and answered, and the patient wishes to proceed as outlined below. Currently, I am recommendin. L4-5 IN PLIBF Left 2.Follow up with PCP for surgical clearance 3.Review of surgical risks and benefits as well as an educational packet on the proposed surgical procedure. Risks: All surgical procedures come with inherent risks, including those related to positioning, anesthesia, intraoperative findings, and postoperative complications. It is important to understand that surgery does not come with any guarantee of a successful outcome as complications and adverse events are always possible. The patient was given a handout in office today discussing the surgical procedure and risks associated with the intervention, both of which were discussed with the patient. These risks include but are not limited to the following: * Experiencing same, different or even worse symptoms in back, neck, arms, or legs compared to before surgery. Requiring further surgery or other forms of treatment presently or at some time in the future at same or other levels of the intended spine surgery. On an extreme but fortunately relatively rare basis severe complication such as blindness, stroke, heart attack, temporary and/or permanent nerve injury, paralysis, coma, or may occur, sometimes without known explanation. Surgical complications may include but are not limited to risk of infection, fluid accumulation in the surgical dissection site, including a seroma or hematoma, that requires additional surgery, wound drainage, bleeding, new numbness or weakness, vision changes/loss, spinal fluid leakage, non-healing and/or infected incision, headaches, difficulty or inability to swallow, hoarseness, hemopneumothorax, pneumothorax, impotence, retrograde ejaculation, vaginal dryness; injury to nerves, spinal cord, blood vessels, lymphatics or other vital organs (i.e., bowel injury, injury to the great vessels); heterotopic bone formation; complications related to the hardware such as screws, rods, cages including misplaced hardware, device failure, instrumentation at the wrong spine level, hardware fracture/breakage, or hardware loosening; vertebral failure of the spinal column above or below the newly placed hardware; retained surgical instrumentations or devices and the need for further surgery. * Medical risks of the planned spine surgery include but are not limited to generalized Infections to the whole body or local areas outside of the surgical site (sepsis), heart attack, bleeding, anaphylaxis, meningitis, seizure, epilepsy, hearing loss, burn tirado, laceration of the head or other areas of the body, bruising, hypersensitivity of the skin, bladder over distension; allergic reaction; shoulder injury related to positioning; fat, blood and air clots to other areas of the body like heart, lungs, brain; failure of internal organs such as lungs, kidneys, liver and excessive bleeding. If blood transfusions are necessary, note that transfusions may cause intolerance reactions such as anaphylaxis or other complex reactions. Despite best efforts, the results of spine surgery might not heal in terms of bone, soft tissues such as skin, fascia, ligaments, and joints. Additionally, in order to achieve best possible results, spine surgery may be carried out beyond the initially planned levels and involve decompression, fusion including insertion of hardware at levels other than the original intended area of surgical interest change some portions of the procedure in order to ensure the best possible outcomes. With spine surgery and spinal fusion, there are different off label uses of instrumentation (devices, implants and hardware) as well as biological substances (bone morphogenic proteins, demineralized bone matrix) as well as using extra bone from allograft sources (i.e. cadaver bone) or autograft (iliac crest bone, ribs, or the spine itself). The patient has been given information about these practices and their inherent risks and benefits. [facility] is an educational center that serves as a training facility for neurosurgical and orthopedic EATING DIS[employer] SPECIALIST and Nursing students. Physician assistants are medically trained surgical providers who function in the outpatient, inpatient, and operating room setting under the direct supervision of the attending surgeon. [facility] has multiple operating rooms with single and overlapping rooms running daily. They currently function under the required guidelines as produced by the Senate Finance Committee with regards to the overlapping rooms a nd will continue to comply with changes to this policy as they occur. The requirements include and are complied with as follows: (1) the critical portions of the overlapping rooms will not occur at the same time, (2) the attending physician will be physically present during the critical portions of the procedure and immediately available during the entire case, and (3) a back-up attending is designated should the primary attending not be immediately available. The patient has had a chance to review all the listed information, has been given print outs detailing this information, and has had all his/her questions answered to their satisfaction. It was my pleasure to have seen and examined Mr. Hinojosa. In our visit today we have had a chance to go over my understanding of our patient's current condition, the natural course history without intervention and various interventional options. Questions were invited and answered, and the patient wishes to proceed as outlined above. I have seen and examined the patient for 25 minutes and we have spent more than 50% of the time in repeat and detailed counseling about the patient's condition, its natural course history with out and as much as can be predicted with surgery and re-review of various surgical treatment options. In conclusion, Mr. Hinojosa requested we proceed with the above suggested surgery and are willing to accept risks and limitations of the suggested surgery as nature of the disease process and our best attempts at treatment for the condition. MEDICAL NECESSITY: Mr. Hinojosa, a 74-year-old male, presents with acute neurological deterioration demonstrating urgent surgical indicators including progressive left lower extremity weakness (3/5 strength), new onset urinary incontinence, and severe low back pain (VAS 8/10). His condition has rapidly declined over the past two weeks, necessitating two emergency department visits and requiring assistive devices for ambulation due to profound weakness and falls. Neurological examination reveals significant deficits including diminished reflexes, positive straight leg raise on the left, presence of clonus (7 beats), and a thoracic myelopathic gait pattern. Advanced imaging confirms an unstable Grade I spondylolisthesis at L4-5 with bilateral pars defects, severe central and foraminal stenosis, and evidence of ligamental disruption. Conservative management, including medications and physical therapy, has failed to prevent neurological deterioration. The presence of rapidly progressive neurological deficits, particularly the combination of motor weakness and bowel/bladder dysfunction, indicates potential cauda equina syndrome requiring urgent surgical intervention to prevent permanent neurological damage. SURGICAL RATIONALE: The proposed L4-5 IN PLIBF (Minimally Invasive Posterior Lumbar Interbody Fusion) directly addresses the patient's complex pathology and progressive neurological compromise. This surgical approach is specifically indicated due to multiple factors: the documented unstable Grade I spondylolisthesis with bilateral pars defects, severe central and foraminal stenosis caused by facet arthropathy and ligamental hypertrophy, and the presence of active neurological deterioration. The minimally invasive approach aims to achieve neural decompression and spinal stabilization while minimizing surgical trauma in this medically complex patient. The procedure will address both the mechanical instability through fusion and the neurological compression through decompression, with the primary goals of halting neurological deterioration, restoring neurological function, and preventing further progression of spinal instability. Given the presence of myelopathic symptoms and bowel/bladder dysfunction, urgent surgical intervention is crucial to prevent permanent neurological damage and optimize potential for functional recovery. FOLLOW UP: *POST-OP PLAN AT NEXT VISIT: * RECHECK PATIENT EDUCATION: Medications Reviewed: YES In our visit today Mr. Hinojosa and I have had a chance to go over my understanding of the patient's current condition, the natural course history without intervention and various interventional options. Questions were invited and answered, and the patient wishes to proceed as outlined above. I will be sure to keep you updated after Mr. Hinojosa returns here for further follow-up. Thank you again for your referral. Please do not hesitate to contact me if you have any further questions. Signed and authenticated by: [facility] [address] [address] . This message is confidential, intended only for the named recipient(s) and may contain information that is privileged or exempt from disclosure under applicable law. If you are not the intended recipient(s), you are notified that the dissemination, distribution or copying of this information is prohibited. If you received this message in error, please notify the sender then delete this message. Past Medical History Past Medical History: Cancer, Diabetes Mellitus, Eye Disorder, Hyperlipidemia, Hypertension, Liver Disease, Osteoarthritis (OA), Prostate Disorder Additional Past Medical History / Comment(s): Kidney Stones; glaucoma; diverticulitis. Past hx of HTN. Prostate Cancer 07/2015, SURGERY, RADIATON. INCISIONAL HERNIA. elevated liver enzymes were re checked 06/04/23 History of Any Multi-Drug Resistant Organisms: None Reported Past Surgical History: Cholecystectomy, Heart Catheterization With Stent, Hernia Repair, Prostate Surgery Additional Past Surgical History / Comment(s): Multiple Lithotripsies , priscilla Cataract removal. finger surgery. Hernia repair w/ mesh; UMBILICAL HERNIA. Cyst removed from tailbone. RT URETRAL STENT 12/11/22, PROSTATECTOMY, COLONOSCOPY Past Anesthesia/Blood Transfusion Reactions: No Reported Reaction Additional Past Anesthesia/Blood Transfusion Reaction / Comment(s): no blood tx hx Date of Last Stent Placement:: 2022 Smoking Status: Former smoker - Past Family History Brother(s) Family Medical History: Cancer Additional Family Medical History / Comment(s): Skin cancer Father Family Medical History: Cancer Additional Family Medical History / Comment(s): Skin cancer Mother Family Medical History: Cancer Additional Family Medical History / Comment(s): Skin cancer. Medications and Allergies Home Medications Medication Instructions Recorded Confirmed Type glipiZIDE [Glucotrol] 10 mg PO BID 01/14/15 06/05/24 History sitaGLIPtin [Januvia] 100 mg PO DAILY 01/14/15 06/05/24 History Timolol 0.5% Ophth Soln [Timoptic 1 drop BOTH EYES BID 11/01/18 06/05/24 History 0.5% Ophth Soln] Latanoprost [Xalatan 0.005%] 1 drop BOTH EYES HS 01/29/20 06/05/24 History Venlafaxine HCl ER [Effexor XR] 75 mg PO DAILY 01/29/20 06/05/24 History Aspirin 81 mg PO DAILY chew 02/01/20 06/05/24 Rx Atorvastatin [Lipitor] 80 mg PO DAILY #30 tab 02/01/20 06/05/24 Rx Losartan [Cozaar] 50 mg PO DAILY #30 tab 02/01/20 06/05/24 Rx Metoprolol Tartrate [Lopressor] 25 mg PO BID #60 tab 02/01/20 06/05/24 Rx amLODIPine [Norvasc] 10 mg PO DAILY #30 tab 02/01/20 06/05/24 Rx Venlafaxine HCl [Effexor XR] 150 mg PO DAILY 03/19/22 06/05/24 History Cholecalciferol [Vitamin D3 (25 50 mcg PO DAILY 12/10/22 06/05/24 History Mcg = 1000 Iu)] Insulin Glargine,Hum.rec.anlog 35 units SQ HS 12/10/22 06/05/24 History [Lantus Solostar Pen] metFORMIN HCL ER [Glucophage XR] 1,000 mg PO BID-W/MEALS 12/10/22 06/05/24 History Nitroglycerin Sl Tabs [Nitrostat] 0.4 mg SUBLINGUAL Q5M PRN tab 04/27/23 06/05/24 Rx Cyclobenzaprine [Flexeril] 10 mg PO TID PRN #21 tablet 05/05/24 06/05/24 Rx Allergies Allergy/AdvReac Type Severity Reaction Status Date / Time Penicillins Allergy Swelling Verified 06/05/24 10:15 propoxyphene napsylate Allergy Rash/Hives Verified 06/05/24 10:15 [From Darvocet-N] Iodinated Contrast Media AdvReac Nausea & Verified 06/05/24 10:15 [Iodinated Contrast- Oral Vomiting and IV Dye] iohexol AdvReac Nausea & Verified 06/05/24 10:15 Vomiting Physical Examination Osteopathic Statement: *. No significant issues noted on an osteopathic structural exam other than those noted in the History and Physical/Consult.
[~2024-06-11 11:35] MED LIST: HYDROmorphone 0.5 MG/0.5 ML SYRINGE IVP PRN; LIDOCAINE 1% (10MG/ML) FOR IV START INTRADERMA PRN; MIDAZOLAM 2 MG/2 ML VIAL IV PRN; ONDANSETRON 4 MG/2 ML VIAL IVP PRN; TRANEXAMIC 1,000 MG/100ML-NACL 1,000 MG in SALINE 1 100ML.BAG IVPB PRN; fentaNYL (PF) 50 MCG/ML 2 ML AMP IVP PRN
[2024-06-11] MEDS: ACETAMINOPHEN TAB 500 MG TAB PO PRN (12:48)
[2024-06-11] MEDS: GABAPENTIN 300 MG CAP PO PRN (12:48)
[2024-06-11 13:02] LABS: Glucose,Whole Blood 142 mg/dL (70-110)
[2024-06-11] MEDS: DEXAMETHASONE SOD PHOSPHATE 4 MG/ML 1 ML VIAL IV ONE (13:03)
[2024-06-11] MEDS: LACTATED RINGERS 1,000 ML IV SCH (13:03)
[2024-06-11] MEDS: ONDANSETRON 4 MG/2 ML VIAL IVP ONE (13:04)
[2024-06-11] MEDS: IV FLUID CONTINUATION 1,000 ML IV ONE ×2 (13:04→16:06)
[2024-06-11] MEDS: IV FLUID CONTINUATION 500 ML IV ONE (13:04)
[2024-06-11] MEDS ORDERED: MIDAZOLAM 2 MG/2 ML VIAL ONE (13:56)
[2024-06-11] MEDS ORDERED: LIDOCAINE 1% INJ 10MG/ML (20 ML MDV) ONE (13:56)
[2024-06-11] MEDS ORDERED: PROPOFOL 10 MG/ML 20 ML VIAL IV ONE (13:56)
[2024-06-11] MEDS ORDERED: HYDROmorphone (PF) 1 MG/ML ONE (13:56)
[2024-06-11] MEDS ORDERED: PHENYLEPHRINE-0.9% NACL SYG 1,000 MCG/10 ML SYRINGE ONE (13:56)
[2024-06-11] MEDS ORDERED: TRANEXAMIC 1,000 MG/100ML-NACL PREMIX BAG ONE (13:56)
[2024-06-11] MEDS ORDERED: ROCURONIUM 10 MG/ML (5 ML VIAL) IV ONE (13:56)
[2024-06-11] MEDS ORDERED: NEOSTIGMINE 1 MG/ML 10 ML VIAL ONE (13:56)
[2024-06-11] MEDS ORDERED: GLYCOPYRROLATE 0.2 MG/ML 2 ML VIAL ONE (13:56)
[2024-06-11] MEDS ORDERED: fentaNYL (PF) 50 MCG/ML 2 ML AMP ONE (13:56)
[2024-06-11] MEDS ORDERED: SUCCINYLCHOLINE CHLORIDE 200 MG/10 ML VIAL IV ONE (13:56)
[2024-06-11] MEDS: THROMBIN (BOVINE) 5,000 UNIT VIAL TOPICAL ONE (14:49)
[2024-06-11] MEDS: LIDOCAINE 2%-EPI 1:100,000 20 ML VIAL SQ ONE (14:50)
[2024-06-11] MEDS: BUPIVACAINE (PF) 0.5% 30 ML VIAL SQ ONE (14:50)
--- NOTE | 2024-06-11 15:54 | P.OP ---
Date of Procedure: 06/11/24 Preoperative Diagnosis: 1.L4-5 Grade I spondylolisthesis with spondylosis and stenosis 2.Neurogenic claudication 3.Lower extremity weakness 4. LEFT FOOT DROP Postoperative Diagnosis: 1.L4-5 Grade I spondylolisthesis with spondylosis and stenosis 2.Neurogenic claudication 3.Lower extremity weakness 4. LEFT FOOT DROP Procedure(s) Performed: 1. L4-5 POSTEROLATERAL AND INTERBODY FUSION 2. L4-5 POSTEROLATERAL INSTRUMENTATION 3. L4-5 LAMINECTOMY, FACETECTOMY AND FORAMINOTOMY FOR NEURAL DECOMPRESSION AND CAGE PLACEMENT 4. INSERTION OF BIOMECHANICAL DEVICE L4-5, CAGE, X1 5. USE OF [employer] NAVIGATION FOR ASSISTANCE IN ACCURATE SCREW PLACEMENT USE OF IONM ALL SCREWS TESTING > 20 mA Implants: -CHRISTINA EVEREST RODS AND SCREWS -GLOBUS SABLE CAGE 8 DEG, 10 MM, 9-17, LONG -MAGNATOS, CONTOUR, ARTHROCELL, ALLOCELL, AUTOGRAFT Anesthesia: GETA Surgeon: Gwyn Nguyen Short Order Fry Cook #1: Pancho Martinez (WAS PRESENT AND ASSISTED WITH ALL ASPECTS OF THE CASE FROM POSITION TO DRESSING PLACEMENT) Estimated Blood Loss (ml): 100 IV fluids (ml): 1,200 Urine output (ml): 100 Pathology: none sent Condition: stable Disposition: PACU Indications for Procedure: Mr. Hinojosa is presenting for evaluation of lumbar pain. It was my pleasure to have seen and examined Mr. Hinojosa. In our visit today we have had a chance to go over subjective complaints, physical examination findings and treatments including the natural course history without intervention and various interventional options. The patients imaging demonstrates: XRAY Date: 07/09/23 Location: [facility] Region: LUMBAR Views: AP/LAT/FLEX/EXT/OB/AP PELVIS IMAGES ARE REVIEWED WITH THE PATIENT IN OFFICE AND DEMONSTRATE THE FOLLOWING: FINDINGS: L4-5 GRADE I UNSTABLE SPONDYLOLISTHESIS WITH PARS ELONGATION, POSSIBLE PARS FRACTURE VS DEFECT WITH FACET ARTHROPATHY, SEVERE. DISC DEGENERATION WITH COLLAPSE AND SPONDYLOSIS WITH FORAMINAL STENOSIS DUE TO COLLAPSE. FLATTENED LL SEGMENTAL. L5-S1 SPONDYLOSIS WITH DISC COLLAPSE, HEIGHT LOSS, FORAMINAL STENOSIS. NO FR ACTURES NOTED. FACET ARTHROPATHY SEVERE. L3-4 SPONDYLOSIS MILD TO MODERATE WITH MODERATE FACET ARTHROSIS. NO FRACTURES. L1-3 MILD TO MODERATE SPONDYLOSIS. NO FRACTURES. AP PELVIS SHOWS CONGRUENT LEVEL PELVIS NO FRACTURES. CT Date: 05/05/24 Location: [facility] Region: LUMBAR Contrast: N IMAGES ARE REVIEWED WITH THE PATIENT IN OFFICE AND DEMONSTRATE THE FOLLOWING: FINDINGS: L4-5 SPONDYLOLISTHESIS WITH VACUUM DISC, DISC HEIGHT LOSS, FACET ARTHROSIS SEVERE WITH PARS ELONGATION AND PARS DEFECTS B/L. DEFECTS ARE LIKELY DUE TO MICROFRACTURE WITH HEALING DUE TO PARS ELONGATION, SCLEROSIS AND INCOMPLETE HEALING OF THE PARS WITH FRACTURE LINES STILL EVIDENT HERE THAT ARE PARTIALLY HEALED. NO OTHER FRACTURES NOTED. SPONDYLOSIS NOTED L3-4 AND L5-1 THAT IS MODERATE TO SEVERE WITH SEVERE FACET ARTHROSIS, MILD STENOSIS. 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 NO LESIONS. MRI Date: 05/10/24 Comparison: Lumbar MRI w/o 03/13/23 Location: [facility] Region: LUMBAR Contrast: N IMAGES ARE REVIEWED WITH THE PATIENT IN OFFICE AND DEMONSTRATE THE FOLLOWING: FINDINGS: SIMILAR FINDINGS TO CT SCAN WITH SPONDYLOSIS SEVERE WITH GRADE I UNSTABLE SPONDYLOLISTHESIS L4-5 WITH SEVERE STENOSIS AT L4-5 DUE TO FACET ARTHROPATHY, PARS AND FACET OVERGROWTH, OSTEOPHYTE FORMATION WELL LIGAMENTAL HYPERTROPHY. THERE ARE BOGGY FACETS AT L4-5 CAUSING SUBLIGAMENTAL AND SUBFACET STENOSIS. THERE IS FORAMINAL STENOSIS THAT IS MODERATE TO SEVERE B/L. THE FRACTURES AT THE PARS OF L4 ARE EVIDENT THAT PARTIAL HEALING HAS HAPPENED DUE TO THE EDEMA IN PART OF THE FRACTURE WITH BLACK LINE THROUGH AND THROUGH. THERE IS ALSO EDEMA IN THE INTERSPINOUS SPACE SUGGESTING INSTABILITY WITH LIGAMENTAL DISR UPTION WELL. L1-4 AND L5-S1 SHOW SPONDYLOSIS WITH MODERATE STENOSIS AND SEVERE FACET ARTHROSIS WITHOUT STENOSIS TO EXPLAIN HIS SX. Similar findings to previous MRI. Thoracic spine MRI warranted. SX OF PROXIMAL LLE WEAKNESS ARE POORLY EXPLAINED AND MRI OF THE THORACIC SPINE ARE WARRANTED DUE TO THE MYELOPATHIC GAIT AND WEAKNESS HE PRESENTS WITH WELL THE BI AND UI. On physical exam, Mr. Hinojosa demonstrates: Recently he has been having more back pain and to the point where he has been in the ED twice now, in the past 1 week.He is also having more LLE weakness which started about a month ago and is progressively getting worse.He now cannot fire his quad muscle and is unable to flex his hip due to weakness in his leg.He has been using a walker for the past two weeks due to profound weakness and his legs "giving out" on his several times causing him to fall. He states he has also noted that he will get up from his chair and have wet his pants and not known. He does have a history of prostate CA and issues with his urethral strictures, but this UI is new for him. It is intermittent and he is not retaining as of now but in the hospital did need a catheter placed. He states he has no genital numbness, but that his inner thighs have a different sensation and that overall his LLE has a "" feeling to it. He states no other sx at this time. in room agrees with hx and states he has deteriorated significantly in the past two weeks. Patient is taking [place]ral and Aspirin. I have explained to the patient that as their condition progresses it will cause further neurological deficits and eventual paralysis. Based on the patients imaging, physical exam, and the rapid progression and disabling nature of their symptoms, at this time I recommend surgery in the form of a: L4-5 TN PLIBF Left. I discussed the risk and benefits of this procedure at length with Mr. Hinojosa. The patient agreed to considered pursuing the procedure abovementioned. Prior to surgery, she should follow up with her PCP (Cardio, ID, IM etc) for clearance. Questions were invited and answered, and the patient wishes to proceed as outlined below. Currently, I am recommendin. L4-5 TN PLIBF Left Description of Procedure: L4-L5 MIS TLIF MEL The patient was seen and examined in the preoperative area. All preoperative protocols were followed. Informed consent was obtained, risks and benefits of the procedure were discussed at length. Risks including bleeding infection damage to the surrounding tissue and risk of reoperation were discussed with the patient. Risk of anesthesia up to and including was discussed with the patient. These are outlined in the risk review. They were willing to accept these risks and all the risks of surgery. The patient was given a weight-based dose of antibiotics in the form of 2 g Ancef. The patient was seen and evaluated by the anesthesia team who deemed them fit for surgery. The site was marked, the patient was willing to proceed with the procedure. The patient was transferred to the operative suite by the Department of anesthesia. They were then drifted off to sleep by the department anesthesia and GETA was performed. The patient tolerated this well. Monsivais catheter was placed by nursing staff, a-traumatically. Once confirmation of lines and ventilation the patient was transferred to a prone Roshan table very carefully. All bony prominences including wrists, elbows, axilla, chest, hips, and thighs, and feet were padded very well. Special attention was paid to the genitalia, and these were padded accordingly. SCDs were placed on bilateral lower extrem ities and were connected. Arms were well padded and placed on arm boards up and out in the 90/90 position. Once in position, again we confirmed good ventilation capabilities and that lines were running appropriately. The patients Lumbar spine was then exposed. 1010s were placed outlining the incision site. Standard alcohol was used to clean the incision site and allowed to dry. C-arm was used to needle localize the pedicles at L4-5 and bio-kevon the patient and confirm level for incision which was marked with a skin marker. Operative briefing was performed with all teams and everyone in agreement to proceed. The patient was then prepped and draped in a normal sterile fashion. Timeout was then performed, and all parties agreed with the procedure to be performed. Skin nicks made and pins placed in the PSIS on the right for the [employer] tracker. 3D Zheim spin was then registered and confirmed to be accurate. Navigated jamshidi and drill-guide were then used to target pedicles bilaterally at L4 and L5. Once accessed, wires were placed in their void. This was repeated at L5 bilaterally. Skin incision was then made along these wires and a perfect scalpel was used over the wire to create a path and measure screw length. Screws were then placed over wires on the contralateral side. Once the screw was at the back of the body wire was removed. The screws were confirmed to be in good position on AP and lateral. We then tested screws and they all tested above 20 mA. Attention was then turned to interbody fusion at L4-5. Tubular retractor system was placed at the interspace of L4-5 using a biplanar c arm. Once in position and dilated up to 26mm tube it was locked to the bed and confirmed in good position. Microscope was then brought in for visualization. Limited myomectomy was performed and laminectomy, complete facetectomy and foraminotomy performed at L4-5 using high speed yuliana and Kerrison rongeur. The ligamentum was removed and the dural sac decompressed. Exiting and traversing roots visualized and decompressed. Neural elements were then protected, and disc space accessed with an osteotome. Sequential shaving then done under lateral imaging and complete discectomy performed using oleksandr, pituitary and curettes. Once good bleeding endplates accomplished and good height mandaen with trials, a combination of autograft, allograft and synthetic placed anterior in the disc space. The cage was then selected and impacted into place under lateral imaging. The cage was then expanded restoring height, lordosis and alignment. The cage was backfilled with bone graft through a funnel. The event producer was removed and the area inspected. Good cage placement, stable cage and no injuries. Area was irrigated copiously, and meticulous hemostasis achieved. The tubular retractor was then removed under direct visualization. Screws were then selected and placed over the previously placed wires on the ipsilateral side. This was done in the fashion described above. Screws were then tested, and all tested above 20 mA. Josiah length was then measured, and rods selected. They were then placed through the MIS tabs, subfascial and locked into L5 bilateral and sequentially reduced into L4 for listhesis reduction. These were then locked into place with set screws and finally tightened. Josiah holders removed and images taken showing good placement of rods, good lordosis and mandaen of height. Tabs were broken off. Wounds were then copiously irrigated with NSS. Yuliana used for TP decortication and mixture of MagnatOs, allograft and autograft packed posterolateral. Fascia was then closed with 0 Vircyl on a Scorpion suture passer for MIS closure. Deep subq closed with 0 Vicryl. Superficial subq closed with 2-0 Vicryl and skin with leyla. Wound edges approximated very well. Wound was then cleaned with alcohol and dried. Wounds dressed in Optifoam dressings. The patient was then transferred off the table back to their hospital bed a- traumatically. They were extubated by the department of anesthesia. They were then transferred to PACU in stable condition having tolerated the procedure with no complications.
[2024-06-11] MEDS ORDERED: ONDANSETRON 4 MG/2 ML VIAL IVP PRN (16:05)
[2024-06-11] MEDS ORDERED: MAGNESIUM HYDROXIDE 2,400 MG/30 ML CUP PO PRN (16:05)
[2024-06-11] MEDS ORDERED: HYDROcodone/APAP 7.5-325MG 1 EACH TAB PO PRN (16:09)
[2024-06-11 16:14] LABS: Glucose,Whole Blood 189 mg/dL (70-110)
[2024-06-11] MEDS: ACETAMINOPHEN TAB 325 MG TAB PO SCH (20:27)
[2024-06-11] MEDS: HYDROmorphone 1 MG/ML 1 ML SYRINGE IVP PRN (20:30)
[2024-06-11 22:51] LABS: Glucose,Whole Blood 293 mg/dL (70-110)
[2024-06-11] MEDS: TIMOLOL 0.5% OPHTH DROPS 5 ML BTL BOTH EYES SCH (23:12)
[2024-06-11] MEDS: INSULIN DETEMIR (LEVEMIR) 100 UNIT/ML SYR SQ SCH (23:12)
[2024-06-11] MEDS: LATANOPROST 0.005% OPHTH DROPS 2.5 ML BTL BOTH EYES SCH (23:13)
[2024-06-12 06:08] LABS: Glucose,Whole Blood 292 mg/dL (70-110)
[2024-06-12] MEDS: CYCLOBENZAPRINE 10 MG TAB PO PRN (06:46)
--- NOTE | 2024-06-12 08:49 | FL ---
EXAMINATION TYPE: FL guidance operating room, XR lumbar spine 2 or 3V DATE OF EXAM: 06/11/2024 4:05 PM COMPARISON: Pre Operative Images if available both CT/MRI or plain film CLINICAL INDICATION: Male, 74 years old with history of PLDF; TECHNIQUE: FL guidance operating room, XR lumbar spine 2 or 3V, multiple fluoroscopic images provided for procedure. Total fluoroscopy time: 51 seconds Total submitted images to PACS: 6 DAP: 890.67 mGym2 Gycm2 uGym2 cGycm2 or equivalent. FINDINGS: Fluoroscopic images during internal fixation demonstrate hardware in appropriate position. Hardware a ppears intact. No immediate complication identified. IMPRESSION: 1. No evidence for intraoperative complication. 2. Please see the operative/procedural note for further details. [facility], , 06/12/2024 8:47 AM
--- NOTE | 2024-06-12 09:01 | CT ---
EXAMINATION TYPE: CT lumbar spine wo con DATE OF EXAM: 06/12/2024 8:56 AM COMPARISON: 05/05/2024. CLINICAL INDICATION: Male, 74 years old with history of s/p lumbar fusion; PHH, s/p lumbar fusion TECHNIQUE: Multiple axial images were obtained from the midportion of T11 through the sacroiliac tia nts. Soft tissue and bone windows in coronal and sagittal planes were obtained and reviewed. 3-D ref ormats of the bones were created on a separate workstation and submitted for review. Contrast used: mL of , (None, if empty). Oral contrast used: (None, if empty). CT DLP: 1605.6 mGycm, Automated exposure control for dose reduction was used. FINDINGS: Postsurgical changes to the lumbar spine with fixation hardware at L4 and L5. Discectomy at L4-L5. Rice rdware limits evaluation at these levels. Hardware appears intact. No evidence of fracture. Postsurgical changes in the soft tissues with foci of gas present. Drainage Posterior back skin stapl es are present. Degeneration with osteophyte formation and facet joint arthropathy throughout the spine. Nonobstructi ng right renal calculi noted. Few scattered colonic diverticula present. I discussed the arterial vas culature. IMPRESSION: Postsurgical changes without evidence of immediate post operative complication. [facility], , 06/12/2024 8:59 AM
[2024-06-12] MEDS: ASPIRIN 81 MG PO SCH (09:09)
[2024-06-12] MEDS: SENNOSIDES-DOCUSATE SODIUM 1 EACH TAB PO SCH (09:09)
[2024-06-12] MEDS: polyethylene glycoL 3350 17 GM POWD.PACK PO SCH (09:10)
[2024-06-12 09:24] LABS: Blood Urea Nitrogen 15.3 mg/dL (9.0-27.0); Calcium 9.2 mg/dL (8.7-10.3); Carbon Dioxide 22.1 mmol/L (21.6-31.8); Chloride 99 mmol/L (96-109); Glucose 282 mg/dL (70-110); Potassium 5.1 mmol/L (3.5-5.5); Sodium 136 mmol/L (135-145)
[2024-06-12 09:46] LABS: Basophils # (A) 0.01 X 10*3/uL (0.00-0.10); Basophils % (A) 0.1 %; Eosinophils # (A) 0 X 10*3/uL (0.04-0.35); Eosinophils % (A) 0 %; HGB 13.9 g/dL (13.0-17.0); Lymphocytes # (A) 0.93 X 10*3/uL (0.90-5.00); MCH 28.3 pg (27.0-32.0); MCHC 31.6 g/dL (32.0-37.0); MCV 89.4 FL (80.0-97.0); Mean Platelet Volume 12.2 FL (9.5-12.2); Monocytes # (A) 0.51 X 10*3/uL (0.20-1.00); Monocytes % (A) 5.5 %; NRBC Per 100 WBC 0 X 10*3/uL (0.00-0.01); Neutrophils % (A) 83.9 %; Platelet Count 193 X 10*3/uL (140-440); RBC 4.92 X 10*6/uL (4.40-5.60); RDW 14.3 % (11.5-14.5)
[2024-06-12 11:42] LABS: Glucose,Whole Blood 421 mg/dL (70-110)
[2024-06-12] MEDS ORDERED: DEXTROSE 50% SYRINGE 50 ML IVP PRN ×2 (12:18)
[2024-06-12] MEDS: INSULIN ASPART (NovoLOG) 100 UNIT/ML VIAL SQ SCH (12:27)
--- NOTE | 2024-06-12 13:11 | P.PN ---
Subjective Progress Note Date: 06/12/24 Principal diagnosis: Status post L4-L5 MIS TLIF Patient evaluated at bedside, his is also present. Patient is resting comfortably, he has received only Dilaudid at this time for pain control, they have not utilized oral medication. We discussed utilizing more the oral med ication at this time. Urinary catheter was recently removed, they are monitoring for urinary retention. He was able to get up and ambulate decently. He does note most pain in his low back with movement. He feels that the range of motion in his left foot is much improved. He denies chest pain or shortness of breath currently. Objective - Vital Signs Vital signs: Vital Signs Temp 97.6 F 06/12/24 07:31 Pulse 68 06/12/24 09:18 Resp 16 06/12/24 09:18 BP 142/80 06/12/24 07:31 Pulse Ox 98 06/12/24 07:31 FiO2 Intake & Output 06/11/24 06/12/24 06/12/24 18:59 06:59 18:59 Intake Total 1650 Output Total 500 2400 750 Balance 1150 -2400 -750 Weight 97.7 kg 97.7 kg Intake: IV 1650 Output: Urine 400 2400 750 Estimated Blood Loss 100 Other: Voiding Method Indwelling Catheter Indwelling Catheter - Exam Gen: AOx3, NAD VSS stable at this time Integument: Postop dressing in good position and condition Palpation: Mild tenderness with palpation to the lower lumbar spine ROM: Full range of motion all major muscle groups of the bilateral upper and lower extremities, no focal deficits appreciated Sensory Exam: Senory exam to light touch is intact C5-T1 Senosry exam to light touch is intact L2-S1 Motor: 5/5 strength in the right lower extremity with hip flexion, knee extension, knee flexion, plantarflexion, dorsiflexion, EHL, FHL 5/5 strength in the left lower extremity with hip flexion, knee extension, knee flexion 4-/5 strength in the left lower extremity with plantarflexion, dorsiflexion, EHL, FHL Reflexes: 2/4 in all UE and LE Negative Merary's bilaterally Negative Babinski bilaterally Clonus bilaterally - Labs CBC & Chem 7: 06/12/24 03:57 06/12/24 03:57 Labs: Abnormal Lab Results - Last 24 Hours (Table) 06/11/24 06/11/24 06/12/24 Range/Units 16:13 22:50 03:57 MCHC 31.6 L (32.0-37.0) g/dL Immature Gran # 0.05 H (0.00-0.04) X 10*3/uL Neutrophils # 7.80 H (1.80-7.70) X 10*3/uL Eosinophils # 0 L (0.04-0.35) X 10*3/uL Anion Gap (4.00-12.00) mmol/L Glucose (70-110) mg/dL POC Glucose (mg/dL) 189 H 293 H (70-110) mg/dL 06/12/24 06/12/24 06/12/24 Range/Units 03:57 06:07 11:41 MCHC (32.0-37.0) g/dL Immature Gran # (0.00-0.04) X 10*3/uL Neutrophils # (1.80-7.70) X 10*3/uL Eosinophils # (0.04-0.35) X 10*3/uL Anion Gap 14.90 H (4.00-12.00) mmol/L Glucose 282 H (70-110) mg/dL POC Glucose (mg/dL) 292 H 421 H (70-110) mg/dL Assessment and Plan Assessment: Postoperative day #1 status post L4-L5 MIS TLIF Plan: Pain control, DC'd 1 mg of Dilaudid, try to limit the 0.5 mg at this time. Please utilize oral medications. Continue stool softeners DVT prophylaxis, 81 mg aspirin daily Wound care, dressing change on 06/13/2024 Weight-bear as tolerated with walker Continue PT/OT Medical recommendations appreciated Encourage incentive spirometer Monitor for urinary retention Discharge planning: Plan to keep patient in hospital for additional night to work with physical therapy and pain control, plan for discharge home with home health care on 06/13/2024 Time with Patient: Less than 30
--- NOTE | 2024-06-12 13:45 | P.CONS ---
History of Present Illness - Reason for Consult Consult date: 06/12/24 Medical management - History of Present Illness History of present illness; patient is a 74-year-old gentleman with past medical history significant for hypertension, diabetes mellitus, depression presented to the hospital for elective L4-5 minimally invasive posterior lumbar interbody fusion with decompression. Patient has been following up outpatient with orthopedic spine for lower back pain, patient has been noticing that the pain was radiating down to his left extremity. Patient also urine continence and frequent falls. After discussion decision was made to proceed with surgery for which patient presented to the hospital on 06/11. Postoperatively internal medicine team were consulted for medical management REVIEW OF SYSTEMS: CONSTITUTIONAL: No fever, no malaise, no fatigue. HEENT: No recent visual problems or hearing problems. Denied any sore throat. CARDIOVASCULAR: No chest pain, orthopnea, PND, no palpitations, no syncope. PULMONARY: No shortness of breath, no cough, no hemoptysis. GASTROINTESTINAL: No diarrhea, no nausea, no vomiting, no abdominal pain. NEUROLOGICAL: No headaches, no weakness, no numbness. HEMATOLOGICAL: Denies any bleeding or petechiae. GENITOURINARY: Denies any burning micturition, frequency, or urgency. MUSCULOSKELETAL/RHEUMATOLOGICAL: Denies any joint pain, swelling, or any muscle pain. ENDOCRINE: Denies any polyuria or polydipsia. The rest of the 14-point review of systems is negative. PHYSICAL EXAMINATION: GENERAL: The patient is alert and oriented x3, not in any acute distress. Well developed, well nourished. HEENT: Pupils are round and equally reacting to light. EOMI. No scleral icterus. No conjunctival pallor. Normocephalic, atraumatic. No pharyngeal erythema. No thyromegaly. CARDIOVASCULAR: S1 and S2 present. No murmurs, rubs, or gallops. PULMONARY: Chest is clear to auscultation, no wheezing or crackles. ABDOMEN: Soft, nontender, nondistended, normoactive bowel sounds. No palpable organomegaly. MUSCULOSKELETAL: No joint swelling or deformity. EXTREMITIES: No cyanosis, clubbing, or pedal edema. NEUROLOGICAL: Gross neurological examination did not reveal any focal deficits. SKIN: Lumbar area surgical incision seen Assessment and plan L4-5 Grade I spondylolisthesis with spondylosis and stenosis s/p L4-5 minimally invasive posterior lumbar interbody fusion with decompression Neurogenic claudication Lower extremity weakness Hypertension Diabetes mellitus Monitor vital signs Monitor CBC Monitor CMP Continue pain management per orthopedics Continue DVT prophylaxis per orthopedics Resume home meds PT and OT consulted Labs and medication were reviewed.. Continue same treatment. Continue with symptomatic treatment. Resume home medication. Monitor labs and vitals. DVT and GI prophylaxis. Further recommendations as per clinical course of the patient Dictation was produced using [employer] dictation software. please excuse any grammatical, word or spelling errors. Past Medical History Past Medical History: Cancer, Diabetes Mellitus, Eye Disorder, Hyperlipidemia, Hypertension, Liver Disease, Osteoarthritis (OA), Prostate Disorder Additional Past Medical History / Comment(s): Kidney Stones; glaucoma; diverticulitis. Past hx of HTN. Prostate Cancer 07/2015, SURGERY, RADIATON. INCISIONAL HERNIA. elevated liver enzymes were re checked 06/04/23 History of Any Multi-Drug Resistant Organisms: None Reported Past Surgical History: Cholecystectomy, Heart Catheterization With Stent, Hernia Repair, Prostate Surgery Additional Past Surgical History / Comment(s): Multiple Lithotripsies , priscilla Elsy ract removal. finger surgery. Hernia repair w/ mesh; UMBILICAL HERNIA. Cyst removed from tailbone. RT URETRAL STENT 12/11/22, PROSTATECTOMY, COLONOSCOPY Past Anesthesia/Blood Transfusion Reactions: No Reported Reaction Additional Past Anesthesia/Blood Transfusion Reaction / Comm: no blood tx hx Date of Last Stent Placement:: 2022 Past Psychological History: Anxiety, Depression Additional Psychological History / Comment(s): Pt is on Cymbalta which he states works well for him. Smoking Status: Former smoker Past Alcohol Use History: Occasional Additional Past Alcohol Use History / Comment(s): Pt quit smoking in the 1969's. He smoked less than half a pack a day and a pipe for approximately 5 yrs. Past Drug Use History: None Reported - Past Family History Brother(s) Family Medical History: Cancer Additional Family Medical History / Comment(s): Skin cancer Father Family Medical History: Cancer Additional Family Medical History / Comment(s): Skin cancer Mother Family Medical History: Cancer Additional Family Medical History / Comment(s): Skin cancer. Medications and Allergies Home Medications Medication Instructions Recorded Confirmed Type Timolol 0.5% Ophth Soln [Timoptic 1 drop BOTH EYES BID 11/01/18 06/11/24 History 0.5% Ophth Soln] Latanoprost [Xalatan 0.005%] 1 drop BOTH EYES HS 01/29/20 06/11/24 History Aspirin 81 mg PO DAILY chew 02/01/20 06/11/24 Rx Metoprolol Tartrate [Lopressor] 25 mg PO BID #60 tab 02/01/20 06/11/24 Rx amLODIPine [Norvasc] 10 mg PO DAILY #30 tab 02/01/20 06/11/24 Rx Venlafaxine HCl [Effexor XR] 150 mg PO DAILY 03/19/22 06/11/24 History Cholecalciferol [Vitamin D3 (25 50 mcg PO DAILY 12/10/22 06/11/24 History Mcg = 1000 Iu)] Insulin Glargine,Hum.rec.anlog 35 units SQ HS 12/10/22 06/11/24 History [Lantus Solostar Pen] metFORMIN HCL ER [Glucophage XR] 1,000 mg PO BID-W/MEALS 12/10/22 06/11/24 History Nitroglycerin Sl Tabs [Nitrostat] 0.4 mg SUBLINGUAL Q5M PRN tab 04/27/23 06/11/24 Rx Cyclobenzaprine [Flexeril] 10 mg PO TID PRN #21 tablet 05/05/24 06/11/24 Rx Allergies Allergy/AdvReac Type Severity Reaction Status Date / Time Penicillins Allergy Swelling Verified 06/11/24 12:05 propoxyphene napsylate Allergy Rash/Hives Verified 06/11/24 12:05 [From Nathalie-Bravo] Iodinated Contrast Media AdvReac Nausea & Verified 06/11/24 12:05 [Iodinated Contrast- Oral Vomiting and IV Dye] iohexol AdvReac Nausea & Verified 06/11/24 12:05 Vomiting Physical Exam Vitals: Vital Signs Temp Pulse Resp BP Pulse Ox 06/12/24 09:18 68 16 06/12/24 07:31 97.6 F 68 16 142/80 98 06/12/24 01:05 98.2 F 72 16 138/85 94 L 06/11/24 21:00 72 16 06/11/24 19:14 97.6 F 69 18 168/80 97 06/11/24 18:48 88 18 146/80 94 L 06/11/24 18:00 71 18 136/74 94 L 06/11/24 17:00 76 18 126/71 94 L 06/11/24 16:45 65 18 121/58 94 L 06/11/24 16:30 69 17 151/94 96 06/11/24 16:15 72 16 150/78 100 06/11/24 16:06 98.1 F 75 14 176/56 100 Intake and Output 06/11/24 06/12/24 06/12/24 22:59 06:59 14:59 Intake Total 200 Output Total 400 2400 750 Balance -200 -2400 -750 Intake: IV 200 Output: Urine 300 2400 750 Estimated Blood Loss 100 Other: Voiding Method Indwelling Catheter Indwelling Catheter Weight 97.7 kg Results CBC & Chem 7: 06/12/24 03:57 06/12/24 03:57 Labs: Abnormal Lab Results - Last 24 Hours (Table) 06/11/24 06/11/24 06/12/24 Range/Units 16:13 22:50 03:57 MCHC 31.6 L (32.0-37.0) g/dL Immature Gran # 0.05 H (0.00-0.04) X 10*3/uL Neutrophils # 7.80 H (1.80-7.70) X 10*3/uL Eosinophils # 0 L (0.04-0.35) X 10*3/uL Anion Gap (4.00-12.00) mmol/L Glucose (70-110) mg/dL POC Glucose (mg/dL) 189 H 293 H (70-110) mg/dL 06/12/24 06/12/24 06/12/24 Range/Units 03:57 06:07 11:41 MCHC (32.0-37.0) g/dL Immature Gran # (0.00-0.04) X 10*3/uL Neutrophils # (1.80-7.70) X 10*3/uL Eosinophils # (0.04-0.35) X 10*3/uL Anion Gap 14.90 H (4.00-12.00) mmol/L Glucose 282 H (70-110) mg/dL POC Glucose (mg/dL) 292 H 421 H (70-110) mg/dL
[2024-06-12] MEDS: HYDROcodone/APAP 5-325MG 1 EACH TAB PO PRN (14:32)
[2024-06-12] MEDS: HYDROmorphone 0.5 MG/0.5 ML SYRINGE IVP PRN (16:36)
[2024-06-12 16:40] LABS: Glucose,Whole Blood 370 mg/dL (70-110)
[2024-06-12] MEDS: HYDROcodone/APAP 10-325MG 1 EACH TAB PO PRN (19:43)
[2024-06-12 20:41] LABS: Glucose,Whole Blood 361 mg/dL (70-110)
[2024-06-12] MEDS: glipiZIDE 10 MG TAB PO SCH (21:26)
[2024-06-12] MEDS: METOPROLOL TARTRATE 25 MG TAB PO SCH (21:26)
[2024-06-13 06:30] LABS: Glucose,Whole Blood 171 mg/dL (70-110)
[2024-06-13 08:09] VITALS: BP 168/82; PULSE 83; RESP 20; TEMP 98
[2024-06-13] MEDS: ATORVASTATIN 80 MG TAB PO SCH (08:36)
[2024-06-13] MEDS: LOSARTAN 50 MG TAB PO SCH (08:37)
[2024-06-13] MEDS: LINAGLIPTIN 5 MG TABLET PO SCH (08:37)
[2024-06-13] MEDS: amLODIPine 10 MG TAB PO SCH (08:37)
[2024-06-13] MEDS: CHOLECALCIFEROL 25 MCG (1000 IU) TABLET PO SCH (08:37)
[2024-06-13] MEDS: VENLAFAXINE HCL ER 150 MG CAP PO SCH (08:37)
[2024-06-13] MEDS ORDERED: VENLAFAXINE HCL ER 75 MG CAP PO SCH (09:00)
[2024-06-13 11:28] LABS: Glucose,Whole Blood 268 mg/dL (70-110)
--- NOTE | 2024-06-13 12:27 | P.DS ---
Providers Date of admission: 06/11/2024 Expected date of discharge: 06/13/24 Attending physician: Gwyn Nguyen DO Consults: 06/11/24 21:31 Consult Physician Routine Consulting Provider: Etta Aburto Consult Reason/Comments: Medical Consult Do you want consulting provider notified?: Yes Primary care physician: Maritza Gonzalez [facility] Course: Date of admission: 06/11/2024 Date of discharge: 06/13/2024 Admission diagnosis: 1.L4-5 Grade I spondylolisthesis with spondylosis and stenosis 2.Neurogenic claudication 3.Lower extremity weakness 4. LEFT FOOT DROP Discharge diagnosis: Same Attending physician: Dr. Nguyen Surgical procedures: L4-5 posterior lateral interbody fusion Brief history: Patient is a 74-year-old male with a history of L4-5 spondylolisthesis with spondylosis and stenosis; neurogenic claudication; lower extremity weakness and left foot drop. At this point patient has failed conservative treatment measures and has opted to proceed with a elective L4-5 posterior lateral interbody fusion. Hospital course: Details of patient's surgery can be found in operative report. Patient tolerated the procedure well and was subsequently transported to orthopedic floor. Patient's orthopeidc and medical care was provided daily. Patient had daily laboratory tests performed for evaluation of overall blood counts. Patient had daily physical therapy to include strengthening range of motion as well as education with walker ambulation. Patient was treated with aspirin for their postoperative DVT prophylaxis during their inpatient stay. Patient was noted to have a relatively uneventful postoperative course. Patient reported satisfactory pain control with oral pain medications by postoperative day 2. Patient showed satisfactory progress with physical therapy. Patient moved steadily through the program and had no difficulty meeting the goals by postoperative day 2. Given patient's otherwise satisfactory course and having met physical therapy goals, plan is to discharge patient home on postoperative day 2. Discharge condition/disposition: Patient will be discharged home in stable condition. Discharge medications: Instructions are given on resumption of patient's normal daily medications per primary care recommendation, in addition patient will be prescribed Eleva; senna; Duricef; Flexeril. Spine Discharge and Recovery Instructions Date of Surgery: 06/11/2024 Diagnosis: 1.L4-5 Grade I spondylolisthesis with spondylosis and stenosis 2.Neurogenic claudication 3.Lower extremity weakness 4. LEFT FOOT DROP Procedure: L4-5 posterior lateral interbody fusion Medications: See medication list All medication refills should be obtained through your primary care doctor or your clinic spine surgeon. Please discuss prescription refills at your follow up appointment. Do not call the hospital for medication refills. Dressing: Leave your dressing in place for a total of 5 days post operatively. Then you may remove your dressing and leave open to air. Keep the area clean and if not able to keep area clean, then cover with sterile gauze and tape. Showering: You may shower 3 days after your procedure allowing soap and water to run over incision. Do not scrub. Do not soak. Blot dry. Follow up: Please confirm a follow up appointment with your surgeon 3 weeks post operatively. Please make an appointment to follow up with your PCP in 1-2 weeks after surgery for evaluation '3 phase, 3-week plan' POST OP WEEKS 1-3 1. Lifting/carrying/pushing/pulling limited to less than 5 pounds. 2. Do not sit for longer than 15 minutes at one time. Get up and walk around. Prolonged sitting is NOT advised. If you lay down, see if you can tolerate laying down on you front (belly side) 3. Walk for periods of 15 minutes = 1 mile but no longer; do it multiple times times each day. 4. Ice your low back after activity. POST OP WEEKS 3-6 1. Lifting limited to less than 20 pounds. 2. Do not sit for longer than 30 minutes at a time. Frequently change positions. Use a sit-to stand workstation or take frequent breaks from sitting if you have returned to work. 3. Walk for 30 minutes each day. If possible, do these three or more times a day POST OP WEEKS 6+ At your 6-week appointment we will give you a physical therapy referral to focus on a core stabilization and strengthening program. You should also work on leg & buttock strengthening, hamstring & quadriceps stretching, and continue a low impact aerobic activity program such as swimming, walking, or riding a stationary bicycle. During the initial 6 weeks after your surgery, you are at the highest risk of re-injuring your spine. You should generally avoid BLT's (bending, lifting and twisting combination motions) and follow the above guidelines to reduce the chance of reinjury. You can anticipate post op appointments in our office at approximately 3 weeks and 6 weeks after your surgery. INCISION CARE: If your incision is not draining you do NOT need to cover it with a dressing. Keep your incision clean, dry and intact. In most cases, we apply skin glue, leyla or sutures to the incision at the time of surgery. This will be like a crust or have the appearance of a scab and will fall off in time on its own. The stitches or leyla need to be removed at 3 weeks post op appointment. You may begin to shower 3 days after surgery (this allows the glue to meyers well). However, please avoid scrubbing the incision site or peeling off any of the skin glue. This will ensure optimal healing of your incision. Also, during this time avoid soaking the incision area in water - this includes swimming pools, hot tubs or baths. No ointments, lotions or oils on the incision until your surgeon allows. Leave leyla, sutures or glue in place. Neurological dysfunction that comes on suddenly can also be a sign of a stroke. Below some common symptoms of a stroke are listed: B - balance difficulty such as sudden onset walking or leaning to one side - NEW E - eye problem such as sudden double vision or trouble seeing on one side - NEW F - Facial weakness or numbness on one side - NEW A - Arm or leg weakness or numbness on one side - NEW S - Slurred speech or difficulty with word finding - NEW T - Time is BRAIN! Call 911 as soon as you recognize these symptoms Diet: Consume a regular diet rich in vegetables and lean protein such as chicken or fish. You should consume in a ratio of approximately 20% fats|40% carbohydrates|40%protein. Vegetables, sweet potatoes, brown rice or quinoa are examples of good carbohydrates. Chips, white bread, cookies and sweets/sugar are examples of bad carbohydrates. Limit your bad carbs, go wild with good carbs. "Life's Simple 7" Guidelines as per [employer] These will help you reclaim your life after surgery and silica dry press helper in your recovery, keeping in mind your restrictions. (1) Get Active. Physical activity can help people lose weight, control high blood pressure and cholesterol, feel emotionally better, and sleep better. (2) Control Cholesterol. Avoid a diet high in saturated fat, trans fat, & cholesterol. Limit whole milk & cream, ice cream, butter, egg yolks, processed meats (like sausage and hot dogs), and fatty meats. Choose healthy foods that are low in saturated fat, trans fat and cholesterol which include: Fruits and vegetables, fiber rich grain products (like whole grain pasta and brown rice), lean meat such as chicken, fish, nuts, seeds, and legumes. (3) Eat Better. Eat small portions. Shop at the grocery with a list and do not stray from it. Tips for a healthy diet include: Limit sodium intake to less than 1500mg daily, avoid prepackaged, processed, and fast foods, choose a diet rich in fruits, vegetables, and whole grain, high fiber foods, and limit saturated & cholesterol in your diet. (4) Manage Blood Pressure. If you have high blood pressure, you should have a cuff at home so that you can check your blood pressure regularly. Be sure you have a good cuff. An arm one is generally better than a wrist one. Bring the cuff to a doctor's appointment to validate that the measurements that your cuff are taking are accurate. Take your blood pressure twice daily when you are sitting down and relaxing. Record the numbers in a log and bring this log with you to your doctors' appointments. (5) Lose Weight if your BMI is above 25. A healthy BMI is between 19-25. To calculate Your BMI, you may use a Standard BMI Calculator on the NIH BMI website: <www.nhlbi.nih.gov/guidelines/obesity/BMI/bmicalc.htm>. Weigh oneself daily. If you are overweight, set a goal to lose weight. A pound a week loss if needed is a good target. (6) Reduce Blood Sugar. Limit foods and liquids with "added sugars." (Added sugars include sucrose, fructose, glucose, maltose, dextrose, high fructose corn syrup, corn syrup, concentrated fruit juice and honey). (7) Stop Smoking. If you smoke, quitting smoking is one of the best things that you can do for your health. Smoking increases your risk of heart attack, stroke, and peripheral vascular disease, which is a build-up of plaque in your arteries. Please discard all the cigarettes and lighters in your house. Have a plan for what you will do when you have the urge to smoke. Direct and second- hand smoke shortens your life as well as the lives of your family, friends and others around you. For your health and the health of those around you, please consider quitting! Proper Bending Body Mechanics: Maintain a wide stance with one foot slightly in front of the other. Keep your back straight. Bend utilizing the strength in your hips and knees. Do not bend at the waist. Maintain the lifted object at your waist-level close to your body. Avoid lifting weight that causes immediately pain or pain anywhere in the body afterwards. Smoking/Nicotine If there was ever one thing that you could do to increase your overall health, decrease your risk of cardiovascular problems by about 39% the second you make the choice, it is to STOP SMOKING. Your body's most instant gratification is the second you stop smoking. We have all heard the studies, read the articles but it is true, smoking is extremely bad for your overall health, and moreover it is detrimental to your bone health. Nicotine, IN ANY FORM, kills bone cells, prevents your body from healing fractures, and significantly prolongs healing after surgery. In spine surgery specifically, it increases your risk of not healing your bones to create a fusion and increases your risk of having a revision surgery due to this up to 60%. I know it is hard. I know it feels impossible. But there are ways. Take control of your life. We are here to help you through it. And when you are ready, ask us and we can direct you to help if you desire. Use the START Plan to Quit Smoking (please visit the Helpguide.org website listed below for more information): S = Set a quit date. Choose a date within the next 2 weeks, so you have enough time to prepare without losing your motivation to quit. If you mainly smoke at work, quit on the weekend, so you have a few days to adjust to the change. T = Tell family, friends, and co-workers that you plan to quit. Let your friends and family in on your plan to quit smoking and tell them you need their support and encouragement to stop. Look for a quit marsha who wants to stop smoking as well. You can help each other get through the rough times. A = Anticipate and plan for the challenges you'll face while quitting. Most people who begin smoking again do so within the first 3 months. You can help yourself make it through by preparing ahead for common challenges, such as nicotine withdrawal and cigarette cravings. R = Remove cigarettes and other tobacco products from your home, car, and work. Throw away all your cigarettes (no emergency pack!), lighters, ashtrays, and matches. Wash your clothes and freshen up anything that smells like smoke. Shampoo your car, clean your drapes and carpet, and steam your furniture. T = Talk to your doctor about getting help to quit. Your doctor can prescribe medication to help with withdrawal and suggest other alternatives. If you can't see a doctor, you can get many products over the counter at your local pharmacy or grocery store, including the nicotine patch, nicotine lozenges, and nicotine gum. Resources for Quitting Smoking: <https://www.[place].gov/documents/[facility]/Quit_Tobacco_Resources_for_patients_313 480_7.pdf> Supplementation: Take recommended dosages of Vitamin D and Calcium to help fortify your bones and help them to heal. See your health maintenance packet for dosages and recommended levels. DVT/VTE prophylaxis: You will be given compression stockings from the hospital. Wear these daily for the first two weeks after surgery. You may take them off at night. You may be prescribed a medication to help thin your blood. Take this as directed. If you are not prescribed this medication, early and frequent ambulation has been shown to be the best prophylaxis to deep vein thrombosis and sequelae related to this event. Assessment: 1.L4-5 Grade I spondylolisthesis with spondylosis and stenosis 2.Neurogenic claudication 3.Lower extremity weakness 4. LEFT FOOT DROP Procedures: L4-5 posterolateral interbody fusion Patient Condition at Discharge: Good Plan - Discharge Summary Discharge Rx Participant: No New Discharge Prescriptions: New cefaDROXiL [Duricef] 500 mg PO Q12HR 5 Days #10 cap Cyclobenzaprine [Flexeril] 10 mg PO TID #21 tab Sennosides/Docusate Sodium [Senna Plus 8.6-50 mg Softgel] 1 each PO DAILY #20 capsule HYDROcodone/APAP 10-325MG [Eleva 10-325] 1 tab PO Q6HR PRN #28 tab PRN Reason: Pain No Action Timolol 0.5% Ophth Soln [Timoptic 0.5% Ophth Soln] 1 drop BOTH EYES BID Latanoprost [Xalatan 0.005%] 1 drop BOTH EYES HS Aspirin 81 mg PO DAILY chew Metoprolol Tartrate [Lopressor] 25 mg PO BID #60 tab amLODIPine [Norvasc] 10 mg PO DAILY #30 tab Cholecalciferol [Vitamin D3 (25 Mcg = 1000 Iu)] 50 mcg PO DAILY metFORMIN HCL ER [Glucophage XR] 1,000 mg PO BID-W/MEALS Cyclobenzaprine [Flexeril] 10 mg PO TID PRN #21 tablet PRN Reason: Pain Venlafaxine HCl [Effexor XR] 150 mg PO DAILY Insulin Glargine,Hum.rec.anlog [Lantus Solostar Pen] 35 units SQ HS Nitroglycerin Sl Tabs [Nitrostat] 0.4 mg SUBLINGUAL Q5M PRN tab PRN Reason: Chest Pain Discharge Medication List Timolol 0.5% Ophth Soln [Timoptic 0.5% Ophth Soln] 1 drop BOTH EYES BID 11/01/18 [History] Latanoprost [Xalatan 0.005%] 1 drop BOTH EYES HS 01/29/20 [History] Aspirin 81 mg PO DAILY chew 02/01/20 [Rx] Metoprolol Tartrate [Lopressor] 25 mg PO BID #60 tab 02/01/20 [Rx] amLODIPine [Norvasc] 10 mg PO DAILY #30 tab 02/01/20 [Rx] Venlafaxine HCl [Effexor XR] 150 mg PO DAILY 03/19/22 [History] Cholecalciferol [Vitamin D3 (25 Mcg = 1000 Iu)] 50 mcg PO DAILY 12/10/22 [History] Insulin Glargine,Hum.rec.anlog [Lantus Solostar Pen] 35 units SQ HS 12/10/22 [History] metFORMIN HCL ER [Glucophage XR] 1,000 mg PO BID-W/MEALS 12/10/22 [History] Nitroglycerin Sl Tabs [Nitrostat] 0.4 mg SUBLINGUAL Q5M PRN tab 04/27/23 [Rx] Cyclobenzaprine [Flexeril] 10 mg PO TID PRN #21 tablet 05/05/24 [Rx] Cyclobenzaprine [Flexeril] 10 mg PO TID #21 tab 06/13/24 [Rx] HYDROcodone/APAP 10-325MG [Eleva 10-325] 1 tab PO Q6HR PRN #28 tab 06/13/24 [Rx] Sennosides/Docusate Sodium [Senna Plus 8.6-50 mg Softgel] 1 each PO DAILY #20 capsule 06/13/24 [Rx] cefaDROXiL [Duricef] 500 mg PO Q12HR 5 Days #10 cap 06/13/24 [Rx] Follow up Appointment(s)/Referral(s): Home Health,[facility] [NON-STAFF] - As Needed ([facility] will call you to schedule your in home nursing and physical therapy visits. ) Gwyn Nguyen DO [Doctor of Osteopathic Medicine] - 06/26/24 2:30 pm Activity/Diet/Wound Care/Special Instructions: Spine Discharge and Recovery Instructions Date of Surgery: 06/11/2024 Diagnosis: 1.L4-5 Grade I spondylolisthesis with spondylosis and stenosis 2.Neurogenic claudication 3.Lower extremity weakness 4. LEFT FOOT DROP Procedure: L4-5 posterior lateral interbody fusion Medications: See medication list All medication refills should be obtained through your primary care doctor or your clinic spine surgeon. Please discuss prescription refills at your follow up appointment. Do not call the hospital for medication refills. Dressing: Leave your dressing in place for a total of 5 days post operatively. Then you may remove your dressing and leave open to air. Keep the area clean and if not able to keep area clean, then cover with sterile gauze and tape. Showering: You may shower 3 days after your procedure allowing soap and water to run over incision. Do not scrub. Do not soak. Blot dry. Follow up: Please confirm a follow up appointment with your surgeon 3 weeks post operatively. Please make an appointment to follow up with your PCP in 1-2 weeks after surgery for evaluation '3 phase, 3-week plan' POST OP WEEKS 1-3 1. Lifting/carrying/pushing/pulling limited to less than 5 pounds. 2. Do not sit for longer than 15 minutes at one time. Get up and walk around. Prolonged sitting is NOT advised. If you lay down, see if you can tolerate laying down on you front (belly side) 3. Walk for periods of 15 minutes = 1 mile but no longer; do it multiple times times each day. 4. Ice your low back after activity. POST OP WEEKS 3-6 1. Lifting limited to less than 20 pounds. 2. Do not sit for longer than 30 minutes at a time. Frequently change positions. Use a sit-to stand workstation or take frequent breaks from sitting if you have returned to work. 3. Walk for 30 minutes each day. If possible, do these three or more times a day POST OP WEEKS 6+ At your 6-week appointment we will give you a physical therapy referral to focus on a core stabilization and strengthening program. You should also work on leg & buttock strengthening, hamstring & quadriceps stretching, and continue a low impact aerobic activity program such as swimming, walking, or riding a stationary bicycle. During the initial 6 weeks after your surgery, you are at the highest risk of re-injuring your spine. You should generally avoid BLT's (bending, lifting and twisting combination motions) and follow the above guidelines to reduce the chance of reinjury. You can anticipate post op appointments in our office at approximately 3 weeks and 6 weeks after your surgery. INCISION CARE: If your incision is not draining you do NOT need to cover it with a dressing. Keep your incision clean, dry and intact. In most cases, we apply skin glue, leyla or sutures to the incision at the time of surgery. This will be like a crust or have the appearance of a scab and will fall off in time on its own. The stitches or leyla need to be removed at 3 weeks post op appointment. You may begin to shower 3 days after surgery (this allows the glue to meyers well). However, please avoid scrubbing the incision site or peeling off any of the skin glue. This will ensure optimal healing of your incision. Also, during this time avoid soaking the incision area in water - this includes swimming pools, hot tubs or baths. No ointments, lotions or oils on the incision until your surgeon allows. Leave leyla, sutures or glue in place. Neurological dysfunction that comes on suddenly can also be a sign of a stroke. Below some common symptoms of a stroke are listed: B - balance difficulty such as sudden onset walking or leaning to one side - NEW E - eye problem such as sudden double vision or trouble seeing on one side - NEW F - Facial weakness or numbness on one side - NEW A - Arm or leg weakness or numbness on one side - NEW S - Slurred speech or difficulty with word finding - NEW T - Time is BRAIN! Call 911 as soon as you recognize these symptoms Diet: Consume a regular diet rich in vegetables and lean protein such as chicken or fish. You should consume in a ratio of approximately 20% fats|40% carbohydrates|40%protein. Vegetables, sweet potatoes, brown rice or quinoa are examples of good carbohydrates. Chips, white bread, cookies and sweets/sugar are examples of bad carbohydrates. Limit your bad carbs, go wild with good carbs. "Life's Simple 7" Guidelines as per [employer] These will help you reclaim your life after surgery and silica dry press helper in your recovery, keeping in mind your restrictions. (1) Get Active. Physical activity can help people lose weight, control high blood pressure and cholesterol, feel emotionally better, and sleep better. (2) Control Cholesterol. Avoid a diet high in saturated fat, trans fat, & cholesterol. Limit whole milk & cream, ice cream, butter, egg yolks, processed meats (like sausage and hot dogs), and fatty meats. Choose healthy foods that are low in saturated fat, trans fat and cholesterol which include: Fruits and vegetables, fiber rich grain products (like whole grain pasta and brown rice), lean meat such as chicken, fish, nuts, seeds, and legumes. (3) Eat Better. Eat small portions. Shop at the grocery with a list and do not stray from it. Tips for a healthy diet include: Limit sodium intake to less than 1500mg daily, avoid prepackaged, processed, and fast foods, choose a diet rich in fruits, vegetables, and whole grain, high fiber foods, and limit saturated & cholesterol in your diet. (4) Manage Blood Pressure. If you have high blood pressure, you should have a cuff at home so that you can check your blood pressure regularly. Be sure you have a good cuff. An arm one is generally better than a wrist one. Bring the cuff to a doctor's appointment to validate that the measurements that your cuff are taking are accurate. Take your blood pressure twice daily when you are sitting down and relaxing. Record the numbers in a log and bring this log with you to your doctors' appointments. (5) Lose Weight if your BMI is above 25. A healthy BMI is between 19-25. To calculate Your BMI, you may use a Standard BMI Calculator on the NIH BMI website: <www.nhlbi.nih.gov/guidelines/obesity/BMI/bmicalc.htm>. Weigh oneself daily. If you are overweight, set a goal to lose weight. A pound a week loss if needed is a good target. (6) Reduce Blood Sugar. Limit foods and liquids with "added sugars." (Added sugars include sucrose, fructose, glucose, maltose, dextrose, high fructose corn syrup, corn syrup, concentrated fruit juice and honey). (7) Stop Smoking. If you smoke, quitting smoking is one of the best things that you can do for your health. Smoking increases your risk of heart attack, stroke, and peripheral vascular disease, which is a build-up of plaque in your arteries. Please discard all the cigarettes and lighters in your house. Have a plan for what you will do when you have the urge to smoke. Direct and second- hand smoke shortens your life as well as the lives of your family, friends and others around you. For your health and the health of those around you, please consider quitting! Proper Bending Body Mechanics: Maintain a wide stance with one foot slightly in front of the other. Keep your back straight. Bend utilizing the strength in your hips and knees. Do not bend at the waist. Maintain the lifted object at your waist-level close to your body. Avoid lifting weight that causes immediately pain or pain anywhere in the body afterwards. Smoking/Nicotine If there was ever one thing that you could do to increase your overall health, decrease your risk of cardiovascular problems by about 39% the second you make the choice, it is to STOP SMOKING. Your body's most instant gratification is the second you stop smoking. We have all heard the studies, read the articles but it is true, smoking is extremely bad for your overall health, and moreover it is detrimental to your bone health. Nicotine, IN ANY FORM, kills bone cells, prevents your body from healing fractures, and significantly prolongs healing after surgery. In spine surgery specifically, it increases your risk of not healing your bones to create a fusion and increases your risk of having a revision surgery due to this up to 60%. I know it is hard. I know it feels impossible. But there are ways. Take control of your life. We are here to help you through it. And when you are ready, ask us and we can direct you to help if you desire. Use the START Plan to Quit Smoking (please visit the Helpguide.org website listed below for more information): S = Set a quit date. Choose a date within the next 2 weeks, so you have enough time to prepare without losing your motivation to quit. If you mainly smoke at work, quit on the weekend, so you have a few days to adjust to the change. T = Tell family, friends, and co-workers that you plan to quit. Let your friends and family in on your plan to quit smoking and tell them you need their support and encouragement to stop. Look for a quit marsha who wants to stop smoking as well. You can help each other get through the rough times. A = Anticipate and plan for the challenges you'll face while quitting. Most people who begin smoking again do so within the first 3 months. You can help yourself make it through by preparing ahead for common challenges, such as nicotine withdrawal and cigarette cravings. R = Remove cigarettes and other tobacco products from your home, car, and work. Throw away all your cigarettes (no emergency pack!), lighters, ashtrays, and matches. Wash your clothes and freshen up anything that smells like smoke. Shampoo your car, clean your drapes and carpet, and steam your furniture. T = Talk to your doctor about getting help to quit. Your doctor can prescribe medication to help with withdrawal and suggest other alternatives. If you can't see a doctor, you can get many products over the counter at your local pharmacy or grocery store, including the nicotine patch, nicotine lozenges, and nicotine gum. Resources for Quitting Smoking: <https://www.[place].gov/documents/[facility]/ Quit_Tobacco_Resources_for_patients_313480_7.pdf> Supplementation: Take recommended dosages of Vitamin D and Calcium to help fortify your bones and help them to heal. See your health maintenance packet for dosages and recommended levels. DVT/VTE prophylaxis: You will be given compression stockings from the hospital. Wear these daily for the first two weeks after surgery. You may take them off at night. You may be prescribed a medication to help thin your blood. Take this as directed. If you are not prescribed this medication, early and frequent ambulation has been shown to be the best prophylaxis to deep vein thrombosis and sequelae related to this event. Discharge Disposition: HOME SELF-CARE
--- NOTE | 2024-06-13 12:44 | P.PN ---
Subjective Progress Note Date: 06/13/24 Principal diagnosis: 1.L4-5 Grade I spondylolisthesis with spondylosis and stenosis 2.Neurogenic claudication 3.Lower extremity weakness 4. LEFT FOOT DROP Patient was seen at bedside this morning lying the summer composition with dressing in place over lumbar spine. Patient says he is hoping to go home today. He says he did work well with therapy yesterday and walked around the room about. Patient says he has been urinating this morning all right. Patient states no bowel movement yet, however, patient says he has been passing gas. Patient says pain is under control on medication. Patient denies any other orthopedic complaints at this time. Objective - Vital Signs Vital signs: Vital Signs Temp 98.0 F 06/13/24 07:20 Pulse 83 06/13/24 07:20 Resp 20 06/13/24 07:20 BP 168/82 06/13/24 07:20 Pulse Ox 95 06/13/24 07:20 FiO2 Intake & Output 06/12/24 06/13/24 06/13/24 18:59 06:59 18:59 Intake Total 1080 Output Total 1050 1100 Balance -1050 -20 Intake: Oral 1080 Output: Urine 1050 1100 Other: Voiding Method Indwelling Catheter Urinal Urinal # Voids 4 1 - Exam Dressings appear to be clean, dry, intact over the lumbar spine at this time. Sensation is equal, symmetric, by intact throughout extremities on exam. There is some generalized tenderness to patient near incisions. Nontender through rest of exam. Patient does have good range of motion throughout bilateral upper extremities and right lower extremity exam. There is some limited range of motion in left ankle dorsi/plantarflexion and in the EHL/FHL. 4+/5 in all major motor groups in the bilateral upper extremities and right lower extremity exam. 4-/5 in left lower extremity EHL/FHL and ankle and dorsi/plantarflexion. Radial pulse intact, 2+ bilaterally. Cap refill under 3 seconds in digits of upper extremities. Negative Homans bilaterally. Negative clonus bilaterally. Negative Merary bilaterally. - Labs CBC & Chem 7: 06/12/24 03:57 06/12/24 03:57 Labs: Abnormal Lab Results - Last 24 Hours (Table) 01/15/25 01/15/25 01/16/25 Range/Units 16:39 20:40 06:29 POC Glucose (mg/dL) 370 H 361 H 171 H (70-110) mg/dL 06/13/24 Range/Units 11:26 POC Glucose (mg/dL) 268 H (70-110) mg/dL Assessment and Plan Assessment: 1.L4-5 Grade I spondylolisthesis with spondylosis and stenosis 2.Neurogenic claudication 3.Lower extremity weakness 4. LEFT FOOT DROP -Postop day #2 status post L4-5 posterior lateral interbody fusion Plan: 1.L4-5 Grade I spondylolisthesis with spondylosis and stenosis;Neurogenic claudication;Lower extremity weakness; left foot drop -surgery performed 06/11/2024L4-5 posterior lateral interbody fusion. Patient stable bedside this morning. Dressings. Clean, dry, intact. Negative for any drainage. Louie well aligned and intact. Patient's pain is under well- controlled oral medications. Discharge home today with home care. 2. Appreciate medical management 3. Pain management -Machias; Flexeril 4. GI prophylaxis -senna; MiraLAX 5. DVT prophylaxis -aspirin 6. PT/OT -weightbearing as tolerated with walker 7. Encourage incentive spirometer use 8. Discharge planning -home today with home care Time with Patient: Less than 30
--- NOTE | 2024-06-13 13:35 | P.PN ---
Subjective Progress Note Date: 06/13/24 patient is a 74-year-old gentleman with past medical history significant for hypertension, diabetes mellitus, depression presented to the hospital for elective L4-5 minimally invasive posterior lumbar interbody fusion with decompression. Patient has been following up outpatient with orthopedic spine for lower back pain, patient has been noticing that the pain was radiating down to his left extremity. Patient also urine continence and frequent falls. After discussion decision was made to proceed with surgery for which patient presented to the hospital on 06/11. Postoperatively internal medicine team were consulted for medical managementpatient is a 74-year-old gentleman with past medical history significant for hypertension, diabetes mellitus, depression presented to the hospital for elective L4-5 minimally invasive posterior lumbar interbody fusion with decompression. Patient has been following up outpatient with orthopedic spine for lower back pain, patient has been noticing that the pain was radiating down to his left extremity. Patient also urine continence and frequent falls. After discussion decision was made to proceed with surgery for which patient presented to the hospital on 06/11. Postoperatively internal medicine team were consulted for medical management 06/13. Patient seen and examined. Laying comfortably in the bed. No acute issu es overnight REVIEW OF SYSTEMS: CONSTITUTIONAL: No fever, no malaise,. CARDIOVASCULAR: No chest pain, no palpitations, no syncope. PULMONARY: No shortness of breath, no cough, GASTROINTESTINAL: No diarrhea, no nausea, no vomiting, no abdominal pain. NEUROLOGICAL: No headaches, no weakness, PHYSICAL EXAMINATION: GENERAL: The patient is alert and oriented x3, not in any acute distress. Well developed, well nourished. HEENT: Pupils are round and equally reacting to light. EOMI. No scleral icterus. No conjunctival pallor. Normocephalic, atraumatic. No pharyngeal erythema. No thyromegaly. CARDIOVASCULAR: S1 and S2 present. No murmurs, rubs, or gallops. PULMONARY: Chest is clear to auscultation, no wheezing or crackles. ABDOMEN: Soft, nontender, nondistended, normoactive bowel sounds. No palpable organomegaly. MUSCULOSKELETAL: No joint swelling or deformity. EXTREMITIES: No cyanosis, clubbing, or pedal edema. NEUROLOGICAL: Gross neurological examination did not reveal any focal deficits. SKIN: Lumbar area surgical incision seen Assessment and plan L4-5 Grade I spondylolisthesis with spondylosis and stenosis s/p L4-5 minimally invasive posterior lumbar interbody fusion with decompression Neurogenic claudication Lower extremity weakness Hypertension Diabetes mellitus Monitor vital signs Monitor CBC Monitor CMP Continue pain management per orthopedics Continue DVT prophylaxis per orthopedics Patient is medically stable for discharge Labs and medication were reviewed.. Continue same treatment. Continue with symptomatic treatment. Resume home medication. Monitor labs and vitals. DVT and GI prophylaxis. Further recommendations as per clinical course of the patient Dictation was produced using [employer] dictation software. please excuse any grammatical, word or spelling errors. Objective - Vital Signs Vital signs: Vital Signs Temp 98.0 F 06/13/24 07:20 Pulse 83 06/13/24 07:20 Resp 20 06/13/24 07:20 BP 168/82 06/13/24 07:20 Pulse Ox 95 06/13/24 07:20 FiO2 Intake & Output 06/12/24 06/13/24 06/13/24 18:59 06:59 18:59 Intake Total 1080 Output Total 1050 1100 Balance -1050 -20 Intake: Oral 1080 Output: Urine 1050 1100 Other: Voiding Method Indwelling Catheter Urinal Urinal # Voids 4 1 - Labs CBC & Chem 7: 06/12/24 03:57 06/12/24 03:57 Labs: Abnormal Lab Results - Last 24 Hours (Table) 06/12/24 06/12/24 06/13/24 Range/Units 16:39 20:40 06:29 POC Glucose (mg/dL) 370 H 361 H 171 H (70-110) mg/dL 06/13/24 Range/Units 11:26 POC Glucose (mg/dL) 268 H (70-110) mg/dL
== END 2024-06-13 14:30 | disposition home or self-care (01) ==
LOC: OR 11:35 → 4SSUR 15:53 → OR 18:48 → 4SSUR 18:48 → OR 06-13 14:30
PROVIDERS: ADMIT Orthopaedic Surgery; ATTEND Orthopaedic Surgery
DX: M47.816 Spondylosis without myelopathy or radiculopathy, lumbar region (principal); M43.16 Spondylolisthesis, lumbar region; M48.062 Spinal stenosis, lumbar region with neurogenic claudication; M25.78 Osteophyte, vertebrae; M21.372 Foot drop, left foot; R29.6 Repeated falls; R32 Unspecified urinary incontinence; I10 Essential (primary) hypertension; E11.9 Type 2 diabetes mellitus without complications; F32.A Depression, unspecified; F41.9 Anxiety disorder, unspecified; E78.5 Hyperlipidemia, unspecified; Z85.46 Personal history of malignant neoplasm of prostate; Z87.891 Personal history of nicotine dependence; Z95.5 Presence of coronary angioplasty implant and graft; Z79.4 Long term (current) use of insulin; Z79.82 Long term (current) use of aspirin; Z79.84 Long term (current) use of oral hypoglycemic drugs; Z79.899 Other long term (current) drug therapy; Z88.0 Allergy status to penicillin; Z91.041 Radiographic dye allergy status
CPT/HCPCS: 22633; 22853; 20930; 20936; 97116; 97161; 80048; 85025; 72100; 72131; G0378 ×3; G0379; C1713; C1734; J2250; J0330; J1100; J2710; J0690 ×2; J2405; J2003; J3010; J1171 ×3; J2704; J2371; J0665; J1596

== ENCOUNTER 2024-07-12 14:44 | Emergency (ER) | payer MEDICARE ==
[2024-07-12 15:19] VITALS: RESP 18; TEMP 98.3
--- NOTE | 2024-07-12 16:43 | ED ---
General Adult HPI - General Chief complaint: Recheck/Abnormal Lab/Rx Stated complaint: abn labs Time Seen by Provider: 07/12/24 16:08 Source: patient, RN notes reviewed Mode of arrival: ambulatory Limitations: no limitations - History of Present Illness Initial comments: 74-year-old male presents to the emergency department for evaluation of elevated lactic acid. He reports that he had low back surgery about 4-1/2 weeks ago. He notes that about a week later he started experiencing diarrhea. He reports that this is improved. He notes that his bowels have become more solid and he has had less frequent bowel movements. He was evaluated here 2 days ago he states that he followed up with his PCP yesterday and had labs done. He reports that he got a call from his PCP today saying that his lactic acid was elevated at 5.7. He reports that he is feeling okay otherwise. He notes that he is improved from his back surgery. He denies any recent fever, chills. Denies chest pain, shortness of breath, abdominal pain. He had abdominal imaging p erformed when he was here 2 days ago. - Related Data Home Medications Medication Instructions Recorded Confirmed Timolol 0.5% Ophth Soln [Timoptic 1 drop BOTH EYES BID 11/01/18 06/11/24 0.5% Ophth Soln] Latanoprost [Xalatan 0.005%] 1 drop BOTH EYES HS 01/29/20 06/11/24 Venlafaxine HCl [Effexor XR] 150 mg PO DAILY 03/19/22 06/11/24 Cholecalciferol [Vitamin D3 (25 50 mcg PO DAILY 12/10/22 06/11/24 Mcg = 1000 Iu)] Insulin Glargine,Hum.rec.anlog 35 units SQ HS 12/10/22 06/11/24 [Lantus Solostar Pen] metFORMIN HCL ER [Glucophage XR] 1,000 mg PO BID-W/MEALS 12/10/22 06/11/24 Previous Rx's Medication Instructions Recorded Aspirin 81 mg PO DAILY chew 02/01/20 Metoprolol Tartrate [Lopressor] 25 mg PO BID #60 tab 02/01/20 amLODIPine [Norvasc] 10 mg PO DAILY #30 tab 02/01/20 Nitroglycerin Sl Tabs [Nitrostat] 0.4 mg SUBLINGUAL Q5M PRN tab 04/27/23 Cyclobenzaprine [Flexeril] 10 mg PO TID PRN #21 tablet 05/05/24 Cyclobenzaprine [Flexeril] 10 mg PO TID #21 tab 06/13/24 HYDROcodone/APAP 10-325MG [[place] 1 tab PO Q6HR PRN #28 tab 06/13/24 10-325] Sennosides/Docusate Sodium [Senna 1 each PO DAILY #20 capsule 06/13/24 Plus 8.6-50 mg Softgel] cefaDROXiL [Duricef] 500 mg PO Q12HR 5 Days #10 cap 06/13/24 Allergies Allergy/AdvReac Type Severity Reaction Status Date / Time Penicillins Allergy Swelling Verified 07/12/24 15:19 propoxyphene napsylate Allergy Rash/Hives Verified 07/12/24 15:19 [From Darvocet-N] Iodinated Contrast Media AdvReac Nausea & Verified 07/12/24 15:19 [Iodinated Contrast- Oral Vomiting and IV Dye] iohexol AdvReac Nausea & Verified 07/12/24 15:19 Vomiting Review of Systems ROS Statement: Those systems with pertinent positive or pertinent negative responses have been documented in the HPI. ROS Other: All systems not noted in ROS Statement are negative. Past Medical History Past Medical History: Cancer, Diabetes Mellitus, Eye Disorder, Hyperlipidemia, Hypertension, Liver Disease, Osteoarthritis (OA), Prostate Disorder Additional Past Medical History / Comment(s): Kidney Stones; glaucoma; diverticulitis. Past hx of HTN. Prostate Cancer 07/2015, SURGERY, RADIATON. INCISIONAL HERNIA. elevated liver enzymes were re checked 06/04/23 History of Any Multi-Drug Resistant Organisms: None Reported Past Surgical History: Cholecystectomy, Heart Catheterization With Stent, Hernia Repair, Prostate Surgery Additional Past Surgical History / Comment(s): Multiple Lithotripsies , priscilla Ca taract removal. finger surgery. Hernia repair w/ mesh; UMBILICAL HERNIA. Cyst removed from tailbone. RT URETRAL STENT 12/11/22, PROSTATECTOMY, COLONOSCOPY Past Anesthesia/Blood Transfusion Reactions: No Reported Reaction Additional Past Anesthesia/Blood Transfusion Reaction / Comment(s): no blood tx hx Date of Last Stent Placement:: 2022 Past Psychological History: Anxiety, Depression Smoking Status: Former smoker Past Alcohol Use History: Occasional Past Drug Use History: None Reported - Past Family History Brother(s) Family Medical History: Cancer Additional Family Medical History / Comment(s): Skin cancer Father Family Medical History: Cancer Additional Family Medical History / Comment(s): Skin cancer Mother Family Medical History: Cancer Additional Family Medical History / Comment(s): Skin cancer. General Exam Limitations: no limitations General appearance: alert, in no apparent distress Head exam: Present: atraumatic, normocephalic, normal inspection Eye exam: Present: normal appearance, PERRL, EOMI. Absent: scleral icterus, conjunctival injection, periorbital swelling ENT exam: Present: normal exam, mucous membranes moist Respiratory exam: Present: normal lung sounds bilaterally. Absent: respiratory distress, wheezes, rales, rhonchi, stridor Cardiovascular Exam: Present: regular rate, normal rhythm, normal heart sounds. Absent: systolic murmur, diastolic murmur, rubs, gallop, clicks GI/Abdominal exam: Present: soft. Absent: distended, tenderness, guarding, rebound, rigid Extremities exam: Present: normal inspection, full ROM, normal capillary refill. Absent: tenderness, pedal edema, joint swelling, calf tenderness Back exam: Present: normal inspection Neurological exam: Present: alert, oriented X3 Psychiatric exam: Present: normal affect, normal mood Skin exam: Present: warm, dry, intact, normal color. Absent: rash Course Vital Signs 07/12/24 07/12/24 07/12/24 15:15 18:01 20:07 Temperature 98.3 F Pulse Rate 82 80 86 Respiratory 18 18 18 Rate Blood Pressure 139/77 140/80 140/71 O2 Sat by Pulse 99 97 89 L Oximetry Medical Decision Making - Medical Decision Making Was pt. sent in by a medical professional or institution (, PA, [employer]ER, urgent care, hospital, or [facility]...) When possible be specific @ -No Did you speak to anyone other than the patient for history (EMS, parent, family, police, friend...)? What history was obtained from this source @ -No Did you review nursing and triage notes (agree or disagree)? Why? @ -I reviewed and agree with nursing and triage notes Were old charts reviewed (outside hosp., previous admission, EMS record, old EKG, old radiological studies, urgent care reports/EKG's, [facility] records)? Report findings @ -No old charts were reviewed Differential Diagnosis (chest pain, altered mental status, abdominal pain women, abdominal pain men, vaginal bleeding, weakness, fever, dyspnea, syncope, headache, dizziness, GI bleed, back pain, seizure, CVA, palpatations, mental health, musculoskeletal)? @ -Differential Weakness: Hypoglycemia, shock, sepsis, hyponatremia, anemia, infection, OK, ETOH, adverse medicine reaction, overdose, stroke, this is not meant to be an all-inclusive list. EKG interpreted by me (3pts min.). @ -EG at 1755 shows sinus rhythm rate 75, PA 152, QRS 110, QT/QTc 3 73/402 X-rays interpreted by me (1pt min.). @ -Chest x-ray shows no acute process CT interpreted by me (1pt min.). @ -None done U/S interpreted by me (1pt. min.). @ -None done What testing was considered but not performed or refused? (CT, X-rays, U/S, labs)? Why? @ -None What meds were considered but not given or refused? Why? @ -None Did you discuss the management of the patient with other professionals (professionals i.e. , PA, [employer]ER, lab, RT, psych nurse, outreach and education social worker, business account leader, teacher, airfield engineer officer, nurse case management)? Give summary @ -No Was smoking cessation discussed for >3mins.? @ -No Was critical care preformed (if so, how long)? @ -No Were there social determinants of health that impacted care today? How? (Homelessness, low income, unemployed, alcoholism, drug addiction, transportation, low edu. Level, literacy, decrease access to med. care, custodial, rehab)? @ -No Was there de-escalation of care discussed even if they declined (Discuss DNR or withdrawal of care, Hospice)? DNR status @ -No What co-morbidities impacted this encounter? (DM, HTN, Smoking, COPD, CAD, Cancer, CVA, ARF, Chemo, Hep., AIDS, mental health diagnosis, sleep apnea, morbid obesity)? @ -None Was patient admitted / discharged? Hospital course, mention meds given and route, prescriptions, significant lab abnormalities, going to OR and other pertinent info. @ -Discharge. Patient presented emergency department for evaluation of elevated lactic acid. Laboratory studies obtained CMP nonactionable at this time. Lactic acid 1.9 no evidence of infectious process. Discussed lab results with patient. He will be discharged home. Advised follow-up with PCP. He is understanding agreeable with plan. Patient stable at time of discharge. Case discussed with Dr. Cornejo Undiagnosed new problem with uncertain prognosis? @ -No Drug Therapy requiring intensive monitoring for toxicity (Heparin, Nitro, Insulin, Cardizem)? @ -No Were any procedures done? @ -No Diagnosis/symptom? @ -Diarrhea, weakness Acute, or Chronic, or Acute on Chronic? @ -acute Uncomplicated (without systemic symptoms) or Complicated (systemic symptoms)? @ -uncomplicated Side effects of treatment? @ -No Exacerbation, Progression, or Severe Exacerbation? @ -No Poses a threat to life or bodily function? How? (Chest pain, USA, OK, pneumonia, PE, COPD, DKA, ARF, appy, cholecystitis, CVA, Diverticulitis, Homicidal, Suicidal, threat to staff... and all critical care pts) @ -No - Lab Data Result diagrams: 07/12/24 17:15 07/12/24 17:15 Lab Results 07/12/24 07/12/24 07/12/24 Range/Units 17:15 17:15 17:15 WBC 6.2 (3.8-10.6) k/uL RBC 4.50 (4.30-5.90) m/uL Hgb 12.8 L (13.0-17.5) gm/dL Hct 39.6 (39.0-53.0) % MCV 88.1 (80.0-100.0) fL MCH 28.5 (25.0-35.0) pg MCHC 32.3 (31.0-37.0) g/dL RDW 14.4 (11.5-15.5) % Plt Count 156 (150-450) k/uL MPV 8.3 Neutrophils % 68 % Lymphocytes % 23 % Monocytes % 5 % Eosinophils % 2 % Basophils % 1 % Neutrophils # 4.2 (1.3-7.7) k/uL Lymphocytes # 1.5 (1.0-4.8) k/uL Monocytes # 0.3 (0-1.0) k/uL Eosinophils # 0.1 (0-0.7) k/uL Basophils # 0.1 (0-0.2) k/uL PT 10.9 (10.0-12.5) sec INR 1.0 (<1.2) APTT 21.7 L (22.0-30.0) sec Sodium 137 (137-145) mmol/L Potassium 4.3 (3.5-5.1) mmol/L Chloride 101 (98-107) mmol/L Carbon Dioxide 29 (22-30) mmol/L Anion Gap 7 mmol/L BUN 24 H (9-20) mg/dL Creatinine 1.04 (0.66-1.25) mg/dL Est GFR (CKD-EPI)AfAm 82 (>60 ml/min/1.73 sqM) Est GFR (CKD-EPI)NonAf 71 (>60 ml/min/1.73 sqM) Glucose 167 H (74-99) mg/dL Plasma Lactic Acid Antoine (0.7-2.0) mmol/L Calcium 9.2 (8.4-10.2) mg/dL Total Bilirubin 0.4 (0.2-1.3) mg/dL AST 24 (17-59) U/L ALT 20 (4-49) U/L Alkaline Phosphatase 115 (38-126) U/L Total Protein 6.2 L (6.3-8.2) g/dL Albumin 3.8 (3.5-5.0) g/dL Urine Color Urine Appearance (Clear) Urine pH (5.0-8.0) Ur Specific [place] (1.001-1.035) Urine Protein (Negative) Urine Glucose (UA) (Negative) Urine Ketones (Negative) Urine Blood (Negative) Urine Nitrite (Negative) Urine Bilirubin (Negative) Urine Urobilinogen (<2.0) mg/dL Ur Leukocyte Esterase (Negative) 07/12/24 07/12/24 Range/Units 17:15 17:25 WBC (3.8-10.6) k/uL RBC (4.30-5.90) m/uL Hgb (13.0-17.5) gm/dL Hct (39.0-53.0) % MCV (80.0-100.0) fL MCH (25.0-35.0) pg MCHC (31.0-37.0) g/dL RDW (11.5-15.5) % Plt Count (150-450) k/uL MPV Neutrophils % % Lymphocytes % % Monocytes % % Eosinophils % % Basophils % % Neutrophils # (1.3-7.7) k/uL Lymphocytes # (1.0-4.8) k/uL Monocytes # (0-1.0) k/uL Eosinophils # (0-0.7) k/uL Basophils # (0-0.2) k/uL PT (10.0-12.5) sec INR (<1.2) APTT (22.0-30.0) sec Sodium (137-145) mmol/L Potassium (3.5-5.1) mmol/L Chloride (98-107) mmol/L Carbon Dioxide (22-30) mmol/L Anion Gap mmol/L BUN (9-20) mg/dL Creatinine (0.66-1.25) mg/dL Est GFR (CKD-EPI)AfAm (>60 ml/min/1.73 sqM) Est GFR (CKD-EPI)NonAf (>60 ml/min/1.73 sqM) Glucose (74-99) mg/dL Plasma Lactic Acid Antoine 1.9 (0.7-2.0) mmol/L Calcium (8.4-10.2) mg/dL Total Bilirubin (0.2-1.3) mg/dL AST (17-59) U/L ALT (4-49) U/L Alkaline Phosphatase (38-126) U/L Total Protein (6.3-8.2) g/dL Albumin (3.5-5.0) g/dL Urine Color Colorless Urine Appearance Clear (Clear) Urine pH 6.0 (5.0-8.0) Ur Specific [place] 1.017 (1.001-1.035) Urine Protein Negative (Negative) Urine Glucose (UA) Negative (Negative) Urine Ketones Negative (Negative) Urine Blood Negative (Negative) Urine Nitrite Negative (Negative) Urine Bilirubin Negative (Negative) Urine Urobilinogen <2.0 (<2.0) mg/dL Ur Leukocyte Esterase Negative (Negative) Disposition Clinical Impression: Diarrhea Disposition: HOME SELF-CARE Condition: Stable Additional Instructions: Please follow up with your primary care provider. Return to the emergency department for new or worsening symptoms. Is patient prescribed a controlled substance at d/c from ED?: No Referrals: Maritza Gonzalez MD [Primary Care Provider] - 1-2 days
[2024-07-12 17:44] LABS: Basophils # (A) 0.1 k/uL (0-0.2); Basophils % (A) 1 %; Eosinophils # (A) 0.1 k/uL (0-0.7); Eosinophils % (A) 2 %; HCT 39.6 % (39.0-53.0); HGB 12.8 gm/dL (13.0-17.5); Lymphocytes # (A) 1.5 k/uL (1.0-4.8); Lymphocytes % (A) 23 %; MCH 28.5 pg (25.0-35.0); MCHC 32.3 g/dL (31.0-37.0); MCV 88.1 fL (80.0-100.0); Mean Platelet Volume 8.3; Monocytes # (A) 0.3 k/uL (0-1.0); Monocytes % (A) 5 %; Neutrophils # (A) 4.2 k/uL (1.3-7.7); Neutrophils % (A) 68 %; Platelet Count 156 k/uL (150-450); RDW 14.4 % (11.5-15.5); WBC 6.2 k/uL (3.8-10.6)
--- NOTE | 2024-07-12 17:56 | XR ---
EXAMINATION TYPE: XR chest 2V DATE OF EXAM: 07/12/2024 5:40 PM COMPARISON: 04/25/2023 CLINICAL INDICATION: Male, 74 years old with history of Weakness, TECHNIQUE: XR chest 2V view(s) obtained. FINDINGS: The heart size is normal. The pulmonary vasculature is normal. The lungs are clear. IMPRESSION: 1. No acute pulmonary process. [facility], , 07/12/2024 5:54 PM
[2024-07-12 18:00] LABS: Appearance,Urine Clear (Clear); Bilirubin,Urine Negative (Negative); Blood,Urine Negative (Negative); Color,Urine Colorless; Glucose,Urine (UA) Negative (Negative); Ketones,Urine Negative (Negative); Leukocyte Esterase,Urine Negative (Negative); Nitrite,Urine Negative (Negative); Protein,Urine Negative (Negative); Specific Gravity,Urine 1.017 (1.001-1.035); Urobilinogen,Urine <2.0 mg/dL (<2.0)
[2024-07-12 18:07] LABS: Prothrombin Time 10.9 sec (10.0-12.5)
[2024-07-12 18:08] LABS: ALT 20 U/L (4-49); AST 24 U/L (17-59); African American GFR (CKD) 82 (>60 ml/min/1.73 sqM); Albumin 3.8 g/dL (3.5-5.0); Alkaline Phosphatase 115 U/L (38-126); Anion Gap 7 mmol/L; Blood Urea Nitrogen 24 mg/dL (9-20); Calcium 9.2 mg/dL (8.4-10.2); Carbon Dioxide 29 mmol/L (22-30); Chloride 101 mmol/L (98-107); Glucose 167 mg/dL (74-99); Non-African American GFR(CKD) 71 (>60 ml/min/1.73 sqM); Potassium 4.3 mmol/L (3.5-5.1); Sodium 137 mmol/L (137-145); Total Bilirubin 0.4 mg/dL (0.2-1.3); Total Protein 6.2 g/dL (6.3-8.2)
[2024-07-12] MEDS: SODIUM CHLORIDE 0.9% 500 ML 500 ML IV ONE (18:16)
[2024-07-12 18:18] LABS: Partial Thromboplastin Time 21.7 sec (22.0-30.0)
[2024-07-12 20:08] VITALS: BP 140/71; PULSE 86
== END 2024-07-12 20:07 | disposition home or self-care (01) ==
LOC: EC 14:44
DX: R19.7 Diarrhea, unspecified (principal); R53.1 Weakness; Z87.891 Personal history of nicotine dependence; Z88.0 Allergy status to penicillin; Z88.8 Allergy status to other drugs, medicaments and biological substances; Z91.041 Radiographic dye allergy status
CPT/HCPCS: 36415; 71046; 80053; 81003; 83605; 85025; 85610; 85730; 93005; 99284

== ENCOUNTER 2024-08-09 07:26 | Day surgery (SDC) | payer MEDICARE ==
[2024-08-08 08:55] VITALS: BMI 32.3
[2024-08-09] MEDS: LACTATED RINGERS 1,000 ML IV SCH (07:56)
[2024-08-09] MEDS: IV FLUID CONTINUATION 1,000 ML IV ONE (07:56)
[2024-08-09 08:04] VITALS: TEMP 98
[2024-08-09 08:07] LABS: Glucose,Whole Blood 126 mg/dL (70-110)
[2024-08-09] MEDS ORDERED: PROPOFOL 10 MG/ML 20 ML VIAL IV ONE (08:07)
[2024-08-09] MEDS ORDERED: LIDOCAINE 1% INJ 10MG/ML (20 ML MDV) ONE (08:07)
--- NOTE | 2024-08-09 08:39 | P.PCN ---
Date of Procedure: 08/09/24 Procedure(s) Performed: Brief history: Patient is a pleasant 74-year-old white female scheduled for an elective upper endoscopy as well as colonoscopy as a part of evaluation of intermittent black tarry stools, reflux symptoms and chronic diarrhea for the last 2 months duration. He is having chronic diarrhea with bowel movements anywhere from 5-10 a day which are loose watery consistency but no blood or mucus in the stool. Procedure performed: Esophagogastroduodenoscopy with biopsy Colonoscopy with biopsy Preoperative diagnosis: Chronic heartburn Intermittent black stools Chronic diarrhea Anesthesia: MAC Procedure: After informed consent was obtained from the patient was brought into the endos copy unit and IV sedation was administered by anesthesia under continuous monitoring. Initially upper endoscopy was done. The Olympus GF 160 video endoscope was inserted inserted into the mouth and esophagus intubated without any difficulty and was gradually advanced into the stomach and duodenum and carefully examined. The bulb and second part of the duodenum appeared normal. These were done from the duodenum rule out celiac disease. The scope was then withdrawn into the stomach adequately insufflated with air and upon careful examination the antrum mild gastritis and biopsies were done from this area. Body, cardia and fundus appeared normal. The scope was then withdrawn into the esophagus. Small hiatal hernia noted. The GE junction was located at 40 cm to the incisors. It appeared regular with 2 superficial erosions consistent with LA grade B reflux esophagitis. Rest of the esophagus appeared normal. Patient tolerated the procedure well. At this time the patient continued to remain sedation. Initial digital rectal examination was normal. Olympus CF 160 video colonoscope was then inserted into the rectum and gradually advanced to the cecum without any difficulty. Careful examination was performed as the scope was gradually being withdrawn. The prep was excellent. The cecum, ascending colon, transverse colon, descending colon, sigmoid colon and rectum appeared normal and biopsies were done from the ascending and descending colon to rule out microscopic/collagenous colitis.. Scattered sigmoid diverticulosis. Retroflexion was performed in the rectum and no lesions were noted. Patient tolerated the procedure well. Impression: 1. Upper endoscopy revealed mild antral gastritis, small hiatal hernia and LA grade B reflux esophagitis 2. Colonoscopy revealed scattered sigmoid diverticulosis but no evidence of colitis or colorectal neoplasia, status post random biopsies rule out microscopic/collagenous colitis Recommendations: Findings of this examination were discussed with the patient as well as her family. He was advised to follow-up with the biopsy. Follow-up in the office in 2 weeks.
[2024-08-09 08:48] VITALS: BP 117/79
[2024-08-09 09:25] VITALS: PULSE 62; RESP 16
== END 2024-08-09 09:43 | disposition home or self-care (01) ==
LOC: ORWHC2ENDO 07:26
PROVIDERS: ATTEND Internal Medicine Gastroenterology
DX: K29.50 Unspecified chronic gastritis without bleeding (principal); K29.80 Duodenitis without bleeding; K44.9 Diaphragmatic hernia without obstruction or gangrene; K21.00 Gastro-esophageal reflux disease with esophagitis, without bleeding; K57.30 Diverticulosis of large intestine without perforation or abscess without bleeding; K92.1 Melena; K70.9 Alcoholic liver disease, unspecified; I25.10 Atherosclerotic heart disease of native coronary artery without angina pectoris; E11.9 Type 2 diabetes mellitus without complications; N20.0 Calculus of kidney; I10 Essential (primary) hypertension; E78.5 Hyperlipidemia, unspecified; Z74.09 Other reduced mobility; Z88.0 Allergy status to penicillin; Z90.01 Acquired absence of eye; Z91.041 Radiographic dye allergy status; Z88.5 Allergy status to narcotic agent; Z79.4 Long term (current) use of insulin; Z79.84 Long term (current) use of oral hypoglycemic drugs; Z79.899 Other long term (current) drug therapy
CPT/HCPCS: 88305; 45380; 43239; J2003; J2704

== ENCOUNTER → 2024-12-17 | Outpatient (CLI) | payer MEDICARE | END | disposition home or self-care (01) | LOC: LABWHC1 14:28 | PROVIDERS: ATTEND Urology | DX: C61 Malignant neoplasm of prostate (principal) | CPT/HCPCS: 36415; 84153 ==